=== PATIENT | male | born 1935 | race African-American/Black ===

== ENCOUNTER 2016-10-11 20:37 | Inpatient (IN) | payer MEDICARE ==
[~2016-10-11] VITALS: Ht 195.6 cm; Wt 119.0 kg
[~2016-10-11 20:37] MED LIST: AMLO5TAB2 PO; CARV6.25 PO; COLC0.6T34 PO; FLUT16SP2 NS; HTN MED; LOSA50TA6 PO; MECL25TA3 PO; NITR0.4T SL; OXYC1TAB8 PO; POTA20TA12 PO; TAMS0.4C97 PO; TORS20TA2 PO; WARF-78 PO; WARF2.5T83 PO; WARF2TAB PO; [UNRECOGNIZED DRUG - OTHER]; flomax; losartan; warfarin
[2016-10-11 21:29] LABS: BASO % 1 % (0-3); EOS % 9 % (0-3); HEMATOCRIT 33.2 % (39.0-53.0); HEMOGLOBIN 10.7 g/dL (13.0-17.5); LYMPH # 1.2 x10^3/uL (1.0-4.8); LYMPH % 26 % (24-48); MEAN CORPUSCULAR HEMOGLOBIN 31 pg (25-35); MEAN CORPUSCULAR HGB CONC 32 g/dL (31-37); MEAN CORPUSCULAR VOLUME 96 fL (79-100); MONO % 7 % (0-9); NEUT % 57 % (31-73); PLATELET COUNT 151 x10^3/uL (140-400); RED BLOOD COUNT 3.47 x10^6/uL (4.30-5.70); RED CELL DISTRIBUTION WIDTH 15.4 % (11.5-14.5); WHITE BLOOD COUNT 4.7 x10^3/uL (4.0-11.0)
[2016-10-11] MEDS ORDERED: NITROGLYCERIN SUBLINGUAL 0.4 MG BOTTLE OF 25. SL PRN ×2 (21:30→23:15)
[2016-10-11 21:36] LABS: CALCIUM 8.9 mg/dL (8.5-10.1); CREATININE 3.5 mg/dL (0.7-1.3); GFR 20.5
[2016-10-11 21:37] LABS: PROTHROMBIN TIME PATIENT 46.5 SEC (11.7-14.0)
[2016-10-11 21:38] LABS: POTASSIUM 5.3 mmol/L (3.5-5.1)
[2016-10-11 21:40] LABS: INR 5.5 (0.8-1.1)
[2016-10-11 21:42] LABS: ALBUMIN 3.9 g/dL (3.4-5.0); ALBUMIN/GLOBULIN RATIO 1.1 (1.0-1.7); TOTAL BILIRUBIN 0.4 mg/dL (0.2-1.0); TOTAL PROTEIN 7.6 g/dL (6.4-8.2)
[2016-10-11] MEDS ORDERED: ASPIRIN 325 MG TABLET PO ONE (22:00)
[2016-10-11] MEDS ORDERED: MORPHINE SULFATE 2 MG/ML DISP.SYRIN. IV PRN (23:15)
[2016-10-11] MEDS ORDERED: ACETAMINOPHEN 325 MG TABLET. PO PRN (23:15)
[2016-10-11] MEDS ORDERED: ONDANSETRON PF 4 MG/2 ML VIAL. IV PRN (23:15)
[2016-10-11 23:16] VITALS: BP 126/66
[2016-10-11 23:20] VITALS: BP 126/66
[2016-10-12] MEDS ORDERED: MAGN400T3 PO (01:06)
[2016-10-12] MEDS ORDERED: POTA20TA82 PO (01:06)
[2016-10-12] MEDS ORDERED: TORS20TA2 PO (01:06)
[2016-10-12] MEDS ORDERED: SPIR50TA2 PO (01:06)
[2016-10-12] MEDS ORDERED: HYDR-2869 PO (01:06)
[2016-10-12] MEDS ORDERED: POTA10TA5 PO (01:06)
[2016-10-12] MEDS ORDERED: FENT1PAT13 TD (01:06)
[2016-10-12] MEDS ORDERED: CARV12.52 PO (01:06)
[2016-10-12] MEDS ORDERED: LOSA100T6 PO (01:06)
[2016-10-12] MEDS ORDERED: PRAV40TA2 PO (01:06)
[2016-10-12] MEDS ORDERED: OXYC-328 PO (01:06)
--- NOTE | 2016-10-12 01:20 | PHYS DOC ---
Past Medical History Past Medical History: CHF, High Cholesterol, Hypertension Additional Past Medical Histor: chronic pain Past Surgical History: Knee Replacement, Other Additional Past Surgical Histo: Left shoulder replacement approx 10 years ; left knee ACL ; Pacemaker 2014 Alcohol Use: None Drug Use: None Adult General Chief Complaint Chief Complaint: CHEST PAIN HPI HPI Patient is a 81 year old male who presents with chest pain. The patient reports intermittent sharp substernal chest pain since yesterday. Pain is nonradiating. Associated with shortness of breath and diaphoresis, denies nausea. Denies fevers or chills, cough, increased lower extremity swelling or calf pain. Denies previous history of similar symptoms. He does have history of CHF for which he takes Lasix. Reports history of hypertension, denies diabetes, CAD, COPD/asthma. Nonsmoker. PCP is Dr. Lei Moyer & budget assistant is Dr. Sullivan. Review of Systems Review of Systems Constitutional: Denies fever or chills Eyes: Denies change in visual acuity HENT: Denies nasal congestion or sore throat Respiratory: Denies cough, reports shortness of breath Cardiovascular: Reports chest pain, denies edema GI: Denies abdominal pain, nausea, vomiting Musculoskeletal: Denies back pain or joint pain Integument: Denies rash or skin lesions Neurologic: Denies headache, focal weakness or sensory changes Current Medications Current Medications Current Medications Medications (Trade) Dose Ordered Sig/Tam Start Time Stop Time Status Last Admin Dose Admin Aspirin (Lee Aspirin) 325 mg 1X ONCE 10/11/16 22:00 10/11/16 22:01 DC 10/11/16 21:40 325 MG Nitroglycerin (Nitrostat) 0.4 mg PRN Q5MIN PRN 10/11/16 21:30 Allergies Allergies Allergies Coded Allergies Type Severity Reaction Last Updated Verified No Known Drug Allergies 07/19/13 No Physical Exam Physical Exam Constitutional: Well developed, well nourished, no acute distress, non-toxic appearance. HENT: Normocephalic, atraumatic, bilateral external ears normal, oropharynx moist, nose normal. Eyes: right eye opacification, conjunctiva normal, no discharge. Neck: supple, no stridor. Cardiovascular: RRR, no murmurs Lungs & Thorax: LCTAB, no wheezing, no respiratory distress. no reproducible tenderness with palpation over anterior chest wall. Abdomen: soft, nontender, nondistended. Skin: Warm, dry, no erythema, no rash. Back: No tenderness. Extremities: 2+ edema bilateral lower extremities without calf tenderness. Neurologic: Alert and oriented X 3, no focal deficits noted. Psychologic: Affect normal, judgement normal, mood normal. Current Patient Data Vital Signs Vital Signs Date Time Temp Pulse Resp B/P (MAP) Pulse Ox O2 Delivery O2 Flow Rate FiO2 10/11/16 22:06 60 15 107/59 (75) 97 Nasal Cannula 2.0 10/11/16 20:59 98.6 98.6 Lab Values Laboratory Tests Test 10/11/16 20:50 White Blood Count 4.7 x10^3/uL (4.0-11.0) Red Blood Count 3.47 x10^6/uL (4.30-5.70) L Hemoglobin 10.7 g/dL (13.0-17.5) L Hematocrit 33.2 % (39.0-53.0) L Mean Corpuscular Volume 96 fL (79-100) Mean Corpuscular Hemoglobin 31 pg (25-35) Mean Corpuscular Hemoglobin Concent 32 g/dL (31-37) Red Cell Distribution Width 15.4 % (11.5-14.5) H Platelet Count 151 x10^3/uL (140-400) Neutrophils (%) (Auto) 57 % (31-73) Lymphocytes (%) (Auto) 26 % (24-48) Monocytes (%) (Auto) 7 % (0-9) Eosinophils (%) (Auto) 9 % (0-3) H Basophils (%) (Auto) 1 % (0-3) Neutrophils # (Auto) 2.7 x10^3uL (1.8-7.7) Lymphocytes # (Auto) 1.2 x10^3/uL (1.0-4.8) Monocytes # (Auto) 0.3 x10^3/uL (0.0-1.1) Eosinophils # (Auto) 0.4 x10^3/uL (0.0-0.7) Basophils # (Auto) 0.0 x10^3/uL (0.0-0.2) Prothrombin Time 46.5 SEC (11.7-14.0) H Prothrombin Time INR 5.5 (0.8-1.1) *H PTT 59 SEC (24-38) H Sodium Level 141 mmol/L (136-145) Potassium Level 5.3 mmol/L (3.5-5.1) H Chloride Level 101 mmol/L (98-107) Carbon Dioxide Level 34 mmol/L (21-32) H Anion Gap 6 (6-14) Blood Urea Nitrogen 67 mg/dL (8-26) H Creatinine 3.5 mg/dL (0.7-1.3) H Estimated GFR (Cockcroft-Gault) 20.5 BUN/Creatinine Ratio 19 (6-20) Glucose Level 110 mg/dL (70-99) H Calcium Level 8.9 mg/dL (8.5-10.1) Total Bilirubin 0.4 mg/dL (0.2-1.0) Aspartate Amino Transferase (AST) 18 U/L (15-37) Alanine Aminotransferase (ALT) 17 U/L (16-63) Alkaline Phosphatase 67 U/L (46-116) Troponin I Quantitative < 0.017 ng/mL (0.000-0.055) MH-Mky-S-Type Natriuretic Peptide 231 pg/mL (0-449) Total Protein 7.6 g/dL (6.4-8.2) Albumin 3.9 g/dL (3.4-5.0) Albumin/Globulin Ratio 1.1 (1.0-1.7) Laboratory Tests 10/11/16 20:50 Laboratory Tests 10/11/16 20:50 EKG EKG interpreted by me: paced rhythm rate 64[] Radiology/Procedures Radiology/Procedures CXR, portable: interpreted by me: cardiomegaly with tortuous aorta, no infiltrate, no pneumothorax, scattered metallic foreign bodies, no acute change from 07/19/2013[] Course & Med Decision Making Course & Med Decision Making Pertinent Labs and Imaging studies reviewed. (See chart for details) The patient visits with chest pain. Gave aspirin on arrival. Administered nitroglycerin and morphine. Obtained labs, EKG, chest x-ray. No acute abnormalities identified. Patient had persistent chest pain. Creatinine increased from 1.1 in 2013 to 3.5 today. Recommended admission to the hospital for further evaluation and treatment. PAULETTE score is 4. Patient agrees with plan of care. Discussed with Dr. Castillo who agrees to admit to inpatient status , cardiology consult to Dr. Herrera & nephrology consult to Dr. Hernanedz. The patient is admitted in stable condition.[] Dragon Disclaimer Dragon Disclaimer This electronic medical record was generated, in whole or in part, using a voice recognition dictation system. Departure Departure Impression: Primary Impression: Chest pain Additional Impression: Acute renal failure Disposition: ADMITTED INPATIENT Admitting Physician: Mehul Castillo Condition: STABLE Problem Qualifiers Primary Impression: Chest pain Chest pain type: unspecified Qualified Codes: R07.9 - Chest pain, unspecified PATY POTTER MD Oct 12, 2016 01:20
[2016-10-12 03:18] VITALS: BP 120/69
[2016-10-12] MEDS: IV NORMAL SALINE 1000ML BAG 500 ML IV SCH ×4 (04:33→16:30)
--- NOTE | 2016-10-12 06:55 | EKG ---
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
[2016-10-12 07:15] VITALS: BP 109/56
--- NOTE | 2016-10-12 07:58 | EKG ---
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
[2016-10-12] MEDS ORDERED: LOSARTAN POTASSIUM 50 MG TABLET. PO SCH (09:00)
[2016-10-12] MEDS ORDERED: TORSEMIDE 20 MG TABLET. PO SCH (09:00)
[2016-10-12] MEDS ORDERED: SPIRONOLACTONE 25 MG TABLET PO SCH (09:00)
[2016-10-12] MEDS ORDERED: TAMSULOSIN 0.4 MG CAP.ER.24H. PO SCH (09:00)
[2016-10-12] MEDS: CARVEDILOL 12.5 MG TABLET. PO SCH ×2 (09:00→16:54)
[2016-10-12] MEDS: fentaNYL 12MCG/HR PATCH 1 PATCH PATCH.TD72 TD SCH (09:57)
--- NOTE | 2016-10-12 09:58 | PDOC2 ---
CARDIAC CONSULT DATE OF CONSULT Date of Consult DATE: 10/12/16 TIME: 09:37 REASON FOR CONSULT Reason for Consult: Chest pain REFERRING PHYSICIAN Referring Physician: Alexia SOURCE Source: Chart review, Patient HISTORY OF PRESENT ILLNESS HISTORY OF PRESENT ILLNESS This is a pleasant 81 yo male admitted for complains of chest pain. Reports that this was sharp started yesterday more in the epigastric-xiphoid junction. No radiation. Denies any nausea, vomiting, diarrhea, palpitations. He also has been having right arm numbness for a week now intermittently. He is significant for LTSA but at the same has OA to his left shoulder and his ROM is limited. Also yesterday, he felt a little SOA but is better now. Denies any O2 use at home, hx of COPD or JACINDA. Reports no CAD, but positive for PAFIB/OAC use. Has not had any recent stress test. Has not had any recurrence of his CP. He has been feeling bloated, edematous legs. No PND but somewhat with orthopnea. He has not been drinking as much as he could and has been compliant with his medications which include torsemide, losartan and aldactone to name a few. Reports that he did ran out of allopurinol 2 weeks ago and his gout has been bothering him. Reports that he has been on chronic use of aleve 500 mg bid. He takes 60 mg of torsemide daily at home. He follows with cardiology, last seen by Dr. Nate leonard of 2016. PAST MEDICAL HISTORY Cardiovascular: AFIB, CHF, HTN, Hyperlipidemia Pulmonary: No pertinent hx CENTRAL NERVOUS SYSTEM: Other (No pertinent history) GI: No pertinent hx Heme/Onc: Other (chronic anticoagulation) Hepatobiliary: No pertinent hx Psych: No pertinent hx Musculoskeletal: Osteoarthritis Rheumatologic: Gout Infectious disease: No pertinent hx ENT: No pertinent hx Renal/: Chronic renal insuff Endocrine: No pertinent hx Dermatology: No pertinent hx PAST SURGICAL HISTORY Past Surgical History: Pacemaker, Other (LTSA) FAMILY HISTORY Family History noncontributory to CV SOCIAL HISTORY Smoke: No ALCOHOL: none Drugs: None Lives: with Family CURRENT MEDICATIONS CURRENT MEDICATIONS Current Medications Medications (Trade) Dose Ordered Sig/Tam Route PRN Reason Start Time Stop Time Status Last Admin Dose Admin Aspirin (Lee Aspirin) 325 mg 1X ONCE PO 10/11/16 22:00 10/11/16 22:01 DC 10/11/16 21:40 Sodium Chloride 500 ml @ 100 mls/hr Q5H IV 10/12/16 01:30 10/12/16 04:33 ALLERGIES ALLERGIES: Coded Allergies: No Known Drug Allergies (Unverified , 07/19/13) ROS Review of System 14 point ROS evaluated with pertinent positives noted per HPI PHYSICAL EXAM General: Alert, Oriented X3, Cooperative, No acute distress HEENT: Atraumatic, Mucous membr. moist/pink, Other (JVD) Lungs: Other (faint basilar expiratory wheeze) Heart: Regular rate (SR), Normal S1, Normal S2, Other (distant heart sounds) Extremities: No cyanosis, Other (3+ bilateral pitting LE edema) Skin: No breakdown, No significant lesion Neuro: Normal speech, Sensation intact Psych/Mental Status: Mood NL MUSCULOSKELETAL: Osteoarthritic changes both hands VITALS VITALS Vital Signs Date Time Temp Pulse Resp B/P (MAP) Pulse Ox O2 Delivery O2 Flow Rate FiO2 10/12/16 07:15 98.0 61 18 109/56 (73) 97 Nasal Cannula 2.0 98.0 LABS Lab: Laboratory Tests Test 10/11/16 20:50 10/12/16 04:55 White Blood Count 4.7 x10^3/uL (4.0-11.0) Red Blood Count 3.47 x10^6/uL (4.30-5.70) Hemoglobin 10.7 g/dL (13.0-17.5) Hematocrit 33.2 % (39.0-53.0) Mean Corpuscular Volume 96 fL (79-100) Mean Corpuscular Hemoglobin 31 pg (25-35) Mean Corpuscular Hemoglobin Concent 32 g/dL (31-37) Red Cell Distribution Width 15.4 % (11.5-14.5) Platelet Count 151 x10^3/uL (140-400) Neutrophils (%) (Auto) 57 % (31-73) Lymphocytes (%) (Auto) 26 % (24-48) Monocytes (%) (Auto) 7 % (0-9) Eosinophils (%) (Auto) 9 % (0-3) Basophils (%) (Auto) 1 % (0-3) Neutrophils # (Auto) 2.7 x10^3uL (1.8-7.7) Lymphocytes # (Auto) 1.2 x10^3/uL (1.0-4.8) Monocytes # (Auto) 0.3 x10^3/uL (0.0-1.1) Eosinophils # (Auto) 0.4 x10^3/uL (0.0-0.7) Basophils # (Auto) 0.0 x10^3/uL (0.0-0.2) Prothrombin Time 46.5 SEC (11.7-14.0) Prothromb Time International Ratio 5.5 (0.8-1.1) Activated Partial Thromboplast Time 59 SEC (24-38) Sodium Level 141 mmol/L (136-145) Potassium Level 5.3 mmol/L (3.5-5.1) Chloride Level 101 mmol/L (98-107) Carbon Dioxide Level 34 mmol/L (21-32) Anion Gap 6 (6-14) Blood Urea Nitrogen 67 mg/dL (8-26) Creatinine 3.5 mg/dL (0.7-1.3) Estimated GFR (Cockcroft-Gault) 20.5 BUN/Creatinine Ratio 19 (6-20) Glucose Level 110 mg/dL (70-99) Calcium Level 8.9 mg/dL (8.5-10.1) Total Bilirubin 0.4 mg/dL (0.2-1.0) Aspartate Amino Transf (AST/SGOT) 18 U/L (15-37) Alanine Aminotransferase (ALT/SGPT) 17 U/L (16-63) Alkaline Phosphatase 67 U/L (46-116) Troponin I Quantitative < 0.017 ng/mL (0.000-0.055) < 0.017 ng/mL (0.000-0.055) TH-Dun-I-Type Natriuretic Peptide 231 pg/mL (0-449) Total Protein 7.6 g/dL (6.4-8.2) Albumin 3.9 g/dL (3.4-5.0) Albumin/Globulin Ratio 1.1 (1.0-1.7) ASSESSMENT/PLAN ASSESSMENT/PLAN 1. Atypical CP: doubt ACS, likely GI. Troponin series normal. EKG SR with first degree AV block/LAFB with IVCD. 2. Acute on chronic diastolic CHF: compounded by DANIS. More right sided. 3. PAFIB: SR 4. 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 Unknown brand. 5. Chronic coumadin therapy: for AFIB, stroke prevention 6. DANIS on CKD: with noted use of torsemide, aldactone, losartan, chronic aleve use, and likely inadequate PO fluid intake. 7. HTN: controlled 8. HLP 9. Right shoulder impingement syndrome: defer to PCP Recommendations 1. Will risk stratify with MPI and will rule out ischemic process 2. TTE, suspecting pulmonary HTN with undiagnosed JACINDA 3. Nephrology consult. Will defer restart of diuretics and ARB to renal 4. DC NSAIDs. uric acid level, Mg, TSH, lipids, BMP 5. Will interrogate device and obtain records from cardiology. 6. Start on PPI. IVF ongoing. Problems: RAHEEL RICE APRN Oct 12, 2016 09:58
[2016-10-12 10:27] LABS: CHOLESTEROL/HDL RATIO 5.5
[2016-10-12 11:04] LABS: BASO % 1 % (0-3); EOS % 11 % (0-3); HEMATOCRIT 30.1 % (39.0-53.0); HEMOGLOBIN 9.7 g/dL (13.0-17.5); LYMPH % 32 % (24-48); MEAN CORPUSCULAR HEMOGLOBIN 31 pg (25-35); MEAN CORPUSCULAR HGB CONC 32 g/dL (31-37); MEAN CORPUSCULAR VOLUME 96 fL (79-100); MONO % 9 % (0-9); NEUT % 48 % (31-73); PLATELET COUNT 123 x10^3/uL (140-400); RED BLOOD COUNT 3.15 x10^6/uL (4.30-5.70); RED CELL DISTRIBUTION WIDTH 15.2 % (11.5-14.5); WHITE BLOOD COUNT 3.3 x10^3/uL (4.0-11.0)
--- NOTE | 2016-10-12 11:09 | PDOC ---
Provider Note Provider Note Pt seen .H&P dictated. #[id number] DUONG ATKINSON MD Oct 12, 2016 11:09
[2016-10-12 11:13] VITALS: BP 105/60
[2016-10-12] MEDS ORDERED: REGADENOSON 0.4 MG/5 ML DISP.SYRIN. IV ONE (11:15)
[2016-10-12 11:28] LABS: CALCIUM 8.4 mg/dL (8.5-10.1); CREATININE 2.7 mg/dL (0.7-1.3); GFR 27.7
[2016-10-12 11:32] LABS: PROTHROMBIN TIME PATIENT 44.6 SEC (11.7-14.0)
[2016-10-12 11:46] LABS: INR 5.2 (0.8-1.1)
[2016-10-12] MEDS ORDERED: MAGNESIUM SULFATE 2GM 50 ML IV PRN (12:00)
--- NOTE | 2016-10-12 12:26 | EKG ---
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
--- NOTE | 2016-10-12 14:48 | RAD ---
APPROVED REPORT Test Type: Pharmacological Stress Nurse/Tech: Hoang Reyes RN Test Indications: chest pain, dyspnea Cardiac History: see ehr Medications: see ehr Medical History: see ehr Resting ECG: Paced Resting Heart Rate: 73 bpm Resting Blood Pressure: 147/65mmHg Pretest Chest Pain: None Nurse/Tech Notes Lungs CTA, S1,S2 Consent: The procedure was explained to the patient in lay terms. Informed consent was witnessed. Daniel eout was entered into [employer]. History and Stress Test performed by Hernando MurrayNReese Pharm. Details Pharmacologic stress testing was performed using 0.4mg per 5ml of regadenoson given intravenously ove r 7-10 seconds. Stress Symptoms No chest pain or symptoms. POST EXERCISE Reason for Termination: Infusion complete Max HR: 131 bpm Max Blood Pressure: 129/58mmHg Blood Pressure response to exercise: Normal blood pressure response during stress. Chest Pain: No. Arrhythmia: No. ST Change: No. INTERPRETATION Stress EKG Conclusion: No acute changes were noted. Imaging Protocol IMAGE PROTOCOL: Rest Tc-99m/stress Tc-99m 1 day Rest: Stress: Viability: Radiopharm.Tc99m HrasmwszjMe68p Sestamibi Dose11.6mCi 35.5mCi Img Date 10/12/2016 10/12/2016 Inj-Img [id number]. 60min. Rest Admin Site:IV - Right AntecubitalAdministrator:Diana De Leon, RT (R)(N) Stress Admin Site: IV - Right AntecubitalAdministrator: LEEANNA Diamond, ARRT (R)(N) STRESS DATA End Diast. Vol.128.0mlAv. Heart Rate61.0bpm End Syst. Vol.32.0mlCO Index BSA0.0L/min Myocardial Zicz147.0gEject. Ehviwjwh87.0% Stress Rates Pk. Fill Rate2.63EDV/secLVtime Pk. Fill 143.06msec Pk. Empty Rate3.62ESV/secLVtime Pk. Uuwxb107.43msec 02/09 Pk. Fill1.62EDV/sec Stress Scores Regional WT0.00Summed WT1.00 Regional WM0.00Summed WM0.00 LV Perfusion Large fixed severe in intensity inferior wall defect suggestive of diaphragmatic attenuation/motion a rtifact. Based on lack of q waves, normal wall motion in the inferior wall and preserved EF, suspect that the perfusion abnormality is an artifact. Cannot rule out prior infarct without active ischemia. LV Perf. Quant 17 Seg. SSS15.00 17 Seg. SRS15.00 17 Seg. SDS2.00 Stress Defect Extent (% LAD)6.30Rest Defect Extent (% LAD)13.10Rev. Defect Extent (% LAD)2.50 Stress Defect Extent (% LCX) 16.30Rest Defect Extent (% LCX)11.30Rev. Defect Extent (% LCX)2.50 Stress Defect Extent (% RCA)50.00Rest Defect Extent (% RCA)68.90Rev. Defect Extent (% RCA)0.00 Stress Defect Extent (% KODAK)20.90Rest Defect Extent (% KODAK)28.70Rev. Defect Extent (% KODAK)2.40 Other Information Quality:Good Risk Assessment: Low Risk Conclusion 1. No evidence of stress induced EKG changes. 2. Large fixed severe in intensity inferior wall defect suggestive of diaphragmatic attenuation/motio n artifact. 3. Based on lack of q waves, normal wall motion in the inferior wall and preserved EF, suspect that t he perfusion abnormality is an artifact. 4. Cannot rule out prior infarct without active ischemia. 5. Low risk study.
--- NOTE | 2016-10-12 14:53 | CARD ---
APPROVED REPORT EXAM: Two-dimensional and M-mode echocardiogram with Doppler and color Doppler. Other Information Quality : Fair INDICATION Chest Pain 2D DIMENSIONS RVDd3.5 (2.9-3.5cm)Left Atrium(2D)3.5 (1.6-4.0cm) IVSd1.3 (0.7-1.1cm)Aortic Root(2D)3.3 (2.0-3.7cm) LVDd4.4 (3.9-5.9cm)LVOT Diameter2.3 (1.8-2.4cm) PWd1.0 (0.7-1.1cm)LVDs2.8 (2.5-4.0cm) FS (%) 37.1 %SV59.0 ml LVEF(%)67.3 (>50%) Aortic Valve AoV Peak James.217.6cm/sAoV VTI46.5cm AO Peak GR.18.9mmHgLVOT Peak James.114.2cm/s LVOT VTI 28.42cmAO Mean GR.11mmHg LUCERO (VMAX)2.39qz6UXE (VTI)2.50cm2 Mitral Valve MV E Gladbbhb148.8cm/sMV DECEL [id number] MV A Jsgpnphr016.1cm/sMV POI49xu E/A Ratio0.9MVA (PHT)2.80cm2 TDI E/Lateral E'12.2E/Medial E'16.5 Tricuspid Valve TR P. Cldgeunm327hy/sRAP HNZUEWQV1txEe TR Peak Gr.95xkLvGOPB60ttDg Pulmonary Vein S1 Uoguyurw19.3cm/sD2 Mmuvjtyc63.5cm/s LEFT VENTRICLE The left ventricle is normal size. There is mild asymmetric septal left ventricular hypertrophy. The left ventricular systolic function is normal. The Ejection Fraction is 60-65%. There is normal LV seg mental wall motion. Transmitral Doppler flow pattern is Grade I-abnormal relaxation pattern. RIGHT VENTRICLE The right ventricle is normal size. The right ventricular systolic function is normal. There is a pac emaker lead in the right ventricle. ATRIA The left atrium size is normal. The right atrium is mildly dilated. A pacemaker is seen in the right atrium consistent with history. The interatrial septum is intact with no evidence for an atrial septa l defect or patent foramen ovale as noted on 2-D or Doppler imaging. AORTIC VALVE The aortic valve is calcified but opens well. Doppler and Color Flow revealed trace to mild aortic re gurgitation. There is no significant aortic valvular stenosis. MITRAL VALVE The mitral valve is calcified but opens well. There is no evidence of mitral valve prolapse. There is no mitral valve stenosis. Doppler and Color-flow revealed trace mitral regurgitation. TRICUSPID VALVE The tricuspid valve is normal in structure and function. Doppler and Color Flow revealed mild tricusp id regurgitation. There is moderate pulmonary hypertension. The PA pressure was estimated at 45 mmHg. There is no tricuspid valve stenosis. PULMONIC VALVE The pulmonary valve is normal in structure and function. Doppler and Color Flow revealed no pulmonic valvular regurgitation. There is no pulmonic valvular stenosis. GREAT VESSELS The aortic root is normal in size. The ascending aorta is normal in size. The IVC was not visualized. PERICARDIAL EFFUSION There is no evidence of significant pericardial effusion. Critical Notification Critical Value: No <Conclusion> The left ventricular systolic function is normal. The Ejection Fraction is 60-65%. There is normal LV segmental wall motion. A pacemaker is seen in the right atrium consistent with history. Trace to mild aortic regurgitation. Trace mitral regurgitation. Mild tricuspid regurgitation. The PA pressure was estimated at 45 mmHg. There is no evidence of significant pericardial effusion.
[2016-10-12] MEDS: ALLOPURINOL 100 MG TABLET. PO SCH (15:00)
[2016-10-12] MEDS: PANTOPRAZOLE 40 MG TABLET.DR. PO SCH (15:01)
[2016-10-12] MEDS: MAGNESIUM OXIDE 400 MG TABLET PO SCH (15:07)
[2016-10-12 15:10] VITALS: BP 92/47
--- NOTE | 2016-10-12 15:19 | RAD ---
Indication acute renal insufficiency superimposed on chronic disease. Grayscale images targeted to the kidneys were obtained. The right kidney measures approximately 11.2 x 6.1 x 6.3 cm. No hydronephrosis or solid mass is seen associated with the kidney. The left kidney measures 11.4 x 5.1 x 6.8 cm. No hydronephrosis or solid mass is seen. There is a hypoechoic 1.8 cm mass palpable with a cyst. The urinary bladder appeared grossly normal. IMPRESSION: No hydronephrosis or solid mass seen associated with either kidney. Small left renal cyst
--- NOTE | 2016-10-12 18:03 | HP ---
ADMIT DATE: 10/12/2016 LOCATION: 204. ATTENDING PHYSICIAN: Dr. Atkinson. PRIMARY CARE PHYSICIAN: Dr. Moyer. REASON FOR ADMISSION TO THE HOSPITAL: Chest pain. HISTORY OF PRESENT ILLNESS: The patient has a history of a pacemaker, is on Coumadin for AFib and was having chest pain, mostly in the epigastric xiphoid junction, came to the Emergency Room, was admitted because of risk factors of hypertension, AFib, and pacemaker. PAST MEDICAL HISTORY: Has hypertension; hyperlipidemia; AFib; CHF, chronic systolic and he also has chronic renal insufficiency, creatinine is around 2.0, his baseline; arthritis; gout. PAST SURGICAL HISTORY: Pacemaker, left knee replacement. SOCIAL HISTORY: No history of smoking, alcohol or drug abuse. ALLERGIES: No known allergies. MEDICATIONS AT HOME: The patient is on Coumadin 5 mg daily, potassium 20 mEq daily, Coreg 12.5 twice a day, fentanyl patch once every 3 days 12 mcg, hydralazine 1 tablet 3 times daily 50 mg, losartan 100 mg daily, magnesium 400 mg 3 times daily, Percocet 10/325 q. 6, pravastatin 40 mg daily, spironolactone 50 mg daily, Flomax 0.4 daily, torsemide 20 mg tablets, takes 100 mg daily. FAMILY HISTORY: Positive for heart problems, arthritis, hypertension. REVIEW OF SYSTEMS: CARDIAC: Epigastric pain. GASTROINTESTINAL: No nausea and vomiting. NEUROLOGICAL: No weakness. The rest of the 14 systems was reviewed and negative. PHYSICAL EXAMINATION: GENERAL: The patient is not in any distress. VITAL SIGNS: At the time of admission shows temperature 98, pulse 69, respirations 18, blood pressure 145/81, 95% on room air. HEENT: Head is atraumatic. Pupils are equal. Oral cavity: No congestion. NECK: Supple. Thyroid not enlarged. JVD not elevated. CHEST: Asymmetrical. He has a pacemaker in left side of the chest. CARDIOVASCULAR: S1, S2. LUNGS: Clear. ABDOMEN: Slight tenderness in the epigastric area. Bowel sounds present, no mass palpable. EXTERNAL GENITALIA: No [place]. RECTAL: Deferred. EXTREMITIES: The patient has a scar in the left knee from knee replacement, 1+ edema and moving all extremities. NEUROLOGIC: No focal deficit noted. LABORATORY DATA: Shows a white count of 4.7, hemoglobin 10.7, platelets 151. Electrolytes show sodium 141, potassium 5.3, chloride 101, bicarbonate 34, BUN 67, creatinine 3.5, glucose 110. Troponin was negative. Magnesium 2.5. INR was high at 5.5. Had a chest x-ray, no acute process in the chest. Ultrasound of the kidneys was negative. FINAL IMPRESSION: 1. Chest pain for further cardiac evaluation. 2. History of atrial fibrillation, on Coumadin for anticoagulation. 3. Pacemaker for sick sinus syndrome. 4. Hypertension. 5. Chronic renal failure, stage 4. 6. History of gout. PLAN: At this time, was admitted to the hospital. The patient's INR was high, hold Coumadin, stress test to see left ventricular function, if there is any ischemia. Ultrasound of the kidneys negative for obstruction. We will hold off on diuretics and give cautious hydration and see how the kidney function improves, renal consult and see how the patient's condition improves. DUONG ATKINSON MD DR: ASTRID/madalyn JOB#: [id number] / [id number] MADHAVI Julien
--- NOTE | 2016-10-12 18:35 | PDOC2 ---
CONSULT Date of Consult Date of Consult DATE: 10/12/16 TIME: 18:24 Reason for Consult Reason for Consult: DANIS/ CKD III Referring Physician Referring Physician: Dr Castillo Identification/Chief Complaint Chief Complaint CP Problems: Source Source: Chart review ([facility] Charts reviewed), Patient History of Present Illness Reason for Visit: as dictated Past Medical History Cardiovascular: AFIB, CHF, HTN, Hyperlipidemia Pulmonary: No pertinent hx CENTRAL NERVOUS SYSTEM: Other (No pertinent history) GI: No pertinent hx Heme/Onc: Other (chronic anticoagulation) Hepatobiliary: No pertinent hx Psych: No pertinent hx Musculoskeletal: Osteoarthritis Rheumatologic: Gout Infectious disease: No pertinent hx ENT: No pertinent hx Renal/: Chronic renal insuff Endocrine: No pertinent hx Dermatology: No pertinent hx Past Surgical History Past Surgical History: Pacemaker, Other (LTSA) Family History Family History: Family History Unknown Social History No ALCOHOL: none Drugs: None Lives: with Family Current Problem List Problem List Problems Medical Problems: (1) Acute renal failure Status: Acute (2) Chest pain Status: Acute Current Medications Current Medications Current Medications Aspirin (Lee Aspirin) 325 mg 1X ONCE PO Last administered on 10/11/16 21:40 ; Start 10/11/16 at 22:00; Stop 10/11/16 at 22:01; Status DC Nitroglycerin (Nitrostat) 0.4 mg PRN Q5MIN PRN SL CHEST PAIN; Start 10/11/16 at 21:30 Ondansetron HCl (Zofran) 4 mg PRN Q8HRS PRN IV NAUSEA/VOMITING; Start 10/11/16 at 23:15; Stop 10/12/16 at 23:14 Morphine Sulfate 2 mg PRN Q2HR PRN IV SEVERE PAIN; Start 10/11/16 at 23:15; Stop 10/12/16 at 23:14 Acetaminophen (Tylenol) 650 mg PRN Q4HRS PRN PO FEVER; Start 10/11/16 at 23:15; Stop 10/12/16 at 23:14 Nitroglycerin (Nitrostat) 0.4 mg PRN Q5MIN PRN SL CHEST PAIN; Start 10/11/16 at 23:15; Stop 10/12/16 at 23:14 Sodium Chloride 500 ml @ 100 mls/hr Q5H IV Last administered on 10/12/16 04:33 ; Start 10/12/16 at 01:30 Carvedilol (Coreg) 12.5 mg BIDWMEALS PO ; Start 10/12/16 at 09:00 Fentanyl (Duragesic 12mcg/ Hr Patch) 1 patch Q72H TD Last administered on 09:57; Start 10/12/16 at 09:00 Hydralazine HCl (Apresoline) 50 mg TID PO ; Start 10/12/16 at 09:00 Magnesium Oxide (Magnesium Oxide) 400 mg DAILY PO Last administered on 15:07; Start 10/12/16 at 09:00 Oxycodone/ Acetaminophen (Percocet 10/325) 1 tab QID PRN PO PAIN; Start at 09:00 Tamsulosin HCl (Flomax) 0.4 mg DAILY PO Last administered on 10/12/16 15:01; Start 10/12/16 at 09:00 Torsemide (Demadex) 100 mg DAILY PO ; Start 10/12/16 at 09:00; Stop 10/12/16 at 09 :15; Status DC Losartan Potassium (Cozaar) 100 mg DAILY PO ; Start 10/12/16 at 09:00; Stop at 09:15; Status DC Atorvastatin Calcium (Lipitor) 10 mg QHS PO ; Start 10/12/16 at 21:00 Spironolactone (Aldactone) 50 mg DAILY PO ; Start 10/12/16 at 09:00; Stop at 09:15; Status DC Pantoprazole Sodium (Protonix) 40 mg DAILYAC PO Last administered on 10/12/16 15:01; Start 10/12/16 at 11:00 Regadenoson (Lexiscan) 0.4 mg 1X ONCE IV Last administered on 10/12/16 12:49; Start 10/12/16 at 11:15; Stop 10/12/16 at 11:16; Status DC Magnesium Sulfate/ Dextrose 50 ml @ 25 mls/hr PRN DAILY PRN IV for Mag < 1.7 on am labs; Start 10/12/16 at 12:00 Allopurinol (Zyloprim) 100 mg DAILY PO Last administered on 10/12/16 15:00; Start 10/12/16 at 12:30 Active Scripts Active Reported FENTANYL 12mcg/hr (Fentanyl) 1 Each Patch.td72 1 Patch TD Q72H Klor-Con 10 (Potassium Chloride) 10 Meq Tablet.er 10 Meq PO DAILY16 Potassium Chloride 20 Meq Tablet.er 20 Meq PO DAILY Losartan Potassium 100 Mg Tablet 100 Mg PO DAILY Carvedilol 12.5 Mg Tablet 12.5 Mg PO BIDWMEALS Percocet 10-325 Mg Tablet (Oxycodone/Acetaminophen) 1 Each Tablet 1 Tab PO Q4- 6HRS Spironolactone 50 Mg Tablet 50 Mg PO DAILY Torsemide 20 Mg Tablet 100 Mg PO Hydralazine Hcl 50 Mg Tablet 1 Tab PO TID Magnesium Oxide 400 Mg Tablet 1 Tab PO DAILY Pravastatin Sodium 40 Mg Tablet 1 Tab PO QHS Flomax (Tamsulosin Hcl) 0.4 Mg Cap.er.24h 0.4 Mg PO Coumadin (Warfarin Sodium) 5 Mg Tablet 5 Mg PO DAILY Allergies Allergies: Coded Allergies: No Known Drug Allergies (Unverified , 07/19/13) ROS Review of System GEN: no Fevers no Chills EYES: no Visual Complaints ENT: no EN Drainage no Hearing deficiets CVS: no Orthopnea no CP RESP: subj SOB ? ARREOLA GI: no Nausea no Vomiting : no Dysuria occ Urgency + Nocturia HEME: no easy bruising no Palp Ly Nodes NEURO no Focal Weakness no Sz PSYCH: no Suicidal Ideation no Depression SKIN: no Rashes ENDO: no Polyuria or Polydipsia no Hot/Cold Intolerance MU SK: + Arthraigia no Myalgia Physical Exam Physical Exam General Appearance: Awake Alert Oriented x 3 In no Distress Eyes: VIsion Unchanged Conjunctiva Normal; Rt Eye Blind EN: No EN Drainage Mucous Memb. moist Neck: no JVD min JVP Supple no Thyromegaly CVS: S1 S2 ? Murmur No Gallop No Rub Tr Edema Resp: ? Rales no Rhonchi no Acc. Muscle use GI: BAS +ve NO Bruit Non Tender Non Distended Obese : no CVA tenderness; no Suprapubic Tenderness SKIN: no Rashes Breast Exam deferred Mu.Sk: Adequate ROM no Muscle Atrophy Heme: Unable to palpate Obvious LAD no Splenomegaly NEURO: Good Strength and Tone Cranial Nerves II - XII grossly intact Psych: ? Depressed no Active hallucination Vital Signs Vital Signs Date Time Temp Pulse Resp B/P (MAP) Pulse Ox O2 Delivery O2 Flow Rate FiO2 9/5/17 16:54 68 92/47 10/12/16 15:10 98.7 18 99 Nasal Cannula 2.0 98.7 Assessment & Plan DANIS - VMN from NSAIDs and low BP, vol depletion: Current FLuid and E-lyte status does not necessitate emergent need for Dialysis. Will re-evaluate for Dialysis in am - Doubt ATn currently pneding UA Anemia: Check [place]; Epogen if needed, Transfuse as needed. Vol depletion - Creat better with IVF Contraction Alkalosis - IV NS as ordered Subj SOb - suspect more asso with Vol depeltion asso Fatigue HypoTN: May be contributing to fatigue too. hold BP Meds reviewed. IVf as ordered Oliguria - ? due to Vol depeliton Urinary Issues with LUTS - check PVR - may need URO toeval HyperUricemia - IVF Bone & Mineral: Discussed Plan of Care and prognosis etc. at length with family. Labs Labs Laboratory Tests Test 10/11/16 20:50 10/12/16 04:55 10/12/16 10:55 10/12/16 11:50 White Blood Count 4.7 x10^3/uL (4.0-11.0) 3.3 x10^3/uL (4.0-11.0) Red Blood Count 3.47 x10^6/uL (4.30-5.70) 3.15 x10^6/uL (4.30-5.70) Hemoglobin 10.7 g/dL (13.0-17.5) 9.7 g/dL (13.0-17.5) Hematocrit 33.2 % (39.0-53.0) 30.1 % (39.0-53.0) Mean Corpuscular Volume 96 fL (79-100) 96 fL (79-100) Mean Corpuscular Hemoglobin 31 pg (25-35) 31 pg (25-35) Mean Corpuscular Hemoglobin Concent 32 g/dL (31-37) 32 g/dL (31-37) Red Cell Distribution Width 15.4 % (11.5-14.5) 15.2 % (11.5-14.5) Platelet Count 151 x10^3/uL (140-400) 123 x10^3/uL (140-400) Neutrophils (%) (Auto) 57 % (31-73) 48 % (31-73) Lymphocytes (%) (Auto) 26 % (24-48) 32 % (24-48) Monocytes (%) (Auto) 7 % (0-9) 9 % (0-9) Eosinophils (%) (Auto) 9 % (0-3) 11 % (0-3) Basophils (%) (Auto) 1 % (0-3) 1 % (0-3) Neutrophils # (Auto) 2.7 x10^3uL (1.8-7.7) 1.6 x10^3uL (1.8-7.7) Lymphocytes # (Auto) 1.2 x10^3/uL (1.0-4.8) 1.0 x10^3/uL (1.0-4.8) Monocytes # (Auto) 0.3 x10^3/uL (0.0-1.1) 0.3 x10^3/uL (0.0-1.1) Eosinophils # (Auto) 0.4 x10^3/uL (0.0-0.7) 0.4 x10^3/uL (0.0-0.7) Basophils # (Auto) 0.0 x10^3/uL (0.0-0.2) 0.0 x10^3/uL (0.0-0.2) Prothrombin Time 46.5 SEC (11.7-14.0) 44.6 SEC (11.7-14.0) Prothromb Time International Ratio 5.5 (0.8-1.1) 5.2 (0.8-1.1) Activated Partial Thromboplast Time 59 SEC (24-38) Sodium Level 141 mmol/L (136-145) 142 mmol/L (136-145) Potassium Level 5.3 mmol/L (3.5-5.1) 5.0 mmol/L (3.5-5.1) Chloride Level 101 mmol/L (98-107) 105 mmol/L (98-107) Carbon Dioxide Level 34 mmol/L (21-32) 33 mmol/L (21-32) Anion Gap 6 (6-14) 4 (6-14) Blood Urea Nitrogen 67 mg/dL (8-26) 58 mg/dL (8-26) Creatinine 3.5 mg/dL (0.7-1.3) 2.7 mg/dL (0.7-1.3) Estimated GFR (Cockcroft-Gault) 20.5 27.7 BUN/Creatinine Ratio 19 (6-20) Glucose Level 110 mg/dL (70-99) 100 mg/dL (70-99) Calcium Level 8.9 mg/dL (8.5-10.1) 8.4 mg/dL (8.5-10.1) Total Bilirubin 0.4 mg/dL (0.2-1.0) Aspartate Amino Transf (AST/SGOT) 18 U/L (15-37) Alanine Aminotransferase (ALT/SGPT) 17 U/L (16-63) Alkaline Phosphatase 67 U/L (46-116) Troponin I Quantitative < 0.017 ng/mL (0.000-0.055) < 0.017 ng/mL (0.000-0.055) < 0.017 ng/mL (0.000-0.055) EI-Qpd-F-Type Natriuretic Peptide 231 pg/mL (0-449) Total Protein 7.6 g/dL (6.4-8.2) Albumin 3.9 g/dL (3.4-5.0) Albumin/Globulin Ratio 1.1 (1.0-1.7) Uric Acid 13.0 mg/dL (3.5-7.2) Magnesium Level 2.9 mg/dL (1.8-2.4) Triglycerides Level 117 mg/dL (0-150) Cholesterol Level 153 mg/dL (0-200) LDL Cholesterol, Calculated 102 mg/dL (0-100) VLDL Cholesterol, Calculated 23 mg/dL (0-40) Non-HDL Cholesterol Calculated 125 mg/dL (0-129) HDL Cholesterol 28 mg/dL (40-60) Cholesterol/HDL Ratio 5.5 Thyroid Stimulating Hormone (TSH) 1.461 uIU/mL (0.358-3.74) Glucose (Fingerstick) 94 mg/dL (70-99) Laboratory Tests Test 10/11/16 20:50 10/12/16 04:55 10/12/16 10:55 10/12/16 11:50 White Blood Count 4.7 x10^3/uL (4.0-11.0) 3.3 x10^3/uL (4.0-11.0) Red Blood Count 3.47 x10^6/uL (4.30-5.70) 3.15 x10^6/uL (4.30-5.70) Hemoglobin 10.7 g/dL (13.0-17.5) 9.7 g/dL (13.0-17.5) Hematocrit 33.2 % (39.0-53.0) 30.1 % (39.0-53.0) Mean Corpuscular Volume 96 fL (79-100) 96 fL (79-100) Mean Corpuscular Hemoglobin 31 pg (25-35) 31 pg (25-35) Mean Corpuscular Hemoglobin Concent 32 g/dL (31-37) 32 g/dL (31-37) Red Cell Distribution Width 15.4 % (11.5-14.5) 15.2 % (11.5-14.5) Platelet Count 151 x10^3/uL (140-400) 123 x10^3/uL (140-400) Neutrophils (%) (Auto) 57 % (31-73) 48 % (31-73) Lymphocytes (%) (Auto) 26 % (24-48) 32 % (24-48) Monocytes (%) (Auto) 7 % (0-9) 9 % (0-9) Eosinophils (%) (Auto) 9 % (0-3) 11 % (0-3) Basophils (%) (Auto) 1 % (0-3) 1 % (0-3) Neutrophils # (Auto) 2.7 x10^3uL (1.8-7.7) 1.6 x10^3uL (1.8-7.7) Lymphocytes # (Auto) 1.2 x10^3/uL (1.0-4.8) 1.0 x10^3/uL (1.0-4.8) Monocytes # (Auto) 0.3 x10^3/uL (0.0-1.1) 0.3 x10^3/uL (0.0-1.1) Eosinophils # (Auto) 0.4 x10^3/uL (0.0-0.7) 0.4 x10^3/uL (0.0-0.7) Basophils # (Auto) 0.0 x10^3/uL (0.0-0.2) 0.0 x10^3/uL (0.0-0.2) Prothrombin Time 46.5 SEC (11.7-14.0) 44.6 SEC (11.7-14.0) Prothromb Time International Ratio 5.5 (0.8-1.1) 5.2 (0.8-1.1) Activated Partial Thromboplast Time 59 SEC (24-38) Sodium Level 141 mmol/L (136-145) 142 mmol/L (136-145) Potassium Level 5.3 mmol/L (3.5-5.1) 5.0 mmol/L (3.5-5.1) Chloride Level 101 mmol/L (98-107) 105 mmol/L (98-107) Carbon Dioxide Level 34 mmol/L (21-32) 33 mmol/L (21-32) Anion Gap 6 (6-14) 4 (6-14) Blood Urea Nitrogen 67 mg/dL (8-26) 58 mg/dL (8-26) Creatinine 3.5 mg/dL (0.7-1.3) 2.7 mg/dL (0.7-1.3) Estimated GFR (Cockcroft-Gault) 20.5 27.7 BUN/Creatinine Ratio 19 (6-20) Glucose Level 110 mg/dL (70-99) 100 mg/dL (70-99) Calcium Level 8.9 mg/dL (8.5-10.1) 8.4 mg/dL (8.5-10.1) Total Bilirubin 0.4 mg/dL (0.2-1.0) Aspartate Amino Transf (AST/SGOT) 18 U/L (15-37) Alanine Aminotransferase (ALT/SGPT) 17 U/L (16-63) Alkaline Phosphatase 67 U/L (46-116) Troponin I Quantitative < 0.017 ng/mL (0.000-0.055) < 0.017 ng/mL (0.000-0.055) < 0.017 ng/mL (0.000-0.055) LD-Aui-U-Type Natriuretic Peptide 231 pg/mL (0-449) Total Protein 7.6 g/dL (6.4-8.2) Albumin 3.9 g/dL (3.4-5.0) Albumin/Globulin Ratio 1.1 (1.0-1.7) Uric Acid 13.0 mg/dL (3.5-7.2) Magnesium Level 2.9 mg/dL (1.8-2.4) Triglycerides Level 117 mg/dL (0-150) Cholesterol Level 153 mg/dL (0-200) LDL Cholesterol, Calculated 102 mg/dL (0-100) VLDL Cholesterol, Calculated 23 mg/dL (0-40) Non-HDL Cholesterol Calculated 125 mg/dL (0-129) HDL Cholesterol 28 mg/dL (40-60) Cholesterol/HDL Ratio 5.5 Thyroid Stimulating Hormone (TSH) 1.461 uIU/mL (0.358-3.74) Glucose (Fingerstick) 94 mg/dL (70-99) Images Images Grayscale images targeted to the kidneys were obtained. The right kidney measures approximately 11.2 x 6.1 x 6.3 cm. No hydronephrosis or solid mass is seen associated with the kidney. The left kidney measures 11.4 x 5.1 x 6.8 cm. No hydronephrosis or solid mass is seen. There is a hypoechoic 1.8 cm mass palpable with a cyst. The urinary bladder appeared grossly normal. IMPRESSION: No hydronephrosis or solid mass seen associated with either kidney. Small left renal cyst BOAZ HINSON MD Oct 12, 2016 18:35
[2016-10-12 19:30] VITALS: BP 122/63
[2016-10-12 19:44] LABS: % SAT IRON 19 % (15-34); IRON,SERUM 49 ug/dL (65-175)
[2016-10-12] MEDS: IV NORMAL SALINE 1000ML BAG 1,000 ML IV SCH (20:46)
[2016-10-12] MEDS: ATORVASTATIN CALCIUM 10 MG TABLET. PO SCH (20:46)
[2016-10-12] MEDS: oxyCODONE/APAP 10/325 1 TAB TABLET PO PRN (20:47)
[2016-10-12 22:39] VITALS: BP 110/60
--- NOTE | 2016-10-13 01:39 | CONS ---
DATE OF CONSULTATION: PRIMARY PHYSICIAN: Mehul Castillo M.D. REASON FOR CONSULTATION: Acute renal failure. HISTORY OF PRESENT ILLNESS: The patient is a 81-year-old -[place] gentleman whose last creatinine in our system was 1.1 as of November 2013, i.e., about 3 years ago. He, however, has been getting most of his care at [facility], and reviewing Cardiology notes, it appears that he has been diagnosed with CKD stage 3 with what appears to be creatinines of about 2.1 as far back as 2014. He is not aware of known renal insufficiency. The patient presented to the ER with increasing fatigue. He, however, called it some amount of shortness of breath. He also had some chest pain. He was admitted to the hospital for further evaluation. His blood pressures have been running currently on the low side. He does have some orthostasis. He has difficulty urinating. He does have nocturia ongoing. Renal sonogram was nonrevealing. He is felt to have heart failure with preserved EF and diastolic dysfunction. Creatinine at presentation was 3.5 and is now down to 2.7 with IV fluids. Blood pressures continue to remain somewhat on the low side currently. In this setting, we were asked to see him for further evaluation. For rest of details, see electronic records. BOAZ HINSON MD DR: MIKAEL/madalyn JOB#: [id number] / [id number]
[2016-10-13 03:52] VITALS: BP 121/61
[2016-10-13] MEDS: oxyCODONE/APAP 10/325 1 TAB TABLET PO PRN ×3 (04:35→16:31)
[2016-10-13 05:44] LABS: BASO % 1 % (0-3); EOS % 11 % (0-3); HEMATOCRIT 29.4 % (39.0-53.0); HEMOGLOBIN 9.7 g/dL (13.0-17.5); LYMPH # 1.1 x10^3/uL (1.0-4.8); LYMPH % 29 % (24-48); MEAN CORPUSCULAR HEMOGLOBIN 31 pg (25-35); MEAN CORPUSCULAR HGB CONC 33 g/dL (31-37); MEAN CORPUSCULAR VOLUME 95 fL (79-100); MONO % 8 % (0-9); NEUT % 52 % (31-73); PLATELET COUNT 115 x10^3/uL (140-400); RED CELL DISTRIBUTION WIDTH 15.1 % (11.5-14.5); WHITE BLOOD COUNT 3.7 x10^3/uL (4.0-11.0)
[2016-10-13] MEDS: IV NORMAL SALINE 1000ML BAG 1,000 ML IV SCH (05:53)
[2016-10-13 06:13] LABS: ALBUMIN 3.1 g/dL (3.4-5.0); CREATININE 2.2 mg/dL (0.7-1.3); GFR 35.1; PHOSPHORUS 3.1 mg/dL (2.6-4.7); POTASSIUM 4.8 mmol/L (3.5-5.1)
[2016-10-13 07:00] VITALS: BP 136/63
[2016-10-13 07:11] LABS: BILIRUBIN,URINE NEGATIVE (NEG); GLUCOSE,URINE NEGATIVE (NEG); NITRITE,URINE NEGATIVE (NEG); PH,URINE 7.5; PROTEIN,URINE NEGATIVE (NEG-TRACE); RBC,URINE OCC /HPF (0-2)
[2016-10-13 07:12] LABS: BACTERIA,URINE 0 /HPF (0-FEW); SQUAMOUS EPITHELIAL CELL,UR FEW /LPF; WBC,URINE 0 /HPF (0-4)
[2016-10-13 07:44] LABS: PROTHROMBIN TIME PATIENT 39.8 SEC (11.7-14.0)
[2016-10-13 07:45] LABS: INR 4.5 (0.8-1.1)
[2016-10-13] MEDS: PANTOPRAZOLE 40 MG TABLET.DR. PO SCH (08:30)
[2016-10-13] MEDS: TAMSULOSIN 0.4 MG CAP.ER.24H. PO SCH (08:30)
[2016-10-13] MEDS: MAGNESIUM OXIDE 400 MG TABLET PO SCH (08:31)
[2016-10-13] MEDS: ALLOPURINOL 100 MG TABLET. PO SCH (08:31)
[2016-10-13] MEDS: CARVEDILOL 12.5 MG TABLET. PO SCH ×2 (08:31→16:30)
--- NOTE | 2016-10-13 10:53 | PDOC ---
PROGRESS NOTES Subjective Subjective c/o back pain Objective Objective Vital Signs Date Time Temp Pulse Resp B/P (MAP) Pulse Ox O2 Delivery O2 Flow Rate FiO2 10/13/16 10:34 16 96 Room Air 10/13/16 08:31 61 136/63 10/13/16 07:00 97.8 97.8 10/13/16 04:35 2.0 Physical Exam Heart: Regular rate (SR), Normal S1, Normal S2, Other (distant heart sounds) Extremities: No cyanosis, Other (3+ bilateral pitting LE edema) General: Alert, Oriented X3, Cooperative, No acute distress HEENT: Atraumatic, Mucous membr. moist/pink, Other (JVD) Lungs: Other (faint basilar expiratory wheeze) MUSCULOSKELETAL: Osteoarthritic changes both hands Neuro: Normal speech, Sensation intact Psych/Mental Status: Mood NL Skin: No breakdown, No significant lesion Diagnosis Problem List Problems Medical Problems: (1) Acute renal failure Status: Acute (2) Chest pain Status: Acute Assessment Assessment Problems Medical Problems: (1) Acute renal failure Status: Acute (2) Chest pain Status: Acute FINAL IMPRESSION: 1. Chest pain for further cardiac evaluation. 2. History of atrial fibrillation, on Coumadin for anticoagulation. 3. Pacemaker for sick sinus syndrome. 4. Hypertension. 5. Chronic renal failure, stage 4. 6. History of gout. 7.Back pain PLAN: rehab consult fo rback pain ECHO good LVF 60 % Stress test -ve for ischemia. sono kidneys neg cr 2.5 trending down, baseline 2.0 iv hydration home in 1-2 days. inr 4.0 trending down ,hold coumadin. At this time, was admitted to the hospital. The patient's INR was high, hold Coumadin, stress test to see left ventricular function, if there is any ischemia. Ultrasound of the kidneys negative for obstruction. We will hold off on diuretics and give cautious hydration and see how the kidney function improves, renal consult and see how the patient's condition improves. Problems: Plan Plan of Care Problems Medical Problems: (1) Acute renal failure Status: Acute (2) Chest pain Status: Acute Comment Review of Relevant I have reviewed the following items joanne (where applicable) has been applied. Labs Laboratory Tests Test 10/12/16 10:55 10/12/16 11:50 10/12/16 16:55 10/13/16 05:04 White Blood Count 3.3 x10^3/uL (4.0-11.0) Red Blood Count 3.15 x10^6/uL (4.30-5.70) Hemoglobin 9.7 g/dL (13.0-17.5) Hematocrit 30.1 % (39.0-53.0) Mean Corpuscular Volume 96 fL (79-100) Mean Corpuscular Hemoglobin 31 pg (25-35) Mean Corpuscular Hemoglobin Concent 32 g/dL (31-37) Red Cell Distribution Width 15.2 % (11.5-14.5) Platelet Count 123 x10^3/uL (140-400) Neutrophils (%) (Auto) 48 % (31-73) Lymphocytes (%) (Auto) 32 % (24-48) Monocytes (%) (Auto) 9 % (0-9) Eosinophils (%) (Auto) 11 % (0-3) Basophils (%) (Auto) 1 % (0-3) Neutrophils # (Auto) 1.6 x10^3uL (1.8-7.7) Lymphocytes # (Auto) 1.0 x10^3/uL (1.0-4.8) Monocytes # (Auto) 0.3 x10^3/uL (0.0-1.1) Eosinophils # (Auto) 0.4 x10^3/uL (0.0-0.7) Basophils # (Auto) 0.0 x10^3/uL (0.0-0.2) Prothrombin Time 44.6 SEC (11.7-14.0) Prothromb Time International Ratio 5.2 (0.8-1.1) Sodium Level 142 mmol/L (136-145) Potassium Level 5.0 mmol/L (3.5-5.1) Chloride Level 105 mmol/L (98-107) Carbon Dioxide Level 33 mmol/L (21-32) Anion Gap 4 (6-14) Blood Urea Nitrogen 58 mg/dL (8-26) Creatinine 2.7 mg/dL (0.7-1.3) Estimated GFR (Cockcroft-Gault) 27.7 Glucose Level 100 mg/dL (70-99) Calcium Level 8.4 mg/dL (8.5-10.1) Troponin I Quantitative < 0.017 ng/mL (0.000-0.055) Glucose (Fingerstick) 94 mg/dL (70-99) Reticulocyte Count (auto) 0.4 % (0.5-2.5) Iron Level 49 ug/dL (65-175) Total Iron Binding Capacity 260 ug/dL (250-450) Iron Saturation 19 % (15-34) Ferritin 56 ng/mL (26-388) Urine Collection Type Unknown Urine Color Yellow Urine Clarity Clear Urine pH 7.5 Urine Specific [place] 1.015 Urine Protein Negative mg/dL (NEG-TRACE) Urine Glucose (UA) Negative mg/dL (NEG) Urine Ketones (Stick) Negative mg/dL (NEG) Urine Blood Negative (NEG) Urine Nitrite Negative (NEG) Urine Bilirubin Negative (NEG) Urine Urobilinogen Dipstick 1.0 mg/dL (0.2 mg/dL) Urine Leukocyte Esterase Negative (NEG) Urine RBC Occ /HPF (0-2) Urine WBC 0 /HPF (0-4) Urine Squamous Epithelial Cells Few /LPF Urine Bacteria 0 /HPF (0-FEW) Test 10/13/16 05:20 White Blood Count 3.7 x10^3/uL (4.0-11.0) Red Blood Count 3.10 x10^6/uL (4.30-5.70) Hemoglobin 9.7 g/dL (13.0-17.5) Hematocrit 29.4 % (39.0-53.0) Mean Corpuscular Volume 95 fL (79-100) Mean Corpuscular Hemoglobin 31 pg (25-35) Mean Corpuscular Hemoglobin Concent 33 g/dL (31-37) Red Cell Distribution Width 15.1 % (11.5-14.5) Platelet Count 115 x10^3/uL (140-400) Neutrophils (%) (Auto) 52 % (31-73) Lymphocytes (%) (Auto) 29 % (24-48) Monocytes (%) (Auto) 8 % (0-9) Eosinophils (%) (Auto) 11 % (0-3) Basophils (%) (Auto) 1 % (0-3) Neutrophils # (Auto) 1.9 x10^3uL (1.8-7.7) Lymphocytes # (Auto) 1.1 x10^3/uL (1.0-4.8) Monocytes # (Auto) 0.3 x10^3/uL (0.0-1.1) Eosinophils # (Auto) 0.4 x10^3/uL (0.0-0.7) Basophils # (Auto) 0.0 x10^3/uL (0.0-0.2) Prothrombin Time 39.8 SEC (11.7-14.0) Prothromb Time International Ratio 4.5 (0.8-1.1) Sodium Level 143 mmol/L (136-145) Potassium Level 4.8 mmol/L (3.5-5.1) Chloride Level 107 mmol/L (98-107) Carbon Dioxide Level 31 mmol/L (21-32) Anion Gap 5 (6-14) Blood Urea Nitrogen 45 mg/dL (8-26) Creatinine 2.2 mg/dL (0.7-1.3) Estimated GFR (Cockcroft-Gault) 35.1 Glucose Level 105 mg/dL (70-99) Calcium Level 8.0 mg/dL (8.5-10.1) Phosphorus Level 3.1 mg/dL (2.6-4.7) Magnesium Level 2.6 mg/dL (1.8-2.4) Albumin 3.1 g/dL (3.4-5.0) Medications Current Medications Allopurinol (Zyloprim) 100 mg DAILY PO Last administered on 10/13/16 08:31; Start 10/12/16 at 12:30 Atorvastatin Calcium (Lipitor) 10 mg QHS PO Last administered on 10/12/16 20:46 ; Start 10/12/16 at 21:00 Magnesium Sulfate/ Dextrose 50 ml @ 25 mls/hr PRN DAILY PRN IV for Mag < 1.7 on am labs; Start 10/12/16 at 12:00 Pantoprazole Sodium (Protonix) 40 mg DAILYAC PO Last administered on 10/13/16 08:30; Start 10/12/16 at 11:00 Regadenoson (Lexiscan) 0.4 mg 1X ONCE IV Last administered on 10/12/16 12:49; Start 10/12/16 at 11:15; Stop 10/12/16 at 11:16; Status DC Sodium Chloride 1,000 ml @ 100 mls/hr Q10H IV Last administered on 10/13/16 05 :53; Start 10/12/16 at 20:00 Tamsulosin HCl (Flomax) 0.8 mg DAILY PO Last administered on 10/13/16 08:30; Start 10/13/16 at 09:00 Vitals/I & O Vital Sign - Last 24 Hours 10/12/16 10/12/16 10/12/16 10/12/16 11:13 14:00 14:10 15:10 Temp 97.3 98.7 97.3 98.7 Pulse 60 98 68 Resp 20 18 B/P (MAP) 105/60 (75) 92/47 92/47 (62) Pulse Ox 99 99 O2 Delivery Nasal Cannula Nasal Cannula Nasal Cannula O2 Flow Rate 2.0 2.0 2.0 10/12/16 10/12/16 10/12/16 10/12/16 16:54 19:30 20:00 20:47 Temp 98.3 98.3 Pulse 68 68 Resp 18 B/P (MAP) 92/47 122/63 (82) 104/49 Pulse Ox 98 O2 Delivery Room Air Nasal Cannula O2 Flow Rate 2.0 10/12/16 10/12/16 10/13/16 10/13/16 20:47 22:39 03:52 04:35 Temp 98.6 98.2 98.6 98.2 Pulse 62 68 Resp 22 18 16 B/P (MAP) 110/60 (77) 121/61 (81) Pulse Ox 98 99 O2 Delivery Nasal Cannula Nasal Cannula Nasal Cannula Nasal Cannula O2 Flow Rate 2.0 2.0 2.0 2.0 10/13/16 10/13/16 10/13/16 10/13/16 07:00 07:54 08:31 08:31 Temp 97.8 97.8 Pulse 61 61 61 Resp 16 B/P (MAP) 136/63 (87) 136/63 136/63 Pulse Ox 96 O2 Delivery Room Air Room Air 10/13/16 10:34 Resp 16 Pulse Ox 96 O2 Delivery Room Air DUONG ATKINSON MD Oct 13, 2016 10:53
[2016-10-13 11:00] VITALS: BP 118/47
--- NOTE | 2016-10-13 13:04 | PDOC ---
CARDIO Progress Notes Date and Time Date of Service 10/13/2016 Time of Evaluation 1220 Subjective Subjective: No Chest Pain, No shortness of breath, No Palpitations, No Dizziness Vitals Vitals Vital Signs Date Time Temp Pulse Resp B/P (MAP) Pulse Ox O2 Delivery O2 Flow Rate FiO2 10/13/16 11:35 18 98 Room Air 10/13/16 11:00 97.8 63 118/47 (70) 97.8 10/13/16 04:35 2.0 Weight Weight [ ] Laboratory Labs Laboratory Tests Test 10/12/16 16:55 10/13/16 05:04 10/13/16 05:20 Reticulocyte Count (auto) 0.4 % (0.5-2.5) Iron Level 49 ug/dL (65-175) Total Iron Binding Capacity 260 ug/dL (250-450) Iron Saturation 19 % (15-34) Ferritin 56 ng/mL (26-388) Urine Collection Type Unknown Urine Color Yellow Urine Clarity Clear Urine pH 7.5 Urine Specific [place] 1.015 Urine Protein Negative mg/dL (NEG-TRACE) Urine Glucose (UA) Negative mg/dL (NEG) Urine Ketones (Stick) Negative mg/dL (NEG) Urine Blood Negative (NEG) Urine Nitrite Negative (NEG) Urine Bilirubin Negative (NEG) Urine Urobilinogen Dipstick 1.0 mg/dL (0.2 mg/dL) Urine Leukocyte Esterase Negative (NEG) Urine RBC Occ /HPF (0-2) Urine WBC 0 /HPF (0-4) Urine Squamous Epithelial Cells Few /LPF Urine Bacteria 0 /HPF (0-FEW) White Blood Count 3.7 x10^3/uL (4.0-11.0) Red Blood Count 3.10 x10^6/uL (4.30-5.70) Hemoglobin 9.7 g/dL (13.0-17.5) Hematocrit 29.4 % (39.0-53.0) Mean Corpuscular Volume 95 fL (79-100) Mean Corpuscular Hemoglobin 31 pg (25-35) Mean Corpuscular Hemoglobin Concent 33 g/dL (31-37) Red Cell Distribution Width 15.1 % (11.5-14.5) Platelet Count 115 x10^3/uL (140-400) Neutrophils (%) (Auto) 52 % (31-73) Lymphocytes (%) (Auto) 29 % (24-48) Monocytes (%) (Auto) 8 % (0-9) Eosinophils (%) (Auto) 11 % (0-3) Basophils (%) (Auto) 1 % (0-3) Neutrophils # (Auto) 1.9 x10^3uL (1.8-7.7) Lymphocytes # (Auto) 1.1 x10^3/uL (1.0-4.8) Monocytes # (Auto) 0.3 x10^3/uL (0.0-1.1) Eosinophils # (Auto) 0.4 x10^3/uL (0.0-0.7) Basophils # (Auto) 0.0 x10^3/uL (0.0-0.2) Prothrombin Time 39.8 SEC (11.7-14.0) Prothromb Time International Ratio 4.5 (0.8-1.1) Sodium Level 143 mmol/L (136-145) Potassium Level 4.8 mmol/L (3.5-5.1) Chloride Level 107 mmol/L (98-107) Carbon Dioxide Level 31 mmol/L (21-32) Anion Gap 5 (6-14) Blood Urea Nitrogen 45 mg/dL (8-26) Creatinine 2.2 mg/dL (0.7-1.3) Estimated GFR (Cockcroft-Gault) 35.1 Glucose Level 105 mg/dL (70-99) Calcium Level 8.0 mg/dL (8.5-10.1) Phosphorus Level 3.1 mg/dL (2.6-4.7) Magnesium Level 2.6 mg/dL (1.8-2.4) Albumin 3.1 g/dL (3.4-5.0) Physical Exam HEENT: Neck Supple W Full Motion Chest: Symmetric LUNGS: Other (faint basilar crackles) Heart: S1S2, RRR (SR with no significant rhythm ectopies) Abdomen: Soft N/T Extremities: No Calf Tenderness, Other (1-2+ bilateral LE pitting edema) Neurology: alert, oriented, follow commands Assessment Assessment 1. Atypical CP: Noncardiac. Likely GI. MPI unremarkable for ischemic process. 2. Acute on chronic diastolic CHF: Compensated. EF and wall motion normal. 3. PAFIB: Remains in SR. 4. PPM in situ with SSS: ([employer]) Interrogation pending. Implant date 2015 5. Chronic coumadin therapy: for AFIB, stroke prevention. 6. 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 HTN: controlled 8. HLP 9. Likely JACINDA Recommendations 1. Continue with secondary prevention 2. Follow nephrology recommendations 3. Follow up with Dr. Nate NORMAN cardiology in 2-4 weeks. 4. Will interrogate device and obtain records from [facility]. 5. INR 4.5, coumadin on hold still Goal INR 2-3, PCP managing Records review 1. SSS, hx of nonobstructive CAD, GI bleed, CKD3 with past GFR of 30-59 ml/min, anemia, chronic anticoagulation, hx of trifascicular block RAHEEL RICE APRN Oct 13, 2016 13:04
--- NOTE | 2016-10-13 13:22 | PDOC ---
SUBJECTIVE ROS Danis/ CKD III Doign and feeling much better CVS: no Orthopnea, no CP RESP: no SOB, no ARREOLA GI: no Nausea, no Vomiting : no Dysuria, no Urgency OBJECTIVE Vital Signs Vital Signs Date Time Temp Pulse Resp B/P (MAP) Pulse Ox O2 Delivery O2 Flow Rate FiO2 10/13/16 11:35 18 98 Room Air 10/13/16 11:00 97.8 63 118/47 (70) 97.8 10/13/16 04:35 2.0 PHYSICAL EXAM Physical Exam General Appearance: Awake Alert Oriented x 3 In no Distress Eyes: VIsion Unchanged Conjunctiva Normal; Rt Eye Blind EN: No EN Drainage Mucous Memb. moist Neck: no JVD min JVP Supple no Thyromegaly CVS: S1 S2 ? Murmur No Gallop No Rub Tr Edema Resp: ? Rales no Rhonchi no Acc. Muscle use GI: BAS +ve NO Bruit Non Tender Non Distended Obese : no CVA tenderness; no Suprapubic Tenderness Assessment & Plan DANIS - VMN from NSAIDs and low BP, vol depletion: Current FLuid and E-lyte status does not necessitate emergent need for Dialysis. Will re-evaluate for Dialysis in am - Doubt ATN, Watch off of IVF Anemia: Iron is marginal; Retics are low too - Epogen as ordered, Transfuse as needed. Vol depletion - Creat better with IVF - watch off of IVF Contraction Alkalosis - better with IV NS HypoTN:Better after IVf as ordered Oliguria - ? due to Vol depeliton; resolved with IVF Urinary Issues with LUTS - check PVR - may need URO to eval HyperUricemia - IVF ? CHF - reval OP Diuretic regimen Discussed Plan of Care and prognosis etc. at length with family. COMMENT/RELEVANT DATA Meds Current Medications Medications (Trade) Dose Ordered Sig/Tam Start Time Stop Time Status Last Admin Dose Admin Acetaminophen (Tylenol) 650 mg PRN Q4HRS PRN 10/11/16 23:15 10/12/16 23:14 DC Allopurinol (Zyloprim) 100 mg DAILY 10/12/16 12:30 10/13/16 08:31 100 MG Aspirin (Lee Aspirin) 325 mg 1X ONCE 10/11/16 22:00 10/11/16 22:01 DC 10/11/16 21:40 325 MG Atorvastatin Calcium (Lipitor) 10 mg QHS 10/12/16 21:00 10/12/16 20:46 10 MG Carvedilol (Coreg) 12.5 mg BIDWMEALS 10/12/16 09:00 10/13/16 08:31 12.5 MG Fentanyl (Duragesic 12mcg/ Hr Patch) 1 patch Q72H 10/12/16 09:00 10/12/16 09:57 1 PATCH Fluticasone Propionate (Flonase) 2 spray DAILY 10/13/16 13:00 Hydralazine HCl (Apresoline) 50 mg TID 10/12/16 09:00 10/13/16 08:31 50 MG Losartan Potassium (Cozaar) 100 mg DAILY 10/12/16 09:00 10/12/16 09:15 DC Magnesium Oxide (Magnesium Oxide) 400 mg DAILY 10/12/16 09:00 10/13/16 08:31 400 MG Magnesium Sulfate/ Dextrose 50 ml @ 25 mls/hr PRN DAILY PRN 10/12/16 12:00 Morphine Sulfate 2 mg PRN Q2HR PRN 10/11/16 23:15 10/12/16 23:14 DC Nitroglycerin (Nitrostat) 0.4 mg PRN Q5MIN PRN 10/11/16 23:15 10/12/16 23:14 DC Ondansetron HCl (Zofran) 4 mg PRN Q8HRS PRN 10/11/16 23:15 10/12/16 23:14 DC Oxycodone/ Acetaminophen (Percocet 10/325) 1 tab QID PRN 10/12/16 09:00 10/13/16 10:34 1 TAB Pantoprazole Sodium (Protonix) 40 mg DAILYAC 10/12/16 11:00 10/13/16 08:30 40 MG Regadenoson (Lexiscan) 0.4 mg 1X ONCE 10/12/16 11:15 10/12/16 11:16 DC 10/12/16 12:49 0.4 MG Sodium Chloride 1,000 ml @ 100 mls/hr Q10H 10/12/16 20:00 10/13/16 05:53 100 MLS/HR Spironolactone (Aldactone) 50 mg DAILY 10/12/16 09:00 10/12/16 09:15 DC Tamsulosin HCl (Flomax) 0.8 mg DAILY 10/13/16 09:00 10/13/16 08:30 0.8 MG Torsemide (Demadex) 100 mg DAILY 10/12/16 09:00 10/12/16 09:15 DC Lab Laboratory Tests Test 10/12/16 16:55 10/13/16 05:04 10/13/16 05:20 Reticulocyte Count (auto) 0.4 % (0.5-2.5) Iron Level 49 ug/dL (65-175) Total Iron Binding Capacity 260 ug/dL (250-450) Iron Saturation 19 % (15-34) Ferritin 56 ng/mL (26-388) Urine Collection Type Unknown Urine Color Yellow Urine Clarity Clear Urine pH 7.5 Urine Specific [place] 1.015 Urine Protein Negative mg/dL (NEG-TRACE) Urine Glucose (UA) Negative mg/dL (NEG) Urine Ketones (Stick) Negative mg/dL (NEG) Urine Blood Negative (NEG) Urine Nitrite Negative (NEG) Urine Bilirubin Negative (NEG) Urine Urobilinogen Dipstick 1.0 mg/dL (0.2 mg/dL) Urine Leukocyte Esterase Negative (NEG) Urine RBC Occ /HPF (0-2) Urine WBC 0 /HPF (0-4) Urine Squamous Epithelial Cells Few /LPF Urine Bacteria 0 /HPF (0-FEW) White Blood Count 3.7 x10^3/uL (4.0-11.0) Red Blood Count 3.10 x10^6/uL (4.30-5.70) Hemoglobin 9.7 g/dL (13.0-17.5) Hematocrit 29.4 % (39.0-53.0) Mean Corpuscular Volume 95 fL (79-100) Mean Corpuscular Hemoglobin 31 pg (25-35) Mean Corpuscular Hemoglobin Concent 33 g/dL (31-37) Red Cell Distribution Width 15.1 % (11.5-14.5) Platelet Count 115 x10^3/uL (140-400) Neutrophils (%) (Auto) 52 % (31-73) Lymphocytes (%) (Auto) 29 % (24-48) Monocytes (%) (Auto) 8 % (0-9) Eosinophils (%) (Auto) 11 % (0-3) Basophils (%) (Auto) 1 % (0-3) Neutrophils # (Auto) 1.9 x10^3uL (1.8-7.7) Lymphocytes # (Auto) 1.1 x10^3/uL (1.0-4.8) Monocytes # (Auto) 0.3 x10^3/uL (0.0-1.1) Eosinophils # (Auto) 0.4 x10^3/uL (0.0-0.7) Basophils # (Auto) 0.0 x10^3/uL (0.0-0.2) Prothrombin Time 39.8 SEC (11.7-14.0) Prothromb Time International Ratio 4.5 (0.8-1.1) Sodium Level 143 mmol/L (136-145) Potassium Level 4.8 mmol/L (3.5-5.1) Chloride Level 107 mmol/L (98-107) Carbon Dioxide Level 31 mmol/L (21-32) Anion Gap 5 (6-14) Blood Urea Nitrogen 45 mg/dL (8-26) Creatinine 2.2 mg/dL (0.7-1.3) Estimated GFR (Cockcroft-Gault) 35.1 Glucose Level 105 mg/dL (70-99) Calcium Level 8.0 mg/dL (8.5-10.1) Phosphorus Level 3.1 mg/dL (2.6-4.7) Magnesium Level 2.6 mg/dL (1.8-2.4) Albumin 3.1 g/dL (3.4-5.0) Other The right kidney measures approximately 11.2 x 6.1 x 6.3 cm. No hydronephrosis or solid mass is seen associated with the kidney. The left kidney measures 11.4 x 5.1 x 6.8 cm. No hydronephrosis or solid mass is seen. There is a hypoechoic 1.8 cm mass palpable with a cyst. The urinary bladder appeared grossly normal. IMPRESSION: No hydronephrosis or solid mass seen associated with either kidney. BOAZ HINSON MD Oct 13, 2016 13:22
[2016-10-13] MEDS: FLUTICASONE 50MCG/NASAL SPRAY 16GM BOTTLE. NS SCH (13:44)
[2016-10-13 15:00] VITALS: BP 104/63
[2016-10-13] MEDS: IRON SUCROSE COMPLEX 200 MG in IV NORMAL SALINE 100ML 100 ML IV SCH (15:20)
[2016-10-13 19:05] VITALS: BP 125/60
[2016-10-13] MEDS: ATORVASTATIN CALCIUM 10 MG TABLET. PO SCH (20:23)
[2016-10-13] MEDS ORDERED: DARBEPOETIN ALFA 60 MCG/0.3 ML DISP.SYRIN. SQ SCH (21:00)
[2016-10-13 22:11] LABS: TOTAL PROTEIN CREATININE RATIO <52 mg/g creat (0-200); UR PROTEIN RD <4.0 mg/dL (Not Estab.)
[2016-10-13 23:05] VITALS: BP 149/82
[2016-10-14 03:05] VITALS: BP 116/66
[2016-10-14 07:00] VITALS: BP 128/66
[2016-10-14 07:52] LABS: ALBUMIN 3.3 g/dL (3.4-5.0); CALCIUM 8.7 mg/dL (8.5-10.1); CREATININE 1.6 mg/dL (0.7-1.3); GFR 50.7; PHOSPHORUS 2.5 mg/dL (2.6-4.7); POTASSIUM 4.2 mmol/L (3.5-5.1)
[2016-10-14 08:00] LABS: INR 2.6 (0.8-1.1)
[2016-10-14] MEDS: MAGNESIUM OXIDE 400 MG TABLET PO SCH (09:00)
[2016-10-14] MEDS: PANTOPRAZOLE 40 MG TABLET.DR. PO SCH (09:02)
[2016-10-14] MEDS: oxyCODONE/APAP 10/325 1 TAB TABLET PO PRN ×3 (09:03→21:14)
[2016-10-14] MEDS: TAMSULOSIN 0.4 MG CAP.ER.24H. PO SCH (09:03)
[2016-10-14] MEDS: ALLOPURINOL 100 MG TABLET. PO SCH (09:04)
[2016-10-14] MEDS: CARVEDILOL 12.5 MG TABLET. PO SCH ×2 (09:04→18:42)
[2016-10-14] MEDS: FLUTICASONE 50MCG/NASAL SPRAY 16GM BOTTLE. NS SCH (09:07)
[2016-10-14 11:00] VITALS: BP 139/57
[2016-10-14 15:00] VITALS: BP 139/65
--- NOTE | 2016-10-14 16:49 | PDOC ---
SUBJECTIVE ROS CKD III Doing well overall - wants to go home CVS: no Orthopnea, no CP RESP: min SOB, no ARREOLA GI: no Nausea, no Vomiting : no Dysuria, no Urgency OBJECTIVE Vital Signs Vital Signs Date Time Temp Pulse Resp B/P (MAP) Pulse Ox O2 Delivery O2 Flow Rate FiO2 10/14/16 15:10 64 139/57 10/14/16 15:09 Room Air 10/14/16 15:00 97.6 18 96 97.6 PHYSICAL EXAM Physical Exam General Appearance: Awake Alert Oriented x 3 In no Distress Eyes: VIsion Unchanged Conjunctiva Normal; Rt Eye Blind EN: No EN Drainage Mucous Memb. moist Neck: no JVD min JVP Supple no Thyromegaly CVS: S1 S2 ? Murmur No Gallop No Rub Tr Edema Resp: ? Rales no Rhonchi no Acc. Muscle use GI: BAS +ve NO Bruit Non Tender Non Distended Obese : no CVA tenderness; no Suprapubic Tenderness Assessment & Plan DANIS - VMN from NSAIDs and low BP, vol depletion: Creat is much better today. Current FLuid and E-lyte status does not necessitate emergent need for Dialysis. Will re-evaluate in am Anemia: Iron is marginal; IV Fe as ordered. Retics are low too - Epogen as ordered, Transfuse as needed. Contraction Alkalosis - better with IV NS - improving off of IVF Oliguria - ? due to Vol depeliton; resolved with IVF Urinary Issues with LUTS - PVR (65ccs as documented) - may need URO to eval as OP. ct Flomax ? CHF - reval OP Diuretic regimen WHeezing - Check CXR for CHF; Breathing Rx x 1 Low PHos - IV Na Phos as ordered Discussed Plan of Care and prognosis etc. at length with family. COMMENT/RELEVANT DATA Meds Current Medications Medications (Trade) Dose Ordered Sig/Tam Start Time Stop Time Status Last Admin Dose Admin Acetaminophen (Tylenol) 650 mg PRN Q4HRS PRN 10/11/16 23:15 10/12/16 23:14 DC Allopurinol (Zyloprim) 100 mg DAILY 10/12/16 12:30 10/14/16 09:04 100 MG Aspirin (Lee Aspirin) 325 mg 1X ONCE 10/11/16 22:00 10/11/16 22:01 DC 10/11/16 21:40 325 MG Atorvastatin Calcium (Lipitor) 10 mg QHS 10/12/16 21:00 10/13/16 20:23 10 MG Carvedilol (Coreg) 12.5 mg BIDWMEALS 10/12/16 09:00 10/14/16 09:04 12.5 MG Darbepoetin Rohit (Aranesp) 60 mcg WEEKLYHS 10/13/16 21:00 10/13/16 20:23 60 MCG Fentanyl (Duragesic 12mcg/ Hr Patch) 1 patch Q72H 10/12/16 09:00 10/12/16 09:57 1 PATCH Fluticasone Propionate (Flonase) 2 spray DAILY 10/13/16 13:00 10/14/16 09:07 2 SPRAY Hydralazine HCl (Apresoline) 50 mg TID 10/12/16 09:00 10/14/16 15:10 50 MG Iron Sucrose 200 mg/Sodium Chloride 110 ml @ 55 mls/hr 3X/WEEK 10/13/16 14:00 10/22/16 10:59 10/13/16 15:20 55 MLS/HR Losartan Potassium (Cozaar) 100 mg DAILY 10/12/16 09:00 10/12/16 09:15 DC Magnesium Oxide (Magnesium Oxide) 400 mg DAILY 10/12/16 09:00 10/13/16 08:31 400 MG Magnesium Sulfate/ Dextrose 50 ml @ 25 mls/hr PRN DAILY PRN 10/12/16 12:00 Morphine Sulfate 2 mg PRN Q2HR PRN 10/11/16 23:15 10/12/16 23:14 DC Nitroglycerin (Nitrostat) 0.4 mg PRN Q5MIN PRN 10/11/16 23:15 10/12/16 23:14 DC Ondansetron HCl (Zofran) 4 mg PRN Q8HRS PRN 10/11/16 23:15 10/12/16 23:14 DC Oxycodone/ Acetaminophen (Percocet 10/325) 1 tab QID PRN 10/12/16 09:00 10/14/16 15:09 1 TAB Pantoprazole Sodium (Protonix) 40 mg DAILYAC 10/12/16 11:00 10/14/16 09:02 40 MG Regadenoson (Lexiscan) 0.4 mg 1X ONCE 10/12/16 11:15 10/12/16 11:16 DC 10/12/16 12:49 0.4 MG Sodium Chloride 1,000 ml @ 100 mls/hr Q10H 10/12/16 20:00 10/13/16 13:22 DC 10/13/16 05:53 100 MLS/HR Spironolactone (Aldactone) 50 mg DAILY 10/12/16 09:00 10/12/16 09:15 DC Tamsulosin HCl (Flomax) 0.8 mg DAILY 10/13/16 09:00 10/14/16 09:03 0.8 MG Torsemide (Demadex) 100 mg DAILY 10/12/16 09:00 10/12/16 09:15 DC Lab Laboratory Tests Test 10/14/16 06:33 Prothrombin Time 26.0 SEC (11.7-14.0) Prothromb Time International Ratio 2.6 (0.8-1.1) Sodium Level 142 mmol/L (136-145) Potassium Level 4.2 mmol/L (3.5-5.1) Chloride Level 106 mmol/L (98-107) Carbon Dioxide Level 27 mmol/L (21-32) Anion Gap 9 (6-14) Blood Urea Nitrogen 29 mg/dL (8-26) Creatinine 1.6 mg/dL (0.7-1.3) Estimated GFR (Cockcroft-Gault) 50.7 Glucose Level 95 mg/dL (70-99) Calcium Level 8.7 mg/dL (8.5-10.1) Phosphorus Level 2.5 mg/dL (2.6-4.7) Magnesium Level 2.5 mg/dL (1.8-2.4) Albumin 3.3 g/dL (3.4-5.0) BOAZ HINSON MD Oct 14, 2016 16:49
[2016-10-14] MEDS ORDERED: IPRATRPIUM/ALBUTEROL 0.5/2.5MG 3 ML NEBU. NEB ONE (17:00)
--- NOTE | 2016-10-14 17:28 | PDOC ---
PROGRESS NOTES Subjective Subjective sob today Objective Objective Vital Signs Date Time Temp Pulse Resp B/P (MAP) Pulse Ox O2 Delivery O2 Flow Rate FiO2 10/14/16 15:10 64 139/57 10/14/16 15:09 Room Air 10/14/16 15:00 97.6 18 96 97.6 Physical Exam Heart: Regular rate (SR), Normal S1, Normal S2, Other (distant heart sounds) Extremities: No cyanosis, Other (3+ bilateral pitting LE edema) General: Alert, Oriented X3, Cooperative, No acute distress HEENT: Atraumatic, Mucous membr. moist/pink, Other (JVD) Lungs: Other (faint basilar expiratory wheeze) MUSCULOSKELETAL: Osteoarthritic changes both hands Neuro: Normal speech, Sensation intact Psych/Mental Status: Mood NL Skin: No breakdown, No significant lesion Diagnosis Problem List Problems Medical Problems: (1) Acute renal failure Status: Acute (2) Chest pain Status: Acute Assessment Assessment Problems Medical Problems: (1) Acute renal failure Status: Acute (2) Chest pain Status: Acute FINAL IMPRESSION: 1. Chest pain for further cardiac evaluation. 2. History of atrial fibrillation, on Coumadin for anticoagulation. 3. Pacemaker for sick sinus syndrome. 4. Hypertension. 5. Chronic renal failure, stage 4. 6. History of gout. 7.Back pain PLAN: sob today ,cxr ,duoneb. rehab consult for back pain ECHO good LVF 60 % Stress test -ve for ischemia. sono kidneys neg cr1.6 trending down, baseline 2.0 d/c iv hydration home in 1-2 days. inr 2.5trending down ,resume coumadin. At this time, was admitted to the hospital. The patient's INR was high, hold Coumadin, stress test to see left ventricular function, if there is any ischemia. Ultrasound of the kidneys negative for obstruction. We will hold off on diuretics and give cautious hydration and see how the kidney function improves, renal consult and see how the patient's condition improves. Problems: Plan Plan of Care Problems Medical Problems: (1) Acute renal failure Status: Acute (2) Chest pain Status: Acute Comment Review of Relevant I have reviewed the following items joanne (where applicable) has been applied. Labs Laboratory Tests Test 10/14/16 06:33 Prothrombin Time 26.0 SEC (11.7-14.0) Prothromb Time International Ratio 2.6 (0.8-1.1) Sodium Level 142 mmol/L (136-145) Potassium Level 4.2 mmol/L (3.5-5.1) Chloride Level 106 mmol/L (98-107) Carbon Dioxide Level 27 mmol/L (21-32) Anion Gap 9 (6-14) Blood Urea Nitrogen 29 mg/dL (8-26) Creatinine 1.6 mg/dL (0.7-1.3) Estimated GFR (Cockcroft-Gault) 50.7 Glucose Level 95 mg/dL (70-99) Calcium Level 8.7 mg/dL (8.5-10.1) Phosphorus Level 2.5 mg/dL (2.6-4.7) Magnesium Level 2.5 mg/dL (1.8-2.4) Albumin 3.3 g/dL (3.4-5.0) Medications Current Medications Albuterol/ Ipratropium (Duoneb) 3 ml 1X ONCE NEB Last administered on 17:23; Start 10/14/16 at 17:00; Stop 10/14/16 at 17:01; Status DC Darbepoetin Rohit (Aranesp) 60 mcg WEEKLYHS SQ Last administered on 10/13/16 20: 23; Start 10/13/16 at 21:00 Sodium Phosphate 20 mmol/Dextrose 256.6667 ml @ 64.167 m... 1X ONCE IV ; Start 10/14/16 at 17:30; Stop 10/14/16 at 21:29 Vitals/I & O Vital Sign - Last 24 Hours 10/13/16 10/13/16 10/13/16 10/13/16 19:05 19:50 20:23 23:05 Temp 97.4 97.8 97.4 97.8 Pulse 63 67 64 Resp 18 22 B/P (MAP) 125/60 (81) 125/60 149/82 (104) Pulse Ox 97 97 O2 Delivery Room Air Room Air Room Air 10/14/16 10/14/16 10/14/16 10/14/16 03:05 07:00 07:50 09:03 Temp 97.6 98.1 97.6 98.1 Pulse 68 61 Resp 21 18 B/P (MAP) 116/66 (83) 128/66 (86) Pulse Ox 96 97 O2 Delivery Room Air Room Air Room Air Room Air 10/14/16 10/14/16 10/14/16 10/14/16 09:04 09:07 10:15 11:00 Temp 97.8 97.8 Pulse 61 61 64 Resp 18 B/P (MAP) 128/66 128/66 139/57 (84) Pulse Ox 97 O2 Delivery Room Air Room Air 10/14/16 10/14/16 10/14/16 15:00 15:09 15:10 Temp 97.6 97.6 Pulse 64 64 Resp 18 B/P (MAP) 139/65 (89) 139/57 Pulse Ox 96 O2 Delivery Room Air Room Air DUONG ATKINSON MD Oct 14, 2016 17:28
[2016-10-14] MEDS ORDERED: SODIUM PHOSPHATE 20 MMOL in IV DEXTROSE 5% 250 ML IV ONE (17:30)
[2016-10-14] MEDS ORDERED: ALBUTEROL SULFATE 2.5 MG/3 ML NEBU. NEB PRN (17:45)
[2016-10-14] MEDS ORDERED: WARFARIN 2.5 MG TABLET. PO ONE (18:00)
[2016-10-14 19:16] VITALS: BP 121/57
[2016-10-14] MEDS: IPRATRPIUM/ALBUTEROL 0.5/2.5MG 3 ML NEBU. NEB SCH (19:45)
[2016-10-14] MEDS: ATORVASTATIN CALCIUM 10 MG TABLET. PO SCH (21:05)
[2016-10-14 23:01] VITALS: BP 138/62
[2016-10-15 03:10] VITALS: BP 119/54
[2016-10-15 04:49] LABS: INR 2.2 (0.8-1.1); PROTHROMBIN TIME PATIENT 23.2 SEC (11.7-14.0)
[2016-10-15 05:02] LABS: ALBUMIN 3.2 g/dL (3.4-5.0); CALCIUM 8.4 mg/dL (8.5-10.1); CREATININE 1.6 mg/dL (0.7-1.3); GFR 50.7; PHOSPHORUS 3.3 mg/dL (2.6-4.7); POTASSIUM 3.9 mmol/L (3.5-5.1)
[2016-10-15 07:05] VITALS: BP 131/63
--- NOTE | 2016-10-15 07:20 | RAD ---
Chest, 2 views, 10/14/2016: History: Wheezing Comparison is made to a study from 10/11/2016. A left-sided transvenous pacemaker remains in place with 2 leads extending into the right heart. The heart size and pulmonary vascularity are normal. There is tortuosity of the thoracic aorta. There is minimal chronic elevation of the right hemidiaphragm. No acute infiltrate is seen. There is no evidence of pleural fluid. Mild spurring is present in the spine. A left shoulder prosthesis is in place. Moderate arthritic changes present at the right glenohumeral articulation. IMPRESSION: No acute cardiopulmonary abnormality is detected.
[2016-10-15] MEDS: IPRATRPIUM/ALBUTEROL 0.5/2.5MG 3 ML NEBU. NEB SCH ×2 (07:45→11:46)
[2016-10-15] MEDS: FLUTICASONE 50MCG/NASAL SPRAY 16GM BOTTLE. NS SCH (08:15)
[2016-10-15] MEDS: MAGNESIUM OXIDE 400 MG TABLET PO SCH (08:16)
[2016-10-15] MEDS: PANTOPRAZOLE 40 MG TABLET.DR. PO SCH (08:16)
[2016-10-15] MEDS: ALLOPURINOL 100 MG TABLET. PO SCH (08:17)
[2016-10-15] MEDS: oxyCODONE/APAP 10/325 1 TAB TABLET PO PRN (08:17)
[2016-10-15] MEDS: TAMSULOSIN 0.4 MG CAP.ER.24H. PO SCH (08:17)
[2016-10-15] MEDS: CARVEDILOL 12.5 MG TABLET. PO SCH (08:18)
[2016-10-15] MEDS: fentaNYL 12MCG/HR PATCH 1 PATCH PATCH.TD72 TD SCH (08:19)
[2016-10-15] MEDS: IRON SUCROSE COMPLEX 200 MG in IV NORMAL SALINE 100ML 100 ML IV SCH (08:19)
[2016-10-15] MEDS ORDERED: TORS20TA PO (10:22)
[2016-10-15] MEDS ORDERED: ALLO100T PO (10:22)
[2016-10-15] MEDS ORDERED: WARF2.5T83 PO (10:22)
--- NOTE | 2016-10-15 10:24 | PDOC ---
PROGRESS NOTES Subjective Subjective no cp or sob today Objective Objective Vital Signs Date Time Temp Pulse Resp B/P (MAP) Pulse Ox O2 Delivery O2 Flow Rate FiO2 10/15/16 08:25 80 131/63 10/15/16 08:19 Room Air 10/15/16 07:46 97 10/15/16 07:05 98.4 18 98.4 Intake and Output 10/16/16 06:59 Intake Total 240 ml Balance 240 ml Intake Oral 240 ml Physical Exam Heart: Regular rate (SR), Normal S1, Normal S2, Other (distant heart sounds) Extremities: No cyanosis, Other (3+ bilateral pitting LE edema) General: Alert, Oriented X3, Cooperative, No acute distress HEENT: Atraumatic, Mucous membr. moist/pink, Other (JVD) Lungs: Other (faint basilar expiratory wheeze) MUSCULOSKELETAL: Osteoarthritic changes both hands Neuro: Normal speech, Sensation intact Psych/Mental Status: Mood NL Skin: No breakdown, No significant lesion Diagnosis Problem List Problems Medical Problems: (1) Acute renal failure Status: Acute (2) Chest pain Status: Acute Assessment Assessment Problems Medical Problems: (1) Acute renal failure Status: Acute (2) Chest pain Status: Acute FINAL IMPRESSION: 1. Chest pain for further cardiac evaluation. 2. History of atrial fibrillation, on Coumadin for anticoagulation. 3. Pacemaker for sick sinus syndrome. 4. Hypertension. 5. Chronic renal failure, stage 4. 6. History of gout. 7.Back pain PLAN:d/c home with home health. demadex 20 mg po bid coumadin 2.5 mg allopurinol added for gout cxr clear rehab consult for back pain ECHO good LVF 60 % Stress test -ve for ischemia. sono kidneys neg cr1.6 trending down, baseline 2.0 d/c iv hydration home in 1-2 days. inr 2.5trending down ,resume coumadin. At this time, was admitted to the hospital. The patient's INR was high, hold Coumadin, stress test to see left ventricular function, if there is any ischemia. Ultrasound of the kidneys negative for obstruction. We will hold off on diuretics and give cautious hydration and see how the kidney function improves, renal consult and see how the patient's condition improves. Problems: Plan Plan of Care Problems Medical Problems: (1) Acute renal failure Status: Acute (2) Chest pain Status: Acute Comment Review of Relevant I have reviewed the following items joanne (where applicable) has been applied. Labs Laboratory Tests Test 10/15/16 04:00 Prothrombin Time 23.2 SEC (11.7-14.0) Prothromb Time International Ratio 2.2 (0.8-1.1) Sodium Level 142 mmol/L (136-145) Potassium Level 3.9 mmol/L (3.5-5.1) Chloride Level 106 mmol/L (98-107) Carbon Dioxide Level 28 mmol/L (21-32) Anion Gap 8 (6-14) Blood Urea Nitrogen 23 mg/dL (8-26) Creatinine 1.6 mg/dL (0.7-1.3) Estimated GFR (Cockcroft-Gault) 50.7 Glucose Level 100 mg/dL (70-99) Calcium Level 8.4 mg/dL (8.5-10.1) Phosphorus Level 3.3 mg/dL (2.6-4.7) Magnesium Level 2.1 mg/dL (1.8-2.4) Albumin 3.2 g/dL (3.4-5.0) Medications Current Medications Albuterol Sulfate (Ventolin Neb Soln) 2.5 mg PRN QID PRN NEB WHEEZING; Start at 17:45 Albuterol/ Ipratropium (Duoneb) 3 ml 1X ONCE NEB Last administered on 17:23; Start 10/14/16 at 17:00; Stop 10/14/16 at 17:01; Status DC Albuterol/ Ipratropium (Duoneb) 3 ml RTQID NEB Last administered on 10/15/16 07 :45; Start 10/14/16 at 20:00 Sodium Phosphate 20 mmol/Dextrose 256.6667 ml @ 64.167 m... 1X ONCE IV Last administered on 10/14/16 18:42; Start 10/14/16 at 17:30; Stop 10/14/16 at 21:29; Status DC Warfarin Sodium (Coumadin Per Physician) 1 each PRN DAILY PRN MC SEE COMMENTS; Start 10/14/16 at 17:45 Warfarin Sodium (Coumadin) 2.5 mg 1X ONCE PO Last administered on 10/14/16 18: 44; Start 10/14/16 at 18:00; Stop 10/14/16 at 18:01; Status DC Vitals/I & O Vital Sign - Last 24 Hours 10/14/16 10/14/16 10/14/16 10/14/16 11:00 15:00 15:09 15:10 Temp 97.8 97.6 97.8 97.6 Pulse 64 64 64 Resp 18 18 B/P (MAP) 139/57 (84) 139/65 (89) 139/57 Pulse Ox 97 96 O2 Delivery Room Air Room Air Room Air 10/14/16 10/14/16 10/14/16 10/14/16 17:25 18:42 19:16 19:25 Temp 98.0 98.0 Pulse 64 71 Resp 20 B/P (MAP) 139/57 121/57 (78) Pulse Ox 97 97 O2 Delivery Room Air Room Air Room Air 10/14/16 10/14/16 10/14/16 10/14/16 19:47 21:05 21:14 22:14 Pulse 71 Resp 20 18 B/P (MAP) 121/57 Pulse Ox 97 O2 Delivery Room Air Room Air Room Air 10/14/16 10/15/16 10/15/16 10/15/16 23:01 03:10 07:05 07:30 Temp 98.0 97.6 98.4 98.0 97.6 98.4 Pulse 63 62 65 Resp 20 18 18 B/P (MAP) 138/62 (87) 119/54 (75) 131/63 (85) Pulse Ox 95 95 95 O2 Delivery Room Air Room Air Room Air Room Air 10/15/16 10/15/16 10/15/16 10/15/16 07:46 08:17 08:18 08:19 Pulse 80 B/P (MAP) 131/63 Pulse Ox 97 O2 Delivery Room Air Room Air Room Air 10/15/16 08:25 Pulse 80 B/P (MAP) 131/63 Intake and Output 10/15/16 10/15/16 10/16/16 14:59 22:59 06:59 Intake Total 240 ml Balance 240 ml DUONG ATKINSON MD Oct 15, 2016 10:24
[2016-10-15] MEDS ORDERED: TORSEMIDE 20 MG TABLET. PO SCH (10:30)
[2016-10-15 10:43] VITALS: BP 129/65
--- NOTE | 2016-10-15 12:54 | PDOC ---
SUBJECTIVE ROS DANIS/ CK DIII doign and feeling much better overall CVS: no Orthopnea, no CP RESP: no SOB, no ARREOLA GI: no Nausea, no Vomiting : no Dysuria, no Urgency OBJECTIVE Vital Signs Vital Signs Date Time Temp Pulse Resp B/P (MAP) Pulse Ox O2 Delivery O2 Flow Rate FiO2 10/15/16 10:43 97.8 61 20 129/65 (86) 98 Room Air 97.8 I & 0 Intake and Output 10/16/16 07:00 Intake Total 240 ml Balance 240 ml Intake Oral 240 ml PHYSICAL EXAM Physical Exam General Appearance: Awake Alert Oriented x 3 In no Distress Eyes: VIsion Unchanged Conjunctiva Normal; Rt Eye Blind EN: No EN Drainage Mucous Memb. moist Neck: no JVD min JVP Supple no Thyromegaly CVS: S1 S2 ? Murmur No Gallop No Rub Tr Edema Resp: ? Rales no Rhonchi no Acc. Muscle use dec AE leydi GI: BS +ve NO Bruit Non Tender Non Distended Obese : no CVA tenderness; no Suprapubic Tenderness Assessment & Plan DANIS - VMN from NSAIDs and low BP, vol depletion: Creat is much better today. Current FLuid and E-lyte status does not necessitate emergent need for Dialysis. Will re-evaluate in am CKD III - suspect this is his new baseline Anemia: Iron is marginal; IV Fe as ordered. ct Iron infusions as OP. have informed pt to address Colonoscopy status with Dr Castillo as OP Contraction Alkalosis - resolved Urinary Issues with LUTS - PVR (65ccs as documented) - URO to eval as OP. ct Flomax - pt will d/w Dr Castillo at F/up ? CHF - reval OP Diuretic regimen - Not sure he needs so much diuretics since its does not seem to change lower ext edema WHeezing - better after Breathing Rx x 1 done last pm Low PHos - resolved after IV Na Phos as ordered Discussed Plan of Care and prognosis etc. at length with pt COMMENT/RELEVANT DATA Meds Current Medications Medications (Trade) Dose Ordered Sig/Tam Start Time Stop Time Status Last Admin Dose Admin Acetaminophen (Tylenol) 650 mg PRN Q4HRS PRN 10/11/16 23:15 10/12/16 23:14 DC Albuterol Sulfate (Ventolin Neb Soln) 2.5 mg PRN QID PRN 10/14/16 17:45 Albuterol/ Ipratropium (Duoneb) 3 ml RTQID 10/14/16 20:00 10/15/16 07:45 3 ML Allopurinol (Zyloprim) 100 mg DAILY 10/12/16 12:30 10/15/16 08:17 100 MG Aspirin (Lee Aspirin) 325 mg 1X ONCE 10/11/16 22:00 10/11/16 22:01 DC 10/11/16 21:40 325 MG Atorvastatin Calcium (Lipitor) 10 mg QHS 10/12/16 21:00 10/14/16 21:05 10 MG Carvedilol (Coreg) 12.5 mg BIDWMEALS 10/12/16 09:00 10/15/16 08:18 12.5 MG Darbepoetin Rohit (Aranesp) 60 mcg WEEKLYHS 10/13/16 21:00 10/13/16 20:23 60 MCG Fentanyl (Duragesic 12mcg/ Hr Patch) 1 patch Q72H 10/12/16 09:00 10/15/16 08:19 1 PATCH Fluticasone Propionate (Flonase) 2 spray DAILY 10/13/16 13:00 10/15/16 08:15 2 SPRAY Hydralazine HCl (Apresoline) 50 mg TID 10/12/16 09:00 10/15/16 08:25 50 MG Iron Sucrose 200 mg/Sodium Chloride 110 ml @ 55 mls/hr 3X/WEEK 10/13/16 14:00 10/22/16 10:59 10/15/16 08:19 55 MLS/HR Losartan Potassium (Cozaar) 100 mg DAILY 10/12/16 09:00 10/12/16 09:15 DC Magnesium Oxide (Magnesium Oxide) 400 mg DAILY 10/12/16 09:00 10/15/16 08:16 400 MG Magnesium Sulfate/ Dextrose 50 ml @ 25 mls/hr PRN DAILY PRN 10/12/16 12:00 Morphine Sulfate 2 mg PRN Q2HR PRN 10/11/16 23:15 10/12/16 23:14 DC Nitroglycerin (Nitrostat) 0.4 mg PRN Q5MIN PRN 10/11/16 23:15 10/12/16 23:14 DC Ondansetron HCl (Zofran) 4 mg PRN Q8HRS PRN 10/11/16 23:15 10/12/16 23:14 DC Oxycodone/ Acetaminophen (Percocet 10/325) 1 tab QID PRN 10/12/16 09:00 10/15/16 08:17 1 TAB Pantoprazole Sodium (Protonix) 40 mg DAILYAC 10/12/16 11:00 10/15/16 08:16 40 MG Regadenoson (Lexiscan) 0.4 mg 1X ONCE 10/12/16 11:15 10/12/16 11:16 DC 10/12/16 12:49 0.4 MG Sodium Chloride 1,000 ml @ 100 mls/hr Q10H 10/12/16 20:00 10/13/16 13:22 DC 10/13/16 05:53 100 MLS/HR Sodium Phosphate 20 mmol/Dextrose 256.6667 ml @ 64.167 m... 1X ONCE 10/14/16 17:30 10/14/16 21:29 DC 10/14/16 18:42 64.167 MLS/HR Spironolactone (Aldactone) 50 mg DAILY 10/12/16 09:00 10/12/16 09:15 DC Tamsulosin HCl (Flomax) 0.8 mg DAILY 10/13/16 09:00 10/15/16 08:17 0.8 MG Torsemide (Demadex) 20 mg BID 10/15/16 10:30 10/15/16 12:14 20 MG Warfarin Sodium (Coumadin Per Physician) 1 each PRN DAILY PRN 10/14/16 17:45 Warfarin Sodium (Coumadin) 2.5 mg 1X ONCE 10/14/16 18:00 10/14/16 18:01 DC 10/14/16 18:44 2.5 MG Lab Laboratory Tests Test 10/15/16 04:00 Prothrombin Time 23.2 SEC (11.7-14.0) Prothromb Time International Ratio 2.2 (0.8-1.1) Sodium Level 142 mmol/L (136-145) Potassium Level 3.9 mmol/L (3.5-5.1) Chloride Level 106 mmol/L (98-107) Carbon Dioxide Level 28 mmol/L (21-32) Anion Gap 8 (6-14) Blood Urea Nitrogen 23 mg/dL (8-26) Creatinine 1.6 mg/dL (0.7-1.3) Estimated GFR (Cockcroft-Gault) 50.7 Glucose Level 100 mg/dL (70-99) Calcium Level 8.4 mg/dL (8.5-10.1) Phosphorus Level 3.3 mg/dL (2.6-4.7) Magnesium Level 2.1 mg/dL (1.8-2.4) Albumin 3.2 g/dL (3.4-5.0) BOAZ HINSON MD Oct 15, 2016 12:54
[2016-10-15] MEDS ORDERED: oxyCODONE/APAP 10/325 1 TAB TABLET PO PRN (17:45)
--- NOTE | 2016-10-17 14:18 | PDOC ---
Provider Note Provider Note Discjarge summary dictated. #[id number] DUONG ATKINSON MD Oct 17, 2016 14:17
--- NOTE | 2016-10-17 20:04 | DS ---
DATE OF DISCHARGE: 10/15/2016 REASON FOR ADMISSION TO THE HOSPITAL: 1. Chest pain non cardiac,?GERD. 2. Acute on chronic renal insufficiency stage 3. PROCEDURES DONE: 1. Echocardiogram. 2. Stress test. 3. Ultrasound of the kidneys. COMPLICATIONS NOTED: None. HOSPITAL COURSE: The patient is a 81-year-old male has history of pacemaker for sick sinus syndrome, is also on Coumadin for anticoagulation. He came with chest pain. Acute MO was ruled out by cardiac enzymes and EKG and echocardiogram showed good left ventricular function. Stress test was negative for ischemia. The patient was also found to have an acute on chronic renal insufficiency. His creatinine at the time of admission was 3.5. The patient is taking Demadex 100 mg daily and Aldactone and losartan. The patient was on hold on the diuretics, given IV fluids and his kidney function improved to 1.6 from 2.5 at the time of discharge. BUN came down to 23 and his uric acid was 13, was given allopurinol to bring it down. The patient's INR was high at 5.5, Coumadin was on hold, came down to 2.2 and decrease the dose of Coumadin. Chest x-ray was negative. Stress test negative for ischemia. Ultrasound of the kidneys, no hydronephrosis, stable kidneys. Echocardiogram shows 60% ejection fraction and the patient was discharged home with home health. He needs to have check INR once a week and creatinine once a week and started on smaller dose of Demadex 40 mg daily instead of 100 mg holding Aldactone and losartan for the time being. He will follow with a kidney doctor in a month. DUONG ATKINSON MD DR: ASTRID/madalyn JOB#: [id number] / [id number] KENISHA
== END 2016-10-15 13:30 | disposition home health service (06) | DRG 682 ==
LOC: ER 20:37 → 2 NORTH 22:11
PROVIDERS: ADMIT Internal Medicine; ATTEND Internal Medicine
DX: N17.0 Acute kidney failure with tubular necrosis (principal); I50.43 Acute on chronic combined systolic (congestive) and diastolic (congestive) heart failure; E87.3 Alkalosis; I95.9 Hypotension, unspecified; I48.0 Paroxysmal atrial fibrillation; I13.0 Hypertensive heart and chronic kidney disease with heart failure and stage 1 through stage 4 chronic kidney disease, or unspecified chronic kidney disease; D64.9 Anemia, unspecified; N18.4 Chronic kidney disease, stage 4 (severe); R07.89 Other chest pain; E78.5 Hyperlipidemia, unspecified; M10.9 Gout, unspecified; G89.29 Other chronic pain; E78.00 Pure hypercholesterolemia, unspecified; I44.0 Atrioventricular block, first degree; M75.41 Impingement syndrome of right shoulder; Z96.612 Presence of left artificial shoulder joint; Z96.652 Presence of left artificial knee joint; M19.90 Unspecified osteoarthritis, unspecified site; Z82.49 Family history of ischemic heart disease and other diseases of the circulatory system; Z79.01 Long term (current) use of anticoagulants; Z95.0 Presence of cardiac pacemaker
CPT/HCPCS: 36415; 71010; 71020; 76770; 78452; 80048; 80053; 80061; 80069; 81001; 82570; 82728; 82962; 83540; 83550; 83735; 83880; 84156; 84300; 84443; 84484; 84550; 85025; 85045; 85610; 85730; 93005; 93017; 93306; 94640; 96374; 96375; 96376; A9500; J0881; J1756; J2785; J7030; J7620; 99285-25

== ENCOUNTER 2017-11-09 22:13 | Emergency (ER) | payer MEDICARE, OTHER ==
[~2017-11-09] VITALS: Ht 195.6 cm; Wt 115.7 kg
[~2017-11-09 22:13] MED LIST changes: +ALLO100T PO; -AMLO5TAB2 PO; +AMLO5TAB7 PO; +CARV12.52 PO; +FENT1PAT13 TD; +HYDR-2869 PO; +LOSA100T7 PO; -LOSA50TA6 PO; +LOSA50TA7 PO; +MAGN400T3 PO; +OXYC-328 PO; +POTA10TA12 PO; +POTA20TA82 PO; +PRAV40TA2 PO; +SPIR50TA4 PO; +TORS20TA PO
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
[2017-11-09] MEDS ORDERED: MORPHINE SULFATE 4 MG/ML VIAL. IV/SQ PRN (23:15)
[2017-11-09 23:16] LABS: BASO % 1 % (0-3); EOS # 0.3 x10^3/uL (0.0-0.7); EOS % 6 % (0-3); HEMOGLOBIN 9.3 g/dL (13.0-17.5); LYMPH # 1.1 x10^3/uL (1.0-4.8); LYMPH % 21 % (24-48); MEAN CORPUSCULAR HEMOGLOBIN 31 pg (25-35); MEAN CORPUSCULAR HGB CONC 33 g/dL (31-37); MEAN CORPUSCULAR VOLUME 94 fL (79-100); MONO # 0.4 x10^3/uL (0.0-1.1); MONO % 8 % (0-9); NEUT # 3.3 x10^3uL (1.8-7.7); NEUT % 63 % (31-73); PLATELET COUNT 236 x10^3/uL (140-400); RED BLOOD COUNT 2.99 x10^6/uL (4.30-5.70); RED CELL DISTRIBUTION WIDTH 16.6 % (11.5-14.5); WHITE BLOOD COUNT 5.3 x10^3/uL (4.0-11.0)
[2017-11-09 23:32] LABS: CALCIUM 8.9 mg/dL (8.5-10.1); CREATININE 1.4 mg/dL (0.7-1.3); POTASSIUM 3.8 mmol/L (3.5-5.1)
[2017-11-09 23:37] LABS: ALBUMIN 3.1 g/dL (3.4-5.0); ALBUMIN/GLOBULIN RATIO 0.7 (1.0-1.7); TOTAL BILIRUBIN 0.6 mg/dL (0.2-1.0); TOTAL PROTEIN 7.4 g/dL (6.4-8.2)
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
--- NOTE | 2017-11-10 00:22 | RAD ---
AP and lateral left humerus radiographs to include 3 view radiographs of the left elbow 11/09/2017 CLINICAL HISTORY: Fall with injury to the left arm and elbow. AP and lateral digital radiographs left humerus were obtained. AP, lateral and oblique digital radiographs left elbow were obtained. The patient is post left shoulder joint replacement. A left-sided pacemaker is noted in place. No fracture or dislocation of the left humerus is seen. No fracture or dislocation of the left elbow is noted. There is no radiographic evidence of a joint effusion. Moderate degenerative changes are seen involving the left elbow joint. IMPRESSION: No fracture or dislocation is seen. Electronically signed by: Vlad Pham MD (11/10/2017 12:18 AM) [facility]
[2017-11-10 00:30] VITALS: BP 161/75
[2017-11-10] MEDS ORDERED: OXYC-328 PO (00:50)
--- NOTE | 2017-11-10 01:08 | EKG ---
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
== END 2017-11-10 00:54 | disposition home or self-care (01) ==
LOC: ER 22:13
DX: S40.022A Contusion of left upper arm, initial encounter (principal); S20.212A Contusion of left front wall of thorax, initial encounter; R79.1 Abnormal coagulation profile; G89.29 Other chronic pain; E78.00 Pure hypercholesterolemia, unspecified; I11.0 Hypertensive heart disease with heart failure; I50.9 Heart failure, unspecified; Z96.612 Presence of left artificial shoulder joint; Z96.652 Presence of left artificial knee joint; Z95.0 Presence of cardiac pacemaker; I48.91 Unspecified atrial fibrillation; Z79.01 Long term (current) use of anticoagulants; W18.39XA Other fall on same level, initial encounter; Y93.89 Activity, other specified; Y92.89 Other specified places as the place of occurrence of the external cause; Y99.8 Other external cause status
CPT/HCPCS: 36415; 71101; 73060; 73080; 80053; 83880; 84484; 85025; 85610; 93005; 99285-25

== ENCOUNTER 2018-05-01 13:24 | Inpatient (IN) | payer OTHER ==
[~2018-05-01] VITALS: Ht 195.6 cm; Wt 112.6 kg
[~2018-05-01 13:24] MED LIST changes: +AMLO5TAB10 PO; -AMLO5TAB7 PO; +CARV12.511 PO; -CARV12.52 PO; +LOSA-73 PO; +LOSA100T14 PO; -LOSA100T7 PO; -LOSA50TA7 PO; -OXYC-328 PO; +OXYC1TAB22 PO
[2018-05-01] MEDS ORDERED: IV NORMAL SALINE 1000ML BAG 1,000 ML IV ONE (13:45)
[2018-05-01] MEDS ORDERED: ONDANSETRON PF 4 MG/2 ML VIAL. IV ONE (13:45)
[2018-05-01] MEDS ORDERED: PANTOPRAZOLE IV PUSH 40 MG VIAL. IVP ONE (13:45)
[2018-05-01] MEDS ORDERED: fentaNYL PF VIAL 100 MCG/2 ML VIAL IV PRN (13:45)
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
[2018-05-01 14:16] LABS: BASO % 1 % (0-3); EOS # 0.2 x10^3/uL (0.0-0.7); EOS % 6 % (0-3); HEMATOCRIT 36.7 % (39.0-53.0); HEMOGLOBIN 11.9 g/dL (13.0-17.5); LYMPH # 1.1 x10^3/uL (1.0-4.8); LYMPH % 29 % (24-48); MEAN CORPUSCULAR HEMOGLOBIN 30 pg (25-35); MEAN CORPUSCULAR HGB CONC 33 g/dL (31-37); MEAN CORPUSCULAR VOLUME 93 fL (79-100); MONO # 0.3 x10^3/uL (0.0-1.1); MONO % 8 % (0-9); NEUT # 2.2 x10^3uL (1.8-7.7); NEUT % 56 % (31-73); PLATELET COUNT 224 x10^3/uL (140-400); RED BLOOD COUNT 3.93 x10^6/uL (4.30-5.70); RED CELL DISTRIBUTION WIDTH 15.5 % (11.5-14.5)
[2018-05-01 14:25] LABS: PROTHROMBIN TIME PATIENT 19.7 SEC (11.7-14.0)
[2018-05-01 14:28] LABS: CALCIUM 8.4 mg/dL (8.5-10.1); CREATININE 1.4 mg/dL (0.7-1.3); POTASSIUM 3.3 mmol/L (3.5-5.1)
[2018-05-01 14:34] LABS: ALBUMIN 3.5 g/dL (3.4-5.0); ALBUMIN/GLOBULIN RATIO 0.9 (1.0-1.7); MAGNESIUM 1.8 mg/dL (1.8-2.4); TOTAL BILIRUBIN 0.3 mg/dL (0.2-1.0); TOTAL PROTEIN 7.2 g/dL (6.4-8.2)
[2018-05-01] MEDS ORDERED: CONTRAST GIVEN. MC PRN (15:00)
[2018-05-01] MEDS ORDERED: IOHEXOL 300 MG/ML 100ML VIAL. IV ONE (15:00)
--- NOTE | 2018-05-01 15:47 | RAD ---
CT ABD PELV W/ IV CONTRST ONLY Indication: abd pain colitis last week
IV OMNI 300 60 MLS
PREVIOUS Exposure: One or more of the following individualized dose reduction techniques were utilized for this examination: 1. Automated exposure control 2. Adjustment of the mA and/or kV according to patient size 3. Use of iterative reconstruction technique. Technique: Intravenous contrast was given. No oral contrast per request. FINDINGS: Comparison is made with limited images from November 03, 2011. No available report. Lung bases demonstrate mild fibrosis or atelectasis. Coronary artery calcifications. Liver unremarkable. Multiple lesions of the spleen are again identified. A small medial lesion has decreased in size since previous study. The largest lesion appears similar, measuring 7 cm on today's exam as well as similar prior image. There is some minimal calcification along its posterior wall, not seen previously. There is a well-defined mass at the pancreatic tail measures 3.0 x 1.8 cm on the axial image, without significant change since the previous exam. Pancreas otherwise appears unremarkable. Small right adrenal nodule measures 17 mm, unchanged since prior exam. Hypodense lesions of the right kidney identified, appear increased in number since the prior study. Most are too small to characterize but are likely cysts. Left upper pole renal lesion has also increased or developed since the prior study measures 9 Hounsfield units, compatible with a cyst. No hydronephrosis. There is some minimal density along the posterior gallbladder, raising the question of subacute tiny gallstones. Aorta is calcified, no aneurysm identified. There is an ovoid soft tissue nodule just medial to the left iliac vessels, measures 3.0 x 1.9 cm, and measures fluid density, about 10 Hounsfield units. This appears similar as the prior study. Small superior aortocaval lymph node is unchanged. No significant new pathologic lymph node enlargement is identified. Mild wall thickening of the distal stomach is likely due to nondistention. Mild gaseous distention of small bowel, may represent an ileus.. Colonic diverticulosis. Wall thickening of the rectum and distal most sigmoid colon. Mild diverticulosis. Appendix not clearly identified. No evidence of ascites or pneumoperitoneum. Mild urinary bladder wall thickening. No evidence of pelvic mass. Degenerative changes of the spine. Sagittal images are not available on the prior study but on today's exam there appears to be a mild inferior endplate compression fracture of T12, not clearly seen on the coronal images from the previous exam. There is lumbar stenosis. Degenerative changes at the musculoskeletal pelvis. IMPRESSION: 1. 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 One appears slightly smaller, these are otherwise stable. 2. Small mass within or adjacent to the tail the pancreas, is unchanged since 2012. 3. Small fluid signal nodule or cyst medial to the left iliac vessels is unchanged. 4. Mild urinary bladder wall thickening, greater than what was seen previously. Could represent cystitis or bladder outlet obstruction. 5. Mild inferior endplate fracture of T12, age-indeterminate but not seen in 2012. 6. Minimal density along the posterior gallbladder may represent several tiny gallstones. Ultrasound could further evaluate as indicated. 7. Stable small nodule in the right adrenal gland. 8. Mild wall thickening of the rectum and distal sigmoid colon, possible mild colitis and proctitis. Electronically signed by: Terrence Tran MD (05/01/2018 3:44 PM) [id number]
--- NOTE | 2018-05-01 16:16 | EKG ---
[facility] [address] [place] [address] Test Date: 2018-05-01 Test Time: 14:03:35 Pat Name: REBA KENT Department: Room: Gender: M Line Supply: : 1935 Requested By: FLASH KIM Order Number: [id number] Reading MD: Parminder Busby MD Measurements Intervals [place] Rate: 76 P: 12 MN: 260 QRS: -62 QRSD: 118 T: 37 QT: 424 QTc: 481 Interpretive Statements SINUS RHYTHM PROLONGED MN INTERVAL RBBB NON-SPECIFIC ST/T CHANGES PROLONGED QT Electronically Signed On 05-02-2018 9:11:34 CDT by Parminder Busby MD
--- NOTE | 2018-05-01 16:34 | PHYS DOC ---
Past Medical History Past Medical History: CHF, High Cholesterol, Hypertension, Renal Failure Additional Past Medical Histor: chronic pain Past Surgical History: Knee Replacement, Pacemaker, Other Additional Past Surgical Histo: Left shoulder replacement approx 10 years ; left knee ACL ; Pacemaker 2014 Alcohol Use: None Drug Use: None Adult General Chief Complaint Chief Complaint: ABDOMINAL PAIN HPI HPI Patient is a 82 year old male with hx of CHF, HTN, high cholesterol, renal failure, who presents today to be evaluated for abdominal pain and shortness of breath. Patient states symptoms began on last week, he states he was seen at [facility], he was diagnosed with colitis, dyspnea, chronic kidney disease stage III. He states he was discharged with Flagyl and Vantin. He states he was not able to fill the prescriptions. He also states he lost his primary care doctor, he states the doctor fired him after confrontation in the office where he had gone for a regular visit, he states they told him his insurance has but they collected his co-pay and never saw him he states the inquired about this and was fired by the PCP. Patient states today he noted blood in his stools and that got him concerned to come to the ED to be evaluated. PCP-none got fired by Dr. Chandler Review of Systems Review of Systems Constitutional: Denies fever or chills [] Eyes: Denies change in visual acuity, redness, or eye pain [] HENT: Denies nasal congestion or sore throat [] Respiratory: Reports SOA. Denies cough Cardiovascular: No additional information not addressed in HPI [] GI: Reports abdominal pain, and bloody stools. Denies nausea, vomiting : Denies dysuria or hematuria [] Musculoskeletal: Denies back pain or joint pain [] Integument: Denies rash or skin lesions [] Neurologic: Denies headache, focal weakness or sensory changes [] All other systems were reviewed and found to be within normal limits, except as documented in this note. Current Medications Current Medications Current Medications Medications (Trade) Dose Ordered Sig/Tam Start Time Stop Time Status Last Admin Dose Admin Acetaminophen (Tylenol) 500 mg PRN Q6HRS PRN 05/01/18 17:15 Acetaminophen/ Codeine Phosphate (Tylenol #3) 1 tab PRN Q6HRS PRN 05/01/18 17:15 Allopurinol (Zyloprim) 100 mg DAILY 05/02/18 09:00 UNV Carvedilol (Coreg) 12.5 mg BIDWMEALS 05/02/18 08:00 UNV Fentanyl (Duragesic 12mcg/ Hr Patch) 1 patch Q72H 05/01/18 17:15 UNV Fentanyl Citrate (Fentanyl 2ml Vial) 25 mcg PRN Q15MIN PRN 05/01/18 13:45 05/02/18 13:44 05/01/18 14:25 25 MCG Info (CONTRAST GIVEN -- Rx MONITORING) 1 each PRN DAILY PRN 05/01/18 15:00 05/03/18 14:59 Iohexol (Omnipaque 300 Mg/ml) 75 ml 1X ONCE 05/01/18 15:00 05/01/18 15:01 DC 05/01/18 15:00 75 ML Labetalol HCl (Normodyne Iv Push) 10 mg PRN Q2HR PRN 05/01/18 17:15 Morphine Sulfate (Morphine Sulfate) 2 mg PRN Q2HR PRN 05/01/18 17:15 Non-Formulary Medication (Hydralazine Hcl ) 1 tab TID 05/01/18 21:00 UNV Non-Formulary Medication (Losartan Potassium ) 100 mg DAILY 05/02/18 09:00 UNV Non-Formulary Medication (Magnesium Oxide ) 1 tab DAILY 05/02/18 09:00 UNV Non-Formulary Medication (Potassium Chloride ) 20 meq DAILY 05/02/18 09:00 UNV Non-Formulary Medication (Pravastatin Sodium ) 1 tab QHS 05/01/18 21:00 UNV Non-Formulary Medication (Torsemide (Demadex)) 20 mg BID 05/01/18 21:00 UNV Ondansetron HCl (Zofran Odt) 4 mg PRN Q6HRS PRN 05/01/18 17:15 Ondansetron HCl (Zofran) 4 mg PRN Q6HRS PRN 05/01/18 17:15 Oxycodone/ Acetaminophen (Percocet 10/325) 1 tab PRN QID PRN 05/01/18 17:15 Pantoprazole Sodium (PROTONIX VIAL for IV PUSH) 40 mg 1X ONCE 05/01/18 13:45 05/01/18 13:47 DC 05/01/18 14:18 40 MG Pantoprazole Sodium (Protonix) 40 mg DAILYAC 05/02/18 07:30 Sodium Chloride 1,000 ml @ 80 mls/hr [id number] 05/01/18 17:30 Tamsulosin HCl (Flomax) 0.4 mg DAILY 05/02/18 09:00 Temazepam (Restoril) 7.5 mg PRN QHS PRN 05/01/18 17:15 Allergies Allergies Allergies Coded Allergies Type Severity Reaction Last Updated Verified No Known Drug Allergies 10/27/16 No Physical Exam Physical Exam Constitutional: Well developed, well nourished, no acute distress, non-toxic appearance. [] HENT: Normocephalic, atraumatic, bilateral external ears normal, oropharynx moist, no oral exudates, nose normal. [] Eyes: PERRLA, EOMI, conjunctiva normal, no discharge. [] Neck: Normal range of motion, no tenderness, supple, no stridor. [] Cardiovascular:Left upper chest pace maker. Paced rhythm, no murmur [] Lungs & Thorax: Bilateral breath sounds clear to auscultation [] Abdomen: Old healed surgical incision noted right upper quadrant. Bowel sounds normal, soft, no tenderness, no masses, no pulsatile masses. [] Skin: Warm, dry, no erythema, no rash. [] Back: No tenderness, no CVA tenderness. [] Extremities: No tenderness, no cyanosis, no clubbing, ROM intact, no edema. [] Neurologic: Alert and oriented X 3, normal motor function, normal sensory function, no focal deficits noted. [] Psychologic: Affect normal, judgement normal, mood normal. [] Current Patient Data Vital Signs Vital Signs Date Time Temp Pulse Resp B/P (MAP) Pulse Ox O2 Delivery O2 Flow Rate FiO2 05/01/18 17:06 66 22 130/61 (84) Room Air 05/01/18 15:37 99 05/01/18 13:34 98.5 98.5 Lab Values Laboratory Tests Test 05/01/18 14:05 White Blood Count 4.0 x10^3/uL (4.0-11.0) Red Blood Count 3.93 x10^6/uL (4.30-5.70) L Hemoglobin 11.9 g/dL (13.0-17.5) L Hematocrit 36.7 % (39.0-53.0) L Mean Corpuscular Volume 93 fL (79-100) Mean Corpuscular Hemoglobin 30 pg (25-35) Mean Corpuscular Hemoglobin Concent 33 g/dL (31-37) Red Cell Distribution Width 15.5 % (11.5-14.5) H Platelet Count 224 x10^3/uL (140-400) Neutrophils (%) (Auto) 56 % (31-73) Lymphocytes (%) (Auto) 29 % (24-48) Monocytes (%) (Auto) 8 % (0-9) Eosinophils (%) (Auto) 6 % (0-3) H Basophils (%) (Auto) 1 % (0-3) Neutrophils # (Auto) 2.2 x10^3uL (1.8-7.7) Lymphocytes # (Auto) 1.1 x10^3/uL (1.0-4.8) Monocytes # (Auto) 0.3 x10^3/uL (0.0-1.1) Eosinophils # (Auto) 0.2 x10^3/uL (0.0-0.7) Basophils # (Auto) 0.0 x10^3/uL (0.0-0.2) Prothrombin Time 19.7 SEC (11.7-14.0) H Prothrombin Time INR 1.7 (0.8-1.1) H PTT 37 SEC (24-38) Sodium Level 144 mmol/L (136-145) Potassium Level 3.3 mmol/L (3.5-5.1) L Chloride Level 104 mmol/L (98-107) Carbon Dioxide Level 29 mmol/L (21-32) Anion Gap 11 (6-14) Blood Urea Nitrogen 16 mg/dL (8-26) Creatinine 1.4 mg/dL (0.7-1.3) H Estimated GFR (Cockcroft-Gault) 59.0 BUN/Creatinine Ratio 11 (6-20) Glucose Level 96 mg/dL (70-99) Calcium Level 8.4 mg/dL (8.5-10.1) L Magnesium Level 1.8 mg/dL (1.8-2.4) Total Bilirubin 0.3 mg/dL (0.2-1.0) Aspartate Amino Transferase (AST) 13 U/L (15-37) L Alanine Aminotransferase (ALT) 15 U/L (16-63) L Alkaline Phosphatase 60 U/L (46-116) Creatine Kinase 165 U/L (39-308) Creatine Kinase MB (Mass) 1.6 ng/mL (0.0-3.6) Creatine Kinase MB Relative Index 1.0 % (0-4) Troponin I Quantitative < 0.017 ng/mL (0.000-0.055) HE-Sxz-G-Type Natriuretic Peptide 107 pg/mL (0-449) Total Protein 7.2 g/dL (6.4-8.2) Albumin 3.5 g/dL (3.4-5.0) Albumin/Globulin Ratio 0.9 (1.0-1.7) L Lipase 198 U/L (73-393) Laboratory Tests 05/01/18 14:05 Laboratory Tests 05/01/18 14:05 EKG EKG [] Radiology/Procedures Radiology/Procedures []PROCEDURE: CT ABD PELV W/ IV CONTRST ONLY CT ABD PELV W/ IV CONTRST ONLY Indication: abd pain colitis last week
IV OMNI 300 60 MLS
PREVIOUS Exposure: One or more of the following individualized dose reduction techniques were utilized for this examination: 1. Automated exposure control 2. Adjustment of the mA and/or kV according to patient size 3. Use of iterative reconstruction technique. Technique: Intravenous contrast was given. No oral contrast per request. FINDINGS: Comparison is made with limited images from November 03, 2011. No available report. Lung bases demonstrate mild fibrosis or atelectasis. Coronary artery calcifications. Liver unremarkable. Multiple lesions of the spleen are again identified. A small medial lesion has decreased in size since previous study. The largest lesion appears similar, measuring 7 cm on today's exam as well as similar prior image. There is some minimal calcification along its posterior wall, not seen previously. There is a well-defined mass at the pancreatic tail measures 3.0 x 1.8 cm on the axial image, without significant change since the previous exam. Pancreas otherwise appears unremarkable. Small right adrenal nodule measures 17 mm, unchanged since prior exam. Hypodense lesions of the right kidney identified, appear increased in number since the prior study. Most are too small to characterize but are likely cysts. Left upper pole renal lesion has also increased or developed since the prior study measures 9 Hounsfield units, compatible with a cyst. No hydronephrosis. There is some minimal density along the posterior gallbladder, raising the question of subacute tiny gallstones. Aorta is calcified, no aneurysm identified. There is an ovoid soft tissue nodule just medial to the left iliac vessels, measures 3.0 x 1.9 cm, and measures fluid density, about 10 Hounsfield units. This appears similar as the prior study. Small superior aortocaval lymph node is unchanged. No significant new pathologic lymph node enlargement is identified. Mild wall thickening of the distal stomach is likely due to nondistention. Mild gaseous distention of small bowel, may represent an ileus.. Colonic diverticulosis. Wall thickening of the rectum and distal most sigmoid colon. Mild diverticulosis. Appendix not clearly identified. No evidence of ascites or pneumoperitoneum. Mild urinary bladder wall thickening. No evidence of pelvic mass. Degenerative changes of the spine. Sagittal images are not available on the prior study but on today's exam there appears to be a mild inferior endplate compression fracture of T12, not clearly seen on the coronal images from the previous exam. There is lumbar stenosis. Degenerative changes at the musculoskeletal pelvis. IMPRESSION: 1. 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 One appears slightly smaller, these are otherwise stable. 2. Small mass within or adjacent to the tail the pancreas, is unchanged since 2012. 3. Small fluid signal nodule or cyst medial to the left iliac vessels is unchanged. 4. Mild urinary bladder wall thickening, greater than what was seen previously. Could represent cystitis or bladder outlet obstruction. 5. Mild inferior endplate fracture of T12, age-indeterminate but not seen in 2012. 6. Minimal density along the posterior gallbladder may represent several tiny gallstones. Ultrasound could further evaluate as indicated. 7. Stable small nodule in the right adrenal gland. 8. Mild wall thickening of the rectum and distal sigmoid colon, possible mild colitis and proctitis. Electronically signed by: Terrence Tran MD (05/01/2018 3:44 PM) [id number] DICTATED and SIGNED BY: TERRENCE TRAN MD DATE: 05/01/18 1544 Course & Med Decision Making Course & Med Decision Making Pertinent Labs and Imaging studies reviewed. (See chart for details) This is a 10-year-old male patient who presents to the ED today to be evaluated for shortness of breath and abdominal pain with bloody stools. See history of present illness. Patient was already seen at [facility] 5 days ago. Was diagnosed with colitis this area and chronic kidney disease. He was not able to buy his medication. His back in the ED with similar symptoms. CBC with a normal WBC, CMP with creatinine of 1.3, normal BUN. CT of the abdomen and pelvic- 1. 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 One appears slightly smaller, these are otherwise stable. 2. Small mass within or adjacent to the tail the pancreas, is unchanged since 2012. 3. Small fluid signal nodule or cyst medial to the left iliac vessels is unchanged. 4. Mild urinary bladder wall thickening, greater than what was seen previously. Could represent cystitis or bladder outlet obstruction. 5. Mild inferior endplate fracture of T12, age-indeterminate but not seen in 2012. 6. Minimal density along the posterior gallbladder may represent several tiny gallstones. Ultrasound could further evaluate as indicated. 7. Stable small nodule in the right adrenal gland. 8. Mild wall thickening of the rectum and distal sigmoid colon, possible mild colitis and proctitis. Routine consult placed for GI. spoke with Dr. Dumont who accepted patient for admission Dragon Disclaimer Dragon Disclaimer This electronic medical record was generated, in whole or in part, using a voice recognition dictation system. Departure Departure Impression: Primary Impression: Colitis Additional Impression: CRF (chronic renal failure) Disposition: 09 ADMITTED INPATIENT Condition: STABLE Referrals: MADHAVI CHANDLER (PCP) Problem Qualifiers Additional Impression: CRF (chronic renal failure) Chronic kidney disease stage: stage 3 (moderate) Qualified Codes: N18.3 - Chronic kidney disease, stage 3 (moderate) FLASH KIM APRN May 01, 2018 16:33
[2018-05-01] MEDS ORDERED: LABETALOL 20 MG/4 ML DISP.SYRIN. IVP PRN (17:15)
[2018-05-01] MEDS ORDERED: ONDANSETRON ODT 4 MG TAB.RAPDIS. PO PRN (17:15)
[2018-05-01] MEDS ORDERED: TEMAZEPAM 7.5 MG CAPSULE PO PRN (17:15)
[2018-05-01] MEDS ORDERED: ACETAMINOPHEN/CODEINE 300/30MG TABLET. PO PRN (17:15)
[2018-05-01] MEDS ORDERED: ONDANSETRON PF 4 MG/2 ML VIAL. IV PRN ×2 (17:15→17:30)
[2018-05-01] MEDS ORDERED: ACETAMINOPHEN 500 MG TABLET PO PRN (17:15)
--- NOTE | 2018-05-01 17:28 | RAD ---
CLINICAL HISTORY: RUQ PAIN/GALLSTONES ON CT COMPARISON: None available. TECHNIQUE: Limited ultrasound examination of the right upper quadrant of the abdomen was performed FINDINGS: Liver: The liver measures 16.7 cm in length in the right mid clavicular line. Hepatic echogenicity is normal and the margin is smooth. There is no focal abnormality of the liver. Flow seen within the portal vein.. Gallbladder/Biliary: Mild gallbladder wall thickening measures up to 6 mm. No definite gallstones are seen. No pericholecystic fluid is identified. There is no pain with direct transducer pressure over the gallbladder.The common bile duct measures 0.4 cm. The right kidney measures 11.9 cm in bipolar length. No focal renal lesion or hydronephrosis. There is no free fluid in the subhepatic space. Pancreas is obscured by overlying bowel gas. IMPRESSION: 1. Gallbladder wall thickening is seen. This is nonspecific and a partial differential includes liver disease, hepatitis, hypoalbuminemia, adenomyomatosis. Although gallbladder wall thickening may also be seen with acute cholecystitis, given the lack of additional sonographic signs including pericholecystic fluid, gallstones, and absence of pain with direct transducer pressure over the gallbladder, acute cholecystitis is much less likely. Electronically signed by: Jacob Rosas MD (05/01/2018 5:24 PM) [facility]
[2018-05-01] MEDS ORDERED: CIPROFLOXACIN 400MG PREMIX 200 ML IV ONE (17:30)
[2018-05-01] MEDS ORDERED: MORPHINE SULFATE 4 MG/ML VIAL. IV PRN (17:30)
--- NOTE | 2018-05-01 17:38 | PDOC1 ---
History and Physical Date of Admission Date of Admission DATE: 05/01/18 TIME: 17:31 Identification/Chief Complaint Chief Complaint abd pain and rectal bleeding Source Source: Caregiver, Chart review, Patient History of Present Illness History of Present Illness 82-year-old male who was just seen at discharged either from ER from inpatient on 04/27 for colitis and was discharged appropriately on Vantin and Flagyl. He was unable to fill the prescription, comes in again because of abdominal pain and rectal bleeding this time. Hemodynamically stable with good VS hemoglobin 11.9 no white count. But mild hypokalemia 3.3. NO fevers , Blood pressure on the high side. Patient is on warfarin for A. fib and has an indwelling pacer. Last scope was 1 year ago and was told to come back or will need follow-up soon. He's not the best historian. CAT scan shows multiple spleen lesions or spots incidental cholelithiasis and some other stuff which is all news to him. He denies any weight loss or family history of cancer or malignancy personally. I'm concerned about the multiple splenic lesions . We have consulted GI for the colitis, also needing the follow-up colonoscopy wherever he had that done. We'll consult heme onc regarding the multiple splenic lesions seen. US 1. Gallbladder wall thickening is seen. This is nonspecific and a partial differential includes liver disease, hepatitis, hypoalbuminemia, adenomyomatosis. Although gallbladder wall thickening may also be seen with acute cholecystitis, given the lack of additional sonographic signs including pericholecystic fluid, gallstones, and absence of pain with direct transducer pressure over the gallbladder, acute cholecystitis is much less likely. CT: \1. 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 One appears slightly smaller, these are otherwise stable. 2. Small mass within or adjacent to the tail the pancreas, is unchanged since 2012. 3. Small fluid signal nodule or cyst medial to the left iliac vessels is unchanged. 4. Mild urinary bladder wall thickening, greater than what was seen previously. Could represent cystitis or bladder outlet obstruction. 5. Mild inferior endplate fracture of T12, age-indeterminate but not seen in 2012. 6. Minimal density along the posterior gallbladder may represent several tiny gallstones. Ultrasound could further evaluate as indicated. 7. Stable small nodule in the right adrenal gland. 8. Mild wall thickening of the rectum and distal sigmoid colon, possible mild colitis and proctitis. Past Medical History Cardiovascular: AFIB, CHF, HTN, Hyperlipidemia Pulmonary: No pertinent hx CENTRAL NERVOUS SYSTEM: Other GI: No pertinent hx Heme/Onc: Other Hepatobiliary: No pertinent hx Psych: No pertinent hx Musculoskeletal: Osteoarthritis Rheumatologic: Gout Infectious disease: No pertinent hx Renal/: Chronic renal insuff Endocrine: No pertinent hx Past Surgical History Past Surgical History: Pacemaker, Other Family History Family History: Family History Unknown Social History Smoke: No ALCOHOL: none Drugs: None Current Problem List Problem List Problems Medical Problems: (1) Colitis Status: Acute (2) CRF (chronic renal failure) Status: Acute Current Medications Current Medications Current Medications Fentanyl Citrate (Fentanyl 2ml Vial) 25 mcg PRN Q15MIN PRN IV PAIN GREATER THAN 3/10 Last administered on 05/01/18at 14:25; Start 05/01/18 at 13:45; Stop at 13:44 Sodium Chloride 1,000 ml @ 1,000 mls/hr 1X ONCE IV Last administered on at 14:12; Start 05/01/18 at 13:45; Stop 05/01/18 at 14:44; Status DC Ondansetron HCl (Zofran) 4 mg 1X ONCE IV Last administered on 05/01/18at 14:14 ; Start 05/01/18 at 13:45; Stop 05/01/18 at 13:48; Status DC Pantoprazole Sodium (PROTONIX VIAL for IV PUSH) 40 mg 1X ONCE IVP Last administered on 05/01/18at 14:18; Start 05/01/18 at 13:45; Stop 05/01/18 at 13:47 ; Status DC Iohexol (Omnipaque 300 Mg/ml) 75 ml 1X ONCE IV Last administered on 05/01/18at 15:00; Start 05/01/18 at 15:00; Stop 05/01/18 at 15:01; Status DC Info (CONTRAST GIVEN -- Rx MONITORING) 1 each PRN DAILY PRN MC SEE COMMENTS; Start 05/01/18 at 15:00; Stop 05/03/18 at 14:59 Sodium Chloride 1,000 ml @ 80 mls/hr [id number] IV ; Start 05/01/18 at 17:30 Acetaminophen (Tylenol) 500 mg PRN Q6HRS PRN PO MILD PAIN / TEMP; Start at 17:15 Acetaminophen/ Codeine Phosphate (Tylenol #3) 1 tab PRN Q6HRS PRN PO MODERATE PAIN; Start 05/01/18 at 17:15 Pantoprazole Sodium (Protonix) 40 mg DAILYAC PO ; Start 05/02/18 at 07:30 Ondansetron HCl (Zofran) 4 mg PRN Q6HRS PRN IV NAUSEA/VOMITING; Start 05/01/18 at 17:15 Ondansetron HCl (Zofran Odt) 4 mg PRN Q6HRS PRN PO NAUSEA/VOMITING; Start 05/01 at 17:15 Morphine Sulfate (Morphine Sulfate) 2 mg PRN Q2HR PRN IV PAIN; Start 05/01/18 at 17:15 Allopurinol (Zyloprim) 100 mg DAILY PO ; Start 05/02/18 at 09:00 Carvedilol (Coreg) 12.5 mg BIDWMEALS PO ; Start 05/01/18 at 18:00 Fentanyl (Duragesic 12mcg/ Hr Patch) 1 patch Q72H TD ; Start 05/01/18 at 21:00 Oxycodone/ Acetaminophen (Percocet 10/325) 1 tab PRN QID PRN PO SEVERE PAIN; Start 05/01/18 at 17:15 Tamsulosin HCl (Flomax) 0.4 mg DAILY PO ; Start 05/02/18 at 09:00 Non-Formulary Medication (Hydralazine Hcl ) 1 tab TID PO ; Start 05/01/18 at 21: 00; Status UNV Non-Formulary Medication (Losartan Potassium ) 100 mg DAILY PO ; Start 05/02/18 at 09:00; Status UNV Non-Formulary Medication (Magnesium Oxide ) 1 tab DAILY PO ; Start 05/02/18 at 09:00; Status UNV Non-Formulary Medication (Potassium Chloride ) 20 meq DAILY PO ; Start 05/02/18 at 09:00; Status UNV Non-Formulary Medication (Pravastatin Sodium ) 1 tab QHS PO ; Start 05/01/18 at 21:00; Status UNV Non-Formulary Medication (Torsemide (Demadex)) 20 mg BID PO ; Start 05/01/18 at 21:00; Status UNV Labetalol HCl (Normodyne Iv Push) 10 mg PRN Q2HR PRN IVP HYPERTENSION, SEE COMMENTS; Start 05/01/18 at 17:15 Temazepam (Restoril) 7.5 mg PRN QHS PRN PO INSOMNIA; Start 05/01/18 at 17:15 Active Scripts Active Percocet 10-325 Mg Tablet (Oxycodone/Acetaminophen) 1 Each Tablet 1 Tab PO Q4 -6HRS Allopurinol 100 Mg Tablet 100 Mg PO DAILY 30 Days Demadex (Torsemide) 20 Mg Tablet 20 Mg PO BID Coumadin (Warfarin Sodium) 2.5 Mg Tablet 1 Tab PO DAILY Reported FENTANYL 12mcg/hr (Fentanyl) 1 Each Patch.td72 1 Patch TD Q72H Potassium Chloride 20 Meq Tablet.er 20 Meq PO DAILY Losartan Potassium 100 Mg Tablet 100 Mg PO DAILY Carvedilol (Carvedilol) 12.5 Mg Tablet 12.5 Mg PO BIDWMEALS Percocet 10-325 Mg Tablet (Oxycodone/Acetaminophen) 1 Each Tablet 1 Tab PO Q4 -6HRS Hydralazine Hcl 50 Mg Tablet 1 Tab PO TID Magnesium Oxide 400 Mg Tablet 1 Tab PO DAILY Pravastatin Sodium 40 Mg Tablet 1 Tab PO QHS Flomax (Tamsulosin Hcl) 0.4 Mg Cap.er.24h 0.4 Mg PO Allergies Allergies: Coded Allergies: No Known Drug Allergies (Unverified , 10/27/16) ROS Review of System As per history of present illness namely rectal bleed, abdominal pain, no nausea , no vomiting, no fever, no weight loss Physical Exam General: Alert, Oriented X3, Cooperative, No acute distress HEENT: Atraumatic, PERRLA, EOMI Lungs: Clear to auscultation, Normal air movement Heart: S1S2, RRR, no thrills, no rubs, no gallops, no murmurs Cardiovascular: S1, S2 Abdomen: Soft, Other (mildly distended abdomen, tympanitic to percussion with no guarding, mild tenderness on exam) Male Genitals Exam: normal genitalia, normal prostate Rectal Exam: not examined PELVIC: Nml ext genitalia Extremities: No clubbing, No cyanosis, No edema, Normal pulses, No tenderness/ swelling Skin: No rashes, No breakdown, No significant lesion Neuro: Normal gait, Normal speech, Strength at 5/5 X4 ext, Normal tone, Sensation intact, Cranial nerves 3-12 NL, Reflexes 2+ Psych/Mental Status: Mental status NL, Mood NL Vitals Vitals Vital Signs Date Time Temp Pulse Resp B/P (MAP) Pulse Ox O2 Delivery O2 Flow Rate FiO2 05/01/18 17:06 66 22 130/61 (84) Room Air 05/01/18 15:37 99 05/01/18 13:34 98.5 98.5 Labs Labs Laboratory Tests Test 05/01/18 14:05 White Blood Count 4.0 x10^3/uL (4.0-11.0) Red Blood Count 3.93 x10^6/uL (4.30-5.70) Hemoglobin 11.9 g/dL (13.0-17.5) Hematocrit 36.7 % (39.0-53.0) Mean Corpuscular Volume 93 fL (79-100) Mean Corpuscular Hemoglobin 30 pg (25-35) Mean Corpuscular Hemoglobin Concent 33 g/dL (31-37) Red Cell Distribution Width 15.5 % (11.5-14.5) Platelet Count 224 x10^3/uL (140-400) Neutrophils (%) (Auto) 56 % (31-73) Lymphocytes (%) (Auto) 29 % (24-48) Monocytes (%) (Auto) 8 % (0-9) Eosinophils (%) (Auto) 6 % (0-3) Basophils (%) (Auto) 1 % (0-3) Neutrophils # (Auto) 2.2 x10^3uL (1.8-7.7) Lymphocytes # (Auto) 1.1 x10^3/uL (1.0-4.8) Monocytes # (Auto) 0.3 x10^3/uL (0.0-1.1) Eosinophils # (Auto) 0.2 x10^3/uL (0.0-0.7) Basophils # (Auto) 0.0 x10^3/uL (0.0-0.2) Prothrombin Time 19.7 SEC (11.7-14.0) Prothromb Time International Ratio 1.7 (0.8-1.1) Activated Partial Thromboplast Time 37 SEC (24-38) Sodium Level 144 mmol/L (136-145) Potassium Level 3.3 mmol/L (3.5-5.1) Chloride Level 104 mmol/L (98-107) Carbon Dioxide Level 29 mmol/L (21-32) Anion Gap 11 (6-14) Blood Urea Nitrogen 16 mg/dL (8-26) Creatinine 1.4 mg/dL (0.7-1.3) Estimated GFR (Cockcroft-Gault) 59.0 BUN/Creatinine Ratio 11 (6-20) Glucose Level 96 mg/dL (70-99) Calcium Level 8.4 mg/dL (8.5-10.1) Magnesium Level 1.8 mg/dL (1.8-2.4) Total Bilirubin 0.3 mg/dL (0.2-1.0) Aspartate Amino Transf (AST/SGOT) 13 U/L (15-37) Alanine Aminotransferase (ALT/SGPT) 15 U/L (16-63) Alkaline Phosphatase 60 U/L (46-116) Creatine Kinase 165 U/L (39-308) Creatine Kinase MB (Mass) 1.6 ng/mL (0.0-3.6) Creatine Kinase MB Relative Index 1.0 % (0-4) Troponin I Quantitative < 0.017 ng/mL (0.000-0.055) FM-Bfi-H-Type Natriuretic Peptide 107 pg/mL (0-449) Total Protein 7.2 g/dL (6.4-8.2) Albumin 3.5 g/dL (3.4-5.0) Albumin/Globulin Ratio 0.9 (1.0-1.7) Lipase 198 U/L (73-393) Laboratory Tests Test 05/01/18 14:05 White Blood Count 4.0 x10^3/uL (4.0-11.0) Red Blood Count 3.93 x10^6/uL (4.30-5.70) Hemoglobin 11.9 g/dL (13.0-17.5) Hematocrit 36.7 % (39.0-53.0) Mean Corpuscular Volume 93 fL (79-100) Mean Corpuscular Hemoglobin 30 pg (25-35) Mean Corpuscular Hemoglobin Concent 33 g/dL (31-37) Red Cell Distribution Width 15.5 % (11.5-14.5) Platelet Count 224 x10^3/uL (140-400) Neutrophils (%) (Auto) 56 % (31-73) Lymphocytes (%) (Auto) 29 % (24-48) Monocytes (%) (Auto) 8 % (0-9) Eosinophils (%) (Auto) 6 % (0-3) Basophils (%) (Auto) 1 % (0-3) Neutrophils # (Auto) 2.2 x10^3uL (1.8-7.7) Lymphocytes # (Auto) 1.1 x10^3/uL (1.0-4.8) Monocytes # (Auto) 0.3 x10^3/uL (0.0-1.1) Eosinophils # (Auto) 0.2 x10^3/uL (0.0-0.7) Basophils # (Auto) 0.0 x10^3/uL (0.0-0.2) Prothrombin Time 19.7 SEC (11.7-14.0) Prothromb Time International Ratio 1.7 (0.8-1.1) Activated Partial Thromboplast Time 37 SEC (24-38) Sodium Level 144 mmol/L (136-145) Potassium Level 3.3 mmol/L (3.5-5.1) Chloride Level 104 mmol/L (98-107) Carbon Dioxide Level 29 mmol/L (21-32) Anion Gap 11 (6-14) Blood Urea Nitrogen 16 mg/dL (8-26) Creatinine 1.4 mg/dL (0.7-1.3) Estimated GFR (Cockcroft-Gault) 59.0 BUN/Creatinine Ratio 11 (6-20) Glucose Level 96 mg/dL (70-99) Calcium Level 8.4 mg/dL (8.5-10.1) Magnesium Level 1.8 mg/dL (1.8-2.4) Total Bilirubin 0.3 mg/dL (0.2-1.0) Aspartate Amino Transf (AST/SGOT) 13 U/L (15-37) Alanine Aminotransferase (ALT/SGPT) 15 U/L (16-63) Alkaline Phosphatase 60 U/L (46-116) Creatine Kinase 165 U/L (39-308) Creatine Kinase MB (Mass) 1.6 ng/mL (0.0-3.6) Creatine Kinase MB Relative Index 1.0 % (0-4) Troponin I Quantitative < 0.017 ng/mL (0.000-0.055) SL-Djq-R-Type Natriuretic Peptide 107 pg/mL (0-449) Total Protein 7.2 g/dL (6.4-8.2) Albumin 3.5 g/dL (3.4-5.0) Albumin/Globulin Ratio 0.9 (1.0-1.7) Lipase 198 U/L (73-393) VTE Prophylaxis Ordered VTE Prophylaxis Devices: Contraindicated VTE Pharmacological Prophylaxi: Contraindicated Assessment/Plan Assessment/Plan Colitis with rectal bleed Accelerated hypertension POA Indwelling pacer, history of A. fib-now NSR on warfarin-hold warfarin Abdominal pain secondary to colitis Multiple splenic lesions Incidental gallstones Mild urinary bladder wall thickening Mild inferior endplate fracture of T12, age-indeterminate but not seen in 2012. PLAN; Admit 2 midnights Clear liquid diet GI consult Consult heme oncology regarding the multiple splenic lesions Hold warfarin I have reconciled home meds IV antibiotic for the colitis Labetolol ave reconciled home meds including BP meds Was told that he needs to have a C scope follow-up real soon when he had that done in an outside facility 1 year ago ELISSA BOB MD May 01, 2018 17:38
[2018-05-01] MEDS: CARVEDILOL 12.5 MG TABLET. PO SCH (18:00)
[2018-05-01 19:00] VITALS: BP 144/78
[2018-05-01] MEDS: IV NORMAL SALINE 1000ML BAG 1,000 ML IV SCH (20:04)
[2018-05-01] MEDS: oxyCODONE/APAP 10/325 1 TAB TABLET PO PRN (20:04)
[2018-05-01] MEDS ORDERED: C.DIFF MED SCREEN BY RX. MC ONE (20:30)
[2018-05-01] MEDS ORDERED: ATORVASTATIN CALCIUM 10 MG TABLET. PO SCH (21:00)
[2018-05-01] MEDS ORDERED: fentaNYL 12MCG/HR PATCH 1 PATCH PATCH.TD72 TD SCH (21:00)
[2018-05-01] MEDS ORDERED: TORS20TA PO (21:51)
[2018-05-01] MEDS ORDERED: POLY119P4 PO (21:51)
[2018-05-01] MEDS ORDERED: METR-34 PO (21:51)
[2018-05-01] MEDS ORDERED: FLUT16SP NS (21:51)
[2018-05-01] MEDS ORDERED: ALBU2.5V8 INH (21:51)
[2018-05-01] MEDS ORDERED: SENN-37 PO (21:51)
[2018-05-01] MEDS ORDERED: CEFP200T PO (21:51)
[2018-05-01] MEDS ORDERED: BUPR150T6 PO (21:51)
[2018-05-01] MEDS ORDERED: ATORVASTATIN CA80 MG PO (21:51)
[2018-05-01] MEDS ORDERED: DOCU100C28 PO (21:51)
[2018-05-01] MEDS ORDERED: WARF4TAB64 PO (21:51)
[2018-05-01] MEDS ORDERED: POLYETHYLENE GLYCOL 3350 17 GM PACKET. PO PRN (22:15)
[2018-05-01] MEDS ORDERED: DOCUSATE SODIUM 100 MG CAPSULE. PO PRN (22:15)
[2018-05-01] MEDS ORDERED: ALBUTEROL SULFATE 2.5 MG/3 ML NEBU. INH PRN (22:15)
[2018-05-01] MEDS: FAMOTIDINE 20 MG TABLET. PO SCH (22:48)
[2018-05-01] MEDS: LACTOBACILLUS RHAMNOSUS GG 1 CAPSULE. PO SCH (22:48)
[2018-05-01 23:00] VITALS: BP 136/67
[2018-05-02 02:59] LABS: BILIRUBIN,URINE NEGATIVE (NEG); CLARITY,URINE CLOUDY; COLOR,URINE YELLOW; NITRITE,URINE NEGATIVE (NEG); PROTEIN,URINE NEGATIVE (NEG-TRACE); UROBILINOGEN,URINE 0.2 mg/dL (0.2 mg/dL)
[2018-05-02 03:00] VITALS: BP 155/68
[2018-05-02 03:06] LABS: AMPHETAMINE/METHAMPHETAMINE NEG (NEG); BACTERIA,URINE 0 /HPF (0-FEW); BARBITURATES NEG (NEG); BENZODIAZEPINES NEG (NEG); CANNABINOIDS NEG (NEG); COCAINE NEG (NEG); HYALINE CASTS, URINE FEW /HPF; METHADONE NEG (NEG); OPIATES POS (NEG); PHENCYCLIDINE NEG (NEG); RBC,URINE 0 /HPF (0-2); SQUAMOUS EPITHELIAL CELL,UR FEW /LPF; WBC,URINE OCC /HPF (0-4)
[2018-05-02] MEDS: oxyCODONE/APAP 10/325 1 TAB TABLET PO PRN (03:23)
[2018-05-02 04:24] LABS: BASO % 1 % (0-3); EOS # 0.2 x10^3/uL (0.0-0.7); EOS % 7 % (0-3); HEMATOCRIT 32.1 % (39.0-53.0); HEMOGLOBIN 10.5 g/dL (13.0-17.5); LYMPH % 34 % (24-48); MEAN CORPUSCULAR HEMOGLOBIN 31 pg (25-35); MEAN CORPUSCULAR HGB CONC 33 g/dL (31-37); MEAN CORPUSCULAR VOLUME 93 fL (79-100); MONO # 0.3 x10^3/uL (0.0-1.1); MONO % 9 % (0-9); NEUT # 1.5 x10^3uL (1.8-7.7); NEUT % 49 % (31-73); PLATELET COUNT 177 x10^3/uL (140-400); RED BLOOD COUNT 3.44 x10^6/uL (4.30-5.70); RED CELL DISTRIBUTION WIDTH 15.3 % (11.5-14.5)
[2018-05-02 04:34] LABS: PROTHROMBIN TIME PATIENT 21.5 SEC (11.7-14.0)
[2018-05-02 05:03] LABS: CALCIUM 7.9 mg/dL (8.5-10.1); CREATININE 1.2 mg/dL (0.7-1.3); GFR 70.5; POTASSIUM 3.3 mmol/L (3.5-5.1)
[2018-05-02 07:00] VITALS: BP 142/73
[2018-05-02] MEDS ORDERED: PANTOPRAZOLE 40 MG TABLET.DR. PO SCH (07:30)
[2018-05-02] MEDS ORDERED: POTASSIUM CHLORIDE 20 MEQ TABLET.ER. PO SCH (08:00)
[2018-05-02] MEDS ORDERED: TORSEMIDE 20 MG TABLET. PO SCH (09:00)
[2018-05-02] MEDS ORDERED: MAGNESIUM OXIDE 400 MG TABLET PO SCH (09:00)
[2018-05-02] MEDS ORDERED: TAMSULOSIN 0.4 MG CAP.ER.24H. PO SCH (09:00)
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
[2018-05-02] MEDS: buPROPion XL 150 MG TAB.ER.24H. PO SCH (09:41)
[2018-05-02] MEDS: TORSEMIDE 20 MG TABLET. PO SCH (09:42)
[2018-05-02] MEDS: LACTOBACILLUS RHAMNOSUS GG 1 CAPSULE. PO SCH ×2 (09:42→21:26)
[2018-05-02] MEDS: FAMOTIDINE 20 MG TABLET. PO SCH ×2 (09:43→21:26)
[2018-05-02] MEDS: ALLOPURINOL 100 MG TABLET. PO SCH (09:43)
[2018-05-02] MEDS: SENNOSIDES/DOCUSATE 8.6/50MG TABLET. PO SCH ×2 (09:43→21:26)
[2018-05-02] MEDS: TAMSULOSIN 0.4 MG CAP.ER.24H. PO SCH (09:45)
[2018-05-02] MEDS: CARVEDILOL 12.5 MG TABLET. PO SCH ×2 (09:45→17:12)
[2018-05-02] MEDS: CIPROFLOXACIN 400MG PREMIX 200 ML IV SCH ×2 (09:46→21:28)
[2018-05-02] MEDS: FLUTICASONE 50MCG/NASAL SPRAY 16GM BOTTLE. NS SCH (09:48)
--- NOTE | 2018-05-02 09:50 | PDOC2 ---
CONSULT Date of Consult Date of Consult DATE: 05/02/18 TIME: 09:43 Reason for consultation: Splenic lesions Consult: Hematology oncology, Dr. 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 Regarding the splenic lesions, they are large, chronic, not associated with splenomegaly or pain, have not significantly increased over time, appear to be stable on imaging dating back to 2012, and he does have some mild anemia and mild leukopenia but is -[place] and may potentially have a component of benign ethnic neutropenia?. Past medical history: Leukopenia Anemia Splenic cysts dating back to 2012 CHF Colitis/proctitis chronic kidney disease Osteoarthritis Paroxysmal A. fib COPD GERD Gout History of GI bleed Hypertension Hyperlipidemia BPH Past surgical history: Pacemaker Allergies: No known drug allergies Medications: See attached list Social history: Never smoker, no alcohol, lives with his Family history: No cancer Review of systems: Abdominal pain, chronic since February, improved with meds, worsened when he sits up, associated with dark stools, though no constipation or diarrhea, some slight nausea, does admit to recent chest pain or trouble breathing, otherwise 10 point review of systems negative Physical exam: Vitals reviewed Gen.: Well-nourished and well-developed in no acute distress HEENT: mucous membranes moist, head normocephalic atraumatic Neck: Supple, no lymphadenopathy Lymph nodes: No palpable lymphadenopathy neck though possibly 1 left mildly enlarged lymph node mobile soft left axilla Lungs: Breathing comfortably, no evidence of respiratory distress Heart: Regular rate and rhythm Abdomen: Soft, nontender, nondistended Extremities: No cyanosis or signif edema Skin: No obvious rashes or skin breakdown Neuro: Alert and oriented 3 Psych: Normal mood and affect Lab reviewed: White count 3.0, hemoglobin 10.5, platelets 177, MCV of 93, ANC 1500 INR of 1.9 UDS positive for opiates Creatinine 1.2 Rads reviewed: Ultrasound shows gall bladder wall thickening Chest x-ray shows tortuous thoracic aorta Abdominal pelvic CT splenic lesions stable, smaller, possible mild colitis and proctitis and other findings Case discussed with: Patient, records reviewed in [employer] [facility] [employer], including labs and radiology, please see note for summary details. Assessment and Plan: He is an 82-year-old man with splenic lesions admitted with proctitis/colitis Proctitis/colitis: On antibiotics Anemia with chronic renal insufficiency mild: Consider MAVERICK if hemoglobin less than 10 in follow-up Mild leukopenia: Benign ethnic neutropenia? Splenic lesions: He's appear to be stable dating back to 2012 on imaging at , he does have one left axillary lymph node that may be slightly enlarged, could consider an outpatient PET scan but would not do this as an inpatient and will likely have him follow-up with us after his acute bowel issues have recovered A. fib: On Coumadin Disposition: Per others, we'll have him follow-up with us after discharge. 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 Thank you kindly for this consultation, and please don't hesitate to call with other questions. Past Medical History Cardiovascular: AFIB, CHF, HTN, Hyperlipidemia Pulmonary: No pertinent hx CENTRAL NERVOUS SYSTEM: Other GI: No pertinent hx Heme/Onc: Other Hepatobiliary: No pertinent hx Psych: No pertinent hx Musculoskeletal: Osteoarthritis Rheumatologic: Gout Infectious disease: No pertinent hx Renal/: Chronic renal insuff Endocrine: No pertinent hx Past Surgical History Past Surgical History: Pacemaker, Other Family History Family History: Family History Unknown Social History No ALCOHOL: none Drugs: None Lives: with Family Current Problem List Problem List Problems Medical Problems: (1) Colitis Status: Acute (2) CRF (chronic renal failure) Status: Acute Current Medications Current Medications Current Medications Fentanyl Citrate (Fentanyl 2ml Vial) 25 mcg PRN Q15MIN PRN IV PAIN GREATER THAN 3/10 Last administered on 05/01/18at 14:25; Start 05/01/18 at 13:45; Stop at 13:44 Sodium Chloride 1,000 ml @ 1,000 mls/hr 1X ONCE IV Last administered on at 14:12; Start 05/01/18 at 13:45; Stop 05/01/18 at 14:44; Status DC Ondansetron HCl (Zofran) 4 mg 1X ONCE IV Last administered on 05/01/18at 14:14 ; Start 05/01/18 at 13:45; Stop 05/01/18 at 13:48; Status DC Pantoprazole Sodium (PROTONIX VIAL for IV PUSH) 40 mg 1X ONCE IVP Last administered on 05/01/18at 14:18; Start 05/01/18 at 13:45; Stop 05/01/18 at 13:47 ; Status DC Iohexol (Omnipaque 300 Mg/ml) 75 ml 1X ONCE IV Last administered on 05/01/18at 15:00; Start 05/01/18 at 15:00; Stop 05/01/18 at 15:01; Status DC Info (CONTRAST GIVEN -- Rx MONITORING) 1 each PRN DAILY PRN MC SEE COMMENTS; Start 05/01/18 at 15:00; Stop 05/03/18 at 14:59 Sodium Chloride 1,000 ml @ 80 mls/hr [id number] IV Last administered on at 20:04; Start 05/01/18 at 17:30 Acetaminophen (Tylenol) 500 mg PRN Q6HRS PRN PO MILD PAIN / TEMP; Start at 17:15 Acetaminophen/ Codeine Phosphate (Tylenol #3) 1 tab PRN Q6HRS PRN PO MODERATE PAIN Last administered on 05/01/18at 18:02; Start 05/01/18 at 17:15 Pantoprazole Sodium (Protonix) 40 mg DAILYAC PO ; Start 05/02/18 at 07:30; Stop 05/02/18 at 07:30; Status DC Ondansetron HCl (Zofran) 4 mg PRN Q6HRS PRN IV NAUSEA/VOMITING; Start 05/01/18 at 17:15 Ondansetron HCl (Zofran Odt) 4 mg PRN Q6HRS PRN PO NAUSEA/VOMITING; Start 05/01 at 17:15 Morphine Sulfate (Morphine Sulfate) 2 mg PRN Q2HR PRN IV PAIN; Start 05/01/18 at 17:15 Allopurinol (Zyloprim) 100 mg DAILY PO ; Start 05/02/18 at 09:00 Carvedilol (Coreg) 12.5 mg BIDWMEALS PO ; Start 05/01/18 at 18:00 Fentanyl (Duragesic 12mcg/ Hr Patch) 1 patch Q72H TD ; Start 05/01/18 at 21:00; Status Cancel Oxycodone/ Acetaminophen (Percocet 10/325) 1 tab PRN QID PRN PO SEVERE PAIN Last administered on 05/02/18at 03:23; Start 05/01/18 at 17:15 Tamsulosin HCl (Flomax) 0.4 mg DAILY PO ; Start 05/02/18 at 09:00; Stop at 09:00; Status DC Hydralazine HCl (Apresoline) 50 mg TID PO ; Start 05/01/18 at 21:00; Status Cancel Losartan Potassium (Cozaar) 100 mg DAILY PO ; Start 05/02/18 at 09:00 Magnesium Oxide (Magnesium Oxide) 400 mg DAILY PO ; Start 05/02/18 at 09:00; Status Cancel Potassium Chloride (Klor-Con) 20 meq DAILYWBKFT PO ; Start 05/02/18 at 08:00; Status Cancel Atorvastatin Calcium (Lipitor) 10 mg QHS PO ; Start 05/01/18 at 21:00; Status Cancel Torsemide (Demadex) 20 mg BID94 PO ; Start 05/02/18 at 09:00; Status Cancel Labetalol HCl (Normodyne Iv Push) 10 mg PRN Q2HR PRN IVP HYPERTENSION, SEE COMMENTS; Start 05/01/18 at 17:15 Temazepam (Restoril) 7.5 mg PRN QHS PRN PO INSOMNIA; Start 05/01/18 at 17:15 Ondansetron HCl (Zofran) 4 mg PRN Q8HRS PRN IV NAUSEA/VOMITING; Start 05/01/18 at 17:30; Stop 05/02/18 at 17:29; Status UNV Morphine Sulfate (Morphine Sulfate) 4 mg PRN Q2HR PRN IV PAIN; Start 05/01/18 at 17:30; Stop 05/02/18 at 17:29; Status UNV Ciprofloxacin/ Dextrose 200 ml @ 200 mls/hr 1X ONCE IV Last administered on at 18:05; Start 05/01/18 at 17:30; Stop 05/01/18 at 18:29; Status DC Metronidazole 100 ml @ 100 mls/hr 1X ONCE IV Last administered on 05/01/18at 20:07; Start 05/01/18 at 18:30; Stop 05/01/18 at 19:29; Status DC Pharmacy Consult (C.diff Med Screen By Rx) 1 each 1X ONCE MC ; Start 05/01/18 at 20:30; Stop 05/01/18 at 20:31; Status UNV Famotidine (Pepcid) 20 mg BID PO Last administered on 05/01/18at 22:48; Start at 21:00 Lactobacillus Rhamnosus (Culturelle) 1 cap BID PO Last administered on at 22:48; Start 05/01/18 at 21:00 Bupropion HCl (Wellbutrin Xl) 150 mg DAILY PO ; Start 05/02/18 at 09:00 Docusate Sodium (Colace) 100 mg PRN DAILY PRN PO CONSTIPATION; Start 05/01/18 at 22:15 Fluticasone Propionate (Flonase) 2 spray DAILY NS ; Start 05/02/18 at 09:00 Senna/Docusate Sodium (Senna Plus) 1 tab BID PO ; Start 05/02/18 at 09:00 Atorvastatin Calcium (Lipitor) 80 mg HS PO ; Start 05/02/18 at 21:00; Status Cancel Polyethylene Glycol (miraLAX PACKET) 17 gm PRN DAILY PRN PO CONSTIPATION; Start 05/01/18 at 22:15 Torsemide (Demadex) 100 mg DAILY PO ; Start 05/02/18 at 09:00 Warfarin Sodium (Coumadin) 4 mg DAILY16 PO ; Start 05/02/18 at 16:00 Albuterol Sulfate (Ventolin Neb Soln) 2.5 mg PRN Q6HRS PRN INH SHORTNESS OF BREATH; Start 05/01/18 at 22:15 Warfarin Sodium (Coumadin Per Physician) 1 each PRN DAILY PRN MC SEE COMMENTS; Start 05/02/18 at 16:00 Tamsulosin HCl (Flomax) 0.8 mg DAILY PO ; Start 05/02/18 at 09:00 Atorvastatin Calcium (Lipitor) 80 mg HS PO ; Start 05/02/18 at 21:00 Ciprofloxacin/ Dextrose 200 ml @ 200 mls/hr Q12HR IV ; Start 05/02/18 at 09:00 Metronidazole 100 ml @ 100 mls/hr Q8HRS IV ; Start 05/02/18 at 09:00 Active Scripts Active Allopurinol 100 Mg Tablet 100 Mg PO DAILY 30 Days Reported Warfarin Sodium 4 Mg Tablet 4 Mg PO DAILY Demadex (Torsemide) 20 Mg Tablet 100 Mg PO DAILY Senokot-S Tablet (Sennosides/Docusate Sodium) 1 Each Tablet 1 Tab PO BID Miralax (Polyethylene Glycol 3350) 119 Gm Powder 17 Gm PO PRN DAILY PRN Metronidazole 500 Mg Tablet 1 Tab PO BID Fluticasone Propionate Nasal [place] (Fluticasone Propionate) 16 Gm [place].susp 2 [place] NS DAILY Docusate Sodium 100 Mg Capsule 1 Cap PO PRN DAILY PRN Cefpodoxime Proxetil 200 Mg Tablet 1 Tab PO BID Bupropion Xl (Bupropion Hcl) 150 Mg Tab.er.24h 1 Tab PO DAILY Atorvastatin Calcium 80 Mg Tablet 1 Tab PO DAILY Proair Hfa Inhaler (Albuterol Sulfate) 8.5 Gm Hfa.aer.ad 2 Puff INH PRN Q6HRS PRN Losartan Potassium 100 Mg Tablet 100 Mg PO DAILY Carvedilol (Carvedilol) 12.5 Mg Tablet 12.5 Mg PO BIDWMEALS Percocet 10-325 Mg Tablet (Oxycodone/Acetaminophen) 1 Each Tablet 1 Tab PO PRN Q8HRS PRN Flomax (Tamsulosin Hcl) 0.4 Mg Cap.er.24h 0.8 Mg PO DAILY Allergies Allergies: Coded Allergies: No Known Drug Allergies (Unverified , 10/27/16) Vitals VITALS Vital Signs Date Time Temp Pulse Resp B/P (MAP) Pulse Ox O2 Delivery O2 Flow Rate FiO2 05/02/18 09:31 97 Room Air 05/02/18 07:00 97.5 62 20 142/73 (96) 97.5 Labs Labs Laboratory Tests Test 05/01/18 14:05 05/02/18 02:35 05/02/18 03:40 White Blood Count 4.0 x10^3/uL (4.0-11.0) 3.0 x10^3/uL (4.0-11.0) Red Blood Count 3.93 x10^6/uL (4.30-5.70) 3.44 x10^6/uL (4.30-5.70) Hemoglobin 11.9 g/dL (13.0-17.5) 10.5 g/dL (13.0-17.5) Hematocrit 36.7 % (39.0-53.0) 32.1 % (39.0-53.0) Mean Corpuscular Volume 93 fL (79-100) 93 fL (79-100) Mean Corpuscular Hemoglobin 30 pg (25-35) 31 pg (25-35) Mean Corpuscular Hemoglobin Concent 33 g/dL (31-37) 33 g/dL (31-37) Red Cell Distribution Width 15.5 % (11.5-14.5) 15.3 % (11.5-14.5) Platelet Count 224 x10^3/uL (140-400) 177 x10^3/uL (140-400) Neutrophils (%) (Auto) 56 % (31-73) 49 % (31-73) Lymphocytes (%) (Auto) 29 % (24-48) 34 % (24-48) Monocytes (%) (Auto) 8 % (0-9) 9 % (0-9) Eosinophils (%) (Auto) 6 % (0-3) 7 % (0-3) Basophils (%) (Auto) 1 % (0-3) 1 % (0-3) Neutrophils # (Auto) 2.2 x10^3uL (1.8-7.7) 1.5 x10^3uL (1.8-7.7) Lymphocytes # (Auto) 1.1 x10^3/uL (1.0-4.8) 1.0 x10^3/uL (1.0-4.8) Monocytes # (Auto) 0.3 x10^3/uL (0.0-1.1) 0.3 x10^3/uL (0.0-1.1) Eosinophils # (Auto) 0.2 x10^3/uL (0.0-0.7) 0.2 x10^3/uL (0.0-0.7) Basophils # (Auto) 0.0 x10^3/uL (0.0-0.2) 0.0 x10^3/uL (0.0-0.2) Prothrombin Time 19.7 SEC (11.7-14.0) 21.5 SEC (11.7-14.0) Prothromb Time International Ratio 1.7 (0.8-1.1) 1.9 (0.8-1.1) Activated Partial Thromboplast Time 37 SEC (24-38) Sodium Level 144 mmol/L (136-145) 146 mmol/L (136-145) Potassium Level 3.3 mmol/L (3.5-5.1) 3.3 mmol/L (3.5-5.1) Chloride Level 104 mmol/L (98-107) 108 mmol/L (98-107) Carbon Dioxide Level 29 mmol/L (21-32) 29 mmol/L (21-32) Anion Gap 11 (6-14) 9 (6-14) Blood Urea Nitrogen 16 mg/dL (8-26) 11 mg/dL (8-26) Creatinine 1.4 mg/dL (0.7-1.3) 1.2 mg/dL (0.7-1.3) Estimated GFR (Cockcroft-Gault) 59.0 70.5 BUN/Creatinine Ratio 11 (6-20) Glucose Level 96 mg/dL (70-99) 92 mg/dL (70-99) Calcium Level 8.4 mg/dL (8.5-10.1) 7.9 mg/dL (8.5-10.1) Magnesium Level 1.8 mg/dL (1.8-2.4) Total Bilirubin 0.3 mg/dL (0.2-1.0) Aspartate Amino Transf (AST/SGOT) 13 U/L (15-37) Alanine Aminotransferase (ALT/SGPT) 15 U/L (16-63) Alkaline Phosphatase 60 U/L (46-116) Creatine Kinase 165 U/L (39-308) Creatine Kinase MB (Mass) 1.6 ng/mL (0.0-3.6) Creatine Kinase MB Relative Index 1.0 % (0-4) Troponin I Quantitative < 0.017 ng/mL (0.000-0.055) FV-Xeq-X-Type Natriuretic Peptide 107 pg/mL (0-449) Total Protein 7.2 g/dL (6.4-8.2) Albumin 3.5 g/dL (3.4-5.0) Albumin/Globulin Ratio 0.9 (1.0-1.7) Lipase 198 U/L (73-393) Urine Collection Type Unknown Urine Color Yellow Urine Clarity Cloudy Urine pH 6.0 Urine Specific [place] >=1.030 Urine Protein Negative mg/dL (NEG-TRACE) Urine Glucose (UA) Negative mg/dL (NEG) Urine Ketones (Stick) Negative mg/dL (NEG) Urine Blood Negative (NEG) Urine Nitrite Negative (NEG) Urine Bilirubin Negative (NEG) Urine Urobilinogen Dipstick 0.2 mg/dL (0.2 mg/dL) Urine Leukocyte Esterase Negative (NEG) Urine RBC 0 /HPF (0-2) Urine WBC Occ /HPF (0-4) Urine Squamous Epithelial Cells Few /LPF Urine Bacteria 0 /HPF (0-FEW) Urine Hyaline Casts Few /HPF Urine Mucus Slight /LPF Urine Opiates Screen Pos (NEG) Urine Methadone Screen Neg (NEG) Urine Barbiturates Neg (NEG) Urine Phencyclidine Screen Neg (NEG) Urine Amphetamine/Methamphetamine Neg (NEG) Urine Benzodiazepines Screen Neg (NEG) Urine Cocaine Screen Neg (NEG) Urine Cannabinoids Screen Neg (NEG) Urine Ethyl Alcohol Neg (NEG) Laboratory Tests Test 05/01/18 14:05 05/02/18 02:35 05/02/18 03:40 White Blood Count 4.0 x10^3/uL (4.0-11.0) 3.0 x10^3/uL (4.0-11.0) Red Blood Count 3.93 x10^6/uL (4.30-5.70) 3.44 x10^6/uL (4.30-5.70) Hemoglobin 11.9 g/dL (13.0-17.5) 10.5 g/dL (13.0-17.5) Hematocrit 36.7 % (39.0-53.0) 32.1 % (39.0-53.0) Mean Corpuscular Volume 93 fL (79-100) 93 fL (79-100) Mean Corpuscular Hemoglobin 30 pg (25-35) 31 pg (25-35) Mean Corpuscular Hemoglobin Concent 33 g/dL (31-37) 33 g/dL (31-37) Red Cell Distribution Width 15.5 % (11.5-14.5) 15.3 % (11.5-14.5) Platelet Count 224 x10^3/uL (140-400) 177 x10^3/uL (140-400) Neutrophils (%) (Auto) 56 % (31-73) 49 % (31-73) Lymphocytes (%) (Auto) 29 % (24-48) 34 % (24-48) Monocytes (%) (Auto) 8 % (0-9) 9 % (0-9) Eosinophils (%) (Auto) 6 % (0-3) 7 % (0-3) Basophils (%) (Auto) 1 % (0-3) 1 % (0-3) Neutrophils # (Auto) 2.2 x10^3uL (1.8-7.7) 1.5 x10^3uL (1.8-7.7) Lymphocytes # (Auto) 1.1 x10^3/uL (1.0-4.8) 1.0 x10^3/uL (1.0-4.8) Monocytes # (Auto) 0.3 x10^3/uL (0.0-1.1) 0.3 x10^3/uL (0.0-1.1) Eosinophils # (Auto) 0.2 x10^3/uL (0.0-0.7) 0.2 x10^3/uL (0.0-0.7) Basophils # (Auto) 0.0 x10^3/uL (0.0-0.2) 0.0 x10^3/uL (0.0-0.2) Prothrombin Time 19.7 SEC (11.7-14.0) 21.5 SEC (11.7-14.0) Prothromb Time International Ratio 1.7 (0.8-1.1) 1.9 (0.8-1.1) Activated Partial Thromboplast Time 37 SEC (24-38) Sodium Level 144 mmol/L (136-145) 146 mmol/L (136-145) Potassium Level 3.3 mmol/L (3.5-5.1) 3.3 mmol/L (3.5-5.1) Chloride Level 104 mmol/L (98-107) 108 mmol/L (98-107) Carbon Dioxide Level 29 mmol/L (21-32) 29 mmol/L (21-32) Anion Gap 11 (6-14) 9 (6-14) Blood Urea Nitrogen 16 mg/dL (8-26) 11 mg/dL (8-26) Creatinine 1.4 mg/dL (0.7-1.3) 1.2 mg/dL (0.7-1.3) Estimated GFR (Cockcroft-Gault) 59.0 70.5 BUN/Creatinine Ratio 11 (6-20) Glucose Level 96 mg/dL (70-99) 92 mg/dL (70-99) Calcium Level 8.4 mg/dL (8.5-10.1) 7.9 mg/dL (8.5-10.1) Magnesium Level 1.8 mg/dL (1.8-2.4) Total Bilirubin 0.3 mg/dL (0.2-1.0) Aspartate Amino Transf (AST/SGOT) 13 U/L (15-37) Alanine Aminotransferase (ALT/SGPT) 15 U/L (16-63) Alkaline Phosphatase 60 U/L (46-116) Creatine Kinase 165 U/L (39-308) Creatine Kinase MB (Mass) 1.6 ng/mL (0.0-3.6) Creatine Kinase MB Relative Index 1.0 % (0-4) Troponin I Quantitative < 0.017 ng/mL (0.000-0.055) IE-Xsq-S-Type Natriuretic Peptide 107 pg/mL (0-449) Total Protein 7.2 g/dL (6.4-8.2) Albumin 3.5 g/dL (3.4-5.0) Albumin/Globulin Ratio 0.9 (1.0-1.7) Lipase 198 U/L (73-393) Urine Collection Type Unknown Urine Color Yellow Urine Clarity Cloudy Urine pH 6.0 Urine Specific [place] >=1.030 Urine Protein Negative mg/dL (NEG-TRACE) Urine Glucose (UA) Negative mg/dL (NEG) Urine Ketones (Stick) Negative mg/dL (NEG) Urine Blood Negative (NEG) Urine Nitrite Negative (NEG) Urine Bilirubin Negative (NEG) Urine Urobilinogen Dipstick 0.2 mg/dL (0.2 mg/dL) Urine Leukocyte Esterase Negative (NEG) Urine RBC 0 /HPF (0-2) Urine WBC Occ /HPF (0-4) Urine Squamous Epithelial Cells Few /LPF Urine Bacteria 0 /HPF (0-FEW) Urine Hyaline Casts Few /HPF Urine Mucus Slight /LPF Urine Opiates Screen Pos (NEG) Urine Methadone Screen Neg (NEG) Urine Barbiturates Neg (NEG) Urine Phencyclidine Screen Neg (NEG) Urine Amphetamine/Methamphetamine Neg (NEG) Urine Benzodiazepines Screen Neg (NEG) Urine Cocaine Screen Neg (NEG) Urine Cannabinoids Screen Neg (NEG) Urine Ethyl Alcohol Neg (NEG) HARJINDER KINSEY MD May 02, 2018 09:50
[2018-05-02] MEDS: LOSARTAN POTASSIUM 50 MG TABLET. PO SCH (10:08)
[2018-05-02] MEDS: IV NORMAL SALINE 1000ML BAG 1,000 ML IV SCH ×2 (10:10→21:27)
[2018-05-02] MEDS: MORPHINE SULFATE 2 MG/ML VIAL. IV PRN ×4 (10:15→21:29)
[2018-05-02 11:00] VITALS: BP 139/70
--- NOTE | 2018-05-02 11:08 | PDOC ---
PROGRESS NOTES Chief Complaint Chief Complaint Colitis with rectal bleed Accelerated hypertension POA Indwelling pacer, history of A. fib-now NSR on warfarin-hold warfarin Abdominal pain secondary to colitis Multiple splenic lesions Incidental gallstones Mild urinary bladder wall thickening Mild inferior endplate fracture of T12, age-indeterminate but not seen in 2011. History of Present Illness History of Present Illness NO More reports of rectal bleed Blood pressure is much better with my BP meds (was hypertensive at ER) Warfarin on hold, history of A. fib but is now NSR - on hold bec of rectal bleed Getting records from [facility] from recent colonoscopy Heme onc note reviewed, Ideally, PET scan but this is done as outpatient. Splenic lesions to be seen to be stable based in 2013 records Plan: await [facility] records re recent c scope Okay for regular diet Continue IV antibiotics as colitis was found on CAT scan Monitor for further rectal bleed PT OT Vitals Vitals Vital Signs Date Time Temp Pulse Resp B/P (MAP) Pulse Ox O2 Delivery O2 Flow Rate FiO2 05/02/18 10:15 97 Room Air 05/02/18 10:08 62 142/73 05/02/18 07:00 97.5 20 97.5 Physical Exam General: Alert, Oriented X3, Cooperative, No acute distress Abdomen: Soft, Other (mildly distended abdomen, tympanitic to percussion with no guarding, mild tenderness on exam) Extremities: No clubbing, No cyanosis, No edema, Normal pulses, No tenderness/ swelling Skin: No rashes, No breakdown, No significant lesion Labs LABS Laboratory Tests Test 05/01/18 14:05 05/02/18 02:35 05/02/18 03:40 White Blood Count 4.0 x10^3/uL (4.0-11.0) 3.0 x10^3/uL (4.0-11.0) Red Blood Count 3.93 x10^6/uL (4.30-5.70) 3.44 x10^6/uL (4.30-5.70) Hemoglobin 11.9 g/dL (13.0-17.5) 10.5 g/dL (13.0-17.5) Hematocrit 36.7 % (39.0-53.0) 32.1 % (39.0-53.0) Mean Corpuscular Volume 93 fL (79-100) 93 fL (79-100) Mean Corpuscular Hemoglobin 30 pg (25-35) 31 pg (25-35) Mean Corpuscular Hemoglobin Concent 33 g/dL (31-37) 33 g/dL (31-37) Red Cell Distribution Width 15.5 % (11.5-14.5) 15.3 % (11.5-14.5) Platelet Count 224 x10^3/uL (140-400) 177 x10^3/uL (140-400) Neutrophils (%) (Auto) 56 % (31-73) 49 % (31-73) Lymphocytes (%) (Auto) 29 % (24-48) 34 % (24-48) Monocytes (%) (Auto) 8 % (0-9) 9 % (0-9) Eosinophils (%) (Auto) 6 % (0-3) 7 % (0-3) Basophils (%) (Auto) 1 % (0-3) 1 % (0-3) Neutrophils # (Auto) 2.2 x10^3uL (1.8-7.7) 1.5 x10^3uL (1.8-7.7) Lymphocytes # (Auto) 1.1 x10^3/uL (1.0-4.8) 1.0 x10^3/uL (1.0-4.8) Monocytes # (Auto) 0.3 x10^3/uL (0.0-1.1) 0.3 x10^3/uL (0.0-1.1) Eosinophils # (Auto) 0.2 x10^3/uL (0.0-0.7) 0.2 x10^3/uL (0.0-0.7) Basophils # (Auto) 0.0 x10^3/uL (0.0-0.2) 0.0 x10^3/uL (0.0-0.2) Prothrombin Time 19.7 SEC (11.7-14.0) 21.5 SEC (11.7-14.0) Prothromb Time International Ratio 1.7 (0.8-1.1) 1.9 (0.8-1.1) Activated Partial Thromboplast Time 37 SEC (24-38) Sodium Level 144 mmol/L (136-145) 146 mmol/L (136-145) Potassium Level 3.3 mmol/L (3.5-5.1) 3.3 mmol/L (3.5-5.1) Chloride Level 104 mmol/L (98-107) 108 mmol/L (98-107) Carbon Dioxide Level 29 mmol/L (21-32) 29 mmol/L (21-32) Anion Gap 11 (6-14) 9 (6-14) Blood Urea Nitrogen 16 mg/dL (8-26) 11 mg/dL (8-26) Creatinine 1.4 mg/dL (0.7-1.3) 1.2 mg/dL (0.7-1.3) Estimated GFR (Cockcroft-Gault) 59.0 70.5 BUN/Creatinine Ratio 11 (6-20) Glucose Level 96 mg/dL (70-99) 92 mg/dL (70-99) Calcium Level 8.4 mg/dL (8.5-10.1) 7.9 mg/dL (8.5-10.1) Magnesium Level 1.8 mg/dL (1.8-2.4) Total Bilirubin 0.3 mg/dL (0.2-1.0) Aspartate Amino Transf (AST/SGOT) 13 U/L (15-37) Alanine Aminotransferase (ALT/SGPT) 15 U/L (16-63) Alkaline Phosphatase 60 U/L (46-116) Creatine Kinase 165 U/L (39-308) Creatine Kinase MB (Mass) 1.6 ng/mL (0.0-3.6) Creatine Kinase MB Relative Index 1.0 % (0-4) Troponin I Quantitative < 0.017 ng/mL (0.000-0.055) GN-Ogt-A-Type Natriuretic Peptide 107 pg/mL (0-449) Total Protein 7.2 g/dL (6.4-8.2) Albumin 3.5 g/dL (3.4-5.0) Albumin/Globulin Ratio 0.9 (1.0-1.7) Lipase 198 U/L (73-393) Urine Collection Type Unknown Urine Color Yellow Urine Clarity Cloudy Urine pH 6.0 Urine Specific [place] >=1.030 Urine Protein Negative mg/dL (NEG-TRACE) Urine Glucose (UA) Negative mg/dL (NEG) Urine Ketones (Stick) Negative mg/dL (NEG) Urine Blood Negative (NEG) Urine Nitrite Negative (NEG) Urine Bilirubin Negative (NEG) Urine Urobilinogen Dipstick 0.2 mg/dL (0.2 mg/dL) Urine Leukocyte Esterase Negative (NEG) Urine RBC 0 /HPF (0-2) Urine WBC Occ /HPF (0-4) Urine Squamous Epithelial Cells Few /LPF Urine Bacteria 0 /HPF (0-FEW) Urine Hyaline Casts Few /HPF Urine Mucus Slight /LPF Urine Opiates Screen Pos (NEG) Urine Methadone Screen Neg (NEG) Urine Barbiturates Neg (NEG) Urine Phencyclidine Screen Neg (NEG) Urine Amphetamine/Methamphetamine Neg (NEG) Urine Benzodiazepines Screen Neg (NEG) Urine Cocaine Screen Neg (NEG) Urine Cannabinoids Screen Neg (NEG) Urine Ethyl Alcohol Neg (NEG) Review of Systems Review of Systems A 14 point ROS was completed with the following noted as positive: Other systems reviewed and negative. \CONSTITUTIONAL: No fever or chills EYES: No recent changes SKIN: No rash or itching CARDIOVASCULAR: No chest pain, syncope, palpitations, or edema RESPIRATORY: No SOB or cough GASTROINTESTINAL: No nausea, vomiting or abdominal pain NEUROLOGICAL: No headaches or weakness ENDOCRINE: No cold or heat intolerance GENITOURINARY: No urgency or frequency of urination MUSCULOSKELETAL: No back pain or joint pain LYMPHATICS: No enlarged lymph nodes PSYCHIATRIC: No anxiety or depression Assessment and Plan Assessmemt and Plan Problems Medical Problems: (1) Colitis Status: Acute (2) CRF (chronic renal failure) Status: Acute Comment Review of Relevant I have reviewed the following items joanne (where applicable) has been applied. Labs Laboratory Tests Test 05/01/18 14:05 05/02/18 02:35 05/02/18 03:40 White Blood Count 4.0 x10^3/uL (4.0-11.0) 3.0 x10^3/uL (4.0-11.0) Red Blood Count 3.93 x10^6/uL (4.30-5.70) 3.44 x10^6/uL (4.30-5.70) Hemoglobin 11.9 g/dL (13.0-17.5) 10.5 g/dL (13.0-17.5) Hematocrit 36.7 % (39.0-53.0) 32.1 % (39.0-53.0) Mean Corpuscular Volume 93 fL (79-100) 93 fL (79-100) Mean Corpuscular Hemoglobin 30 pg (25-35) 31 pg (25-35) Mean Corpuscular Hemoglobin Concent 33 g/dL (31-37) 33 g/dL (31-37) Red Cell Distribution Width 15.5 % (11.5-14.5) 15.3 % (11.5-14.5) Platelet Count 224 x10^3/uL (140-400) 177 x10^3/uL (140-400) Neutrophils (%) (Auto) 56 % (31-73) 49 % (31-73) Lymphocytes (%) (Auto) 29 % (24-48) 34 % (24-48) Monocytes (%) (Auto) 8 % (0-9) 9 % (0-9) Eosinophils (%) (Auto) 6 % (0-3) 7 % (0-3) Basophils (%) (Auto) 1 % (0-3) 1 % (0-3) Neutrophils # (Auto) 2.2 x10^3uL (1.8-7.7) 1.5 x10^3uL (1.8-7.7) Lymphocytes # (Auto) 1.1 x10^3/uL (1.0-4.8) 1.0 x10^3/uL (1.0-4.8) Monocytes # (Auto) 0.3 x10^3/uL (0.0-1.1) 0.3 x10^3/uL (0.0-1.1) Eosinophils # (Auto) 0.2 x10^3/uL (0.0-0.7) 0.2 x10^3/uL (0.0-0.7) Basophils # (Auto) 0.0 x10^3/uL (0.0-0.2) 0.0 x10^3/uL (0.0-0.2) Prothrombin Time 19.7 SEC (11.7-14.0) 21.5 SEC (11.7-14.0) Prothromb Time International Ratio 1.7 (0.8-1.1) 1.9 (0.8-1.1) Activated Partial Thromboplast Time 37 SEC (24-38) Sodium Level 144 mmol/L (136-145) 146 mmol/L (136-145) Potassium Level 3.3 mmol/L (3.5-5.1) 3.3 mmol/L (3.5-5.1) Chloride Level 104 mmol/L (98-107) 108 mmol/L (98-107) Carbon Dioxide Level 29 mmol/L (21-32) 29 mmol/L (21-32) Anion Gap 11 (6-14) 9 (6-14) Blood Urea Nitrogen 16 mg/dL (8-26) 11 mg/dL (8-26) Creatinine 1.4 mg/dL (0.7-1.3) 1.2 mg/dL (0.7-1.3) Estimated GFR (Cockcroft-Gault) 59.0 70.5 BUN/Creatinine Ratio 11 (6-20) Glucose Level 96 mg/dL (70-99) 92 mg/dL (70-99) Calcium Level 8.4 mg/dL (8.5-10.1) 7.9 mg/dL (8.5-10.1) Magnesium Level 1.8 mg/dL (1.8-2.4) Total Bilirubin 0.3 mg/dL (0.2-1.0) Aspartate Amino Transf (AST/SGOT) 13 U/L (15-37) Alanine Aminotransferase (ALT/SGPT) 15 U/L (16-63) Alkaline Phosphatase 60 U/L (46-116) Creatine Kinase 165 U/L (39-308) Creatine Kinase MB (Mass) 1.6 ng/mL (0.0-3.6) Creatine Kinase MB Relative Index 1.0 % (0-4) Troponin I Quantitative < 0.017 ng/mL (0.000-0.055) [facility]-Tbs-A-Type Natriuretic Peptide 107 pg/mL (0-449) Total Protein 7.2 g/dL (6.4-8.2) Albumin 3.5 g/dL (3.4-5.0) Albumin/Globulin Ratio 0.9 (1.0-1.7) Lipase 198 U/L (73-393) Urine Collection Type Unknown Urine Color Yellow Urine Clarity Cloudy Urine pH 6.0 Urine Specific [place] >=1.030 Urine Protein Negative mg/dL (NEG-TRACE) Urine Glucose (UA) Negative mg/dL (NEG) Urine Ketones (Stick) Negative mg/dL (NEG) Urine Blood Negative (NEG) Urine Nitrite Negative (NEG) Urine Bilirubin Negative (NEG) Urine Urobilinogen Dipstick 0.2 mg/dL (0.2 mg/dL) Urine Leukocyte Esterase Negative (NEG) Urine RBC 0 /HPF (0-2) Urine WBC Occ /HPF (0-4) Urine Squamous Epithelial Cells Few /LPF Urine Bacteria 0 /HPF (0-FEW) Urine Hyaline Casts Few /HPF Urine Mucus Slight /LPF Urine Opiates Screen Pos (NEG) Urine Methadone Screen Neg (NEG) Urine Barbiturates Neg (NEG) Urine Phencyclidine Screen Neg (NEG) Urine Amphetamine/Methamphetamine Neg (NEG) Urine Benzodiazepines Screen Neg (NEG) Urine Cocaine Screen Neg (NEG) Urine Cannabinoids Screen Neg (NEG) Urine Ethyl Alcohol Neg (NEG) Laboratory Tests Test 05/01/18 14:05 05/02/18 02:35 05/02/18 03:40 White Blood Count 4.0 x10^3/uL (4.0-11.0) 3.0 x10^3/uL (4.0-11.0) Red Blood Count 3.93 x10^6/uL (4.30-5.70) 3.44 x10^6/uL (4.30-5.70) Hemoglobin 11.9 g/dL (13.0-17.5) 10.5 g/dL (13.0-17.5) Hematocrit 36.7 % (39.0-53.0) 32.1 % (39.0-53.0) Mean Corpuscular Volume 93 fL (79-100) 93 fL (79-100) Mean Corpuscular Hemoglobin 30 pg (25-35) 31 pg (25-35) Mean Corpuscular Hemoglobin Concent 33 g/dL (31-37) 33 g/dL (31-37) Red Cell Distribution Width 15.5 % (11.5-14.5) 15.3 % (11.5-14.5) Platelet Count 224 x10^3/uL (140-400) 177 x10^3/uL (140-400) Neutrophils (%) (Auto) 56 % (31-73) 49 % (31-73) Lymphocytes (%) (Auto) 29 % (24-48) 34 % (24-48) Monocytes (%) (Auto) 8 % (0-9) 9 % (0-9) Eosinophils (%) (Auto) 6 % (0-3) 7 % (0-3) Basophils (%) (Auto) 1 % (0-3) 1 % (0-3) Neutrophils # (Auto) 2.2 x10^3uL (1.8-7.7) 1.5 x10^3uL (1.8-7.7) Lymphocytes # (Auto) 1.1 x10^3/uL (1.0-4.8) 1.0 x10^3/uL (1.0-4.8) Monocytes # (Auto) 0.3 x10^3/uL (0.0-1.1) 0.3 x10^3/uL (0.0-1.1) Eosinophils # (Auto) 0.2 x10^3/uL (0.0-0.7) 0.2 x10^3/uL (0.0-0.7) Basophils # (Auto) 0.0 x10^3/uL (0.0-0.2) 0.0 x10^3/uL (0.0-0.2) Prothrombin Time 19.7 SEC (11.7-14.0) 21.5 SEC (11.7-14.0) Prothromb Time International Ratio 1.7 (0.8-1.1) 1.9 (0.8-1.1) Activated Partial Thromboplast Time 37 SEC (24-38) Sodium Level 144 mmol/L (136-145) 146 mmol/L (136-145) Potassium Level 3.3 mmol/L (3.5-5.1) 3.3 mmol/L (3.5-5.1) Chloride Level 104 mmol/L (98-107) 108 mmol/L (98-107) Carbon Dioxide Level 29 mmol/L (21-32) 29 mmol/L (21-32) Anion Gap 11 (6-14) 9 (6-14) Blood Urea Nitrogen 16 mg/dL (8-26) 11 mg/dL (8-26) Creatinine 1.4 mg/dL (0.7-1.3) 1.2 mg/dL (0.7-1.3) Estimated GFR (Cockcroft-Gault) 59.0 70.5 BUN/Creatinine Ratio 11 (6-20) Glucose Level 96 mg/dL (70-99) 92 mg/dL (70-99) Calcium Level 8.4 mg/dL (8.5-10.1) 7.9 mg/dL (8.5-10.1) Magnesium Level 1.8 mg/dL (1.8-2.4) Total Bilirubin 0.3 mg/dL (0.2-1.0) Aspartate Amino Transf (AST/SGOT) 13 U/L (15-37) Alanine Aminotransferase (ALT/SGPT) 15 U/L (16-63) Alkaline Phosphatase 60 U/L (46-116) Creatine Kinase 165 U/L (39-308) Creatine Kinase MB (Mass) 1.6 ng/mL (0.0-3.6) Creatine Kinase MB Relative Index 1.0 % (0-4) Troponin I Quantitative < 0.017 ng/mL (0.000-0.055) JZ-Had-P-Type Natriuretic Peptide 107 pg/mL (0-449) Total Protein 7.2 g/dL (6.4-8.2) Albumin 3.5 g/dL (3.4-5.0) Albumin/Globulin Ratio 0.9 (1.0-1.7) Lipase 198 U/L (73-393) Urine Collection Type Unknown Urine Color Yellow Urine Clarity Cloudy Urine pH 6.0 Urine Specific [place] >=1.030 Urine Protein Negative mg/dL (NEG-TRACE) Urine Glucose (UA) Negative mg/dL (NEG) Urine Ketones (Stick) Negative mg/dL (NEG) Urine Blood Negative (NEG) Urine Nitrite Negative (NEG) Urine Bilirubin Negative (NEG) Urine Urobilinogen Dipstick 0.2 mg/dL (0.2 mg/dL) Urine Leukocyte Esterase Negative (NEG) Urine RBC 0 /HPF (0-2) Urine WBC Occ /HPF (0-4) Urine Squamous Epithelial Cells Few /LPF Urine Bacteria 0 /HPF (0-FEW) Urine Hyaline Casts Few /HPF Urine Mucus Slight /LPF Urine Opiates Screen Pos (NEG) Urine Methadone Screen Neg (NEG) Urine Barbiturates Neg (NEG) Urine Phencyclidine Screen Neg (NEG) Urine Amphetamine/Methamphetamine Neg (NEG) Urine Benzodiazepines Screen Neg (NEG) Urine Cocaine Screen Neg (NEG) Urine Cannabinoids Screen Neg (NEG) Urine Ethyl Alcohol Neg (NEG) Medications Current Medications Fentanyl Citrate (Fentanyl 2ml Vial) 25 mcg PRN Q15MIN PRN IV PAIN GREATER THAN 3/10 Last administered on 05/01/18at 14:25; Start 05/01/18 at 13:45; Stop at 13:44 Sodium Chloride 1,000 ml @ 1,000 mls/hr 1X ONCE IV Last administered on at 14:12; Start 05/01/18 at 13:45; Stop 05/01/18 at 14:44; Status DC Ondansetron HCl (Zofran) 4 mg 1X ONCE IV Last administered on 05/01/18at 14:14 ; Start 05/01/18 at 13:45; Stop 05/01/18 at 13:48; Status DC Pantoprazole Sodium (PROTONIX VIAL for IV PUSH) 40 mg 1X ONCE IVP Last administered on 05/01/18at 14:18; Start 05/01/18 at 13:45; Stop 05/01/18 at 13:47 ; Status DC Iohexol (Omnipaque 300 Mg/ml) 75 ml 1X ONCE IV Last administered on 05/01/18at 15:00; Start 05/01/18 at 15:00; Stop 05/01/18 at 15:01; Status DC Info (CONTRAST GIVEN -- Rx MONITORING) 1 each PRN DAILY PRN [facility] SEE COMMENTS; Start 05/01/18 at 15:00; Stop 05/03/18 at 14:59 Sodium Chloride 1,000 ml @ 80 mls/hr [id number] IV Last administered on at 10:10; Start 05/01/18 at 17:30 Acetaminophen (Tylenol) 500 mg PRN Q6HRS PRN PO MILD PAIN / TEMP; Start at 17:15 Acetaminophen/ Codeine Phosphate (Tylenol #3) 1 tab PRN Q6HRS PRN PO MODERATE PAIN Last administered on 05/01/18at 18:02; Start 05/01/18 at 17:15 Pantoprazole Sodium (Protonix) 40 mg DAILYAC PO ; Start 05/02/18 at 07:30; Stop 05/02/18 at 07:30; Status DC Ondansetron HCl (Zofran) 4 mg PRN Q6HRS PRN IV NAUSEA/VOMITING; Start 05/01/18 at 17:15 Ondansetron HCl (Zofran Odt) 4 mg PRN Q6HRS PRN PO NAUSEA/VOMITING; Start 05/01 at 17:15 Morphine Sulfate (Morphine Sulfate) 2 mg PRN Q2HR PRN IV PAIN Last administered on 05/02/18at 10:15; Start 05/01/18 at 17:15 Allopurinol (Zyloprim) 100 mg DAILY PO Last administered on 05/02/18at 09:43; Start 05/02/18 at 09:00 Carvedilol (Coreg) 12.5 mg BIDWMEALS PO Last administered on 05/02/18at 09:45; Start 05/01/18 at 18:00 Fentanyl (Duragesic 12mcg/ Hr Patch) 1 patch Q72H TD ; Start 05/01/18 at 21:00; Status Cancel Oxycodone/ Acetaminophen (Percocet 10/325) 1 tab PRN QID PRN PO SEVERE PAIN Last administered on 05/02/18at 03:23; Start 05/01/18 at 17:15 Tamsulosin HCl (Flomax) 0.4 mg DAILY PO ; Start 05/02/18 at 09:00; Stop at 09:00; Status DC Hydralazine HCl (Apresoline) 50 mg TID PO ; Start 05/01/18 at 21:00; Status Cancel Losartan Potassium (Cozaar) 100 mg DAILY PO Last administered on 05/02/18at 10: 08; Start 05/02/18 at 09:00 Magnesium Oxide (Magnesium Oxide) 400 mg DAILY PO ; Start 05/02/18 at 09:00; Status Cancel Potassium Chloride (Klor-Con) 20 meq [id number] PO ; Start 05/02/18 at 08:00; Status Cancel Atorvastatin Calcium (Lipitor) 10 mg QHS PO ; Start 05/01/18 at 21:00; Status Cancel Torsemide (Demadex) 20 mg BID94 PO ; Start 05/02/18 at 09:00; Status Cancel Labetalol HCl (Normodyne Iv Push) 10 mg PRN Q2HR PRN IVP HYPERTENSION, SEE COMMENTS; Start 05/01/18 at 17:15 Temazepam (Restoril) 7.5 mg PRN QHS PRN PO INSOMNIA; Start 05/01/18 at 17:15 Ondansetron HCl (Zofran) 4 mg PRN Q8HRS PRN IV NAUSEA/VOMITING; Start 05/01/18 at 17:30; Stop 05/02/18 at 17:29; Status UNV Morphine Sulfate (Morphine Sulfate) 4 mg PRN Q2HR PRN IV PAIN; Start 05/01/18 at 17:30; Stop 05/02/18 at 17:29; Status UNV Ciprofloxacin/ Dextrose 200 ml @ 200 mls/hr 1X ONCE IV Last administered on at 18:05; Start 05/01/18 at 17:30; Stop 05/01/18 at 18:29; Status DC Metronidazole 100 ml @ 100 mls/hr 1X ONCE IV Last administered on 05/01/18at 20:07; Start 05/01/18 at 18:30; Stop 05/01/18 at 19:29; Status DC Pharmacy Consult (C.diff Med Screen By Rx) 1 each 1X ONCE MC ; Start 05/01/18 at 20:30; Stop 05/01/18 at 20:31; Status UNV Famotidine (Pepcid) 20 mg BID PO Last administered on 05/02/18at 09:43; Start at 21:00 Lactobacillus Rhamnosus (Culturelle) 1 cap BID PO Last administered on at 09:42; Start 05/01/18 at 21:00 Bupropion HCl (Wellbutrin Xl) 150 mg DAILY PO Last administered on 05/02/18at 09 :41; Start 05/02/18 at 09:00 Docusate Sodium (Colace) 100 mg PRN DAILY PRN PO CONSTIPATION; Start 05/01/18 at 22:15 Fluticasone Propionate (Flonase) 2 spray DAILY NS Last administered on at 09:48; Start 05/02/18 at 09:00 Senna/Docusate Sodium (Senna Plus) 1 tab BID PO Last administered on 05/02/18at 09:43; Start 05/02/18 at 09:00 Atorvastatin Calcium (Lipitor) 80 mg HS PO ; Start 05/02/18 at 21:00; Status Cancel Polyethylene Glycol (miraLAX PACKET) 17 gm PRN DAILY PRN PO CONSTIPATION; Start 05/01/18 at 22:15 Torsemide (Demadex) 100 mg DAILY PO Last administered on 05/02/18at 09:42; Start 05/02/18 at 09:00 Warfarin Sodium (Coumadin) 4 mg DAILY16 PO ; Start 05/02/18 at 16:00 Albuterol Sulfate (Ventolin Neb Soln) 2.5 mg PRN Q6HRS PRN INH SHORTNESS OF BREATH; Start 05/01/18 at 22:15 Warfarin Sodium (Coumadin Per Physician) 1 each PRN DAILY PRN [facility] SEE COMMENTS; Start 05/02/18 at 16:00 Tamsulosin HCl (Flomax) 0.8 mg DAILY PO Last administered on 05/02/18at 09:45; Start 05/02/18 at 09:00 Atorvastatin Calcium (Lipitor) 80 mg HS PO ; Start 05/02/18 at 21:00 Ciprofloxacin/ Dextrose 200 ml @ 200 mls/hr Q12HR IV Last administered on 05/02at 09:46; Start 05/02/18 at 09:00 Metronidazole 100 ml @ 100 mls/hr Q8HRS IV Last administered on 05/02/18at 09: 47; Start 05/02/18 at 09:00 Active Scripts Active Allopurinol 100 Mg Tablet 100 Mg PO DAILY 30 Days Reported Warfarin Sodium 4 Mg Tablet 4 Mg PO DAILY Demadex (Torsemide) 20 Mg Tablet 100 Mg PO DAILY Senokot-S Tablet (Sennosides/Docusate Sodium) 1 Each Tablet 1 Tab PO BID Miralax (Polyethylene Glycol 3350) 119 Gm Powder 17 Gm PO PRN DAILY PRN Metronidazole 500 Mg Tablet 1 Tab PO BID Fluticasone Propionate Nasal [place] (Fluticasone Propionate) 16 Gm [place].susp 2 [place] NS DAILY Docusate Sodium 100 Mg Capsule 1 Cap PO PRN DAILY PRN Cefpodoxime Proxetil 200 Mg Tablet 1 Tab PO BID Bupropion Xl (Bupropion Hcl) 150 Mg Tab.er.24h 1 Tab PO DAILY Atorvastatin Calcium 80 Mg Tablet 1 Tab PO DAILY Proair Hfa Inhaler (Albuterol Sulfate) 8.5 Gm Hfa.aer.ad 2 Puff INH PRN Q6HRS PRN Losartan Potassium 100 Mg Tablet 100 Mg PO DAILY Carvedilol (Carvedilol) 12.5 Mg Tablet 12.5 Mg PO BIDWMEALS Percocet 10-325 Mg Tablet (Oxycodone/Acetaminophen) 1 Each Tablet 1 Tab PO PRN Q8HRS PRN Flomax (Tamsulosin Hcl) 0.4 Mg Cap.er.24h 0.8 Mg PO DAILY Vitals/I & O Vital Sign - Last 24 Hours 05/01/18 05/01/18 05/01/18 05/01/18 13:34 14:25 14:26 15:37 Temp 98.5 98.5 Pulse 70 65 60 Resp 24 B/P (MAP) 117/65 (82) 119/63 (81) 160/77 (104) Pulse Ox 99 96 96 99 O2 Delivery Room Air Room Air Room Air Room Air 05/01/18 05/01/18 05/01/18 05/01/18 17:06 18:02 18:07 19:00 Temp 98.6 98.6 Pulse 66 66 59 Resp 24 18 B/P (MAP) 130/61 (84) 134/73 (93) 144/78 (100) Pulse Ox 97 98 97 O2 Delivery Room Air Room Air Room Air Room Air 05/01/18 05/01/18 05/01/18 05/01/18 20:00 20:04 20:04 23:00 Temp 98.3 98.3 Pulse 63 Resp 17 18 B/P (MAP) 136/67 (90) Pulse Ox 98 98 97 O2 Delivery Room Air Room Air Room Air Room Air 05/02/18 05/02/18 05/02/18 05/02/18 03:00 03:23 04:30 07:00 Temp 97.6 97.5 97.6 97.5 Pulse 67 62 Resp 18 16 13 20 B/P (MAP) 155/68 (97) 142/73 (96) Pulse Ox 95 97 97 96 O2 Delivery Room Air Room Air Room Air Room Air 05/02/18 05/02/18 05/02/18 05/02/18 09:31 09:45 10:08 10:15 Pulse 62 62 B/P (MAP) 142/73 142/73 Pulse Ox 97 97 O2 Delivery Room Air Room Air Intake and Output 05/01/18 05/01/18 05/02/18 15:00 23:00 07:00 Intake Total 1300 ml 420 ml Output Total 450 ml Balance 1300 ml -30 ml ELISSA BOB MD May 02, 2018 11:08
[2018-05-02 15:03] VITALS: BP 143/69
[2018-05-02] MEDS ORDERED: WARFARIN 4 MG TABLET. PO SCH (16:00)
[2018-05-02] MEDS ORDERED: POTASSIUM CHLORIDE 20 MEQ TABLET.ER. PO ONE (18:15)
[2018-05-02 19:00] VITALS: BP 99/63
[2018-05-02] MEDS ORDERED: ATORVASTATIN CALCIUM 40 MG TABLET. PO SCH ×2 (21:00)
[2018-05-02 22:49] VITALS: BP 129/59
[2018-05-03 03:00] VITALS: BP 137/76
[2018-05-03] MEDS: MORPHINE SULFATE 2 MG/ML VIAL. IV PRN ×2 (04:59→11:33)
[2018-05-03] MEDS: IV NORMAL SALINE 1000ML BAG 1,000 ML IV SCH (04:59)
[2018-05-03 07:15] VITALS: BP 146/72
[2018-05-03] MEDS: CIPROFLOXACIN 400MG PREMIX 200 ML IV SCH (08:55)
[2018-05-03] MEDS: TORSEMIDE 20 MG TABLET. PO SCH (08:57)
[2018-05-03] MEDS: FLUTICASONE 50MCG/NASAL SPRAY 16GM BOTTLE. NS SCH (08:57)
[2018-05-03] MEDS: SENNOSIDES/DOCUSATE 8.6/50MG TABLET. PO SCH (09:02)
[2018-05-03] MEDS: ALLOPURINOL 100 MG TABLET. PO SCH (09:02)
[2018-05-03] MEDS: LACTOBACILLUS RHAMNOSUS GG 1 CAPSULE. PO SCH (09:02)
[2018-05-03] MEDS: buPROPion XL 150 MG TAB.ER.24H. PO SCH (09:02)
[2018-05-03] MEDS: FAMOTIDINE 20 MG TABLET. PO SCH (09:02)
[2018-05-03] MEDS: LOSARTAN POTASSIUM 50 MG TABLET. PO SCH (09:03)
[2018-05-03] MEDS: CARVEDILOL 12.5 MG TABLET. PO SCH (09:03)
[2018-05-03] MEDS: TAMSULOSIN 0.4 MG CAP.ER.24H. PO SCH (09:04)
--- NOTE | 2018-05-03 09:10 | PDOC ---
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 Discussed poss [facility], w/ INR 1.9 i think IR would like it lower and we can arrange for [facility] as an outpt de: on counts post recovery of proctitis prn. A. fib: On Coumadin typically but held at the moment Disposition: Per others, we'll have him follow-up with us after discharge. He is very concerned about getting medication refill to last him through 07 june appt with his new primary home care chaplain, I do recommend primary team considering refilling any meds needed to last him through 07 June at discharge. Thank you kindly, and please don't hesitate to call with any questions. OBJECTIVE Vital Signs Vital Signs Date Time Temp Pulse Resp B/P (MAP) Pulse Ox O2 Delivery O2 Flow Rate FiO2 05/03/18 09:03 61 146/72 05/03/18 09:03 61 146/72 05/03/18 07:15 98.5 61 20 146/72 (96) 98 Room Air 98.5 05/03/18 05:29 18 98 Room Air 05/03/18 04:59 18 98 Room Air 05/03/18 03:00 97.9 61 18 137/76 (96) 98 Room Air 97.9 05/02/18 22:49 97.9 63 18 129/59 (82) 96 Room Air 97.9 05/02/18 21:29 18 96 Room Air 05/02/18 20:00 Room Air 05/02/18 19:00 97.9 71 18 99/63 (75) 99 Room Air 97.9 05/02/18 18:36 96 Room Air 05/02/18 17:12 62 143/69 05/02/18 15:03 97.6 62 18 143/69 (93) 96 Room Air 97.6 05/02/18 14:30 96 Room Air 05/02/18 11:00 97.6 65 20 139/70 (93) 96 Room Air 97.6 05/02/18 10:15 97 Room Air 05/02/18 10:08 62 142/73 05/02/18 09:45 62 142/73 05/02/18 09:31 97 Room Air I & O Intake and Output 05/03/18 07:00 Intake Total 800 ml Output Total 2450 ml Balance -1650 ml Intake Oral 800 ml Output Urine Total 2450 ml HARJINDER BURCIAGA MD May 03, 2018 09:10
--- NOTE | 2018-05-03 10:08 | PDOC ---
Subjective: Subjective: No diarrhea or bleeding. Right-sided abd pain w/ movement. Tolerating PO. Biggest concern is still chronic back pain and need for new PCP to prescribe chronic meds - says he has an appt on June 07 but will need prescriptions through July. Asks about what infection he has and asks when he gets to go home. Objective: Objective: Reviewed Dr. Kinsey's note - no colonoscopy reports in [facility] records. Vital Signs: Vital Signs Date Time Temp Pulse Resp B/P (MAP) Pulse Ox O2 Delivery O2 Flow Rate FiO2 05/03/18 09:03 61 146/72 05/03/18 07:15 98.5 20 98 Room Air 98.5 PE: GEN: NAD, eating breakfast LUNGS: room air ABD: vague right-sided discomfort NEURO/PSYCH: A & O 3, talks a lot A/P: Chronic back pain Right-sided abd pain - MSK Chronic anemia, CKD, A Fib on Warfarin Abnormal CT - stable splenic and pancreatic tail lesions, mild wall thickening of rectum and distal sigmoid colon (NO diarrhea or bleeding) -- Can stop atbx. DC per primary. TERRELL ELMORE May 03, 2018 10:08
[2018-05-03 11:02] VITALS: BP 154/87
[2018-05-03] MEDS: oxyCODONE/APAP 10/325 1 TAB TABLET PO PRN (11:02)
--- NOTE | 2018-05-03 13:14 | SNU/HH DC ---
DISCHARGE WITH HOME HEALTH DISCHARGE INFORMATION: Final Diagnosis: Problems Medical Problems: (1) Colitis Status: Acute (2) CRF (chronic renal failure) Status: Acute Condition on Discharge: Stable CODE STATUS: Code Status: Full HOME HEALTH: Face to Face: I certify this patient is under my care and that I, or a nurse practitioner or physician's staff physical therapy assistant working with me, had a face to face encounter that meets the physician face to face encounter requirements with this patient on []. Medical Complications: Other (gout) Physical Therapy For: Evalulation/Treatment Occupational Therapy For: Evaluation/Treatment Home Health Aide For: Self-care BOXING INSPECTOR For: Community Resources POST DISCHARGE ORDERS: Activity Instructions for Disc: Resume previous activity Weight Bearing Status after Di: Full weight bearing DIET AFTER DISCHARGE: Cardiac CERTIFICATION STATEMENT: Certification Statement: Certification Statement: Based on the above finding, I certify that this patient is confined to the home and needs intermittent usp care, physical therapy and/or speech therapy, or continues to need occupational therapy.~ This patient is under my care, and I have initiated the establishment of the plan of care.~ This patient will be followed by myself or a community physician who will periodically review the plan of care. Home Meds Active Scripts Allopurinol (ALLOPURINOL) 100 Mg Tablet, 100 MG PO DAILY for 30 Days, #30 TAB Prov:DUONG ATKINSON MD 10/15/16 Reported Medications Warfarin Sodium (WARFARIN SODIUM) 4 Mg Tablet, 4 MG PO DAILY for blood thinner, #30 TAB 05/01/18 Torsemide (DEMADEX) 20 Mg Tablet, 100 MG PO DAILY for water pill, TAB 05/01/18 Sennosides/Docusate Sodium (SENOKOT-S TABLET) 1 Each Tablet, 1 TAB PO BID for constipation, #30 TAB 05/01/18 Polyethylene Glycol 3350 (MIRALAX) 119 Gm Powder, 17 GM PO PRN DAILY PRN for CONSTIPATION, #527 GM 05/01/18 Metronidazole (METRONIDAZOLE) 500 Mg Tablet, 1 TAB PO BID for antibiotic, #14 TAB 05/01/18 Fluticasone Propionate (FLUTICASONE PROPIONATE NASAL SPRAY) 16 Gm [place].susp, 2 SPRAY NS DAILY for congestion, #1 INHALER 11 Refills 05/01/18 Docusate Sodium (DOCUSATE SODIUM) 100 Mg Capsule, 1 CAP PO PRN DAILY PRN for CONSTIPATION, #30 CAP 05/01/18 Cefpodoxime Proxetil (CEFPODOXIME PROXETIL) 200 Mg Tablet, 1 TAB PO BID for antibiotic, #14 TAB 05/01/18 Bupropion Hcl (BUPROPION XL) 150 Mg Tab.er.24h, 1 TAB PO DAILY for mood, #30 TAB 05/01/18 Atorvastatin Calcium (ATORVASTATIN CALCIUM) 80 Mg Tablet, 1 TAB PO DAILY for cholesterol, #30 TAB 5 Refills 05/01/18 Albuterol Sulfate (PROAIR HFA INHALER) 8.5 Gm Hfa.aer.ad, 2 PUFF INH PRN Q6HRS PRN for SHORTNESS OF BREATH, INHALER 0 Refills 05/01/18 Losartan Potassium (LOSARTAN POTASSIUM) 100 Mg Tablet, 100 MG PO DAILY, TAB 10/12/16 Carvedilol (CARVEDILOL ) 12.5 Mg Tablet, 12.5 MG PO BIDWMEALS, TAB 10/12/16 Oxycodone/Apap 10-325 (PERCOCET 10-325 MG TABLET ) 1 Each Tablet, 1 TAB PO PRN Q8HRS PRN for PAIN, #40 TAB 10/12/16 Tamsulosin Hcl (FLOMAX) 0.4 Mg Cap.er.24h, 0.8 MG PO DAILY for urine, TAB 07/19/13 Discontinued Reported Medications Fentanyl (FENTANYL 12mcg/hr) 1 Each Patch.td72, 1 PATCH TD Q72H, PATCH 10/12/16 Potassium Chloride (POTASSIUM CHLORIDE) 20 Meq Tablet.er, 20 MEQ PO DAILY, TAB.SR 10/12/16 Hydralazine Hcl (HYDRALAZINE HCL) 50 Mg Tablet, 1 TAB PO TID, #270 TAB 3 Refills 10/12/16 Magnesium Oxide (MAGNESIUM OXIDE) 400 Mg Tablet, 1 TAB PO DAILY, #90 TAB 3 Refills 10/12/16 Pravastatin Sodium (PRAVASTATIN SODIUM) 40 Mg Tablet, 1 TAB PO QHS, #90 TAB 1 Refill 10/12/16 RODGER MORRISON III DO May 03, 2018 13:14
[2018-05-03 15:04] VITALS: BP 110/54
--- NOTE | 2018-05-03 18:56 | DS ---
DATE OF DISCHARGE: 05/03/2018 ADMISSION DIAGNOSES: Possible colitis and abdominal pain. DISCHARGE DIAGNOSES: 1. Resolving abdominal pain (GI felt like this was probably not colitis). 2. Gout. 3. Anemia. 4. Chronic back pain. PROCEDURES: None. CONSULTS: GI. HOSPITAL COURSE: The patient is a pleasant 82-year-old male who presented with colitis. He was a little anemic with possible colitis. He was a little anemic at 10.5. We admitted him, consulted GI. They felt like this was probably not intestinal related. The imaging initially showed some possible proctitis, but they really felt like this is probably just a functional abdominal pain and he has got chronic anemia. Today, I saw him and examined him. His heart tones were normal. His lungs were clear. He was complaining of some gouty pain. I put him on a Medrol Dosepak. He looks great. We plan to discharge with close outpatient followup. DISPOSITION: Home with home health. ACTIVITY: As tolerated. DIET: Low sodium. MEDICATIONS: Please see the MRAD. TOTAL TIME ON DISCHARGE: 31 minutes. RODGER MORRISON DO DR: THAO/madalyn JOB#: [id number] / [id number]
[2018-06-01] MEDS ORDERED: OXYC1TAB22 PO (10:25)
== END 2018-05-03 15:30 | disposition home health service (06) | DRG 393 ==
LOC: ER 13:24 → 5 NORTH 17:03
PROVIDERS: ADMIT Internal Medicine; ATTEND Internal Medicine
DX: K62.89 Other specified diseases of anus and rectum (principal); R65.11 Systemic inflammatory response syndrome (SIRS) of non-infectious origin with acute organ dysfunction; I13.0 Hypertensive heart and chronic kidney disease with heart failure and stage 1 through stage 4 chronic kidney disease, or unspecified chronic kidney disease; K62.5 Hemorrhage of anus and rectum; N18.3 Chronic kidney disease, stage 3 (moderate); I50.9 Heart failure, unspecified; D63.1 Anemia in chronic kidney disease; E78.00 Pure hypercholesterolemia, unspecified; E78.5 Hyperlipidemia, unspecified; E87.6 Hypokalemia; G89.29 Other chronic pain; I48.0 Paroxysmal atrial fibrillation; J44.9 Chronic obstructive pulmonary disease, unspecified; K21.9 Gastro-esophageal reflux disease without esophagitis; M19.90 Unspecified osteoarthritis, unspecified site; D72.819 Decreased white blood cell count, unspecified; K80.20 Calculus of gallbladder without cholecystitis without obstruction; M10.9 Gout, unspecified; N40.0 Benign prostatic hyperplasia without lower urinary tract symptoms; Z79.01 Long term (current) use of anticoagulants; Z95.0 Presence of cardiac pacemaker; Z96.612 Presence of left artificial shoulder joint; Z96.659 Presence of unspecified artificial knee joint; D73.89 Other diseases of spleen
CPT/HCPCS: 36415; 71045; 74177; 76705; 80048; 80053; 80307; 81001; 82553; 83690; 83735; 83880; 84484; 85025; 85610; 85730; 93005; 96361; 96365; 96375; C9113; J0744; J2270; J2405; J3010; J3490; J7030; Q9967; 99285-25

== ENCOUNTER 2018-05-30 14:55 | Observation (INO) | payer OTHER ==
[~2018-05-30] VITALS: Ht 195.6 cm; Wt 116.3 kg
[~2018-05-30 14:55] MED LIST changes: +ALBU2.5V8 INH; +ATORVASTATIN CA80 MG PO; +BUPR150T6 PO; +CEFP200T PO; +DOCU100C28 PO; +FLUT16SP NS; +METR-34 PO; +POLY119P4 PO; +SENN-37 PO; +WARF4TAB64 PO
--- NOTE | 2018-05-30 15:59 | EKG ---
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
[2018-05-30 16:01] LABS: BASO % 1 % (0-3); EOS # 0.4 x10^3/uL (0.0-0.7); EOS % 11 % (0-3); LYMPH # 1.1 x10^3/uL (1.0-4.8); LYMPH % 32 % (24-48); MEAN CORPUSCULAR HEMOGLOBIN 31 pg (25-35); MEAN CORPUSCULAR HGB CONC 33 g/dL (31-37); MEAN CORPUSCULAR VOLUME 96 fL (79-100); MONO # 0.2 x10^3/uL (0.0-1.1); MONO % 7 % (0-9); NEUT # 1.7 x10^3uL (1.8-7.7); NEUT % 49 % (31-73); PLATELET COUNT 169 x10^3/uL (140-400); RED BLOOD COUNT 3.86 x10^6/uL (4.30-5.70); RED CELL DISTRIBUTION WIDTH 15.5 % (11.5-14.5); WHITE BLOOD COUNT 3.5 x10^3/uL (4.0-11.0)
[2018-05-30 16:11] LABS: CALCIUM 8.5 mg/dL (8.5-10.1); CREATININE 1.3 mg/dL (0.7-1.3); GFR 64.3; POTASSIUM 3.8 mmol/L (3.5-5.1)
[2018-05-30 16:17] LABS: ALBUMIN 3.4 g/dL (3.4-5.0); ALBUMIN/GLOBULIN RATIO 0.9 (1.0-1.7); MAGNESIUM 1.9 mg/dL (1.8-2.4); TOTAL BILIRUBIN 0.3 mg/dL (0.2-1.0); TOTAL PROTEIN 7.2 g/dL (6.4-8.2)
[2018-05-30] MEDS ORDERED: fentaNYL PF VIAL 100 MCG/2 ML VIAL IV ONE (16:30)
--- NOTE | 2018-05-30 16:58 | RAD ---
CHEST AP ONLY History: chest pain. Comparison with 05/01/2018. Pacemaker device is again demonstrated as is left shoulder replacement. Numerous small metallic fragments overlie the soft tissues and chest. Cardiac silhouette not enlarged. The aorta again demonstrates a very ectatic and tortuous appearance. No evidence of pneumothorax. No pleural effusion. No focal infiltrate. IMPRESSION: Similar appearance, no evidence of consolidating infiltrate. Electronically signed by: Terrence Tran MD (05/30/2018 4:55 PM) [id number]
--- NOTE | 2018-05-30 17:08 | PHYS DOC ---
Past Medical History Past Medical History: CHF, High Cholesterol, Hypertension, Renal Failure Additional Past Medical Histor: chronic pain Past Surgical History: Knee Replacement, Pacemaker, Other Additional Past Surgical Histo: Left shoulder replacement approx 10 years ; left knee ACL ; Pacemaker 2014 Alcohol Use: None Drug Use: None Adult General Chief Complaint Chief Complaint: CHEST PAIN HPI HPI Patient is a 82 year old M who presents with chest pain. Started one week ago. He was given IV abx for his colon. Since then he has had intermittent chest pain. Worse when he bends over. Feels dizzy when he lays flat. He also feels very shrot of breath all the time. He denies fevers, cough, recent upper resp illness. Denies history of cardiac dz. Nonsmoker. Review of Systems Review of Systems Constitutional: Denies fever or chills Eyes: Denies change in visual acuity, redness, or eye pain HENT: Denies nasal congestion or sore throat Respiratory: Endorses SOB Cardiovascular: Endorses CP GI: Denies abdominal pain, nausea, vomiting, bloody stools or diarrhea : Denies dysuria or hematuria Musculoskeletal: Denies back pain or joint pain Integument: Denies rash or skin lesions Neurologic: Denies headache, focal weakness or sensory changes Endocrine: Denies polyuria or polydipsia All other systems were reviewed and found to be within normal limits, except as documented in this note. Current Medications Current Medications Current Medications Medications (Trade) Dose Ordered Sig/Tam Start Time Stop Time Status Last Admin Dose Admin Fentanyl Citrate (Fentanyl 2ml Vial) 50 mcg 1X ONCE 05/30/18 16:30 05/30/18 16:31 DC 05/30/18 17:06 50 MCG Allergies Allergies Allergies Coded Allergies Type Severity Reaction Last Updated Verified No Known Drug Allergies 10/27/16 No Physical Exam Physical Exam Constitutional: Well developed, well nourished, no acute distress, non-toxic appearance. HENT: Normocephalic, atraumatic, bilateral external ears normal, oropharynx moist, no oral exudates, nose normal. Eyes: PERRLA, EOMI, conjunctiva normal, no discharge. Neck: Normal range of motion, no tenderness, supple, no stridor. Cardiovascular:Heart rate regular rhythm, no murmur Lungs & Thorax: Bilateral breath sounds clear to auscultation Abdomen: Bowel sounds normal, soft, no tenderness, no masses, no pulsatile masses. Skin: Warm, dry, no erythema, no rash. Back: No tenderness, no CVA tenderness. Extremities: No tenderness, no cyanosis, no clubbing, ROM intact, no edema. Neurologic: Alert and oriented X 3, normal motor function, normal sensory function, no focal deficits noted. Psychologic: Affect normal, judgement normal, mood normal. Current Patient Data Vital Signs Vital Signs Date Time Temp Pulse Resp B/P (MAP) Pulse Ox O2 Delivery O2 Flow Rate FiO2 05/30/18 17:06 18 97 Room Air 05/30/18 15:06 98.3 70 152/77 (102) 98.3 Lab Values Laboratory Tests Test 05/30/18 15:42 05/30/18 15:49 White Blood Count 3.5 x10^3/uL (4.0-11.0) L Red Blood Count 3.86 x10^6/uL (4.30-5.70) L Hemoglobin 12.0 g/dL (13.0-17.5) L Hematocrit 37.0 % (39.0-53.0) L Mean Corpuscular Volume 96 fL (79-100) Mean Corpuscular Hemoglobin 31 pg (25-35) Mean Corpuscular Hemoglobin Concent 33 g/dL (31-37) Red Cell Distribution Width 15.5 % (11.5-14.5) H Platelet Count 169 x10^3/uL (140-400) Neutrophils (%) (Auto) 49 % (31-73) Lymphocytes (%) (Auto) 32 % (24-48) Monocytes (%) (Auto) 7 % (0-9) Eosinophils (%) (Auto) 11 % (0-3) H Basophils (%) (Auto) 1 % (0-3) Neutrophils # (Auto) 1.7 x10^3uL (1.8-7.7) L Lymphocytes # (Auto) 1.1 x10^3/uL (1.0-4.8) Monocytes # (Auto) 0.2 x10^3/uL (0.0-1.1) Eosinophils # (Auto) 0.4 x10^3/uL (0.0-0.7) Basophils # (Auto) 0.0 x10^3/uL (0.0-0.2) Sodium Level 144 mmol/L (136-145) Potassium Level 3.8 mmol/L (3.5-5.1) Chloride Level 105 mmol/L (98-107) Carbon Dioxide Level 30 mmol/L (21-32) Anion Gap 9 (6-14) Blood Urea Nitrogen 18 mg/dL (8-26) Creatinine 1.3 mg/dL (0.7-1.3) Estimated GFR (Cockcroft-Gault) 64.3 BUN/Creatinine Ratio 14 (6-20) Glucose Level 100 mg/dL (70-99) H Calcium Level 8.5 mg/dL (8.5-10.1) Magnesium Level 1.9 mg/dL (1.8-2.4) Total Bilirubin 0.3 mg/dL (0.2-1.0) Aspartate Amino Transferase (AST) 9 U/L (15-37) L Alanine Aminotransferase (ALT) 13 U/L (16-63) L Alkaline Phosphatase 61 U/L (46-116) SX-Ttz-C-Type Natriuretic Peptide 131 pg/mL (0-449) Total Protein 7.2 g/dL (6.4-8.2) Albumin 3.4 g/dL (3.4-5.0) Albumin/Globulin Ratio 0.9 (1.0-1.7) L Lipase 94 U/L (73-393) POC Troponin I 0.01 ng/ml (<0.08) Laboratory Tests 05/30/18 15:42 Laboratory Tests 05/30/18 15:42 EKG EKG [] Radiology/Procedures Radiology/Procedures [] Course & Med Decision Making Course & Med Decision Making Pertinent Labs and Imaging studies reviewed. (See chart for details) 82 y/o M presents for chest pain and sob. EKG Sinus rhythm 68 bpm, no ST elev or depr. CXR neg by my read. Trop neg. BNP neg. Admit to Dr. Ramos for rule out. Dragon Disclaimer Dragon Disclaimer This electronic medical record was generated, in whole or in part, using a voice recognition dictation system. Departure Departure Impression: Primary Impression: Chest pain Disposition: ADMITTED INPATIENT Condition: IMPROVED Referrals: MADHAVI CHANDLER (PCP) KEYONNA PATTEN MD May 30, 2018 17:07
--- NOTE | 2018-05-30 19:00 | NUR ---
Admit from ED via gurney at shift change. A/O x 4. Pleasant. C/O RUQ abd pain. Describes it as burning. Rates pain 11/16. Has had this pain off and on for a month. "same thing I had last time I was here". Reviewed POC and orders. Orientated to call light. Verbalized understanding. Resting in bed. Call light at hand.
[2018-05-30 19:05] VITALS: BP 155/77
[2018-05-30] MEDS ORDERED: DOCUSATE SODIUM 100 MG CAPSULE. PO PRN (19:15)
[2018-05-30] MEDS ORDERED: ALBUTEROL SULFATE 2.5 MG/3 ML NEBU. INH PRN (19:15)
[2018-05-30 19:42] LABS: PROTHROMBIN TIME PATIENT 20.6 SEC (11.7-14.0)
--- NOTE | 2018-05-30 20:28 | PDOC1 ---
History and Physical Date of Admission Date of Admission DATE: 05/30/18 TIME: 20:23 Identification/Chief Complaint Chief Complaint chestpain Source Source: Chart review, Patient History of Present Illness History of Present Illness Mr. Montilla, is a 82 year old M who admit from ER, with acutely worsening chest pain. Started one week ago, but in last 12 horus, pain 8/10, worse with exertion, but he may mean with muscle movement of his chest, he did seem dyspneic to the ER physician, and he was short of breath with me when talking. Pain is worse with some positions, like bending over recent colitis admit, IV abx given, and has gotten worse since that admit with pain, his diarrhea is resolved. Feels dizzy when he lays flat. He denies fevers, cough, recent upper resp illness. Past Medical History Cardiovascular: AFIB, CHF, HTN, Hyperlipidemia Pulmonary: No pertinent hx CENTRAL NERVOUS SYSTEM: Other GI: No pertinent hx Heme/Onc: Other Hepatobiliary: No pertinent hx Psych: No pertinent hx Musculoskeletal: Osteoarthritis Rheumatologic: Gout Infectious disease: No pertinent hx Renal/: Chronic renal insuff Endocrine: No pertinent hx Past Surgical History Past Surgical History: Pacemaker, Other Family History Family History: Coronary Artery Disease, Family History Unknown Social History Smoke: No ALCOHOL: none Drugs: None Current Problem List Problem List Problems Medical Problems: (1) Chest pain Status: Acute Current Medications Current Medications Current Medications Fentanyl Citrate (Fentanyl 2ml Vial) 50 mcg 1X ONCE IV Last administered on 05/30/18at 17:06; Start 05/30/18 at 16:30; Stop 05/30/18 at 16:31; Status DC Albuterol Sulfate (Ventolin Neb Soln) 2.5 mg PRN Q6HRS PRN INH SHORTNESS OF BREATH; Start 05/30/18 at 19:15 Allopurinol (Zyloprim) 100 mg DAILY PO ; Start 05/31/18 at 09:00 Bupropion HCl (Wellbutrin Xl) 150 mg DAILY PO ; Start 05/31/18 at 09:00 Carvedilol (Coreg) 12.5 mg BIDWMEALS PO ; Start 05/30/18 at 21:00 Docusate Sodium (Colace) 100 mg PRN DAILY PRN PO CONSTIPATION; Start 05/30/18 at 19:15 Fluticasone Propionate (Flonase) 2 spray DAILY NS ; Start 05/31/18 at 09:00 Oxycodone/ Acetaminophen (Percocet 10/325) 1 tab PRN Q8HRS PRN PO PAIN; Start 05/30/18 at 19:15 Senna/Docusate Sodium (Senna Plus) 1 tab BID PO ; Start 05/30/18 at 21:00 Tamsulosin HCl (Flomax) 0.8 mg DAILY PO ; Start 05/31/18 at 09:00 Atorvastatin Calcium (Lipitor) 80 mg QHS PO ; Start 05/30/18 at 21:00 Losartan Potassium (Cozaar) 100 mg DAILY PO ; Start 05/31/18 at 09:00 Polyethylene Glycol (miraLAX PACKET) 17 gm PRN DAILY PRN PO CONSTIPATION; Start 05/31/18 at 09:00 Non-Formulary Medication (Warfarin Sodium ) 4 mg DAILY PO ; Start 05/31/18 at 09:00; Status UNV Warfarin Sodium (Coumadin Per Pharmacy) 1 each PRN DAILY PRN MC SEE COMMENTS Last administered on 05/30/18at 19:50; Start 05/30/18 at 19:15 Warfarin Sodium (Coumadin) 5 mg 1X WARF ONCE PO ; Start 05/30/18 at 20:30; Stop 05/30/18 at 20:31 Active Scripts Active Allopurinol 100 Mg Tablet 100 Mg PO DAILY 30 Days Reported Warfarin Sodium 4 Mg Tablet 4 Mg PO DAILY Demadex (Torsemide) 20 Mg Tablet 100 Mg PO DAILY Senokot-S Tablet (Sennosides/Docusate Sodium) 1 Each Tablet 1 Tab PO BID Miralax (Polyethylene Glycol 3350) 119 Gm Powder 17 Gm PO PRN DAILY PRN Metronidazole 500 Mg Tablet 1 Tab PO BID Fluticasone Propionate Nasal [place] (Fluticasone Propionate) 16 Gm [place].susp 2 [place] NS DAILY Docusate Sodium 100 Mg Capsule 1 Cap PO PRN DAILY PRN Cefpodoxime Proxetil 200 Mg Tablet 1 Tab PO BID Bupropion Xl (Bupropion Hcl) 150 Mg Tab.er.24h 1 Tab PO DAILY Atorvastatin Calcium 80 Mg Tablet 1 Tab PO DAILY Proair Hfa Inhaler (Albuterol Sulfate) 8.5 Gm Hfa.aer.ad 2 Puff INH PRN Q6HRS PRN Losartan Potassium 100 Mg Tablet 100 Mg PO DAILY Carvedilol (Carvedilol) 12.5 Mg Tablet 12.5 Mg PO BIDWMEALS Percocet 10-325 Mg Tablet (Oxycodone/Acetaminophen) 1 Each Tablet 1 Tab PO PRN Q8HRS PRN Flomax (Tamsulosin Hcl) 0.4 Mg Cap.er.24h 0.8 Mg PO DAILY Allergies Allergies: Coded Allergies: No Known Drug Allergies (Unverified , 10/27/16) ROS General: YES: Chills, Fatigue; No: Night Sweats, Malaise, Appetite, Other PSYCHOLOGICAL ROS: YES: Sleep disturbances; No: Anxiety, Behavioral Disorder, Concentration difficultie, Decreased libido, Depression, Disorientation, Hallucinations, Hostility, Irritablity, Memory difficulties, Mood Swings, Obsessive thoughts, Other Eyes: No Blurry vision, No Decreased vision, No Double vision, No Dry eyes, No Excessive tearing, No Eye Pain, No Itchy Eyes, No Loss of vision, No Photophobia, No Scotomata, No Uses contacts, No Uses glasses, No Other HEENT: No: Heacaches, Visual Changes, Hearing change, Nasal congestion, Nasal discharge, Oral lesions, Sinus pain, Sore Throat, Epistaxis, Sneezing, Snoring, Tinnitus, Vertigo, Vocal changes, Other Respiratory: No: Cough, Hemoptysis, Orthopnea, Pleuritic Pain, Shortness of breath, SOB with excertion, Sputum Changes, Stridor, Tachypnea, Wheezing, Other Gastrointestinal: Yes Nausea, Yes Abdominal Pain; No Vomiting, No Diarrhea, No Constipation, No Melena, No Hematochezia, No Other Genitourinary: YES Flank Pain (right) Musculoskeletal: Yes Joint Pain; No Gait Disturbance, No Joint Stiffness, No Joint Swelling, No Muscle Pain, No Muscular Weakness, No Pain In:, No Swelling In:, No Other Neurological: No Behavorial Changes, No Bowel/Bladder ControlChng, No Confusion, No Dizziness, No Headaches, No Impaired Coord/balance, No Memory Loss, No Numbness/Tingling, No Seizures, No Speech Problems, No Tremors, No Visual Changes, No Weakness, No Other Skin: Yes Dry Skin; No Eczema, No Hair Changes, No Lumps, No Mole Changes, No Mottling, No Nail Changes, No Pruritus, No Rash, No Skin Lesion Changes, No Other, No Acne Physical Exam General: Alert, Cooperative HEENT: Atraumatic, PERRLA, EOMI Lungs: Normal air movement, Other (some tenderness to left ribcage, ) Abdomen: Normal bowel sounds, Soft (obese, ventral hernia palpable) Extremities: No cyanosis, Other (2+ BLE edema) Skin: No rashes Neuro: Normal speech, Sensation intact Psych/Mental Status: Mental status NL, Mood NL Vitals Vitals Vital Signs Date Time Temp Pulse Resp B/P (MAP) Pulse Ox O2 Delivery O2 Flow Rate FiO2 05/30/18 19:05 97.8 67 22 155/77 (103) 97 Room Air 97.8 Labs Labs Laboratory Tests Test 05/30/18 15:42 05/30/18 15:49 White Blood Count 3.5 x10^3/uL (4.0-11.0) Red Blood Count 3.86 x10^6/uL (4.30-5.70) Hemoglobin 12.0 g/dL (13.0-17.5) Hematocrit 37.0 % (39.0-53.0) Mean Corpuscular Volume 96 fL (79-100) Mean Corpuscular Hemoglobin 31 pg (25-35) Mean Corpuscular Hemoglobin Concent 33 g/dL (31-37) Red Cell Distribution Width 15.5 % (11.5-14.5) Platelet Count 169 x10^3/uL (140-400) Neutrophils (%) (Auto) 49 % (31-73) Lymphocytes (%) (Auto) 32 % (24-48) Monocytes (%) (Auto) 7 % (0-9) Eosinophils (%) (Auto) 11 % (0-3) Basophils (%) (Auto) 1 % (0-3) Neutrophils # (Auto) 1.7 x10^3uL (1.8-7.7) Lymphocytes # (Auto) 1.1 x10^3/uL (1.0-4.8) Monocytes # (Auto) 0.2 x10^3/uL (0.0-1.1) Eosinophils # (Auto) 0.4 x10^3/uL (0.0-0.7) Basophils # (Auto) 0.0 x10^3/uL (0.0-0.2) Prothrombin Time 20.6 SEC (11.7-14.0) Prothromb Time International Ratio 1.8 (0.8-1.1) Sodium Level 144 mmol/L (136-145) Potassium Level 3.8 mmol/L (3.5-5.1) Chloride Level 105 mmol/L (98-107) Carbon Dioxide Level 30 mmol/L (21-32) Anion Gap 9 (6-14) Blood Urea Nitrogen 18 mg/dL (8-26) Creatinine 1.3 mg/dL (0.7-1.3) Estimated GFR (Cockcroft-Gault) 64.3 BUN/Creatinine Ratio 14 (6-20) Glucose Level 100 mg/dL (70-99) Calcium Level 8.5 mg/dL (8.5-10.1) Magnesium Level 1.9 mg/dL (1.8-2.4) Total Bilirubin 0.3 mg/dL (0.2-1.0) Aspartate Amino Transf (AST/SGOT) 9 U/L (15-37) Alanine Aminotransferase (ALT/SGPT) 13 U/L (16-63) Alkaline Phosphatase 61 U/L (46-116) AJ-Xls-Z-Type Natriuretic Peptide 131 pg/mL (0-449) Total Protein 7.2 g/dL (6.4-8.2) Albumin 3.4 g/dL (3.4-5.0) Albumin/Globulin Ratio 0.9 (1.0-1.7) Lipase 94 U/L (73-393) Bedside Troponin I 0.01 ng/ml (<0.08) Laboratory Tests Test 05/30/18 15:42 05/30/18 15:49 White Blood Count 3.5 x10^3/uL (4.0-11.0) Red Blood Count 3.86 x10^6/uL (4.30-5.70) Hemoglobin 12.0 g/dL (13.0-17.5) Hematocrit 37.0 % (39.0-53.0) Mean Corpuscular Volume 96 fL (79-100) Mean Corpuscular Hemoglobin 31 pg (25-35) Mean Corpuscular Hemoglobin Concent 33 g/dL (31-37) Red Cell Distribution Width 15.5 % (11.5-14.5) Platelet Count 169 x10^3/uL (140-400) Neutrophils (%) (Auto) 49 % (31-73) Lymphocytes (%) (Auto) 32 % (24-48) Monocytes (%) (Auto) 7 % (0-9) Eosinophils (%) (Auto) 11 % (0-3) Basophils (%) (Auto) 1 % (0-3) Neutrophils # (Auto) 1.7 x10^3uL (1.8-7.7) Lymphocytes # (Auto) 1.1 x10^3/uL (1.0-4.8) Monocytes # (Auto) 0.2 x10^3/uL (0.0-1.1) Eosinophils # (Auto) 0.4 x10^3/uL (0.0-0.7) Basophils # (Auto) 0.0 x10^3/uL (0.0-0.2) Prothrombin Time 20.6 SEC (11.7-14.0) Prothromb Time International Ratio 1.8 (0.8-1.1) Sodium Level 144 mmol/L (136-145) Potassium Level 3.8 mmol/L (3.5-5.1) Chloride Level 105 mmol/L (98-107) Carbon Dioxide Level 30 mmol/L (21-32) Anion Gap 9 (6-14) Blood Urea Nitrogen 18 mg/dL (8-26) Creatinine 1.3 mg/dL (0.7-1.3) Estimated GFR (Cockcroft-Gault) 64.3 BUN/Creatinine Ratio 14 (6-20) Glucose Level 100 mg/dL (70-99) Calcium Level 8.5 mg/dL (8.5-10.1) Magnesium Level 1.9 mg/dL (1.8-2.4) Total Bilirubin 0.3 mg/dL (0.2-1.0) Aspartate Amino Transf (AST/SGOT) 9 U/L (15-37) Alanine Aminotransferase (ALT/SGPT) 13 U/L (16-63) Alkaline Phosphatase 61 U/L (46-116) LE-Ihy-C-Type Natriuretic Peptide 131 pg/mL (0-449) Total Protein 7.2 g/dL (6.4-8.2) Albumin 3.4 g/dL (3.4-5.0) Albumin/Globulin Ratio 0.9 (1.0-1.7) Lipase 94 U/L (73-393) Bedside Troponin I 0.01 ng/ml (<0.08) VTE Prophylaxis Ordered VTE Prophylaxis Devices: Yes VTE Pharmacological Prophylaxi: Contraindicated Assessment/Plan Assessment/Plan chest pain, angina and some costochondritis, recent colitis obesity, BMI 30 afib, on coumadin weakness and debilty, PT and OT LE edema, chronic diastolic CHF CHELA CROW MD May 30, 2018 20:28
[2018-05-30] MEDS ORDERED: WARFARIN 5 MG TABLET. PO ONE (20:30)
[2018-05-30] MEDS: ATORVASTATIN CALCIUM 40 MG TABLET. PO SCH (20:44)
[2018-05-30] MEDS: SENNOSIDES/DOCUSATE 8.6/50MG TABLET. PO SCH (20:45)
[2018-05-30] MEDS: oxyCODONE/APAP 10/325 1 TAB TABLET PO PRN (20:45)
[2018-05-30] MEDS: CARVEDILOL 12.5 MG TABLET. PO SCH (20:47)
[2018-05-30 23:00] VITALS: BP 141/61
[2018-05-31] MEDS: MORPHINE SULFATE 4 MG/ML VIAL. IV PRN ×6 (03:10→20:48)
[2018-05-31 03:20] VITALS: BP 133/58
[2018-05-31] MEDS: oxyCODONE/APAP 10/325 1 TAB TABLET PO PRN (06:36)
[2018-05-31 07:27] VITALS: BP 138/54
[2018-05-31 07:37] LABS: BASO % 1 % (0-3); EOS # 0.3 x10^3/uL (0.0-0.7); EOS % 11 % (0-3); HEMATOCRIT 35.2 % (39.0-53.0); HEMOGLOBIN 11.6 g/dL (13.0-17.5); LYMPH # 1.1 x10^3/uL (1.0-4.8); LYMPH % 36 % (24-48); MEAN CORPUSCULAR HEMOGLOBIN 32 pg (25-35); MEAN CORPUSCULAR HGB CONC 33 g/dL (31-37); MEAN CORPUSCULAR VOLUME 96 fL (79-100); MONO # 0.2 x10^3/uL (0.0-1.1); MONO % 7 % (0-9); NEUT # 1.4 x10^3uL (1.8-7.7); NEUT % 45 % (31-73); PLATELET COUNT 160 x10^3/uL (140-400); RED BLOOD COUNT 3.66 x10^6/uL (4.30-5.70); RED CELL DISTRIBUTION WIDTH 15.7 % (11.5-14.5); WHITE BLOOD COUNT 3.1 x10^3/uL (4.0-11.0)
[2018-05-31 07:45] LABS: ALBUMIN 3.1 g/dL (3.4-5.0); ALBUMIN/GLOBULIN RATIO 0.9 (1.0-1.7); CALCIUM 8.6 mg/dL (8.5-10.1); CREATININE 1.3 mg/dL (0.7-1.3); GFR 64.3; TOTAL BILIRUBIN 0.4 mg/dL (0.2-1.0); TOTAL PROTEIN 6.6 g/dL (6.4-8.2)
[2018-05-31 07:47] LABS: PROTHROMBIN TIME PATIENT 20.6 SEC (11.7-14.0)
[2018-05-31] MEDS ORDERED: ONDANSETRON ODT 4 MG TAB.RAPDIS. PO PRN (08:30)
[2018-05-31] MEDS ORDERED: ONDANSETRON PF 4 MG/2 ML VIAL. IV PRN (08:30)
[2018-05-31] MEDS ORDERED: ACETAMINOPHEN/CODEINE 300/30MG TABLET. PO PRN (08:30)
[2018-05-31] MEDS ORDERED: ACETAMINOPHEN 500 MG TABLET PO PRN (08:30)
[2018-05-31] MEDS ORDERED: POLYETHYLENE GLYCOL 3350 17 GM PACKET. PO PRN (09:00)
[2018-05-31] MEDS ORDERED: NON FORMULARY ITEM (Warfarin Sodium 4 MG) PO SCH (09:00)
--- NOTE | 2018-05-31 09:06 | PDOC2 ---
ROSS BILL MAINS AND SERVICE SUPERVISOR 05/31/18 0905: CARDIAC CONSULT DATE OF CONSULT Date of Consult DATE: 05/31/18 TIME: 09:03 REASON FOR CONSULT Reason for Consult: angina REFERRING PHYSICIAN Referring Physician: Dr. Ramos SOURCE Source: Chart review, Patient HISTORY OF PRESENT ILLNESS HISTORY OF PRESENT ILLNESS This is n 82 yo male who presented secondary to ongoing right lower quadrant abdominal pain and episodic chest. Patient reports having intermittent abdominal pain for the last couple of months. Was hospital here at [facility] late last month for same pain. Richardson better upon discharge initially. Pain returned a couple of weeks ago. Progressively worsening. Is constant. Is radiating around to his right side. Yesterday, had a couple brief episodes of chest pain, which prompted his to call EMS. Patient reports he was getting up out of the chair and had very brief sharp pain in his central chest. No associated dizziness, palpitations, diaphoresis, SOA, or nausea/vomiting. Had another sharp pain in his chest when getting out of bed in the afternoon. Only lasted a second or two. Had a third episode of sharp pain in his central chest when getting up from the chair at the dining room table. Was also very brief, "like a flash". No further pain since. RLQ pain persists. PAST MEDICAL HISTORY Past Medical History Cardiovascular: AFIB, CHF, HTN, Hyperlipidemia Pulmonary: No pertinent hx CENTRAL NERVOUS SYSTEM: Other (No pertinent history) GI: No pertinent hx Heme/Onc: Anemia, Other (chronic anticoagulation) Hepatobiliary: No pertinent hx Psych: No pertinent hx Musculoskeletal: Osteoarthritis Rheumatologic: Gout Infectious disease: No pertinent hx ENT: No pertinent hx Renal/: Chronic renal insuff Endocrine: No pertinent hx Dermatology: No pertinent hx PAST SURGICAL HISTORY Past Surgical History Pacemaker, left shoulder replacement, left foot surgery) FAMILY HISTORY Family History: Other (noncontributory to CV) SOCIAL HISTORY Social History Smoke: No ALCOHOL: none Drugs: None Lives: with Family CURRENT MEDICATIONS CURRENT MEDICATIONS Current Medications Medications (Trade) Dose Ordered Sig/Tam Route PRN Reason Start Time Stop Time Status Last Admin Dose Admin Fentanyl Citrate (Fentanyl 2ml Vial) 50 mcg 1X ONCE IV 05/30/18 16:30 05/30/18 16:31 DC 05/30/18 17:06 Carvedilol (Coreg) 12.5 mg BIDWMEALS PO 05/30/18 21:00 05/30/18 20:47 Oxycodone/ Acetaminophen (Percocet 10/325) 1 tab PRN Q8HRS PRN PO PAIN 05/30/18 19:15 05/31/18 06:36 Senna/Docusate Sodium (Senna Plus) 1 tab BID PO 05/30/18 21:00 05/30/18 20:45 Atorvastatin Calcium (Lipitor) 80 mg QHS PO 05/30/18 21:00 05/30/18 20:44 Warfarin Sodium (Coumadin Per Pharmacy) 1 each PRN DAILY PRN MC SEE COMMENTS 05/30/18 19:15 05/30/18 19:50 Warfarin Sodium (Coumadin) 5 mg 1X WARF ONCE PO 05/30/18 20:30 05/30/18 20:31 DC 05/30/18 20:45 Morphine Sulfate (Morphine Sulfate) 4 mg PRN Q2HR PRN IV PAIN 05/30/18 20:30 05/31/18 08:34 ALLERGIES ALLERGIES: Coded Allergies: No Known Drug Allergies (Unverified , 10/27/16) ROS Review of System 14 point ROS conducted with pertinent positives noted above in HPI/ PHYSICAL EXAM General: Alert, Oriented X3, Cooperative, No acute distress HEENT: Atraumatic, Mucous membr. moist/pink Lungs: Clear to auscultation, Other (diminished throughout ) Heart: Regular rate, Normal S1, Normal S2 Abdomen: Soft, Other (RLQ tenderness) Extremities: Normal pulses, Other (trace bilateral LE edema ) Skin: No breakdown, No significant lesion Neuro: Normal speech, Sensation intact Psych/Mental Status: Mental status NL, Mood NL MUSCULOSKELETAL: Osteoarthritic changes both hands VITALS VITALS Vital Signs Date Time Temp Pulse Resp B/P (MAP) Pulse Ox O2 Delivery O2 Flow Rate FiO2 05/31/18 08:00 Room Air 05/31/18 07:27 97.5 69 12 138/54 (82) 94 97.5 05/30/18 20:45 2.0 LABS Lab: Laboratory Tests Test 05/30/18 15:42 05/30/18 15:49 05/31/18 06:23 White Blood Count 3.5 x10^3/uL (4.0-11.0) 3.1 x10^3/uL (4.0-11.0) Red Blood Count 3.86 x10^6/uL (4.30-5.70) 3.66 x10^6/uL (4.30-5.70) Hemoglobin 12.0 g/dL (13.0-17.5) 11.6 g/dL (13.0-17.5) Hematocrit 37.0 % (39.0-53.0) 35.2 % (39.0-53.0) Mean Corpuscular Volume 96 fL (79-100) 96 fL (79-100) Mean Corpuscular Hemoglobin 31 pg (25-35) 32 pg (25-35) Mean Corpuscular Hemoglobin Concent 33 g/dL (31-37) 33 g/dL (31-37) Red Cell Distribution Width 15.5 % (11.5-14.5) 15.7 % (11.5-14.5) Platelet Count 169 x10^3/uL (140-400) 160 x10^3/uL (140-400) Neutrophils (%) (Auto) 49 % (31-73) 45 % (31-73) Lymphocytes (%) (Auto) 32 % (24-48) 36 % (24-48) Monocytes (%) (Auto) 7 % (0-9) 7 % (0-9) Eosinophils (%) (Auto) 11 % (0-3) 11 % (0-3) Basophils (%) (Auto) 1 % (0-3) 1 % (0-3) Neutrophils # (Auto) 1.7 x10^3uL (1.8-7.7) 1.4 x10^3uL (1.8-7.7) Lymphocytes # (Auto) 1.1 x10^3/uL (1.0-4.8) 1.1 x10^3/uL (1.0-4.8) Monocytes # (Auto) 0.2 x10^3/uL (0.0-1.1) 0.2 x10^3/uL (0.0-1.1) Eosinophils # (Auto) 0.4 x10^3/uL (0.0-0.7) 0.3 x10^3/uL (0.0-0.7) Basophils # (Auto) 0.0 x10^3/uL (0.0-0.2) 0.0 x10^3/uL (0.0-0.2) Prothrombin Time 20.6 SEC (11.7-14.0) 20.6 SEC (11.7-14.0) Prothromb Time International Ratio 1.8 (0.8-1.1) 1.8 (0.8-1.1) Sodium Level 144 mmol/L (136-145) 142 mmol/L (136-145) Potassium Level 3.8 mmol/L (3.5-5.1) 4.0 mmol/L (3.5-5.1) Chloride Level 105 mmol/L (98-107) 106 mmol/L (98-107) Carbon Dioxide Level 30 mmol/L (21-32) 32 mmol/L (21-32) Anion Gap 9 (6-14) 4 (6-14) Blood Urea Nitrogen 18 mg/dL (8-26) 16 mg/dL (8-26) Creatinine 1.3 mg/dL (0.7-1.3) 1.3 mg/dL (0.7-1.3) Estimated GFR (Cockcroft-Gault) 64.3 64.3 BUN/Creatinine Ratio 14 (6-20) 12 (6-20) Glucose Level 100 mg/dL (70-99) 90 mg/dL (70-99) Calcium Level 8.5 mg/dL (8.5-10.1) 8.6 mg/dL (8.5-10.1) Magnesium Level 1.9 mg/dL (1.8-2.4) Total Bilirubin 0.3 mg/dL (0.2-1.0) 0.4 mg/dL (0.2-1.0) Aspartate Amino Transf (AST/SGOT) 9 U/L (15-37) 12 U/L (15-37) Alanine Aminotransferase (ALT/SGPT) 13 U/L (16-63) 11 U/L (16-63) Alkaline Phosphatase 61 U/L (46-116) 53 U/L (46-116) EA-Kry-M-Type Natriuretic Peptide 131 pg/mL (0-449) Total Protein 7.2 g/dL (6.4-8.2) 6.6 g/dL (6.4-8.2) Albumin 3.4 g/dL (3.4-5.0) 3.1 g/dL (3.4-5.0) Albumin/Globulin Ratio 0.9 (1.0-1.7) 0.9 (1.0-1.7) Lipase 94 U/L (73-393) Bedside Troponin I 0.01 ng/ml (<0.08) ECHOCARDIOGRAM ECHOCARDIOGRAM <Conclusion> The left ventricular systolic function is normal. The Ejection Fraction is 60-65%. There is normal LV segmental wall motion. A pacemaker is seen in the right atrium consistent with history. Trace to mild aortic regurgitation. Trace mitral regurgitation. Mild tricuspid regurgitation. The PA pressure was estimated at 45 mmHg. There is no evidence of significant pericardial effusion. DATE: 10/12/16 1452 STRESS TEST STRESS TEST Conclusion 1. No evidence of stress induced EKG changes. 2. Large fixed severe in intensity inferior wall defect suggestive of diaphragmatic attenuation/motion artifact. 3. Based on lack of q waves, normal wall motion in the inferior wall and preserved EF, suspect that the perfusion abnormality is an artifact. 4. Cannot rule out prior infarct without active ischemia. 5. Low risk study. DATE: 10/12/16 1448 ASSESSMENT/PLAN ASSESSMENT/PLAN 1. Chest pain, atypical. Initial troponin negative. Echo 2017 with preserved LV systolic function and MPI 2017 without reversible ischemia 2. Abdominal pain, recurrent 3. Chronic diastolic CHF; appears compensated. NT Pro BNP WNL and CXR without vascular congestion 4. PAFIB: maintaining SR. Chronic anticoagulation with warfarin for stroke prophylaxis. 5. SSS s/p PPM ([employer]). Device interrogation with normal function. No significant arrhythmias noted 6. CKD; Cr stable 7. HTN: controlled overall 8. HLP; statin Recommendations Trend troponin, check lipid panel Echo to assess LV systolic function Supportive care Further workup/treatment of abdominal pain as per PCP Further recommendations pending above Consider outpatient ischemic eval unless echo with significant changes KATY MENDEZ MD 05/31/182120: CARDIAC CONSULT ASSESSMENT/PLAN ASSESSMENT/PLAN Patient seen and examined. Agree with SURGICAL INSTRUMENTS INSPECTOR's assessment and plan. CP with atypical features MO ruled out 2D echo showed normal LVF without any wall motion abnormalities Plan ischemic evaluation as outpatient PAF maintaining sinus rhythm - continue warfarin Chr diastolic HF compensated Thank you for your consultation ROSS BILL APRN May 31, 2018 09:05 KATY MENDEZ MD May 31, 2018 21:21
[2018-05-31 09:08] LABS: CHOLESTEROL/HDL RATIO 6.4
[2018-05-31] MEDS: FLUTICASONE 50MCG/NASAL SPRAY 16GM BOTTLE. NS SCH (10:22)
[2018-05-31] MEDS: buPROPion XL 150 MG TAB.ER.24H. PO SCH (10:22)
[2018-05-31] MEDS: SENNOSIDES/DOCUSATE 8.6/50MG TABLET. PO SCH ×2 (10:22→20:46)
[2018-05-31] MEDS: LOSARTAN POTASSIUM 50 MG TABLET. PO SCH (10:25)
[2018-05-31] MEDS: TAMSULOSIN 0.4 MG CAP.ER.24H. PO SCH (10:25)
[2018-05-31] MEDS: CARVEDILOL 12.5 MG TABLET. PO SCH ×2 (10:26→17:17)
[2018-05-31] MEDS: ALLOPURINOL 100 MG TABLET. PO SCH (10:26)
[2018-05-31 10:53] VITALS: BP 131/73
--- NOTE | 2018-05-31 12:01 | PDOC ---
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 Endplate fracture T12 new since 2011, thickening on the rectal indistinct sigmoid colon PLAN: Add GI consult Cards has ordered an echo He said he finished a course of Cipro Flagyl for the recent colitis Might involved physiatry could not help but wonder if this T12 endplate fracture could be related to the back pain he is mentioning - although he points m ore to the RT abd area radiating to back Vitals Vitals Vital Signs Date Time Temp Pulse Resp B/P (MAP) Pulse Ox O2 Delivery O2 Flow Rate FiO2 05/31/18 10:53 97.8 71 14 131/73 (92) 94 Room Air 97.8 05/30/18 20:45 2.0 Physical Exam General: Alert, Oriented X3, Cooperative, No acute distress Heart: Regular rate, Normal S1, Normal S2 Abdomen: Soft, Other (RLQ tenderness) Extremities: Normal pulses, Other (trace bilateral LE edema ) Skin: No breakdown, No significant lesion Labs LABS Laboratory Tests Test 05/30/18 15:42 05/30/18 15:49 05/31/18 06:23 White Blood Count 3.5 x10^3/uL (4.0-11.0) 3.1 x10^3/uL (4.0-11.0) Red Blood Count 3.86 x10^6/uL (4.30-5.70) 3.66 x10^6/uL (4.30-5.70) Hemoglobin 12.0 g/dL (13.0-17.5) 11.6 g/dL (13.0-17.5) Hematocrit 37.0 % (39.0-53.0) 35.2 % (39.0-53.0) Mean Corpuscular Volume 96 fL (79-100) 96 fL (79-100) Mean Corpuscular Hemoglobin 31 pg (25-35) 32 pg (25-35) Mean Corpuscular Hemoglobin Concent 33 g/dL (31-37) 33 g/dL (31-37) Red Cell Distribution Width 15.5 % (11.5-14.5) 15.7 % (11.5-14.5) Platelet Count 169 x10^3/uL (140-400) 160 x10^3/uL (140-400) Neutrophils (%) (Auto) 49 % (31-73) 45 % (31-73) Lymphocytes (%) (Auto) 32 % (24-48) 36 % (24-48) Monocytes (%) (Auto) 7 % (0-9) 7 % (0-9) Eosinophils (%) (Auto) 11 % (0-3) 11 % (0-3) Basophils (%) (Auto) 1 % (0-3) 1 % (0-3) Neutrophils # (Auto) 1.7 x10^3uL (1.8-7.7) 1.4 x10^3uL (1.8-7.7) Lymphocytes # (Auto) 1.1 x10^3/uL (1.0-4.8) 1.1 x10^3/uL (1.0-4.8) Monocytes # (Auto) 0.2 x10^3/uL (0.0-1.1) 0.2 x10^3/uL (0.0-1.1) Eosinophils # (Auto) 0.4 x10^3/uL (0.0-0.7) 0.3 x10^3/uL (0.0-0.7) Basophils # (Auto) 0.0 x10^3/uL (0.0-0.2) 0.0 x10^3/uL (0.0-0.2) Prothrombin Time 20.6 SEC (11.7-14.0) 20.6 SEC (11.7-14.0) Prothromb Time International Ratio 1.8 (0.8-1.1) 1.8 (0.8-1.1) Sodium Level 144 mmol/L (136-145) 142 mmol/L (136-145) Potassium Level 3.8 mmol/L (3.5-5.1) 4.0 mmol/L (3.5-5.1) Chloride Level 105 mmol/L (98-107) 106 mmol/L (98-107) Carbon Dioxide Level 30 mmol/L (21-32) 32 mmol/L (21-32) Anion Gap 9 (6-14) 4 (6-14) Blood Urea Nitrogen 18 mg/dL (8-26) 16 mg/dL (8-26) Creatinine 1.3 mg/dL (0.7-1.3) 1.3 mg/dL (0.7-1.3) Estimated GFR (Cockcroft-Gault) 64.3 64.3 BUN/Creatinine Ratio 14 (6-20) 12 (6-20) Glucose Level 100 mg/dL (70-99) 90 mg/dL (70-99) Calcium Level 8.5 mg/dL (8.5-10.1) 8.6 mg/dL (8.5-10.1) Magnesium Level 1.9 mg/dL (1.8-2.4) Total Bilirubin 0.3 mg/dL (0.2-1.0) 0.4 mg/dL (0.2-1.0) Aspartate Amino Transf (AST/SGOT) 9 U/L (15-37) 12 U/L (15-37) Alanine Aminotransferase (ALT/SGPT) 13 U/L (16-63) 11 U/L (16-63) Alkaline Phosphatase 61 U/L (46-116) 53 U/L (46-116) BS-Mzi-C-Type Natriuretic Peptide 131 pg/mL (0-449) Total Protein 7.2 g/dL (6.4-8.2) 6.6 g/dL (6.4-8.2) Albumin 3.4 g/dL (3.4-5.0) 3.1 g/dL (3.4-5.0) Albumin/Globulin Ratio 0.9 (1.0-1.7) 0.9 (1.0-1.7) Lipase 94 U/L (73-393) Bedside Troponin I 0.01 ng/ml (<0.08) Troponin I Quantitative < 0.017 ng/mL (0.000-0.055) Triglycerides Level 120 mg/dL (0-150) Cholesterol Level 204 mg/dL (0-200) LDL Cholesterol, Calculated 148 mg/dL (0-100) VLDL Cholesterol, Calculated 24 mg/dL (0-40) Non-HDL Cholesterol Calculated 172 mg/dL (0-129) HDL Cholesterol 32 mg/dL (40-60) Cholesterol/HDL Ratio 6.4 Review of Systems Review of Systems Abd pain radiating to the right flank, otherwise rest of ROS 14 point negative Assessment and Plan Assessmemt and Plan Problems Medical Problems: (1) Chest pain Status: Acute Comment Review of Relevant I have reviewed the following items joanne (where applicable) has been applied. Labs Laboratory Tests Test 05/30/18 15:42 05/30/18 15:49 05/31/18 06:23 White Blood Count 3.5 x10^3/uL (4.0-11.0) 3.1 x10^3/uL (4.0-11.0) Red Blood Count 3.86 x10^6/uL (4.30-5.70) 3.66 x10^6/uL (4.30-5.70) Hemoglobin 12.0 g/dL (13.0-17.5) 11.6 g/dL (13.0-17.5) Hematocrit 37.0 % (39.0-53.0) 35.2 % (39.0-53.0) Mean Corpuscular Volume 96 fL (79-100) 96 fL (79-100) Mean Corpuscular Hemoglobin 31 pg (25-35) 32 pg (25-35) Mean Corpuscular Hemoglobin Concent 33 g/dL (31-37) 33 g/dL (31-37) Red Cell Distribution Width 15.5 % (11.5-14.5) 15.7 % (11.5-14.5) Platelet Count 169 x10^3/uL (140-400) 160 x10^3/uL (140-400) Neutrophils (%) (Auto) 49 % (31-73) 45 % (31-73) Lymphocytes (%) (Auto) 32 % (24-48) 36 % (24-48) Monocytes (%) (Auto) 7 % (0-9) 7 % (0-9) Eosinophils (%) (Auto) 11 % (0-3) 11 % (0-3) Basophils (%) (Auto) 1 % (0-3) 1 % (0-3) Neutrophils # (Auto) 1.7 x10^3uL (1.8-7.7) 1.4 x10^3uL (1.8-7.7) Lymphocytes # (Auto) 1.1 x10^3/uL (1.0-4.8) 1.1 x10^3/uL (1.0-4.8) Monocytes # (Auto) 0.2 x10^3/uL (0.0-1.1) 0.2 x10^3/uL (0.0-1.1) Eosinophils # (Auto) 0.4 x10^3/uL (0.0-0.7) 0.3 x10^3/uL (0.0-0.7) Basophils # (Auto) 0.0 x10^3/uL (0.0-0.2) 0.0 x10^3/uL (0.0-0.2) Prothrombin Time 20.6 SEC (11.7-14.0) 20.6 SEC (11.7-14.0) Prothromb Time International Ratio 1.8 (0.8-1.1) 1.8 (0.8-1.1) Sodium Level 144 mmol/L (136-145) 142 mmol/L (136-145) Potassium Level 3.8 mmol/L (3.5-5.1) 4.0 mmol/L (3.5-5.1) Chloride Level 105 mmol/L (98-107) 106 mmol/L (98-107) Carbon Dioxide Level 30 mmol/L (21-32) 32 mmol/L (21-32) Anion Gap 9 (6-14) 4 (6-14) Blood Urea Nitrogen 18 mg/dL (8-26) 16 mg/dL (8-26) Creatinine 1.3 mg/dL (0.7-1.3) 1.3 mg/dL (0.7-1.3) Estimated GFR (Cockcroft-Gault) 64.3 64.3 BUN/Creatinine Ratio 14 (6-20) 12 (6-20) Glucose Level 100 mg/dL (70-99) 90 mg/dL (70-99) Calcium Level 8.5 mg/dL (8.5-10.1) 8.6 mg/dL (8.5-10.1) Magnesium Level 1.9 mg/dL (1.8-2.4) Total Bilirubin 0.3 mg/dL (0.2-1.0) 0.4 mg/dL (0.2-1.0) Aspartate Amino Transf (AST/SGOT) 9 U/L (15-37) 12 U/L (15-37) Alanine Aminotransferase (ALT/SGPT) 13 U/L (16-63) 11 U/L (16-63) Alkaline Phosphatase 61 U/L (46-116) 53 U/L (46-116) AS-Fyr-F-Type Natriuretic Peptide 131 pg/mL (0-449) Total Protein 7.2 g/dL (6.4-8.2) 6.6 g/dL (6.4-8.2) Albumin 3.4 g/dL (3.4-5.0) 3.1 g/dL (3.4-5.0) Albumin/Globulin Ratio 0.9 (1.0-1.7) 0.9 (1.0-1.7) Lipase 94 U/L (73-393) Bedside Troponin I 0.01 ng/ml (<0.08) Troponin I Quantitative < 0.017 ng/mL (0.000-0.055) Triglycerides Level 120 mg/dL (0-150) Cholesterol Level 204 mg/dL (0-200) LDL Cholesterol, Calculated 148 mg/dL (0-100) VLDL Cholesterol, Calculated 24 mg/dL (0-40) Non-HDL Cholesterol Calculated 172 mg/dL (0-129) HDL Cholesterol 32 mg/dL (40-60) Cholesterol/HDL Ratio 6.4 Laboratory Tests Test 05/30/18 15:42 05/30/18 15:49 05/31/18 06:23 White Blood Count 3.5 x10^3/uL (4.0-11.0) 3.1 x10^3/uL (4.0-11.0) Red Blood Count 3.86 x10^6/uL (4.30-5.70) 3.66 x10^6/uL (4.30-5.70) Hemoglobin 12.0 g/dL (13.0-17.5) 11.6 g/dL (13.0-17.5) Hematocrit 37.0 % (39.0-53.0) 35.2 % (39.0-53.0) Mean Corpuscular Volume 96 fL (79-100) 96 fL (79-100) Mean Corpuscular Hemoglobin 31 pg (25-35) 32 pg (25-35) Mean Corpuscular Hemoglobin Concent 33 g/dL (31-37) 33 g/dL (31-37) Red Cell Distribution Width 15.5 % (11.5-14.5) 15.7 % (11.5-14.5) Platelet Count 169 x10^3/uL (140-400) 160 x10^3/uL (140-400) Neutrophils (%) (Auto) 49 % (31-73) 45 % (31-73) Lymphocytes (%) (Auto) 32 % (24-48) 36 % (24-48) Monocytes (%) (Auto) 7 % (0-9) 7 % (0-9) Eosinophils (%) (Auto) 11 % (0-3) 11 % (0-3) Basophils (%) (Auto) 1 % (0-3) 1 % (0-3) Neutrophils # (Auto) 1.7 x10^3uL (1.8-7.7) 1.4 x10^3uL (1.8-7.7) Lymphocytes # (Auto) 1.1 x10^3/uL (1.0-4.8) 1.1 x10^3/uL (1.0-4.8) Monocytes # (Auto) 0.2 x10^3/uL (0.0-1.1) 0.2 x10^3/uL (0.0-1.1) Eosinophils # (Auto) 0.4 x10^3/uL (0.0-0.7) 0.3 x10^3/uL (0.0-0.7) Basophils # (Auto) 0.0 x10^3/uL (0.0-0.2) 0.0 x10^3/uL (0.0-0.2) Prothrombin Time 20.6 SEC (11.7-14.0) 20.6 SEC (11.7-14.0) Prothromb Time International Ratio 1.8 (0.8-1.1) 1.8 (0.8-1.1) Sodium Level 144 mmol/L (136-145) 142 mmol/L (136-145) Potassium Level 3.8 mmol/L (3.5-5.1) 4.0 mmol/L (3.5-5.1) Chloride Level 105 mmol/L (98-107) 106 mmol/L (98-107) Carbon Dioxide Level 30 mmol/L (21-32) 32 mmol/L (21-32) Anion Gap 9 (6-14) 4 (6-14) Blood Urea Nitrogen 18 mg/dL (8-26) 16 mg/dL (8-26) Creatinine 1.3 mg/dL (0.7-1.3) 1.3 mg/dL (0.7-1.3) Estimated GFR (Cockcroft-Gault) 64.3 64.3 BUN/Creatinine Ratio 14 (6-20) 12 (6-20) Glucose Level 100 mg/dL (70-99) 90 mg/dL (70-99) Calcium Level 8.5 mg/dL (8.5-10.1) 8.6 mg/dL (8.5-10.1) Magnesium Level 1.9 mg/dL (1.8-2.4) Total Bilirubin 0.3 mg/dL (0.2-1.0) 0.4 mg/dL (0.2-1.0) Aspartate Amino Transf (AST/SGOT) 9 U/L (15-37) 12 U/L (15-37) Alanine Aminotransferase (ALT/SGPT) 13 U/L (16-63) 11 U/L (16-63) Alkaline Phosphatase 61 U/L (46-116) 53 U/L (46-116) SJ-Mcw-Z-Type Natriuretic Peptide 131 pg/mL (0-449) Total Protein 7.2 g/dL (6.4-8.2) 6.6 g/dL (6.4-8.2) Albumin 3.4 g/dL (3.4-5.0) 3.1 g/dL (3.4-5.0) Albumin/Globulin Ratio 0.9 (1.0-1.7) 0.9 (1.0-1.7) Lipase 94 U/L (73-393) Bedside Troponin I 0.01 ng/ml (<0.08) Troponin I Quantitative < 0.017 ng/mL (0.000-0.055) Triglycerides Level 120 mg/dL (0-150) Cholesterol Level 204 mg/dL (0-200) LDL Cholesterol, Calculated 148 mg/dL (0-100) VLDL Cholesterol, Calculated 24 mg/dL (0-40) Non-HDL Cholesterol Calculated 172 mg/dL (0-129) HDL Cholesterol 32 mg/dL (40-60) Cholesterol/HDL Ratio 6.4 Medications Current Medications Fentanyl Citrate (Fentanyl 2ml Vial) 50 mcg 1X ONCE IV Last administered on 05/30/18 17:06; Start 05/30/18 at 16:30; Stop 05/30/18 at 16:31; Status DC Albuterol Sulfate (Ventolin Neb Soln) 2.5 mg PRN Q6HRS PRN INH SHORTNESS OF BREATH; Start 05/30/18 at 19:15 Allopurinol (Zyloprim) 100 mg DAILY PO Last administered on 05/31/18 10:26; Start 05/31/18 at 09:00 Bupropion HCl (Wellbutrin Xl) 150 mg DAILY PO Last administered on 05/31/18 10:22; Start 05/31/18 at 09:00 Carvedilol (Coreg) 12.5 mg BIDWMEALS PO Last administered on 05/31/18at 10:26; Start 05/30/18 at 21:00 Docusate Sodium (Colace) 100 mg PRN DAILY PRN PO CONSTIPATION; Start 05/30/18 at 19:15 Fluticasone Propionate (Flonase) 2 spray DAILY NS Last administered on 05/31/18 10:22; Start 05/31/18 at 09:00 Oxycodone/ Acetaminophen (Percocet 10/325) 1 tab PRN Q8HRS PRN PO PAIN Last administered on 05/31/18at 06:36; Start 05/30/18 at 19:15 Senna/Docusate Sodium (Senna Plus) 1 tab BID PO Last administered on 05/31/18at 10:22; Start 05/30/18 at 21:00 Tamsulosin HCl (Flomax) 0.8 mg DAILY PO Last administered on 05/31/18 10:25; Start 05/31/18 at 09:00 Atorvastatin Calcium (Lipitor) 80 mg QHS PO Last administered on 05/30/18 20:44; Start 05/30/18 at 21:00 Losartan Potassium (Cozaar) 100 mg DAILY PO Last administered on 05/31/18 10:25; Start 05/31/18 at 09:00 Polyethylene Glycol (miraLAX PACKET) 17 gm PRN DAILY PRN PO CONSTIPATION; Start 05/31/18 at 09:00 Non-Formulary Medication (Warfarin Sodium ) 4 mg DAILY PO ; Start 05/31/18 at 0 9:00; Status UNV Warfarin Sodium (Coumadin Per Pharmacy) 1 each PRN DAILY PRN MC SEE COMMENTS Last administered on 05/30/18 19:50; Start 05/30/18 at 19:15 Warfarin Sodium (Coumadin) 5 mg 1X WARF ONCE PO Last administered on 05/30/18 20:45; Start 05/30/18 at 20:30; Stop 05/30/18 at 20:31; Status DC Morphine Sulfate (Morphine Sulfate) 4 mg PRN Q2HR PRN IV PAIN Last administered on 05/31/18 10:45; Start 05/30/18 at 20:30 Ondansetron HCl (Zofran) 4 mg PRN Q6HRS PRN IV NAUSEA/VOMITING; Start 05/31/18 at 08:30 Ondansetron HCl (Zofran Odt) 4 mg PRN Q6HRS PRN PO NAUSEA/VOMITING; Start 05/31/18 at 08:30 Acetaminophen (Tylenol) 500 mg PRN Q6HRS PRN PO MILD PAIN / TEMP; Start 05/31/18 at 08:30 Acetaminophen/ Codeine Phosphate (Tylenol #3) 1 tab PRN Q6HRS PRN PO MODERATE PAIN; Start 05/31/18 at 08:30 Active Scripts Active Allopurinol 100 Mg Tablet 100 Mg PO DAILY 30 Days Reported Warfarin Sodium 4 Mg Tablet 4 Mg PO DAILY Demadex (Torsemide) 20 Mg Tablet 100 Mg PO DAILY Senokot-S Tablet (Sennosides/Docusate Sodium) 1 Each Tablet 1 Tab PO BID Miralax (Polyethylene Glycol 3350) 119 Gm Powder 17 Gm PO PRN DAILY PRN Metronidazole 500 Mg Tablet 1 Tab PO BID Fluticasone Propionate Nasal [place] (Fluticasone Propionate) 16 Gm [place].susp 2 [place] NS DAILY Docusate Sodium 100 Mg Capsule 1 Cap PO PRN DAILY PRN Cefpodoxime Proxetil 200 Mg Tablet 1 Tab PO BID Bupropion Xl (Bupropion Hcl) 150 Mg Tab.er.24h 1 Tab PO DAILY Atorvastatin Calcium 80 Mg Tablet 1 Tab PO DAILY Proair Hfa Inhaler (Albuterol Sulfate) 8.5 Gm Hfa.aer.ad 2 Puff INH PRN Q6HRS PRN Losartan Potassium 100 Mg Tablet 100 Mg PO DAILY Carvedilol (Carvedilol) 12.5 Mg Tablet 12.5 Mg PO BIDWMEALS Percocet 10-325 Mg Tablet (Oxycodone/Acetaminophen) 1 Each Tablet 1 Tab PO PRN Q8HRS PRN Flomax (Tamsulosin Hcl) 0.4 Mg Cap.er.24h 0.8 Mg PO DAILY Vitals/I & O Vital Sign - Last 24 Hours 05/30/18 05/30/18 05/30/18 05/30/18 15:06 15:43 16:13 16:59 Temp 98.3 98.3 Pulse 70 64 62 60 Resp 20 20 18 20 B/P (MAP) 152/77 (102) 133/69 (90) 147/69 (95) 153/67 (95) Pulse Ox 97 96 96 95 O2 Delivery Room Air Room Air 05/30/18 05/30/18 05/30/18 05/30/18 17:06 17:13 17:36 17:43 Pulse 60 64 Resp 18 18 18 20 B/P (MAP) 149/70 (96) 154/69 (97) Pulse Ox 97 98 97 96 O2 Delivery Room Air Room Air Room Air 05/30/18 05/30/18 05/30/18 05/30/18 18:13 18:47 19:05 20:00 Temp 97.8 97.8 Pulse 62 61 67 Resp 20 20 22 B/P (MAP) 162/71 (101) 140/67 (91) 155/77 (103) Pulse Ox 98 97 97 O2 Delivery Room Air Room Air Room Air 05/30/18 05/30/18 05/30/18 05/30/18 20:45 20:47 21:45 23:00 Temp 98.3 98.3 Pulse 67 70 Resp 18 18 20 B/P (MAP) 155/77 141/61 (87) Pulse Ox 97 97 97 O2 Delivery Room Air Room Air Room Air O2 Flow Rate 2.0 05/31/18 05/31/18 05/31/18 05/31/18 03:10 03:20 03:40 06:36 Temp 97.7 97.7 Pulse 64 Resp 20 18 18 B/P (MAP) 133/58 (83) Pulse Ox 97 94 94 94 O2 Delivery Room Air Room Air Room Air Room Air 05/31/18 05/31/18 05/31/18 05/31/18 07:27 08:00 09:38 10:25 Temp 97.5 97.5 Pulse 69 64 Resp 12 B/P (MAP) 138/54 (82) 131/73 Pulse Ox 94 97 O2 Delivery Room Air Room Air Room Air 05/31/18 05/31/18 10:26 10:53 Temp 97.8 97.8 Pulse 64 71 Resp 14 B/P (MAP) 131/73 131/73 (92) Pulse Ox 94 O2 Delivery Room Air Intake and Output 05/30/18 05/30/18 05/31/18 15:00 23:00 07:00 Intake Total 120 ml 200 ml Output Total 600 ml 400 ml Balance -480 ml -200 ml ELISSA BOB MD May 31, 2018 12:01
--- NOTE | 2018-05-31 13:56 | NUR ---
SS following for discharge planning. SS reviewed pt chart. Pt is from home with spouse and is currently on room air. OT recommended home with outpatient. SS spoke with PT, Maisha, who recommended the same. SS will continue to follow for discharge planning.
--- NOTE | 2018-05-31 14:12 | NUR ---
Pharmacy Warfarin Dosing Note S: Pharmacy consulted to assist with anticoagulation therapy O: REBA KENT is a 82 year old M with Atrial Fibrillation LABS: Last INR: 1.8 Last HGB: 11.6 Last HCT: 35.2 Last PLT: 160 Last dose: 5 mg given on 05/30/18 at 2045 Home dose: 4 mg daily Vitamin K given: N A:INR of 1.8 is below desired range. Target range for this patient is: 2 - 3 P: Warfarin dose: 5 mg Today at 1600 Bridge Therapy: None Next INR due Pharmacy anticoagulation service will continue to follow. [facility], 05/31/18 [id number]
[2018-05-31 14:40] LABS: BILIRUBIN,URINE NEGATIVE (NEG); CLARITY,URINE CLEAR; COLOR,URINE YELLOW; NITRITE,URINE NEGATIVE (NEG); PH,URINE 7.5; PROTEIN,URINE NEGATIVE (NEG-TRACE)
--- NOTE | 2018-05-31 14:40 | CARD ---
MR#: [id number] Date of Study: 05/31/2018 Ordering Physician: ROSS BILL, Referring Physician: CHELA CROW Tech: Quynh Almanzar RDCS APPROVED REPORT EXAM: Two-dimensional and M-mode echocardiogram with Doppler and color Doppler. Other Information Quality : Good INDICATION Chest Pain Congestive Heart Failure Surgery/Intervention Pacemaker: Date: 2016 2D DIMENSIONS RVDd3.0 (2.9-3.5cm)Left Atrium(2D)2.9 (1.6-4.0cm) IVSd0.9 (0.7-1.1cm)Aortic Root(2D)3.4 (2.0-3.7cm) LVDd4.5 (3.9-5.9cm)LVOT Diameter2.1 (1.8-2.4cm) PWd1.0 (0.7-1.1cm)LVDs1.9 (2.5-4.0cm) FS (%) 30.0 %SV80.3 ml LVEF(%)60.0 (>50%) Aortic Valve AoV Peak James.246.3cm/sAoV VTI46.9cm AO Peak GR.24.3mmHgLVOT Peak James.125.4cm/s AO Mean GR.15mmHgAVA (VMAX)1.70cm2 LUCERO (VTI)1.80cm2 Mitral Valve MV E Bmizadei57.5cm/sMV DECEL PSZA466yt MV A Lbgvsttx587.9cm/sE/A Ratio0.5 Tricuspid Valve TR P. Yfiwidux195zw/sRAP [id number] TR Peak Gr.[id number] LEFT VENTRICLE The left ventricle is normal size. There is normal left ventricular wall thickness. The left ventricu lar systolic function is normal. The Ejection Fraction is 60-65%. Apical motion consistent with pacem александр activation. Transmitral Doppler flow pattern is Grade I-abnormal relaxation pattern. RIGHT VENTRICLE The right ventricle is normal size. The right ventricular systolic function is normal. There is a pac emaker lead in the right ventricle. ATRIA The left atrium size is normal. The right atrium is mildly dilated. A pacemaker is seen in the right atrium consistent with history. The interatrial septum is intact with no evidence for an atrial septa l defect or patent foramen ovale as noted on 2-D or Doppler imaging. AORTIC VALVE The aortic valve is calcified and displays decreased opening. Doppler and Color Flow revealed no sign ificant aortic regurgitation. Calculated aortic valve area is 1.8 cm2 with maximum pressure gradient of 24 mmHg and mean pressure gradient of 15 mmHg. Doppler and color-flow analysis revealed mild aorti c stenosis. MITRAL VALVE The mitral valve is calcified but opens well. Mitral annular calcification is mild. There is no evide nce of mitral valve prolapse. There is no mitral valve stenosis. Doppler and Color-flow revealed trac e mitral regurgitation. TRICUSPID VALVE The tricuspid valve is normal in structure and function. Doppler and Color Flow revealed mild tricusp id regurgitation. There is moderate pulmonary hypertension. The PA pressure was estimated at 57 mmHg. There is no tricuspid valve stenosis. PULMONIC VALVE The pulmonic valve is not well visualized. Doppler and Color Flow revealed no pulmonic valvular regur gitation. There is no pulmonic valvular stenosis. GREAT VESSELS The aortic root is normal in size. The ascending aorta is mildly dilated at 3.5 cm. The IVC was not v isualized. PERICARDIAL EFFUSION There is no evidence of significant pericardial effusion. Critical Notification Critical Value: No <Conclusion> The left ventricular systolic function is normal. The Ejection Fraction is 60-65%. Transmitral Doppler flow pattern is Grade I-abnormal relaxation pattern. There is a pacemaker lead in the right ventricle. Mild aortic stenosis. Trace mitral regurgitation. Mild tricuspid regurgitation. The PA pressure was estimated at 57 mmHg. There is no evidence of significant pericardial effusion. Signed by : Yasmani Herrera, Electronically Approved : 05/31/2018 14:40:19
[2018-05-31 14:42] VITALS: BP 104/59
[2018-05-31 14:51] LABS: BACTERIA,URINE 0 /HPF (0-FEW); RBC,URINE OCC /HPF (0-2); WBC,URINE OCC /HPF (0-4)
[2018-05-31 14:52] LABS: HYALINE CASTS, URINE OCCASIONAL /HPF; SQUAMOUS EPITHELIAL CELL,UR FEW /LPF
--- NOTE | 2018-05-31 15:27 | PDOC2 ---
GI CONSULT Reason For Consult: Abn CT 1 mo ago, continued abd pain HPI: HPI: 82 y/o male who we saw last month. At that time, he was concerned w/ establishing care w/ a new PCP in order to continue getting prescriptions for Percocet which he has taken TID x 10 years for chronic back pain. He previously reported he has an appointment on June 07 - this has apparently been "pushed back a little" to later in June. He actually has two appointments w/ new doctors - one on [facility] and one at (?in July); he wants to see who he likes better. Last time, he also reported chronic right-sided abd pain previously treated @ w/ antibiotics "when they did the test with the dye and found it in my colon." Imaging last admission noted stable splenic lesions, stable pancreatic tail lesions, stable nodule/cyst medial to left iliac vessels, mild urinary bladder wall thickening, age-indeterminate T12 fracture, stable right adrenal nodule, GB wall thickening, and mild wall thickening of rectum and distal sigmoid colon. He had no LLQ pain, diarrhea, or bleeding. Was started on Cipro and Flagyl in the ER which were eventually stopped. He was sent home w/ steroids for gout and given a 10 day supply of Percocet. He reported having a recent colonoscopy at - no records of this per other consultants. Remote h/o EGDs and colonoscopy here w/ hiatal hernia, GERD, and polyps (unknown kind). Recommendations for outpt colonoscopy re: h/o polyps. Back again and admitted to cardiac floor for chest pain which he denies to me. Tells me 1.5-2 weeks ago was sitting on his bed and dropped something, so he bent over to the right to pick it up - that's when RLQ "steady, tight" pain began. Radiates to right lower back/hip and is worse when stepping in the shower and when leaning back. It is not affected by eating or stooling. He denies n/v, dysphagia, diarrhea, constipation, weight loss, hematochezia, and melena (though last admission he reported a "black stool" once - he has been checking since then, no recurrence). Per RN, he has been repeatedly asking when the GI doctor is coming to see him and has been asking for antibiotics. He spends a great deal of time telling me how the most important thing is for him to be discharged with enough Percocet to get him through to his appointments. H/o A Fib on Warfarin. No NSAIDs. No liver, GB, pancreas, or PUD history. PMH: PMH: A Fib, CHF, HTN, HLD, anemia, OA, gout, CKD, chronic pain, GERD, hiatal hernia, colon polyps pacemaker, left shoulder replacement, left foot surgery FH: Family History: No pertinent hx Social History: Smoke: No ALCOHOL: none Drugs: None ROS: GEN: Denies fevers, chills, sweats HEENT: Denies blurred vision, sore throat CV: Denies chest pain RESP: Denies shortness of air, cough GI: Per HPI : Denies hematuria, dysuria ENDO: Denies weight changes NEURO: Denies confusion, dizziness MSK: Denies weakness, joint pain/swelling SKIN: Denies jaundice, pruritus Vitals: Vitals: Vital Signs Date Time Temp Pulse Resp B/P (MAP) Pulse Ox O2 Delivery O2 Flow Rate FiO2 05/31/18 14:42 97.4 68 18 104/59 (74) 97 97.4 05/31/18 10:53 94 05/30/18 20:45 2.0 Labs: Labs: Laboratory Tests Test 05/30/18 15:42 05/30/18 15:49 05/31/18 06:23 05/31/18 14:00 White Blood Count 3.5 x10^3/uL (4.0-11.0) 3.1 x10^3/uL (4.0-11.0) Red Blood Count 3.86 x10^6/uL (4.30-5.70) 3.66 x10^6/uL (4.30-5.70) Hemoglobin 12.0 g/dL (13.0-17.5) 11.6 g/dL (13.0-17.5) Hematocrit 37.0 % (39.0-53.0) 35.2 % (39.0-53.0) Mean Corpuscular Volume 96 fL (79-100) 96 fL (79-100) Mean Corpuscular Hemoglobin 31 pg (25-35) 32 pg (25-35) Mean Corpuscular Hemoglobin Concent 33 g/dL (31-37) 33 g/dL (31-37) Red Cell Distribution Width 15.5 % (11.5-14.5) 15.7 % (11.5-14.5) Platelet Count 169 x10^3/uL (140-400) 160 x10^3/uL (140-400) Neutrophils (%) (Auto) 49 % (31-73) 45 % (31-73) Lymphocytes (%) (Auto) 32 % (24-48) 36 % (24-48) Monocytes (%) (Auto) 7 % (0-9) 7 % (0-9) Eosinophils (%) (Auto) 11 % (0-3) 11 % (0-3) Basophils (%) (Auto) 1 % (0-3) 1 % (0-3) Neutrophils # (Auto) 1.7 x10^3uL (1.8-7.7) 1.4 x10^3uL (1.8-7.7) Lymphocytes # (Auto) 1.1 x10^3/uL (1.0-4.8) 1.1 x10^3/uL (1.0-4.8) Monocytes # (Auto) 0.2 x10^3/uL (0.0-1.1) 0.2 x10^3/uL (0.0-1.1) Eosinophils # (Auto) 0.4 x10^3/uL (0.0-0.7) 0.3 x10^3/uL (0.0-0.7) Basophils # (Auto) 0.0 x10^3/uL (0.0-0.2) 0.0 x10^3/uL (0.0-0.2) Prothrombin Time 20.6 SEC (11.7-14.0) 20.6 SEC (11.7-14.0) Prothromb Time International Ratio 1.8 (0.8-1.1) 1.8 (0.8-1.1) Sodium Level 144 mmol/L (136-145) 142 mmol/L (136-145) Potassium Level 3.8 mmol/L (3.5-5.1) 4.0 mmol/L (3.5-5.1) Chloride Level 105 mmol/L (98-107) 106 mmol/L (98-107) Carbon Dioxide Level 30 mmol/L (21-32) 32 mmol/L (21-32) Anion Gap 9 (6-14) 4 (6-14) Blood Urea Nitrogen 18 mg/dL (8-26) 16 mg/dL (8-26) Creatinine 1.3 mg/dL (0.7-1.3) 1.3 mg/dL (0.7-1.3) Estimated GFR (Cockcroft-Gault) 64.3 64.3 BUN/Creatinine Ratio 14 (6-20) 12 (6-20) Glucose Level 100 mg/dL (70-99) 90 mg/dL (70-99) Calcium Level 8.5 mg/dL (8.5-10.1) 8.6 mg/dL (8.5-10.1) Magnesium Level 1.9 mg/dL (1.8-2.4) Total Bilirubin 0.3 mg/dL (0.2-1.0) 0.4 mg/dL (0.2-1.0) Aspartate Amino Transf (AST/SGOT) 9 U/L (15-37) 12 U/L (15-37) Alanine Aminotransferase (ALT/SGPT) 13 U/L (16-63) 11 U/L (16-63) Alkaline Phosphatase 61 U/L (46-116) 53 U/L (46-116) KE-Mhp-K-Type Natriuretic Peptide 131 pg/mL (0-449) Total Protein 7.2 g/dL (6.4-8.2) 6.6 g/dL (6.4-8.2) Albumin 3.4 g/dL (3.4-5.0) 3.1 g/dL (3.4-5.0) Albumin/Globulin Ratio 0.9 (1.0-1.7) 0.9 (1.0-1.7) Lipase 94 U/L (73-393) Bedside Troponin I 0.01 ng/ml (<0.08) Troponin I Quantitative < 0.017 ng/mL (0.000-0.055) Triglycerides Level 120 mg/dL (0-150) Cholesterol Level 204 mg/dL (0-200) LDL Cholesterol, Calculated 148 mg/dL (0-100) VLDL Cholesterol, Calculated 24 mg/dL (0-40) Non-HDL Cholesterol Calculated 172 mg/dL (0-129) HDL Cholesterol 32 mg/dL (40-60) Cholesterol/HDL Ratio 6.4 Urine Collection Type Unknown Urine Color Yellow Urine Clarity Clear Urine pH 7.5 Urine Specific [place] 1.020 Urine Protein Negative mg/dL (NEG-TRACE) Urine Glucose (UA) Negative mg/dL (NEG) Urine Ketones (Stick) Negative mg/dL (NEG) Urine Blood Negative (NEG) Urine Nitrite Negative (NEG) Urine Bilirubin Negative (NEG) Urine Urobilinogen Dipstick 1.0 mg/dL (0.2 mg/dL) Urine Leukocyte Esterase Negative (NEG) Urine RBC Occ /HPF (0-2) Urine WBC Occ /HPF (0-4) Urine Squamous Epithelial Cells Few /LPF Urine Bacteria 0 /HPF (0-FEW) Urine Hyaline Casts Occasional /HPF Urine Mucus Slight /LPF Allergies: Coded Allergies: No Known Drug Allergies (Unverified , 10/27/16) Medications: Current Medications Medications (Trade) Dose Ordered Sig/Tam Route PRN Reason Start Time Stop Time Status Last Admin Dose Admin Fentanyl Citrate (Fentanyl 2ml Vial) 50 mcg 1X ONCE IV 05/30/18 16:30 05/30/18 16:31 DC 05/30/18 17:06 Allopurinol (Zyloprim) 100 mg DAILY PO 05/31/18 09:00 05/31/18 10:26 Bupropion HCl (Wellbutrin Xl) 150 mg DAILY PO 05/31/18 09:00 05/31/18 10:22 Carvedilol (Coreg) 12.5 mg BIDWMEALS PO 05/30/18 21:00 05/31/18 10:26 Fluticasone Propionate (Flonase) 2 spray DAILY NS 05/31/18 09:00 05/31/18 10:22 Oxycodone/ Acetaminophen (Percocet 10/325) 1 tab PRN Q8HRS PRN PO SEVERE PAIN 05/30/18 19:15 05/31/18 06:36 Senna/Docusate Sodium (Senna Plus) 1 tab BID PO 05/30/18 21:00 05/31/18 10:22 Tamsulosin HCl (Flomax) 0.8 mg DAILY PO 05/31/18 09:00 05/31/18 10:25 Atorvastatin Calcium (Lipitor) 80 mg QHS PO 05/30/18 21:00 05/30/18 20:44 Losartan Potassium (Cozaar) 100 mg DAILY PO 05/31/18 09:00 05/31/18 10:25 Warfarin Sodium (Coumadin Per Pharmacy) 1 each PRN DAILY PRN MC SEE COMMENTS 05/30/18 19:15 05/31/18 14:11 Warfarin Sodium (Coumadin) 5 mg 1X WARF ONCE PO 05/30/18 20:30 05/30/18 20:31 DC 05/30/18 20:45 Morphine Sulfate (Morphine Sulfate) 4 mg PRN Q2HR PRN IV PAIN 05/30/18 20:30 05/31/18 10:45 Imaging: Imaging: CXR IMPRESSION: Similar appearance, no evidence of consolidating infiltrate. Echocardiogram <Conclusion> The left ventricular systolic function is normal. The Ejection Fraction is 60-65%. Transmitral Doppler flow pattern is Grade I-abnormal relaxation pattern. There is a pacemaker lead in the right ventricle. Mild aortic stenosis. Trace mitral regurgitation. Mild tricuspid regurgitation. The PA pressure was estimated at 57 mmHg. There is no evidence of significant pericardial effusion. PE: GEN: NAD HEENT: Atraumatic LUNGS: CTAB HEART: RRR ABD: NABS, S/ND - has pain in RLQ while leaning back in bed but no pain that is reproducible w/ palpation, right lateral abdomen with some fullness EXTREMITY: No edema SKIN: No rashes, no jaundice NEURO/PSYCH: A & O 3 A/P: A/P: ?chest pain RLQ pain Chronic back pain - between PCPs, out of Percocet Mild leukopenia, chronic anemia, h/o CKD and A Fib on Warfarin GERD, hiatal hernia CRC screen, h/o polyps -- Significant time spent w/ pt - discussed likely no "infection" and no need for antibiotics. Like last time, seems MSK-type pain (?hernia), not clearly related to a GI issue or findings on previous CT. Defer his questions re: extended Percocet Rx to primary. Will review w/ Dr. Wan, but don't suspect need for repeated imaging. Will start Protonix like last time. Can follow-up for outpt screening colon oscopy as previously recommended. TERRELL ELMORE May 31, 2018 15:27
[2018-05-31] MEDS ORDERED: WARFARIN 5 MG TABLET. PO ONE (16:00)
[2018-05-31] MEDS: PANTOPRAZOLE 40 MG TABLET.DR. PO SCH (17:17)
[2018-05-31 19:00] VITALS: BP 115/49
[2018-05-31] MEDS: ATORVASTATIN CALCIUM 40 MG TABLET. PO SCH (20:46)
[2018-05-31 23:00] VITALS: BP 135/88
[2018-06-01 03:00] VITALS: BP 136/69
[2018-06-01] MEDS: MORPHINE SULFATE 4 MG/ML VIAL. IV PRN (03:54)
[2018-06-01 04:48] LABS: PROTHROMBIN TIME PATIENT 23.3 SEC (11.7-14.0)
[2018-06-01 07:00] VITALS: BP 161/73
[2018-06-01] MEDS: oxyCODONE/APAP 10/325 1 TAB TABLET PO PRN (07:41)
[2018-06-01] MEDS: PANTOPRAZOLE 40 MG TABLET.DR. PO SCH (07:42)
[2018-06-01] MEDS ORDERED: POLYETHYLENE GLYCOL 3350 17 GM PACKET. PO SCH (09:00)
[2018-06-01] MEDS: TAMSULOSIN 0.4 MG CAP.ER.24H. PO SCH (09:08)
[2018-06-01] MEDS: buPROPion XL 150 MG TAB.ER.24H. PO SCH (09:08)
[2018-06-01] MEDS: LOSARTAN POTASSIUM 50 MG TABLET. PO SCH (09:08)
[2018-06-01] MEDS: SENNOSIDES/DOCUSATE 8.6/50MG TABLET. PO SCH (09:08)
[2018-06-01] MEDS: FLUTICASONE 50MCG/NASAL SPRAY 16GM BOTTLE. NS SCH (09:08)
[2018-06-01] MEDS: CARVEDILOL 12.5 MG TABLET. PO SCH (09:09)
[2018-06-01] MEDS: ALLOPURINOL 100 MG TABLET. PO SCH (09:09)
--- NOTE | 2018-06-01 09:40 | PDOC ---
Subjective: Subjective: Tolerating PO, denies n/v and diarrhea/constipation. "Nobody ever gave me any medicine for this pain so I guess it's just gonna be there." Asks if he's going home today. Objective: Objective: D/w RN - still requesting pain meds. Vital Signs: Vital Signs Date Time Temp Pulse Resp B/P (MAP) Pulse Ox O2 Delivery O2 Flow Rate FiO2 06/01/18 09:09 63 161/73 06/01/18 07:00 97.3 16 93 Room Air 97.3 Labs: Laboratory Tests Test 05/31/18 14:00 06/01/18 03:45 Urine Collection Type Unknown Urine Color Yellow Urine Clarity Clear Urine pH 7.5 Urine Specific [place] 1.020 Urine Protein Negative mg/dL Urine Glucose (UA) Negative mg/dL Urine Ketones (Stick) Negative mg/dL Urine Blood Negative Urine Nitrite Negative Urine Bilirubin Negative Urine Urobilinogen Dipstick 1.0 mg/dL Urine Leukocyte Esterase Negative Urine RBC Occ /HPF Urine WBC Occ /HPF Urine Squamous Epithelial Cells Few /LPF Urine Bacteria 0 /HPF Urine Hyaline Casts Occasional /HPF Urine Mucus Slight /LPF Prothrombin Time 23.3 SEC Prothromb Time International Ratio 2.1 PE: GEN: NAD, eating breakfast and drinking coffee, sitting on edge of bed LUNGS: room air HEART: RRR ABD: right lateral discomfort - vague NEURO/PSYCH: A & O 3 A/P: RLQ pain - seems musculoskeletal Chronic pain back - out of Percocet, in-between PCPs, same issue as last admission -- DC and pain management per primary - he wants a Percocet script for 90 pills. Would continue PPI w/ GERD history and previous chest pain complaints. Follow-up for outpt colonoscopy as previously discussed. TERRELL ELMORE Jun 01, 2018 09:40
--- NOTE | 2018-06-01 10:18 | NUR ---
Pharmacy Warfarin Dosing Note S: Pharmacy consulted to assist with anticoagulation therapy O: REBA KENT is a 82 year old M with Atrial Fibrillation LABS: Last INR: 2.1 Last HGB: 11.6 Last HCT: 35.2 Last PLT: 160 Last dose of 5 mg given on 05/31/18 at 1718 Vitamin K given: N A:INR of 2.1 is within desired range. Target range for this patient is: 2 -3 P: Warfarin dose: 5 mg Today at 1600 Bridge Therapy: None Next INR due tomorrow Pharmacy anticoagulation service will continue to follow. Mel Madison Mignon, 06/01/18 [id number]
[2018-06-01] MEDS ORDERED: OXYC1TAB22 PO (10:25)
--- NOTE | 2018-06-01 10:29 | PDOC3 ---
Discharge Summary Visit Information Date of Admission: May 30, 2018 Date of Discharge: Jun 01, 2018 Admitting Diagnosis Comment: chest pain, angina and some costochondritis, recent colitis obesity, BMI 30 afib, on coumadin weakness and debilty, PT and OT LE edema, chronic diastolic CHF Multiple splenic lesions CAT scan 04/26/[address] 04/2018 Final Diagnosis Problems Medical Problems: (1) Chest pain Status: Acute Brief Hospital Course Allergies Allergies Coded Allergies Type Severity Reaction Last Updated Verified No Known Drug Allergies 10/27/16 No Vital Signs Vital Signs Date Time Temp Pulse Resp B/P (MAP) Pulse Ox O2 Delivery O2 Flow Rate FiO2 06/01/18 09:09 63 161/73 06/01/18 08:00 Room Air 06/01/18 07:00 97.3 16 93 97.3 Lab Results Laboratory Tests Test 05/30/18 15:42 05/30/18 15:49 05/31/18 06:23 05/31/18 14:00 White Blood Count 3.5 x10^3/uL (4.0-11.0) 3.1 x10^3/uL (4.0-11.0) Red Blood Count 3.86 x10^6/uL (4.30-5.70) 3.66 x10^6/uL (4.30-5.70) Hemoglobin 12.0 g/dL (13.0-17.5) 11.6 g/dL (13.0-17.5) Hematocrit 37.0 % (39.0-53.0) 35.2 % (39.0-53.0) Mean Corpuscular Volume 96 fL (79-100) 96 fL (79-100) Mean Corpuscular Hemoglobin 31 pg (25-35) 32 pg (25-35) Mean Corpuscular Hemoglobin Concent 33 g/dL (31-37) 33 g/dL (31-37) Red Cell Distribution Width 15.5 % (11.5-14.5) 15.7 % (11.5-14.5) Platelet Count 169 x10^3/uL (140-400) 160 x10^3/uL (140-400) Neutrophils (%) (Auto) 49 % (31-73) 45 % (31-73) Lymphocytes (%) (Auto) 32 % (24-48) 36 % (24-48) Monocytes (%) (Auto) 7 % (0-9) 7 % (0-9) Eosinophils (%) (Auto) 11 % (0-3) 11 % (0-3) Basophils (%) (Auto) 1 % (0-3) 1 % (0-3) Neutrophils # (Auto) 1.7 x10^3uL (1.8-7.7) 1.4 x10^3uL (1.8-7.7) Lymphocytes # (Auto) 1.1 x10^3/uL (1.0-4.8) 1.1 x10^3/uL (1.0-4.8) Monocytes # (Auto) 0.2 x10^3/uL (0.0-1.1) 0.2 x10^3/uL (0.0-1.1) Eosinophils # (Auto) 0.4 x10^3/uL (0.0-0.7) 0.3 x10^3/uL (0.0-0.7) Basophils # (Auto) 0.0 x10^3/uL (0.0-0.2) 0.0 x10^3/uL (0.0-0.2) Prothrombin Time 20.6 SEC (11.7-14.0) 20.6 SEC (11.7-14.0) Prothromb Time International Ratio 1.8 (0.8-1.1) 1.8 (0.8-1.1) Sodium Level 144 mmol/L (136-145) 142 mmol/L (136-145) Potassium Level 3.8 mmol/L (3.5-5.1) 4.0 mmol/L (3.5-5.1) Chloride Level 105 mmol/L (98-107) 106 mmol/L (98-107) Carbon Dioxide Level 30 mmol/L (21-32) 32 mmol/L (21-32) Anion Gap 9 (6-14) 4 (6-14) Blood Urea Nitrogen 18 mg/dL (8-26) 16 mg/dL (8-26) Creatinine 1.3 mg/dL (0.7-1.3) 1.3 mg/dL (0.7-1.3) Estimated GFR (Cockcroft-Gault) 64.3 64.3 BUN/Creatinine Ratio 14 (6-20) 12 (6-20) Glucose Level 100 mg/dL (70-99) 90 mg/dL (70-99) Calcium Level 8.5 mg/dL (8.5-10.1) 8.6 mg/dL (8.5-10.1) Magnesium Level 1.9 mg/dL (1.8-2.4) Total Bilirubin 0.3 mg/dL (0.2-1.0) 0.4 mg/dL (0.2-1.0) Aspartate Amino Transf (AST/SGOT) 9 U/L (15-37) 12 U/L (15-37) Alanine Aminotransferase (ALT/SGPT) 13 U/L (16-63) 11 U/L (16-63) Alkaline Phosphatase 61 U/L (46-116) 53 U/L (46-116) ZX-Jsg-E-Type Natriuretic Peptide 131 pg/mL (0-449) Total Protein 7.2 g/dL (6.4-8.2) 6.6 g/dL (6.4-8.2) Albumin 3.4 g/dL (3.4-5.0) 3.1 g/dL (3.4-5.0) Albumin/Globulin Ratio 0.9 (1.0-1.7) 0.9 (1.0-1.7) Lipase 94 U/L (73-393) Bedside Troponin I 0.01 ng/ml (<0.08) Troponin I Quantitative < 0.017 ng/mL (0.000-0.055) Triglycerides Level 120 mg/dL (0-150) Cholesterol Level 204 mg/dL (0-200) LDL Cholesterol, Calculated 148 mg/dL (0-100) VLDL Cholesterol, Calculated 24 mg/dL (0-40) Non-HDL Cholesterol Calculated 172 mg/dL (0-129) HDL Cholesterol 32 mg/dL (40-60) Cholesterol/HDL Ratio 6.4 Urine Collection Type Unknown Urine Color Yellow Urine Clarity Clear Urine pH 7.5 Urine Specific [place] 1.020 Urine Protein Negative mg/dL (NEG-TRACE) Urine Glucose (UA) Negative mg/dL (NEG) Urine Ketones (Stick) Negative mg/dL (NEG) Urine Blood Negative (NEG) Urine Nitrite Negative (NEG) Urine Bilirubin Negative (NEG) Urine Urobilinogen Dipstick 1.0 mg/dL (0.2 mg/dL) Urine Leukocyte Esterase Negative (NEG) Urine RBC Occ /HPF (0-2) Urine WBC Occ /HPF (0-4) Urine Squamous Epithelial Cells Few /LPF Urine Bacteria 0 /HPF (0-FEW) Urine Hyaline Casts Occasional /HPF Urine Mucus Slight /LPF Test 06/01/18 03:45 Prothrombin Time 23.3 SEC (11.7-14.0) Prothromb Time International Ratio 2.1 (0.8-1.1) Laboratory Tests Test 05/31/18 14:00 06/01/18 03:45 Urine Collection Type Unknown Urine Color Yellow Urine Clarity Clear Urine pH 7.5 Urine Specific [place] 1.020 Urine Protein Negative mg/dL (NEG-TRACE) Urine Glucose (UA) Negative mg/dL (NEG) Urine Ketones (Stick) Negative mg/dL (NEG) Urine Blood Negative (NEG) Urine Nitrite Negative (NEG) Urine Bilirubin Negative (NEG) Urine Urobilinogen Dipstick 1.0 mg/dL (0.2 mg/dL) Urine Leukocyte Esterase Negative (NEG) Urine RBC Occ /HPF (0-2) Urine WBC Occ /HPF (0-4) Urine Squamous Epithelial Cells Few /LPF Urine Bacteria 0 /HPF (0-FEW) Urine Hyaline Casts Occasional /HPF Urine Mucus Slight /LPF Prothrombin Time 23.3 SEC (11.7-14.0) Prothromb Time International Ratio 2.1 (0.8-1.1) Brief Hospital Course Mr. Montilla is a 82 old male who was admitted on May 30 because of chest pain rule out angina. Some element of costochondritis. Cardiac workup negative. But course remarkable for right-sided abdominal pain radiating to the flank. She was just here 1 month ago for colitis with abnormal CAT scan: IMPRESSION: 1. 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 One appears slightly smaller, these are otherwise stable. 2. Small mass within or adjacent to the tail the pancreas, is unchanged since 2012. 3. Small fluid signal nodule or cyst medial to the left iliac vessels is unchanged. 4. Mild urinary bladder wall thickening, greater than what was seen previously. Could represent cystitis or bladder outlet obstruction. 5. Mild inferior endplate fracture of T12, age-indeterminate but not seen in 2012. 6. Minimal density along the posterior gallbladder may represent several tiny gallstones. Ultrasound could further evaluate as indicated. 7. Stable small nodule in the right adrenal gland. 8. Mild wall thickening of the rectum and distal sigmoid colon, possible mild colitis and proctitis. CO Managed that time with diaz murray and recommended outpatient PET scan which he did not do Also GI was on board that time GI again consulted about these abnormal CT. Not convinced it was colitis-he finished a course of 2 antibiotics He will see a PCP and he's choosing between two PCPs. He will follow-up with [facility] as there are differing opinions on his CAT scan results He did request 1 month supply of Percocet for me, I told him I could only describe 30 or 40 pills. He claims 30 pills with only lasting 2 weeks Discharge disposition home with Consults performed cardiology/GI Procedures performed echo-good EF 60-65% with mild PA pressures 57 dc 35 minutes Rx on chart Discharge Information Condition at Discharge: Improved, Stable Follow Up: Weeks (ff up with diaz onc Dr. Mehran Kinsey with pet scan results) Disposition/Orders: D/C to Home Scheduled Allopurinol (Allopurinol) 100 Mg Tablet, 100 MG PO DAILY for 30 Days, #30 Prescribed by: DUONG ATKINSON on 10/15/16 1022 Last Action: Continued on 05/30/181912 by CHELA CROW Atorvastatin Calcium (Atorvastatin Calcium) 80 Mg Tablet, 1 TAB PO DAILY for cholesterol, #30 Ref 5 (Reported) Entered as Reported by: JUSTINA GOMEZ on 05/01/182150 Last Action: Converted on 05/30/181912 by CHELA CROW Bupropion Hcl (Bupropion Xl) 150 Mg Tab.er.24h, 1 TAB PO DAILY for mood, #30 (Reported) Entered as Reported by: JUSTINA GOMEZ on 05/01/182150 Last Action: Continued on 05/30/181912 by CHELA CROW Carvedilol (Carvedilol ) 12.5 Mg Tablet, 12.5 MG PO BIDWMEALS, (Reported) Entered as Reported by: CISCO GRADY on 10/12/16 0106 Last Action: Continued on 05/30/181912 by CHELA CROW Cefpodoxime Proxetil (Cefpodoxime Proxetil) 200 Mg Tablet, 1 TAB PO BID for an tibiotic, #14 (Reported) Entered as Reported by: JUSTINA GOMEZ on 05/01/182150 Last Action: HELD on 05/30/181912 by CHELA CROW Fluticasone Propionate (Fluticasone Propionate Nasal [place]) 16 Gm [place].susp, 2 SPRAY NS DAILY for congestion, #1 Ref 11 (Reported) Entered as Reported by: JUSTINA GOMEZ on 05/01/182150 Last Action: Continued on 05/30/181912 by CHELA CROW Losartan Potassium (Losartan Potassium) 100 Mg Tablet, 100 MG PO DAILY, (Reported) Entered as Reported by: CISCO GRADY on 10/12/16 0106 Last Action: Converted on 05/30/181912 by CHELA CROW Metronidazole (Metronidazole) 500 Mg Tablet, 1 TAB PO BID for antibiotic, #14 (Reported) Entered as Reported by: JUSTINA GOMEZ on 05/01/182150 Last Action: HELD on 05/30/181912 by CHELA CROW Sennosides/Docusate Sodium (Senokot-S Tablet) 1 Each Tablet, 1 TAB PO BID for constipation, #30 (Reported) Entered as Reported by: JUSTINA GOMEZ on 05/01/182150 Last Action: Continued on 05/30/181912 by CHELA CROW Tamsulosin Hcl (Flomax) 0.4 Mg Cap.er.24h, 0.8 MG PO DAILY for urine, (Reported) Entered as Reported by: YUE NUNEZ on 07/19/13 1002 Last Action: Continued on 05/30/181912 by CHELA CROW Torsemide (Demadex) 20 Mg Tablet, 100 MG PO DAILY for water pill, (Reported) Entered as Reported by: JUSTINA GOMEZ on 05/01/182150 Last Action: HELD on 05/30/181912 by CHELA CROW Warfarin Sodium (Warfarin Sodium) 4 Mg Tablet, 4 MG PO DAILY for blood thinner, #30 (Reported) Entered as Reported by: JUSTINA GOMEZ on 05/01/182150 Last Action: Converted on 05/30/181912 by CHELA CROW Scheduled PRN Albuterol Sulfate (Proair Hfa Inhaler) 8.5 Gm Hfa.aer.ad, 2 PUFF INH PRN Q6HRS PRN for SHORTNESS OF BREATH, Ref 0 (Reported) Entered as Reported by: JUSTINA GOMEZ on 05/01/182150 Last Action: Continued on 05/30/181912 by CHELA CROW Docusate Sodium (Docusate Sodium) 100 Mg Capsule, 1 CAP PO PRN DAILY PRN for CONSTIPATION, #30 (Reported) Entered as Reported by: JUSTINA GOMEZ on 05/01/182150 Last Action: Continued on 05/30/181912 by CHELA CROW Oxycodone/Apap 10-325 (Percocet 10-325 Mg Tablet ) 1 Each Tablet, 1 TAB PO PRN Q8HRS PRN for PAIN MDD 1, #40 Prescribed by: ELISSA BOB on 06/01/18 1025 Polyethylene Glycol 3350 (Miralax) 119 Gm Powder, 17 GM PO PRN DAILY PRN for CONSTIPATION, #527 (Reported) Entered as Reported by: JUSTINA GOMEZ on 05/01/182150 Last Action: Converted on 05/30/181912 by ELISSA GREENE MD Jun 01, 2018 10:29
[2018-06-01 10:44] VITALS: BP 111/63
--- NOTE | 2018-06-01 12:15 | NUR ---
Discharge Note: SAIDA KENT CULLODEN Discharge instructions and discharge home medications reviewed with Patient and a copy given. All questions have been answered and understanding verbalized. Prescriptions and follow up appointment information given to patient. All patient belongings returned to patient. The following instructions and handouts were given: PET scan Discontinued lines and drains: Peripheral IV intact. Patient discharged to Home or Self Care with Self via Wheelchair
[2018-06-01] MEDS ORDERED: WARFARIN 5 MG TABLET. PO ONE (16:00)
== END 2018-06-01 12:15 | disposition home or self-care (01) ==
LOC: ER 14:55 → 2 NORTH 17:12
PROVIDERS: ADMIT Internal Medicine; ATTEND Internal Medicine
DX: I20.9 Angina pectoris, unspecified (principal); R42 Dizziness and giddiness; E78.00 Pure hypercholesterolemia, unspecified; G89.29 Other chronic pain; E78.5 Hyperlipidemia, unspecified; I48.91 Unspecified atrial fibrillation; M19.90 Unspecified osteoarthritis, unspecified site; M10.9 Gout, unspecified; E66.9 Obesity, unspecified; Z68.30 Body mass index [BMI] 30.0-30.9, adult; I13.0 Hypertensive heart and chronic kidney disease with heart failure and stage 1 through stage 4 chronic kidney disease, or unspecified chronic kidney disease; N18.9 Chronic kidney disease, unspecified; I50.32 Chronic diastolic (congestive) heart failure; R53.1 Weakness; K52.9 Noninfective gastroenteritis and colitis, unspecified; Z96.659 Presence of unspecified artificial knee joint; Z96.612 Presence of left artificial shoulder joint; Z79.01 Long term (current) use of anticoagulants; Z95.0 Presence of cardiac pacemaker; Z82.49 Family history of ischemic heart disease and other diseases of the circulatory system
CPT/HCPCS: 36415; 71045; 80053; 80061; 81001; 83690; 83735; 83880; 84484; 85025; 85610; 93005; 93306; 94760; 96374; 96375; 96376; 97162; 97166; 99284; G0378; J2270; J3010; G0379

== ENCOUNTER 2020-07-17 12:07 | Emergency (ER) | payer OTHER, MEDICARE ==
[~2020-07-17] VITALS: Ht 195.6 cm; Wt 102.0 kg
[~2020-07-17 12:07] MED LIST changes: +AMLO-186 PO; -AMLO5TAB10 PO; +BUPR150T21 PO; -BUPR150T6 PO; -MAGN400T3 PO; +MAGN400T5 PO; +MECL-75 PO; -MECL25TA3 PO; -NITR0.4T SL; +NITR0.4T24 SL; +POTA20TA4 PO; -POTA20TA82 PO; -WARF-78 PO; +WARF2.5T2 PO; -WARF2.5T83 PO; +WARF5TAB2 PO
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
[2020-07-17] MEDS ORDERED: NAPR-514 PO (13:47)
[2020-07-17] MEDS ORDERED: HYDR-2761 PO (14:09)
[2020-07-17] MEDS ORDERED: HYDROcodone/APAP 5/325MG 1 TAB TABLET PO ONE (14:15)
[2020-07-17 14:24] VITALS: BP 156/74
== END 2020-07-17 14:33 | disposition home or self-care (01) ==
LOC: ER 12:07
DX: M54.2 Cervicalgia (principal); M79.621 Pain in right upper arm; E78.00 Pure hypercholesterolemia, unspecified; I13.0 Hypertensive heart and chronic kidney disease with heart failure and stage 1 through stage 4 chronic kidney disease, or unspecified chronic kidney disease; N18.9 Chronic kidney disease, unspecified; I50.9 Heart failure, unspecified; G89.29 Other chronic pain; Z95.0 Presence of cardiac pacemaker; V98.8XXA Other specified transport accidents, initial encounter; Y93.89 Activity, other specified; Y92.89 Other specified places as the place of occurrence of the external cause; Y99.8 Other external cause status
CPT/HCPCS: 70450; 72125; 73060; 99285-25

== ENCOUNTER 2021-03-26 10:58 | Inpatient (IN) | payer MEDICARE, OTHER ==
[~2021-03-26] VITALS: Ht 195.6 cm; Wt 94.5 kg
[~2021-03-26 10:58] MED LIST changes: +HYDR-2761 PO; +MAGN400T48 PO; -MAGN400T5 PO; +NAPR-514 PO
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
[2021-03-26] MEDS ORDERED: ACETAMINOPHEN 500 MG TABLET PO ONE (11:15)
[2021-03-26] MEDS ORDERED: IV NORMAL SALINE 500ML BAG 500 ML IV ONE (11:15)
[2021-03-26] MEDS ORDERED: ASPIRIN CHEWABLE 81 MG TABLET. PO ONE (11:30)
[2021-03-26] MEDS ORDERED: NITROGLYCERIN SUBLINGUAL 0.4 MG BOTTLE OF 25. SL PRN (11:30)
--- NOTE | 2021-03-26 11:50 | RAD ---
Single AP view of the chest. Comparison: 05/29/2018. Indication: Chest pain and dyspnea and fever Findings: Left humeral arthroplasty changes are identified. Stable severe degenerative change of the right shou lder. Left subclavian pacemaker is unchanged. The heart is enlarged but stable. There is no pneumoth orax or effusion. Mixed bilateral airspace and interstitial disease particularly in the right lung. Impression: 1. Findings suggest atypical pneumonia. Electronically signed by: Chuck Rasheed MD (03/26/2021 11:48 AM) [id number]
[2021-03-26 11:52] LABS: CALCIUM 7.8 mg/dL (8.5-10.1); CREATININE 1.5 mg/dL (0.7-1.3); GFR 54.1; POTASSIUM 3.4 mmol/L (3.5-5.1)
[2021-03-26 11:59] LABS: ALBUMIN 3.4 g/dL (3.4-5.0); ALBUMIN/GLOBULIN RATIO 0.9 (1.0-1.7); MAGNESIUM 1.3 mg/dL (1.8-2.4); PHOSPHORUS 2.6 mg/dL (2.6-4.7); TOTAL BILIRUBIN 1.1 mg/dL (0.2-1.0); TOTAL PROTEIN 7.4 g/dL (6.4-8.2)
[2021-03-26 12:07] LABS: BASO % 0 % (0-3); EOS % 0 % (0-3); HEMATOCRIT 39.5 % (39.0-53.0); HEMOGLOBIN 13.1 g/dL (13.0-17.5); LYMPH # 0.2 x10^3/uL (1.0-4.8); LYMPH % 4 % (24-48); MEAN CORPUSCULAR HEMOGLOBIN 32 pg (25-35); MEAN CORPUSCULAR HGB CONC 33 g/dL (31-37); MEAN CORPUSCULAR VOLUME 96 fL (79-100); MONO % 0 % (0-9); NEUT # 4.5 x10^3/uL (1.8-7.7); NEUT % 96 % (31-73); PLATELET COUNT 127 x10^3/uL (140-400); RED BLOOD COUNT 4.14 x10^6/uL (4.30-5.70); RED CELL DISTRIBUTION WIDTH 14.4 % (11.5-14.5); WHITE BLOOD COUNT 4.7 x10^3/uL (4.0-11.0)
[2021-03-26] MEDS ORDERED: IV NORMAL SALINE 1000ML BAG 1,000 ML IV ONE (12:15)
[2021-03-26 12:28] LABS: INFLUENZA A PATIENT NEGATIVE (NEGATIVE); INFLUENZA B PATIENT NEGATIVE (NEGATIVE)
--- NOTE | 2021-03-26 12:30 | EKG ---
[facility] [address] [place] [address] Test Date: 2021-03-26 Test Time: 11:09:15 Pat Name: REBA KENT Department: Room: Gender: M [employer] Operator: : 1935 Requested By: ANTHONY BORJAS Order Number: [id number] Reading MD: Yasmani Herrera Measurements Intervals [place] Rate: 109 P: OR: QRS: -78 QRSD: 116 T: 55 QT: 350 QTc: 473 Interpretive Statements ATRIAL FIBRILLATION ABNORMAL LEFT AXIS DEVIATION LEFT ANTERIOR FASCICULAR BLOCK RIGHT BUNDLE BRANCH BLOCK ABNORMAL ECG Electronically Signed On 03-29-2021 14:09:00 ANESTHESIOLOGIST/PHYSICIAN by Yasmani Herrera
--- NOTE | 2021-03-26 12:31 | EKG ---
[facility] [address] [place] [address] Test Date: 2021-03-26 Test Time: 12:21:58 Pat Name: REBA KENT Department: Room: Gender: M White Washer: : 1935 Requested By: ANTHONY BORJAS Order Number: [id number] Reading MD: Yasmani Herrera Measurements Intervals [place] Rate: 105 P: SC: QRS: -76 QRSD: 144 T: 66 QT: 352 QTc: 469 Interpretive Statements ATRIAL FIBRILLATION LEFT ANTERIOR FASCICULAR BLOCK RIGHT BUNDLE BRANCH BLOCK ABNORMAL ECG Electronically Signed On 03-29-2021 14:07:06 TOTER by Yasmani Herrera
[2021-03-26 12:48] LABS: % BANDS 8 % (0-9); % LYMPHS 4 % (24-48); % SEGS 88 % (35-66); PLT ESTIMATE ADEQUATE (ADEQUATE)
[2021-03-26] MEDS ORDERED: fentaNYL PF VIAL 100 MCG/2 ML VIAL IVP ONE (13:00)
[2021-03-26] MEDS ORDERED: DOXYCYCLINE HYCLATE 100 MG in IV DEXTROSE 5% 100ML 100 ML IV ONE (13:00)
--- NOTE | 2021-03-26 13:39 | PDOC1 ---
History and Physical Date of Admission Date of Admission DATE: 03/26/21 TIME: 13:36 Identification/Chief Complaint Chief Complaint Chest pain, shortness of breath Source Source: Patient History of Present Illness History of Present Illness Mr Montilla is an 85 year old male w/ PMHx BPH, chronic diastolic CHF, paroxysmal afib, SSS s/p ppm, CKD, GERD, COPD, HTN, HLD, OA with chronic pain, and recent diagnosis of pancreatic insufficiency who was brought in to ED via EMS, from home, with report of chest pain and shortness of breath symptoms, which began at 0500 today which woke him from sleep. He has associated mildly productive cough which worsens his chest pain with malaise and chills as well as generalized weakness for the past few days. No QUISPE or sore throat, no rhinorrhea. He does have chronic abdominal pain and diarrhea and was recently started on Creon for this and feels like treating his pancreatic insufficiency has helped significantly. EMS gave 1 sublingual nitroglycerin, which improved his chest pain, but caused hypotensive requiring 2L NSS IV fluid resuscitation. No recent hospitalization or travel history. He does recall sick contact, has been taking care of his 3-year-old grandchild who slept in the bed with him overnight and did have a fever and a little bit of a cough. Fully vaccinated against COVID-19. Febrile 100.8 F on arrival WBC 4.7, Hb 13.1, platelets 127, NA 145, K3.4, BUN 19, CR 1.5, glucose 99, lactic acid 3.2, calcium 7.8, phosphorus 2.6, magnesium 1.3, bilirubin 1.1, AST 12, ALT 12, alkaline phosphatase 84, CK 102, high-sensitivity troponin is 17, NT proBNP 1327, albumin 3.4, lipase 41, rapid influenza negative, rapid COVID-19 negative. EKG looks like atrial fibrillation rate approximately 105 bpm left axis deviation S1-S2-S3 pattern left anterior fascicular block, meets RVH criteria. No ST segment elevations. QTc 469 Chest radiograph with left-sided pacemaker and bilateral airspace disease worse on the right like interstitial pneumonia. Admitted for further care. Past Medical History Cardiovascular: AFIB, CHF, HTN, Hyperlipidemia Pulmonary: No pertinent hx CENTRAL NERVOUS SYSTEM: Other GI: No pertinent hx Heme/Onc: Other Hepatobiliary: No pertinent hx Psych: No pertinent hx Musculoskeletal: Osteoarthritis Rheumatologic: Gout Infectious disease: No pertinent hx Renal/: Chronic renal insuff Endocrine: No pertinent hx Past Surgical History Past Surgical History Left shoulder replacement. left knee ACL ; Pacemaker 2015 Past Surgical History: Pacemaker, Other Family History Family History: Hypertension, Other Social History Smoke: No ALCOHOL: none Drugs: None Current Medications Current Medications Current Medications Sodium Chloride 500 ml @ 500 mls/hr 1X ONCE IV Last administered on 03/26/21at 11:43; Start 03/26/21 at 11:15; Stop 03/26/21 at 12:14; Status DC Acetaminophen (Tylenol) 1,000 mg 1X ONCE PO Last administered on 03/26/21at 11:43; Start 03/26/21 at 11:15; Stop 03/26/21 at 11:25; Status DC Aspirin (Aspirin Chewable) 324 mg 1X ONCE PO Last administered on 03/26/21at 11:43; Start 03/26/21 at 11:30; Stop 03/26/21 at 11:31; Status DC Nitroglycerin (Nitrostat) 0.4 mg PRN Q5MIN PRN SL CHEST PAIN Last administered on 03/26/21at 12:12; Start 03/26/21 at 11:30 Sodium Chloride 1,000 ml @ 1,000 mls/hr 1X ONCE IV Last administered on 03/26/21at 12:16; Start 03/26/21 at 12:15; Stop 03/26/21 at 13:14; Status DC Fentanyl Citrate (Fentanyl 2ml Vial) 50 mcg 1X ONCE IVP Last administered on 03/26/21at 13:14; Start 03/26/21 at 13:00; Stop 03/26/21 at 13:01; Status DC Doxycycline Hyclate 100 mg/ Dextrose 100 ml @ 50 mls/hr 1X ONCE IV Last administered on 03/26/21at 13:14; Start 03/26/21 at 13:00; Stop 03/26/21 at 14:59 Active Scripts Active Hydrocodone-Apap 5-325 (Hydrocodone Bit/Acetaminophen) 1 Tab Tablet 1 Tab PO PRN Q6HRS PRN Naproxen 500 Mg Tablet 1 Tab PO BID 4 Days Percocet 10-325 Mg Tablet (Oxycodone/Acetaminophen) 1 Each Tablet 1 Tab PO PRN Q8HRS PRN MDD 1 Allopurinol 100 Mg Tablet 100 Mg PO DAILY 30 Days Reported Warfarin Sodium 4 Mg Tablet 4 Mg PO DAILY Demadex (Torsemide) 20 Mg Tablet 100 Mg PO DAILY Senokot-S Tablet (Sennosides/Docusate Sodium) 1 Each Tablet 1 Tab PO BID Miralax (Polyethylene Glycol 3350) 119 Gm Powder 17 Gm PO PRN DAILY PRN Metronidazole 500 Mg Tablet 1 Tab PO BID Fluticasone Propionate Nasal [place] (Fluticasone Propionate) 16 Gm [place].susp 2 [place] NS DAILY Docusate Sodium 100 Mg Capsule 1 Cap PO PRN DAILY PRN Cefpodoxime Proxetil 200 Mg Tablet 1 Tab PO BID Bupropion Xl (Bupropion Hcl) 150 Mg Tab.er.24h 1 Tab PO DAILY Atorvastatin Calcium 80 Mg Tablet 1 Tab PO DAILY Proair Hfa Inhaler (Albuterol Sulfate) 8.5 Gm Hfa.aer.ad 2 Puff INH PRN Q6HRS PRN Losartan Potassium 100 Mg Tablet 100 Mg PO DAILY Carvedilol (Carvedilol) 12.5 Mg Tablet 12.5 Mg PO BIDWMEALS Flomax (Tamsulosin Hcl) 0.4 Mg Cap.er.24h 0.8 Mg PO DAILY Allergies Allergies: Coded Allergies: No Known Drug Allergies (Unverified , 10/27/16) ROS General: YES: Fatigue, Malaise; No: Chills, Night Sweats, Appetite, Other PSYCHOLOGICAL ROS: No: Anxiety, Behavioral Disorder, Concentration difficultie, Decreased libido, Depression, Disorientation, Hallucinations, Hostility, Irritablity, Memory difficulties, Mood Swings, Obsessive thoughts, Physical abuse, Sexual abuse, Sleep disturbances, Suicidal ideation, Other Eyes: No Blurry vision, No Decreased vision, No Double vision, No Dry eyes, No Excessive tearing, No Eye Pain, No Itchy Eyes, No Loss of vision, No Photophobia, No Scotomata, No Uses contacts, No Uses glasses, No Other HEENT: No: Heacaches, Visual Changes, Hearing change, Nasal congestion, Nasal discharge, Oral lesions, Sinus pain, Sore Throat, Epistaxis, Sneezing, Snoring, Tinnitus, Vertigo, Vocal changes, Other ALLERGY AND IMMUNOLOGY: No: Hives, Insect Bite Sensitivity, Itchy/Watery Eyes, Nasal Congestion, Post Nasal Drip, Seasonal Allergies, Other Hematological and Lymphatic: No: Bleeding Problems, Blood Clots, Blood Transfusions, Brusing, Night Sweats, Pallor, Swollen Lymph Nodes, Other ENDOCRINE: No: Breast Changes, Galactorrhea, Hair Pattern Changes, Hot Flashes, Malaise/lethargy, Mood Swings, Palpitations, Polydipsia/polyuria, Skin Changes, Temperature Intolerance, Unexpected Weight Changes, Other Breast: No New/Changing Breast Lumps, No Nipple changes, No Nipple discharge, No Other Respiratory: YES: Cough, Pleuritic Pain, Shortness of breath, SOB with excertion; No: Hemoptysis, Orthopnea, Sputum Changes, Stridor, Tachypnea, Wheezing, Other Cardiovascular: yes Chest Pain; No Palpitations, No Orthopnea, No Paroxysmal Noc. Dyspnea, No Edema, No Lt Headedness, No Other Gastrointestinal: No Nausea, No Vomiting, No Abdominal Pain, No Diarrhea, No Constipation, No Melena, No Hematochezia, No Other Genitourinary: No Dysuria, No Frequency, No Incontinence, No Hematuria, No Retention, No Discharge, No Urgency, No Pain, No Flank Pain, No Other, No , No , No , No , No , No , No Musculoskeletal: No Gait Disturbance, No Joint Pain, No Joint Stiffness, No Joint Swelling, No Muscle Pain, No Muscular Weakness, No Pain In:, No Swelling In:, No Other Neurological: No Behavorial Changes, No Bowel/Bladder ControlChng, No Confusion, No Dizziness, No Gait Disturbance, No Headaches, No Impaired Coord/balance, No Memory Loss, No Numbness/Tingling, No Seizures, No Speech Problems, No Tremors, No Visual Changes, No Weakness, No Other Skin: Yes Dry Skin, Yes Nail Changes; No Eczema, No Hair Changes, No Lumps, No Mole Changes, No Mottling, No Pruritus, No Rash, No Skin Lesion Changes, No Other, No Acne Physical Exam General: Alert, Oriented X3, Cooperative, mild distress HEENT: Atraumatic, PERRLA, EOMI, Mucous membr. moist/pink Lungs: Other (right basilar crackles and rhonchi) Heart: irregularly irregular Abdomen: Normal bowel sounds, Soft, No tenderness, No hepatosplenomegaly, No masses Rectal Exam: not examined Extremities: No clubbing, No cyanosis, No edema, Normal pulses, No tenderness/swelling Skin: Other (Bilateral xerosis of lower extremities with long onychomycotic toenails) Neuro: Normal gait, Normal speech, Strength at 5/5 X4 ext, Normal tone, Sensation intact, Cranial nerves 3-12 NL, Reflexes 2+ Psych/Mental Status: Mental status NL, Mood NL Vitals Vitals Vital Signs Date Time Temp Pulse Resp B/P (MAP) Pulse Ox O2 Delivery O2 Flow Rate FiO2 03/26/21 13:14 20 94 Room Air 03/26/21 12:40 104 103/52 (69) 03/26/21 10:58 100.8 100.8 Labs Labs Laboratory Tests Test 03/26/21 11:30 03/26/21 11:51 White Blood Count 4.7 x10^3/uL (4.0-11.0) Red Blood Count 4.14 x10^6/uL (4.30-5.70) Hemoglobin 13.1 g/dL (13.0-17.5) Hematocrit 39.5 % (39.0-53.0) Mean Corpuscular Volume 96 fL (79-100) Mean Corpuscular Hemoglobin 32 pg (25-35) Mean Corpuscular Hemoglobin Concent 33 g/dL (31-37) Red Cell Distribution Width 14.4 % (11.5-14.5) Platelet Count 127 x10^3/uL (140-400) Neutrophils (%) (Auto) 96 % (31-73) Lymphocytes (%) (Auto) 4 % (24-48) Monocytes (%) (Auto) 0 % (0-9) Eosinophils (%) (Auto) 0 % (0-3) Basophils (%) (Auto) 0 % (0-3) Neutrophils # (Auto) 4.5 x10^3/uL (1.8-7.7) Lymphocytes # (Auto) 0.2 x10^3/uL (1.0-4.8) Monocytes # (Auto) 0.0 x10^3/uL (0.0-1.1) Eosinophils # (Auto) 0.0 x10^3/uL (0.0-0.7) Basophils # (Auto) 0.0 x10^3/uL (0.0-0.2) Segmented Neutrophils % 88 % (35-66) Band Neutrophils % 8 % (0-9) Lymphocytes % 4 % (24-48) Platelet Estimate Adequate (ADEQUATE) Sodium Level 145 mmol/L (136-145) Potassium Level 3.4 mmol/L (3.5-5.1) Chloride Level 105 mmol/L (98-107) Carbon Dioxide Level 28 mmol/L (21-32) Anion Gap 12 (6-14) Blood Urea Nitrogen 19 mg/dL (8-26) Creatinine 1.5 mg/dL (0.7-1.3) Estimated GFR (Cockcroft-Gault) 54.1 BUN/Creatinine Ratio 13 (6-20) Glucose Level 99 mg/dL (70-99) Lactic Acid Level 3.2 mmol/L (0.4-2.0) Calcium Level 7.8 mg/dL (8.5-10.1) Phosphorus Level 2.6 mg/dL (2.6-4.7) Magnesium Level 1.3 mg/dL (1.8-2.4) Total Bilirubin 1.1 mg/dL (0.2-1.0) Aspartate Amino Transf (AST/SGOT) 12 U/L (15-37) Alanine Aminotransferase (ALT/SGPT) 12 U/L (16-63) Alkaline Phosphatase 84 U/L (46-116) Creatine Kinase 102 U/L (39-308) Troponin I High Sensitivity 17 ng/L (4-75) SP-Skv-Y-Type Natriuretic Peptide 1327 pg/mL (0-449) Total Protein 7.4 g/dL (6.4-8.2) Albumin 3.4 g/dL (3.4-5.0) Albumin/Globulin Ratio 0.9 (1.0-1.7) Lipase 41 U/L (73-393) Influenza Type A Antigen Negative (NEGATIVE) Influenza Type B Antigen Negative (NEGATIVE) SARS-CoV-2 Antigen (Rapid) Negative (NEGATIVE) Laboratory Tests Test 03/26/21 11:30 03/26/21 11:51 White Blood Count 4.7 x10^3/uL (4.0-11.0) Red Blood Count 4.14 x10^6/uL (4.30-5.70) Hemoglobin 13.1 g/dL (13.0-17.5) Hematocrit 39.5 % (39.0-53.0) Mean Corpuscular Volume 96 fL (79-100) Mean Corpuscular Hemoglobin 32 pg (25-35) Mean Corpuscular Hemoglobin Concent 33 g/dL (31-37) Red Cell Distribution Width 14.4 % (11.5-14.5) Platelet Count 127 x10^3/uL (140-400) Neutrophils (%) (Auto) 96 % (31-73) Lymphocytes (%) (Auto) 4 % (24-48) Monocytes (%) (Auto) 0 % (0-9) Eosinophils (%) (Auto) 0 % (0-3) Basophils (%) (Auto) 0 % (0-3) Neutrophils # (Auto) 4.5 x10^3/uL (1.8-7.7) Lymphocytes # (Auto) 0.2 x10^3/uL (1.0-4.8) Monocytes # (Auto) 0.0 x10^3/uL (0.0-1.1) Eosinophils # (Auto) 0.0 x10^3/uL (0.0-0.7) Basophils # (Auto) 0.0 x10^3/uL (0.0-0.2) Segmented Neutrophils % 88 % (35-66) Band Neutrophils % 8 % (0-9) Lymphocytes % 4 % (24-48) Platelet Estimate Adequate (ADEQUATE) Sodium Level 145 mmol/L (136-145) Potassium Level 3.4 mmol/L (3.5-5.1) Chloride Level 105 mmol/L (98-107) Carbon Dioxide Level 28 mmol/L (21-32) Anion Gap 12 (6-14) Blood Urea Nitrogen 19 mg/dL (8-26) Creatinine 1.5 mg/dL (0.7-1.3) Estimated GFR (Cockcroft-Gault) 54.1 BUN/Creatinine Ratio 13 (6-20) Glucose Level 99 mg/dL (70-99) Lactic Acid Level 3.2 mmol/L (0.4-2.0) Calcium Level 7.8 mg/dL (8.5-10.1) Phosphorus Level 2.6 mg/dL (2.6-4.7) Magnesium Level 1.3 mg/dL (1.8-2.4) Total Bilirubin 1.1 mg/dL (0.2-1.0) Aspartate Amino Transf (AST/SGOT) 12 U/L (15-37) Alanine Aminotransferase (ALT/SGPT) 12 U/L (16-63) Alkaline Phosphatase 84 U/L (46-116) Creatine Kinase 102 U/L (39-308) Troponin I High Sensitivity 17 ng/L (4-75) FF-Xqa-G-Type Natriuretic Peptide 1327 pg/mL (0-449) Total Protein 7.4 g/dL (6.4-8.2) Albumin 3.4 g/dL (3.4-5.0) Albumin/Globulin Ratio 0.9 (1.0-1.7) Lipase 41 U/L (73-393) Influenza Type A Antigen Negative (NEGATIVE) Influenza Type B Antigen Negative (NEGATIVE) SARS-CoV-2 Antigen (Rapid) Negative (NEGATIVE) Images Images Chest radiograph: Left humeral arthroplasty changes are identified. Stable severe degenerative change of the right shoulder. Left subclavian pacemaker is unchanged. The heart is enlarged but stable. There is no pneumothorax or effusion. Mixed bilateral airspace and interstitial disease particularly in the right lung. Impression: 1. Findings suggest atypical pneumonia. VTE Prophylaxis Ordered VTE Prophylaxis Devices: Yes VTE Pharmacological Prophylaxi: Yes Assessment/Plan Assessment/Plan Chest pain - atypical, seems pleuritic. High risk for NSAIDs given his eliquis therapy. Will give tylenol, supportive care, guaifenesin. Given his cardiac history we will consult cardiology maintain telemetry. Trend troponin Shortness of breath - Likely from pneumonia, gram negative. Will test for RSV given child exposure. Will f/u COVID19 RT PCR Abnormal CXR - right lobar and atypical pneumonia, possibly viral but likely gram negative, will cover with rocephin and doxy, f/u COVID 19 results and RSV Anemia -chronic due to renal insufficiency. Will monitor Splenic cysts dating back to 2012 Chronic diastolic CHF - seems stable, will stop IVF Chronic abdominal pain - seems to be pancreatic insufficiency, will cont creon Chronic kidney disease - stable from prior labs Osteoarthritis - diclofenac topical Paroxysmal A. fib - on coreg and eliquis. Cardiology to see PPM in situ - will have device interrogation. in place since 2014 COPD - on home albuterol, will order LABA/ICS and albuterol inhaler prn GERD - PPI Hypomagnesemia - will replace Gout - cont renally dosed allopurinol History of GI bleed - avoid NSAIDs Hypertension - cont home meds Hyperlipidemia - statin BPH - flomax FEN - Cardiac diet PPX - eliquis FULL CODE Dispo - inpatient Justifications for Admission Other Justification OLIVER FRANCO MD Mar 26, 2021 13:39
[2021-03-26 14:10] VITALS: BP 102/59
[2021-03-26] MEDS ORDERED: fentaNYL PF VIAL 100 MCG/2 ML VIAL IVP PRN (14:15)
[2021-03-26] MEDS ORDERED: ACETAMINOPHEN 325 MG TABLET. PO PRN (14:15)
[2021-03-26] MEDS ORDERED: IV NORMAL SALINE 1000ML BAG 1,000 ML IV SCH (14:15)
[2021-03-26] MEDS ORDERED: ONDANSETRON PF 4 MG/2 ML VIAL. IVP PRN (14:15)
[2021-03-26 15:03] VITALS: BP 102/59
[2021-03-26] MEDS: ALBUTEROL SULFATE 8GM INHALER. INH PRN (15:45)
[2021-03-26] MEDS: LIPASE/PROTEAS/AMYLAS 10/32/42 CAPSULE.DR. PO SCH (15:46)
[2021-03-26] MEDS: cefTRIAXone IV Push 1 GM VIAL. IVP SCH (15:47)
[2021-03-26] MEDS: FLUTICASONE/VILANTEROL 200/25 INHALER. INH SCH (15:47)
[2021-03-26] MEDS ORDERED: guaiFENesin DM 200MG/20MG 10 ML SYRUP PO PRN (16:00)
[2021-03-26] MEDS: DICLOFENAC SODIUM 1% TOPICAL GEL 100GM TUBE. TP SCH ×2 (16:00→20:46)
[2021-03-26 16:17] LABS: RSV PATIENT NEGATIVE (NEGATIVE)
[2021-03-26] MEDS: CARVEDILOL 6.25 MG TABLET. PO SCH (16:45)
[2021-03-26] MEDS ORDERED: MAGNESIUM SULFATE 2GM 50 ML IV ONE (17:00)
[2021-03-26 19:18] VITALS: BP 117/70
[2021-03-26] MEDS: DOXYCYCLINE HYCLATE 100 MG TABLET PO SCH (20:45)
[2021-03-26] MEDS: APIXABAN 5 MG TABLET. PO SCH (20:45)
[2021-03-26 22:25] VITALS: BP 140/70
[2021-03-26] MEDS: ONDANSETRON PF 4 MG/2 ML VIAL. IVP PRN (22:35)
[2021-03-27 02:27] VITALS: BP 132/66
[2021-03-27 04:54] LABS: CALCIUM 7.4 mg/dL (8.5-10.1)
[2021-03-27 04:55] LABS: CREATININE 1.5 mg/dL (0.7-1.3); GFR 54.1; POTASSIUM 3.4 mmol/L (3.5-5.1)
[2021-03-27 07:00] VITALS: BP 157/103
[2021-03-27] MEDS: buPROPion XL 150 MG TAB.ER.24H. PO SCH (09:13)
[2021-03-27] MEDS: CARVEDILOL 6.25 MG TABLET. PO SCH ×2 (09:14→16:32)
[2021-03-27] MEDS: LIPASE/PROTEAS/AMYLAS 10/32/42 CAPSULE.DR. PO SCH ×3 (09:14→16:32)
[2021-03-27] MEDS: ALLOPURINOL 100 MG TABLET. PO SCH (09:14)
[2021-03-27] MEDS: TAMSULOSIN 0.4 MG CAP.ER.24H. PO SCH (09:14)
[2021-03-27] MEDS: DOXYCYCLINE HYCLATE 100 MG TABLET PO SCH ×2 (09:14→21:09)
[2021-03-27] MEDS: APIXABAN 5 MG TABLET. PO SCH ×2 (09:14→21:09)
[2021-03-27] MEDS: FLUTICASONE/VILANTEROL 200/25 INHALER. INH SCH (09:14)
[2021-03-27] MEDS ORDERED: POTASSIUM CHLORIDE 20 MEQ TABLET.ER. PO ONE (09:15)
[2021-03-27] MEDS: DICLOFENAC SODIUM 1% TOPICAL GEL 100GM TUBE. TP SCH ×2 (09:15→21:09)
[2021-03-27] MEDS: LACTOBACILLUS RHAMNOSUS GG 1 CAPSULE. PO SCH ×2 (09:16→21:08)
[2021-03-27] MEDS: IV 1/2 NORMAL SALINE 1,000 ML IV SCH (10:00)
[2021-03-27 10:15] VITALS: BP_SYST 105; BP_SYST 149; BP_DIAS 55; BP_DIAS 81
[2021-03-27] MEDS ORDERED: IV 1/2 NORMAL SALINE 1,000 ML IV SCH (10:15)
[2021-03-27] MEDS ORDERED: oxyCODONE/APAP 5/325 1 TAB TABLET PO PRN (10:15)
[2021-03-27] MEDS: oxyCODONE/APAP 5/325 1 TAB TABLET PO PRN ×3 (10:15→22:00)
--- NOTE | 2021-03-27 10:43 | PDOC2 ---
RAHEEL RICE GLASS DRILLER 03/27/21 1043: CARDIAC CONSULT DATE OF CONSULT Date of Consult DATE: 03/27/21 TIME: 10:17 REASON FOR CONSULT Reason for Consult: chest pain, CHF, AF REFERRING PHYSICIAN Referring Physician: Dana SOURCE Source: Chart review, Patient HISTORY OF PRESENT ILLNESS HISTORY OF PRESENT ILLNESS This is a pleasant 85 yo male admitted for multiple complains. Reports that he has some cough but not much and having sharp pain particularly with cough and deep breathing.Vomited the other day. His appetite has been off in the last 2 days and has not been feeling well with body aches and chills. Had some SOA but currently none and on RA. No diarrhea. No dizziness, passing out and denies palpitations. PAST MEDICAL HISTORY Past Medical History Cardiovascular: AFIB, CHF, HTN, Hyperlipidemia Pulmonary: No pertinent hx CENTRAL NERVOUS SYSTEM: Other (No pertinent history) GI: No pertinent hx Heme/Onc: Anemia, Other (chronic anticoagulation) Hepatobiliary: No pertinent hx Psych: No pertinent hx Musculoskeletal: Osteoarthritis Rheumatologic: Gout Infectious disease: No pertinent hx ENT: No pertinent hx Renal/: Chronic renal insuff Endocrine: No pertinent hx Dermatology: No pertinent hx PAST SURGICAL HISTORY Past Surgical History Pacemaker, left shoulder replacement, left foot surgery) FAMILY HISTORY Family History Noncontributory to CV SOCIAL HISTORY Smoke: No ALCOHOL: none Drugs: None Lives: with Family CURRENT MEDICATIONS CURRENT MEDICATIONS Current Medications Medications (Trade) Dose Ordered Sig/Tam Route PRN Reason Start Time Stop Time Status Last Admin Dose Admin Sodium Chloride 500 ml @ 500 mls/hr 1X ONCE IV 03/26/21 11:15 03/26/21 12:14 DC 03/26/21 11:43 Acetaminophen (Tylenol) 1,000 mg 1X ONCE PO 03/26/21 11:15 03/26/21 11:25 DC 03/26/21 11:43 Aspirin (Aspirin Chewable) 324 mg 1X ONCE PO 03/26/21 11:30 03/26/21 11:31 DC 03/26/21 11:43 Nitroglycerin (Nitrostat) 0.4 mg PRN Q5MIN PRN SL CHEST PAIN 03/26/21 11:30 03/26/21 12:12 Sodium Chloride 1,000 ml @ 1,000 mls/hr 1X ONCE IV 03/26/21 12:15 03/26/21 13:14 DC 03/26/21 12:16 Fentanyl Citrate (Fentanyl 2ml Vial) 50 mcg 1X ONCE IVP 03/26/21 13:00 03/26/21 13:01 DC 03/26/21 13:14 Doxycycline Hyclate 100 mg/ Dextrose 100 ml @ 50 mls/hr 1X ONCE IV 03/26/21 13:00 03/26/21 14:59 DC 03/26/21 13:14 Fentanyl Citrate (Fentanyl 2ml Vial) 50 mcg PRN Q2HRS PRN IVP chest pain 03/26/21 14:15 03/26/21 20:57 Sodium Chloride 1,000 ml @ 75 mls/hr [id number] IV 03/26/21 14:15 03/26/21 15:20 DC 03/26/21 14:15 Albuterol Sulfate (Ventolin Hfa) 2 puff PRN Q4HRS PRN INH SHORTNESS OF BREATH 03/26/21 15:30 03/26/21 15:45 Amylase/Lipase/ Protease (Zenpep 10,000) 2 cap TIDWMEALS PO 03/26/21 16:00 03/27/21 09:14 Allopurinol (Zyloprim) 100 mg DAILY PO 03/27/21 09:00 03/27/21 09:14 Bupropion HCl (Wellbutrin Xl) 150 mg DAILY PO 03/27/21 09:00 03/27/21 09:13 Tamsulosin HCl (Flomax) 0.8 mg DAILY PO 03/27/21 09:00 03/27/21 09:14 Fluticasone/ Vilanterol (Breo Ellipta 200-25 Mcg) 1 puff DAILY INH 03/26/21 16:00 03/27/21 09:14 Ondansetron HCl (Zofran) 4 mg PRN Q4HRS PRN IVP NAUSEA/VOMITING 03/26/21 15:30 03/26/21 22:35 Apixaban (Eliquis) 5 mg BID PO 03/26/21 21:00 03/27/21 09:14 Carvedilol (Coreg) 6.25 mg BIDWMEALS PO 03/26/21 17:00 03/27/21 09:14 Ceftriaxone Sodium (Rocephin) 1 gm Q24H IVP 03/26/21 16:00 03/26/21 15:47 Doxycycline Hyclate (Vibra-Tab) 100 mg BID PO 03/26/21 21:00 03/27/21 09:14 Diclofenac Sodium (Voltaren) 1 jack BID TP 03/26/21 16:00 03/27/21 09:15 Magnesium Sulfate 50 ml @ 25 mls/hr 1X ONCE IV 03/26/21 17:00 03/26/21 18:59 DC 03/26/21 16:45 Lactobacillus Rhamnosus (Culturelle) 1 cap BID PO 03/27/21 09:00 03/27/21 09:16 Potassium Chloride (Klor-Con) 40 meq 1X ONCE PO 03/27/21 09:15 03/27/21 09:16 DC 03/27/21 09:16 Sodium Chloride 1,000 ml @ 50 mls/hr Q20H IV 03/27/21 10:00 03/27/21 10:00 ALLERGIES ALLERGIES: Coded Allergies: No Known Drug Allergies (Unverified , 10/27/16) ROS Review of System 14 point ROS evlauated with pertinent positives noted per HPI PHYSICAL EXAM General: Alert, Oriented X3, Cooperative, No acute distress HEENT: Atraumatic, Mucous membr. moist/pink Lungs: Clear to auscultation, Normal air movement, Other Heart: Other (AFIB; 2/6 systolic murmur to LLS border) Abdomen: Soft, No tenderness Extremities: No cyanosis, Other (1+ bilateral LE pitting edema) Skin: No breakdown, No significant lesion Neuro: Normal speech, Sensation intact Psych/Mental Status: Mental status NL, Mood NL MUSCULOSKELETAL: Osteoarthritic changes both hands VITALS/I&O VITALS/I&O: Vital Signs Date Time Temp Pulse Resp B/P (MAP) Pulse Ox O2 Delivery O2 Flow Rate FiO2 03/27/21 09:14 72 103/57 03/27/21 07:00 98.1 18 98 Room Air 98.1 I & O 03/26/21 03/26/21 03/27/21 15:00 23:00 07:00 Intake Total 1500 ml 100 ml 1000 ml Output Total 100 ml Balance 1500 ml 100 ml 900 ml LABS Lab: Laboratory Tests Test 03/26/21 11:30 03/26/21 11:51 03/26/21 14:30 03/26/21 15:27 White Blood Count 4.7 x10^3/uL (4.0-11.0) Red Blood Count 4.14 x10^6/uL (4.30-5.70) L Hemoglobin 13.1 g/dL (13.0-17.5) Hematocrit 39.5 % (39.0-53.0) Mean Corpuscular Volume 96 fL (79-100) Mean Corpuscular Hemoglobin 32 pg (25-35) Mean Corpuscular Hemoglobin Concent 33 g/dL (31-37) Red Cell Distribution Width 14.4 % (11.5-14.5) Platelet Count 127 x10^3/uL (140-400) L Neutrophils (%) (Auto) 96 % (31-73) H Lymphocytes (%) (Auto) 4 % (24-48) L Monocytes (%) (Auto) 0 % (0-9) Eosinophils (%) (Auto) 0 % (0-3) Basophils (%) (Auto) 0 % (0-3) Neutrophils # (Auto) 4.5 x10^3/uL (1.8-7.7) Lymphocytes # (Auto) 0.2 x10^3/uL (1.0-4.8) L Monocytes # (Auto) 0.0 x10^3/uL (0.0-1.1) Eosinophils # (Auto) 0.0 x10^3/uL (0.0-0.7) Basophils # (Auto) 0.0 x10^3/uL (0.0-0.2) Segmented Neutrophils % 88 % (35-66) H Band Neutrophils % 8 % (0-9) Lymphocytes % 4 % (24-48) L Platelet Estimate Adequate (ADEQUATE) Sodium Level 145 mmol/L (136-145) Potassium Level 3.4 mmol/L (3.5-5.1) L Chloride Level 105 mmol/L (98-107) Carbon Dioxide Level 28 mmol/L (21-32) Anion Gap 12 (6-14) Blood Urea Nitrogen 19 mg/dL (8-26) Creatinine 1.5 mg/dL (0.7-1.3) H Estimated GFR (Cockcroft-Gault) 54.1 BUN/Creatinine Ratio 13 (6-20) Glucose Level 99 mg/dL (70-99) Lactic Acid Level 3.2 mmol/L (0.4-2.0) H 2.3 mmol/L (0.4-2.0) H Calcium Level 7.8 mg/dL (8.5-10.1) L Phosphorus Level 2.6 mg/dL (2.6-4.7) Magnesium Level 1.3 mg/dL (1.8-2.4) L Total Bilirubin 1.1 mg/dL (0.2-1.0) H Aspartate Amino Transferase (AST) 12 U/L (15-37) L Alanine Aminotransferase (ALT) 12 U/L (16-63) L Alkaline Phosphatase 84 U/L (46-116) Creatine Kinase 102 U/L (39-308) Troponin I High Sensitivity 17 ng/L (4-75) 40 ng/L (4-75) PX-Der-K-Type Natriuretic Peptide 1327 pg/mL (0-449) H Total Protein 7.4 g/dL (6.4-8.2) Albumin 3.4 g/dL (3.4-5.0) Albumin/Globulin Ratio 0.9 (1.0-1.7) L Lipase 41 U/L (73-393) L SARS-CoV-2 (PCR) Not detected (NOT DETECTD) Influenza Type A Antigen Negative (NEGATIVE) Influenza Type B Antigen Negative (NEGATIVE) SARS-CoV-2 Antigen (Rapid) Negative (NEGATIVE) POC RSV Rapid Screen Negative (NEGATIVE) Test 03/27/21 04:00 Sodium Level 147 mmol/L (136-145) H Potassium Level 3.4 mmol/L (3.5-5.1) L Chloride Level 108 mmol/L (98-107) H Carbon Dioxide Level 27 mmol/L (21-32) Anion Gap 12 (6-14) Blood Urea Nitrogen 24 mg/dL (8-26) Creatinine 1.5 mg/dL (0.7-1.3) H Estimated GFR (Cockcroft-Gault) 54.1 Glucose Level 94 mg/dL (70-99) Calcium Level 7.4 mg/dL (8.5-10.1) L Magnesium Level 1.9 mg/dL (1.8-2.4) Troponin I High Sensitivity 34 ng/L (4-75) Laboratory Tests 03/26/21 11:30 Laboratory Tests 03/26/21 11:30 03/27/21 04:00 ECHOCARDIOGRAM ECHOCARDIOGRAM <Conclusion> The left ventricular systolic function is normal. The Ejection Fraction is 60-65%. Transmitral Doppler flow pattern is Grade I-abnormal relaxation pattern. There is a pacemaker lead in the right ventricle. Mild aortic stenosis. Trace mitral regurgitation. Mild tricuspid regurgitation. The PA pressure was estimated at 57 mmHg. There is no evidence of significant pericardial effusion. DATE: 05/31/18 1440 ASSESSMENT/PLAN ASSESSMENT/PLAN 1. Atypical chest pain: possible pleurisy 2. Pneumonia: Covid-19 neg, vaccinated 3. Chronic diastolic CHF; compensated 4. AFIB: intermittent RVR episodes possibly chronic. Rate controlled with chronic RBBB 5. SSS s/p PPM ([employer]) 6. CKD3; Cr stable 7. HTN: controlled overall 8. HLP; statin 9. Hypokalemia: replaced 10. Sepsis with bacteremia: G- rods 2/3 bottles Recommendations Antibiotics per PCP Secondary prevention measures Continue eliquis for stroke prevention. coreg for rate control Currently dehydrated, hold lasix for now. Follow up with cardiology KATY MENDEZ MD 03/27/21 1435: CARDIAC CONSULT ASSESSMENT/PLAN ASSESSMENT/PLAN Patient seen and examined. Agree with TOLL RELIEF OPERATOR's assessment and plan. Chest pain with atypical features. Myocardial infarction has been ruled out. Permanent atrial fibrillation, rate relatively well controlled with few RVR Continue Eliquis for stroke prophylaxis Chronic diastolic heart failure clinically well compensated SSS s/p PPM, clinically stable Thank you for your consultation RAHEEL RICE APRN Mar 27, 2021 10:43 KATY MENDEZ MD Mar 27, 2021 14:35
[2021-03-27 11:44] LABS: PROTHROMBIN TIME PATIENT 17.5 SEC (11.7-14.0)
--- NOTE | 2021-03-27 13:17 | NUR ---
SS following for discharge planning. SS reviewed pt chart and discussed with pt RN. Pt is from home and is currently on room air. Cardiology consulted. Pt on IV Rocephin. COVID19 negative. SS will continue to follow for discharge planning.
--- NOTE | 2021-03-27 14:27 | PDOC ---
[facility] PROGRESS NOTE Date of Service DOS: DATE: 03/27/21 TIME: 14:16 Chief Complaint Chief Complaint Assessment/Plan Gram-negative abdoul bacteremiarepeat blood cultures and continue the IV ceftriaxone Chest pain - atypical, seems pleuritic. High risk for NSAIDs given his eliquis therapy. Will give tylenol, supportive care, guaifenesin. Given his cardiac history we will consult cardiology maintain telemetry. Trend troponin Shortness of breath - Likely from pneumonia, gram negative. Will test for RSV given child exposure. Will f/u COVID19 RT PCR Abnormal CXR - right lobar and atypical pneumonia, possibly viral but likely gram negative, will cover with rocephin and doxy, f/u COVID 19 results and RSV Anemia -chronic due to renal insufficiency. Will monitor Splenic cysts dating back to 2012 Chronic diastolic CHF - seems stable, will stop IVF Chronic abdominal pain - seems to be pancreatic insufficiency, will cont creon Chronic kidney disease - stable from prior labs Osteoarthritis - diclofenac topical Paroxysmal A. fib - on coreg and eliquis. Cardiology to see PPM in situ - will have device interrogation. in place since 2014 COPD - on home albuterol, will order LABA/ICS and albuterol inhaler prn GERD - PPI Hypomagnesemia - will replace Gout - cont renally dosed allopurinol History of GI bleed - avoid NSAIDs Hypertension - cont home meds Hyperlipidemia - statin BPH - flomax FEN - Cardiac diet PPX - eliquis FULL CODE Dispo - inpatient History of Present Illness History of Present Illness 85 year old male w/ PMHx BPH, chronic diastolic CHF, paroxysmal afib, SSS s/p ppm, CKD, GERD, COPD, HTN, HLD, OA with chronic pain, and recent diagnosis of pancreatic insufficiency who was brought in to ED via EMS, from home, with report of chest pain and shortness of breath symptoms, which began at 0500 today which woke him from sleep. He has associated mildly productive cough which worsens his chest pain with malaise and chills as well as generalized weakness for the past few days. No QUISPE or sore throat, no rhinorrhea. He does have chronic abdominal pain and diarrhea and was recently started on Creon for this and feels like treating his pancreatic insufficiency has helped significantly. EMS gave 1 sublingual nitroglycerin, which improved his chest pain, but caused hypotensive requiring 2L NSS IV fluid resuscitation. No recent hospitalization or travel history. He does recall sick contact, has been taking care of his 3 -year-old grandchild who slept in the bed with him overnight and did have a fever and a little bit of a cough. Fully vaccinated against COVID-19. Febrile 100.8 F on arrival WBC 4.7, Hb 13.1, platelets 127, NA 145, K3.4, BUN 19, CR 1.5, glucose 99, lactic acid 3.2, calcium 7.8, phosphorus 2.6, magnesium 1.3, bilirubin 1.1, AST 12, ALT 12, alkaline phosphatase 84, CK 102, high-sensitivity troponin is 17, NT proBNP 1327, albumin 3.4, lipase 41, rapid influenza negative, rapid COVID-19 negative. EKG looks like atrial fibrillation rate approximately 105 bpm left axis deviation S1-S2-S3 pattern left anterior fascicular block, meets RVH criteria. No ST segment elevations. QTc 469 Chest radiograph with left-sided pacemaker and bilateral airspace disease worse on the right like interstitial pneumonia. Admitted for further care. 03/27/2021 No acute events overnight. Patient seen examined bedside. Patient is currently chest pain-free at this time. Blood cultures grew out gram-negative rods 2 out of 3 bottles. We will repeat blood cultures and continue IV antibiotics. Patient's chart, labs, images were reviewed and discussed with RN Vitals/I&O Vitals/I&O: Vital Signs Date Time Temp Pulse Resp B/P (MAP) Pulse Ox O2 Delivery O2 Flow Rate FiO2 03/27/21 10:15 99.2 85 18 105/55 (72) 97 Room Air 99.2 I & O 03/26/21 03/26/21 03/27/21 15:00 23:00 07:00 Intake Total 1500 ml 100 ml 1000 ml Output Total 100 ml Balance 1500 ml 100 ml 900 ml Physical Exam General: Alert, Oriented X3, Cooperative, No acute distress Heart: Other (AFIB; 2/6 systolic murmur to LLS border) Abdomen: Soft, No tenderness Extremities: No cyanosis, Other (1+ bilateral LE pitting edema) Skin: No breakdown, No significant lesion Labs Labs: Laboratory Tests Test 03/26/21 14:30 03/26/21 15:27 03/27/21 04:00 03/27/21 10:55 Lactic Acid Level 2.3 mmol/L (0.4-2.0) Troponin I High Sensitivity 40 ng/L (4-75) 34 ng/L (4-75) POC RSV Rapid Screen Negative (NEGATIVE) Sodium Level 147 mmol/L (136-145) Potassium Level 3.4 mmol/L (3.5-5.1) Chloride Level 108 mmol/L (98-107) Carbon Dioxide Level 27 mmol/L (21-32) Anion Gap 12 (6-14) Blood Urea Nitrogen 24 mg/dL (8-26) Creatinine 1.5 mg/dL (0.7-1.3) Estimated GFR (Cockcroft-Gault) 54.1 Glucose Level 94 mg/dL (70-99) Calcium Level 7.4 mg/dL (8.5-10.1) Magnesium Level 1.9 mg/dL (1.8-2.4) Prothrombin Time 17.5 SEC (11.7-14.0) Prothromb Time International Ratio 1.5 (0.8-1.1) Assessment and Plan Assessmemt and Plan Problems Medical Problems: (1) Atypical pneumonia Status: Acute (2) Chest pain Status: Acute (3) Chronic atrial fibrillation Status: Acute (4) Congestive heart failure Status: Acute (5) Dyspnea Status: Acute Comment Review of Relevant I have reviewed the following items joanne (where applicable) has been applied. Medications: Current Medications Medications (Trade) Dose Ordered Sig/Tam Route PRN Reason Start Time Stop Time Status Last Admin Dose Admin Albuterol Sulfate (Ventolin Hfa) 2 puff PRN Q4HRS PRN INH SHORTNESS OF BREATH 03/26/21 15:30 03/26/21 15:45 Amylase/Lipase/ Protease (Zenpep 10,000) 2 cap TIDWMEALS PO 03/26/21 16:00 03/27/21 11:31 Allopurinol (Zyloprim) 100 mg DAILY PO 03/27/21 09:00 03/27/21 09:14 Bupropion HCl (Wellbutrin Xl) 150 mg DAILY PO 03/27/21 09:00 03/27/21 09:13 Tamsulosin HCl (Flomax) 0.8 mg DAILY PO 03/27/21 09:00 03/27/21 09:14 Fluticasone/ Vilanterol (Breo Ellipta 200-25 Mcg) 1 puff DAILY INH 03/26/21 16:00 03/27/21 09:14 Ondansetron HCl (Zofran) 4 mg PRN Q4HRS PRN IVP NAUSEA/VOMITING 03/26/21 15:30 03/26/21 22:35 Apixaban (Eliquis) 5 mg BID PO 03/26/21 21:00 03/27/21 09:14 Carvedilol (Coreg) 6.25 mg BIDWMEALS PO 03/26/21 17:00 03/27/21 09:14 Ceftriaxone Sodium (Rocephin) 1 gm Q24H IVP 03/26/21 16:00 03/26/21 15:47 Doxycycline Hyclate (Vibra-Tab) 100 mg BID PO 03/26/21 21:00 03/27/21 09:14 Diclofenac Sodium (Voltaren) 1 jack BID TP 03/26/21 16:00 03/27/21 09:15 Magnesium Sulfate 50 ml @ 25 mls/hr 1X ONCE IV 03/26/21 17:00 03/26/21 18:59 DC 03/26/21 16:45 Lactobacillus Rhamnosus (Culturelle) 1 cap BID PO 03/27/21 09:00 03/27/21 09:16 Potassium Chloride (Klor-Con) 40 meq 1X ONCE PO 03/27/21 09:15 03/27/21 09:16 DC 03/27/21 09:16 Sodium Chloride 1,000 ml @ 50 mls/hr Q20H IV 03/27/21 10:00 03/27/21 10:00 Sodium Chloride 1,000 ml @ 50 mls/hr Q20H IV 03/27/21 10:15 03/27/21 10:15 Oxycodone/ Acetaminophen (Percocet 5/325) 1 tab PRN Q6HRS PRN PO MODERATE TO SEVERE PAIN 03/27/21 10:15 03/27/21 10:15 Justifications for Admission Other Justification DUNG FLOREZ MD Mar 27, 2021 14:27
[2021-03-27 15:00] VITALS: BP 104/65
[2021-03-27] MEDS: cefTRIAXone IV Push 1 GM VIAL. IVP SCH (15:39)
[2021-03-27 19:00] VITALS: BP 101/59
[2021-03-27 22:52] VITALS: BP 105/64
[2021-03-28 02:52] VITALS: BP 121/62
[2021-03-28 05:28] LABS: CALCIUM 7.9 mg/dL (8.5-10.1); CREATININE 1.4 mg/dL (0.7-1.3); GFR 58.6; POTASSIUM 3.6 mmol/L (3.5-5.1)
[2021-03-28] MEDS: IV 1/2 NORMAL SALINE 1,000 ML IV SCH (05:33)
[2021-03-28 07:00] VITALS: BP 148/74
[2021-03-28] MEDS: LIPASE/PROTEAS/AMYLAS 10/32/42 CAPSULE.DR. PO SCH ×3 (08:00→16:25)
[2021-03-28] MEDS: FLUTICASONE/VILANTEROL 200/25 INHALER. INH SCH (09:00)
[2021-03-28] MEDS: buPROPion XL 150 MG TAB.ER.24H. PO SCH (09:00)
[2021-03-28] MEDS: DICLOFENAC SODIUM 1% TOPICAL GEL 100GM TUBE. TP SCH ×2 (09:00→21:12)
[2021-03-28] MEDS: APIXABAN 5 MG TABLET. PO SCH ×2 (09:00→21:11)
[2021-03-28] MEDS: LACTOBACILLUS RHAMNOSUS GG 1 CAPSULE. PO SCH ×2 (09:00→21:11)
[2021-03-28] MEDS: CARVEDILOL 6.25 MG TABLET. PO SCH ×2 (09:00→16:26)
[2021-03-28] MEDS: DOXYCYCLINE HYCLATE 100 MG TABLET PO SCH ×2 (09:00→21:11)
[2021-03-28] MEDS: ALLOPURINOL 100 MG TABLET. PO SCH (09:00)
[2021-03-28] MEDS: TAMSULOSIN 0.4 MG CAP.ER.24H. PO SCH (09:00)
[2021-03-28] MEDS: oxyCODONE/APAP 5/325 1 TAB TABLET PO PRN ×2 (09:10→19:32)
[2021-03-28 10:44] VITALS: BP 124/61
[2021-03-28] MEDS: ONDANSETRON PF 4 MG/2 ML VIAL. IVP PRN (11:16)
--- NOTE | 2021-03-28 13:40 | PDOC ---
[facility] PROGRESS NOTE Date of Service DOS: DATE: 03/28/21 TIME: 13:39 Chief Complaint Chief Complaint Assessment/Plan Gram-negative abdoul bacteremiarepeat blood cultures and continue the IV ceftriaxone Chest pain - atypical, seems pleuritic. High risk for NSAIDs given his eliquis therapy. Will give tylenol, supportive care, guaifenesin. Given his cardiac history we will consult cardiology maintain telemetry. Trend troponin Shortness of breath - Likely from pneumonia, gram negative. Will test for RSV given child exposure. Will f/u COVID19 RT PCR Abnormal CXR - right lobar and atypical pneumonia, possibly viral but likely gram negative, will cover with rocephin and doxy, f/u COVID 19 results and RSV Anemia -chronic due to renal insufficiency. Will monitor Splenic cysts dating back to 2012 Chronic diastolic CHF - seems stable, will stop IVF Chronic abdominal pain - seems to be pancreatic insufficiency, will cont creon Chronic kidney disease - stable from prior labs Osteoarthritis - diclofenac topical Paroxysmal A. fib - on coreg and eliquis. Cardiology to see PPM in situ - will have device interrogation. in place since 2014 COPD - on home albuterol, will order LABA/ICS and albuterol inhaler prn GERD - PPI Hypomagnesemia - will replace Gout - cont renally dosed allopurinol History of GI bleed - avoid NSAIDs Hypertension - cont home meds Hyperlipidemia - statin BPH - flomax FEN - Cardiac diet PPX - eliquis FULL CODE Dispo - inpatient History of Present Illness History of Present Illness 85 year old male w/ PMHx BPH, chronic diastolic CHF, paroxysmal afib, SSS s/p ppm, CKD, GERD, COPD, HTN, HLD, OA with chronic pain, and recent diagnosis of pancreatic insufficiency who was brought in to ED via EMS, from home, with report of chest pain and shortness of breath symptoms, which began at 0500 today which woke him from sleep. He has associated mildly productive cough which worsens his chest pain with malaise and chills as well as generalized weakness for the past few days. No QUISPE or sore throat, no rhinorrhea. He does have chronic abdominal pain and diarrhea and was recently started on Creon for this and feels like treating his pancreatic insufficiency has helped significantly. EMS gave 1 sublingual nitroglycerin, which improved his chest pain, but caused hypotensive requiring 2L NSS IV fluid resuscitation. No recent hospitalization or travel history. He does recall sick contact, has been taking care of his 3 -year-old grandchild who slept in the bed with him overnight and did have a fever and a little bit of a cough. Fully vaccinated against COVID-19. Febrile 100.8 F on arrival WBC 4.7, Hb 13.1, platelets 127, NA 145, K3.4, BUN 19, CR 1.5, glucose 99, lactic acid 3.2, calcium 7.8, phosphorus 2.6, magnesium 1.3, bilirubin 1.1, AST 12, ALT 12, alkaline phosphatase 84, CK 102, high-sensitivity troponin is 17, NT proBNP 1327, albumin 3.4, lipase 41, rapid influenza negative, rapid COVID-19 negative. EKG looks like atrial fibrillation rate approximately 105 bpm left axis deviation S1-S2-S3 pattern left anterior fascicular block, meets RVH criteria. No ST segment elevations. QTc 469 Chest radiograph with left-sided pacemaker and bilateral airspace disease worse on the right like interstitial pneumonia. Admitted for further care. 03/27/2021 No acute events overnight. Patient seen examined bedside. Patient is currently chest pain-free at this time. Blood cultures grew out gram-negative rods 2 out of 3 bottles. We will repeat blood cultures and continue IV antibiotics. Patient's chart, labs, images were reviewed and discussed with RN 03/28/2021 No acute events overnight. Patient seen examined bedside. Patient resting comfortably in bed. Blood cultures grew out Proteus mirabilis and E. coli. Continue with IV ceftriaxone. Fever of 100.3 last night. Vital signs stable. Repeat blood culture sent. Patient's chart, labs, images were reviewed and discussed with RN Vitals/I&O Vitals/I&O: Vital Signs Date Time Temp Pulse Resp B/P (MAP) Pulse Ox O2 Delivery O2 Flow Rate FiO2 03/28/21 10:44 98.4 86 19 124/61 (82) 97 Room Air 98.4 I & O 03/27/21 03/27/21 03/28/21 15:00 23:00 07:00 Intake Total 800 ml 100 ml 600 ml Output Total 300 ml Balance 800 ml 100 ml 300 ml Physical Exam General: Alert, Oriented X3, Cooperative, No acute distress Heart: Other (AFIB; 2/6 systolic murmur to LLS border) Abdomen: Soft, No tenderness Extremities: No cyanosis, Other (1+ bilateral LE pitting edema) Skin: No breakdown, No significant lesion Labs Labs: Laboratory Tests Test 03/28/21 04:20 Sodium Level 143 mmol/L (136-145) Potassium Level 3.6 mmol/L (3.5-5.1) Chloride Level 106 mmol/L (98-107) Carbon Dioxide Level 27 mmol/L (21-32) Anion Gap 10 (6-14) Blood Urea Nitrogen 23 mg/dL (8-26) Creatinine 1.4 mg/dL (0.7-1.3) Estimated GFR (Cockcroft-Gault) 58.6 Glucose Level 93 mg/dL (70-99) Calcium Level 7.9 mg/dL (8.5-10.1) Assessment and Plan Assessmemt and Plan Problems Medical Problems: (1) Atypical pneumonia Status: Acute (2) Chest pain Status: Acute (3) Chronic atrial fibrillation Status: Acute (4) Congestive heart failure Status: Acute (5) Dyspnea Status: Acute Comment Review of Relevant I have reviewed the following items joanne (where applicable) has been applied. Justifications for Admission Other Justification DUNG FLOREZ MD Mar 28, 2021 13:40
[2021-03-28 14:22] VITALS: BP 147/73
--- NOTE | 2021-03-28 14:36 | PDOC ---
PROGRESS NOTES Date of Service: DATE: 03/28/21 TIME: 14:35 Subjective Subjective Chest pain improved. No new complaints. Objective Objective Vital Signs Date Time Temp Pulse Resp B/P (MAP) Pulse Ox O2 Delivery O2 Flow Rate FiO2 03/28/21 14:22 97.0 78 18 147/73 (97) 97 Room Air 97.0 Intake and Output 03/28/21 07:00 Intake Total 1500 ml Output Total 300 ml Balance 1200 ml Intake Oral 900 ml IV Total 600 ml Output Urine Total 300 ml Physical Exam Abdomen: Soft, No tenderness Heart: Other (AFIB; 2/6 systolic murmur to LLS border) Extremities: No cyanosis, Other (1+ bilateral LE pitting edema) General: Alert, Oriented X3, Cooperative, No acute distress HEENT: Atraumatic, Mucous membr. moist/pink Lungs: Clear to auscultation, Normal air movement, Other Neuro: Normal speech, Sensation intact Psych/Mental Status: Mental status NL, Mood NL Skin: No breakdown, No significant lesion Assessment Assessment 1. Atypical chest pain: possible pleurisy 2. Pneumonia: Covid-19 neg, vaccinated 3. Chronic diastolic CHF; compensated 4. AFIB: intermittent RVR episodes possibly chronic. Rate controlled with chronic RBBB 5. SSS s/p PPM (Medtronic) 6. CKD3; Cr stable 7. HTN: controlled overall 8. HLP; statin 9. Hypokalemia: replaced 10. Sepsis with bacteremia: G- rods 2/3 bottles Recommendations Antibiotics per PCP Secondary prevention measures Continue eliquis for stroke prevention. coreg for rate control Plan Plan of Care Problems Medical Problems: (1) Atypical pneumonia Status: Acute (2) Chest pain Status: Acute (3) Chronic atrial fibrillation Status: Acute (4) Congestive heart failure Status: Acute (5) Dyspnea Status: Acute Comment Review of Relevant I have reviewed the following items joanne (where applicable) has been applied. Labs Laboratory Tests Test 03/28/21 04:20 Sodium Level 143 mmol/L (136-145) Potassium Level 3.6 mmol/L (3.5-5.1) Chloride Level 106 mmol/L (98-107) Carbon Dioxide Level 27 mmol/L (21-32) Anion Gap 10 (6-14) Blood Urea Nitrogen 23 mg/dL (8-26) Creatinine 1.4 mg/dL (0.7-1.3) Estimated GFR (Cockcroft-Gault) 58.6 Glucose Level 93 mg/dL (70-99) Calcium Level 7.9 mg/dL (8.5-10.1) Microbiology 03/26/21 Blood Culture - Preliminary, Resulted Escherichia Coli Proteus Mirabilis Vitals/I & O Vital Sign - Last 24 Hours 03/27/21 03/27/21 03/27/21 03/27/21 15:00 16:32 19:00 20:00 Temp 97.4 98.5 97.4 98.5 Pulse 80 83 84 Resp 18 18 B/P (MAP) 104/65 (78) 121/62 101/59 (73) Pulse Ox 100 98 O2 Delivery Room Air Room Air Room Air 03/27/21 03/27/21 03/27/21 03/28/21 22:00 22:31 22:52 02:52 Temp 98.5 98.0 98.5 98.0 Pulse 73 82 Resp 18 20 B/P (MAP) 105/64 (78) 121/62 (81) Pulse Ox 99 98 O2 Delivery Room Air Room Air Room Air Room Air 03/28/21 03/28/21 03/28/21 03/28/21 07:00 08:00 09:00 10:44 Temp 100.9 98.4 100.9 98.4 Pulse 95 95 86 Resp 18 19 B/P (MAP) 148/74 (98) 148/74 124/61 (82) Pulse Ox 93 97 O2 Delivery Room Air Room Air Room Air 03/28/21 14:22 Temp 97.0 97.0 Pulse 78 Resp 18 B/P (MAP) 147/73 (97) Pulse Ox 97 O2 Delivery Room Air Intake and Output 03/27/21 03/27/21 03/28/21 15:00 23:00 07:00 Intake Total 800 ml 100 ml 600 ml Output Total 300 ml Balance 800 ml 100 ml 300 ml KATY MENDEZ MD Mar 28, 2021 14:36
[2021-03-28] MEDS: cefTRIAXone IV Push 1 GM VIAL. IVP SCH (14:52)
[2021-03-28 19:15] VITALS: BP 110/68
[2021-03-28 22:25] VITALS: BP 129/70
[2021-03-29] MEDS: IV 1/2 NORMAL SALINE 1,000 ML IV SCH ×2 (01:49→22:00)
[2021-03-29 02:26] VITALS: BP 129/60
[2021-03-29 04:36] LABS: HEMATOCRIT 32.4 % (39.0-53.0); HEMOGLOBIN 10.6 g/dL (13.0-17.5); RED BLOOD COUNT 3.38 x10^6/uL (4.30-5.70); RED CELL DISTRIBUTION WIDTH 14.3 % (11.5-14.5); WHITE BLOOD COUNT 4.5 x10^3/uL (4.0-11.0)
[2021-03-29] MEDS: oxyCODONE/APAP 5/325 1 TAB TABLET PO PRN ×3 (05:19→16:58)
[2021-03-29 07:00] VITALS: BP 110/72
[2021-03-29] MEDS: LACTOBACILLUS RHAMNOSUS GG 1 CAPSULE. PO SCH ×2 (08:52→21:19)
[2021-03-29] MEDS: LIPASE/PROTEAS/AMYLAS 10/32/42 CAPSULE.DR. PO SCH ×3 (08:52→16:29)
[2021-03-29] MEDS: TAMSULOSIN 0.4 MG CAP.ER.24H. PO SCH (08:52)
[2021-03-29] MEDS: APIXABAN 5 MG TABLET. PO SCH ×2 (08:52→21:18)
[2021-03-29] MEDS: DOXYCYCLINE HYCLATE 100 MG TABLET PO SCH ×2 (08:52→21:19)
[2021-03-29] MEDS: buPROPion XL 150 MG TAB.ER.24H. PO SCH (08:52)
[2021-03-29] MEDS: ALLOPURINOL 100 MG TABLET. PO SCH (08:53)
[2021-03-29] MEDS: DICLOFENAC SODIUM 1% TOPICAL GEL 100GM TUBE. TP SCH ×2 (08:53→21:19)
[2021-03-29] MEDS: CARVEDILOL 6.25 MG TABLET. PO SCH ×2 (08:53→16:29)
[2021-03-29] MEDS: FLUTICASONE/VILANTEROL 200/25 INHALER. INH SCH (08:53)
[2021-03-29 11:00] VITALS: BP 130/73
--- NOTE | 2021-03-29 12:56 | PDOC ---
PROGRESS NOTES Date of Service: DATE: 03/29/21 TIME: 12:55 Subjective Subjective Denied any further chest pain Objective Objective Vital Signs Date Time Temp Pulse Resp B/P (MAP) Pulse Ox O2 Delivery O2 Flow Rate FiO2 03/29/21 11:00 97.0 78 20 130/73 (92) 98 Room Air 97.0 Intake and Output 03/29/21 07:00 Intake Total 1000 ml Output Total 600 ml Balance 400 ml Intake Oral 400 ml IV Total 600 ml Output Urine Total 600 ml Physical Exam Abdomen: Soft, No tenderness Heart: Other (AFIB; 2/6 systolic murmur to LLS border) Extremities: No cyanosis, Other (1+ bilateral LE pitting edema) General: Alert, Oriented X3, Cooperative, No acute distress HEENT: Atraumatic, Mucous membr. moist/pink Lungs: Clear to auscultation, Normal air movement, Other Neuro: Normal speech, Sensation intact Psych/Mental Status: Mental status NL, Mood NL Skin: No breakdown, No significant lesion Assessment Assessment 1. Atypical chest pain: possible pleurisy, improved 2. Pneumonia: Covid-19 neg, vaccinated 3. Chronic diastolic CHF; compensated 4. AFIB: intermittent RVR episodes possibly chronic. Rate controlled with ch ronic RBBB 5. SSS s/p PPM (Medtronic) 6. CKD3; Cr stable 7. HTN: controlled overall 8. HLP; statin 9. Hypokalemia: replaced 10. Sepsis with bacteremia: G- rods 2/3 bottles Recommendations Antibiotics per primary service Secondary prevention measures Continue eliquis for stroke prevention. coreg for rate control Plan Plan of Care Problems Medical Problems: (1) Atypical pneumonia Status: Acute (2) Chest pain Status: Acute (3) Chronic atrial fibrillation Status: Acute (4) Congestive heart failure Status: Acute (5) Dyspnea Status: Acute Comment Review of Relevant I have reviewed the following items joanne (where applicable) has been applied. Labs Laboratory Tests Test 03/29/21 04:00 White Blood Count 4.5 x10^3/uL (4.0-11.0) Red Blood Count 3.38 x10^6/uL (4.30-5.70) Hemoglobin 10.6 g/dL (13.0-17.5) Hematocrit 32.4 % (39.0-53.0) Mean Corpuscular Volume 96 fL (79-100) Mean Corpuscular Hemoglobin 31 pg (25-35) Mean Corpuscular Hemoglobin Concent 33 g/dL (31-37) Red Cell Distribution Width 14.3 % (11.5-14.5) Platelet Count 88 x10^3/uL (140-400) Microbiology 03/27/21 Blood Culture - Preliminary, Resulted NO GROWTH AFTER 1 DAY Vitals/I & O Vital Sign - Last 24 Hours 03/28/21 03/28/21 03/28/21 03/28/21 14:22 16:26 19:15 19:32 Temp 97.0 97.3 97.0 97.3 Pulse 78 78 91 Resp 18 18 B/P (MAP) 147/73 (97) 147/73 110/68 (82) Pulse Ox 97 98 O2 Delivery Room Air Room Air Room Air 03/28/21 03/28/21 03/28/21 03/29/21 19:57 20:02 22:25 02:26 Temp 97.5 97.7 97.5 97.7 Pulse 83 88 Resp 18 18 B/P (MAP) 129/70 (89) 129/60 (83) Pulse Ox 96 98 O2 Delivery Room Air Room Air Room Air Room Air 03/29/21 03/29/21 03/29/21 03/29/21 05:49 07:00 08:00 08:53 Temp 98.6 98.6 Pulse 87 87 Resp 20 B/P (MAP) 110/72 (85) 110/72 Pulse Ox 99 O2 Delivery Room Air Room Air Room Air 03/29/21 11:00 Temp 97.0 97.0 Pulse 78 Resp 20 B/P (MAP) 130/73 (92) Pulse Ox 98 O2 Delivery Room Air Intake and Output 03/28/21 03/28/21 03/29/21 15:00 23:00 07:00 Intake Total 100 ml 0 ml 900 ml Output Total 300 ml 300 ml Balance -200 ml 0 ml 600 ml KATY MENDEZ MD Mar 29, 2021 12:56
--- NOTE | 2021-03-29 13:01 | PDOC ---
[facility] PROGRESS NOTE Date of Service DOS: DATE: 03/29/21 TIME: 12:59 Chief Complaint Chief Complaint Assessment/Plan Gram-negative abdoul bacteremiarepeat blood cultures and continue the IV ceftriaxone Chest pain - atypical, seems pleuritic. High risk for NSAIDs given his eliquis therapy. Will give tylenol, supportive care, guaifenesin. Given his cardiac history we will consult cardiology maintain telemetry. Trend troponin Shortness of breath - Likely from pneumonia, gram negative. Will test for RSV given child exposure. Will f/u COVID19 RT PCR Abnormal CXR - right lobar and atypical pneumonia, possibly viral but likely gram negative, will cover with rocephin and doxy, f/u COVID 19 results and RSV Anemia -chronic due to renal insufficiency. Will monitor Splenic cysts dating back to 2012 Chronic diastolic CHF - seems stable, will stop IVF Chronic abdominal pain - seems to be pancreatic insufficiency, will cont creon Chronic kidney disease - stable from prior labs Osteoarthritis - diclofenac topical Paroxysmal A. fib - on coreg and eliquis. Cardiology to see PPM in situ - will have device interrogation. in place since 2014 COPD - on home albuterol, will order LABA/ICS and albuterol inhaler prn GERD - PPI Hypomagnesemia - will replace Gout - cont renally dosed allopurinol History of GI bleed - avoid NSAIDs Hypertension - cont home meds Hyperlipidemia - statin BPH - flomax FEN - Cardiac diet PPX - eliquis FULL CODE Dispo - inpatient History of Present Illness History of Present Illness 85 year old male w/ PMHx BPH, chronic diastolic CHF, paroxysmal afib, SSS s/p ppm, CKD, GERD, COPD, HTN, HLD, OA with chronic pain, and recent diagnosis of pancreatic insufficiency who was brought in to ED via EMS, from home, with report of chest pain and shortness of breath symptoms, which began at 0500 today which woke him from sleep. He has associated mildly productive cough which worsens his chest pain with malaise and chills as well as generalized weakness for the past few days. No QUISPE or sore throat, no rhinorrhea. He does have chronic abdominal pain and diarrhea and was recently started on Creon for this and feels like treating his pancreatic insufficiency has helped significantly. EMS gave 1 sublingual nitroglycerin, which improved his chest pain, but caused hypotensive requiring 2L NSS IV fluid resuscitation. No recent hospitalization or travel history. He does recall sick contact, has been taking care of his 3 -year-old grandchild who slept in the bed with him overnight and did have a fever and a little bit of a cough. Fully vaccinated against COVID-19. Febrile 100.8 F on arrival WBC 4.7, Hb 13.1, platelets 127, NA 145, K3.4, BUN 19, CR 1.5, glucose 99, lactic acid 3.2, calcium 7.8, phosphorus 2.6, magnesium 1.3, bilirubin 1.1, AST 12, ALT 12, alkaline phosphatase 84, CK 102, high-sensitivity troponin is 17, NT proBNP 1327, albumin 3.4, lipase 41, rapid influenza negative, rapid COVID-19 negative. EKG looks like atrial fibrillation rate approximately 105 bpm left axis deviation S1-S2-S3 pattern left anterior fascicular block, meets RVH criteria. No ST segment elevations. QTc 469 Chest radiograph with left-sided pacemaker and bilateral airspace disease worse on the right like interstitial pneumonia. Admitted for further care. 03/27/2021 No acute events overnight. Patient seen examined bedside. Patient is currently chest pain-free at this time. Blood cultures grew out gram-negative rods 2 out of 3 bottles. We will repeat blood cultures and continue IV antibiotics. Patient's chart, labs, images were reviewed and discussed with RN 03/28/2021 No acute events overnight. Patient seen examined bedside. Patient resting comfortably in bed. Blood cultures grew out Proteus mirabilis and E. coli. Continue with IV ceftriaxone. Fever of 100.3 last night. Vital signs stable. Repeat blood culture sent. Patient's chart, labs, images were reviewed and discussed with RN 03/29/2021 No acute events overnight. Patient seen examined bedside. Continue with IV antibiotics. Patient resting comfortably in bed. AF and VSS. Blood cultures negative to date. Anticipate discharge tomorrow. Patient's chart, labs, images were reviewed and discussed with RN Vitals/I&O Vitals/I&O: Vital Signs Date Time Temp Pulse Resp B/P (MAP) Pulse Ox O2 Delivery O2 Flow Rate FiO2 03/29/21 11:00 97.0 78 20 130/73 (92) 98 Room Air 97.0 I & O 03/28/21 03/28/21 03/29/21 15:00 23:00 07:00 Intake Total 100 ml 0 ml 900 ml Output Total 300 ml 300 ml Balance -200 ml 0 ml 600 ml Physical Exam General: Alert, Oriented X3, Cooperative, No acute distress Heart: Other (AFIB; 2/6 systolic murmur to LLS border) Abdomen: Soft, No tenderness Extremities: No cyanosis, Other (1+ bilateral LE pitting edema) Skin: No breakdown, No significant lesion Labs Labs: Laboratory Tests Test 03/29/21 04:00 White Blood Count 4.5 x10^3/uL (4.0-11.0) Red Blood Count 3.38 x10^6/uL (4.30-5.70) Hemoglobin 10.6 g/dL (13.0-17.5) Hematocrit 32.4 % (39.0-53.0) Mean Corpuscular Volume 96 fL (79-100) Mean Corpuscular Hemoglobin 31 pg (25-35) Mean Corpuscular Hemoglobin Concent 33 g/dL (31-37) Red Cell Distribution Width 14.3 % (11.5-14.5) Platelet Count 88 x10^3/uL (140-400) Assessment and Plan Assessmemt and Plan Problems Medical Problems: (1) Atypical pneumonia Status: Acute (2) Chest pain Status: Acute (3) Chronic atrial fibrillation Status: Acute (4) Congestive heart failure Status: Acute (5) Dyspnea Status: Acute Comment Review of Relevant I have reviewed the following items joanne (where applicable) has been applied. Justifications for Admission Other Justification DUNG FLOERZ MD Mar 29, 2021 13:01
[2021-03-29 15:00] VITALS: BP 119/65
[2021-03-29] MEDS: cefTRIAXone IV Push 1 GM VIAL. IVP SCH (15:27)
[2021-03-29 18:53] VITALS: BP 114/63
[2021-03-29 22:06] VITALS: BP 140/69
[2021-03-30] MEDS: oxyCODONE/APAP 5/325 1 TAB TABLET PO PRN ×3 (00:18→13:40)
[2021-03-30 02:16] VITALS: BP 105/56
[2021-03-30 07:00] VITALS: BP 140/68
[2021-03-30] MEDS: LIPASE/PROTEAS/AMYLAS 10/32/42 CAPSULE.DR. PO SCH ×2 (08:00→11:36)
[2021-03-30] MEDS: DOXYCYCLINE HYCLATE 100 MG TABLET PO SCH (08:09)
[2021-03-30] MEDS: APIXABAN 5 MG TABLET. PO SCH (08:09)
[2021-03-30] MEDS: TAMSULOSIN 0.4 MG CAP.ER.24H. PO SCH (08:09)
[2021-03-30] MEDS: LACTOBACILLUS RHAMNOSUS GG 1 CAPSULE. PO SCH (08:09)
[2021-03-30] MEDS: ALLOPURINOL 100 MG TABLET. PO SCH (08:09)
[2021-03-30] MEDS: buPROPion XL 150 MG TAB.ER.24H. PO SCH (08:09)
[2021-03-30] MEDS: CARVEDILOL 6.25 MG TABLET. PO SCH (08:10)
[2021-03-30] MEDS: DICLOFENAC SODIUM 1% TOPICAL GEL 100GM TUBE. TP SCH (08:14)
[2021-03-30] MEDS: ALBUTEROL SULFATE 8GM INHALER. INH PRN (08:14)
[2021-03-30] MEDS: FLUTICASONE/VILANTEROL 200/25 INHALER. INH SCH (08:14)
[2021-03-30 10:49] VITALS: BP 119/71
--- NOTE | 2021-03-30 11:20 | PDOC ---
LANDY,ROSS GENEVIEVE 03/30/21 1120: CARDIO Progress Notes Date and Time Date of Service 03/30/21 Time of Evaluation 1120 Subjective Subjective: No Chest Pain, No Palpitations, No Dizziness Vitals Vitals Vital Signs Date Time Temp Pulse Resp B/P (MAP) Pulse Ox O2 Delivery O2 Flow Rate FiO2 03/30/21 10:49 98.3 79 18 119/71 (87) 100 Room Air 98.3 Weight Weight [ ] Input and Output Intake and Output Intake and Output 03/30/21 07:00 Intake Total 2120 ml Output Total 810 ml Balance 1310 ml Intake Oral 1120 ml IV Total 1000 ml Output Urine Total 810 ml # Voids 1 Microbiology Micro Microbiology 03/27/21 Blood Culture - Preliminary, Resulted NO GROWTH AFTER 2 DAYS Physical Exam HEENT: Neck Supple W Full Motion Chest: Symmetric LUNGS: Other (expiratory wheezes, upper rhonchi) Heart: irregularly irregular (AFIB, rate controlled ) Abdomen: Soft N/T Extremities: Other (1+ bilateral LE edema ) Neurology: alert, oriented, follow commands Assessment Assessment 1. Atypical chest pain: possible pleurisy. AMI ruled out 2. Pneumonia: Covid-19 neg, vaccinated 3. Acute on chronic diastolic CHF 4. AFIB: Rate controlled with chronic RBBB 5. SSS s/p PPM (Medtronic) 6. CKD3; Cr stable 7. HTN: controlled overall 8. HLP; statin 9. Hypokalemia: replaced 10. Sepsis with bacteremia: G- rods 2/3 bottles Recommendations Antibiotics per IM Secondary prevention measures Continue Eliquis for stroke prevention. BB for rate control Justicifation of Admission Dx: Justifications for Admission: Justification of Admission Dx: Yes Comments: Acute respiratory failure PNA KATY MENDEZ MD 03/31/21 0647: CARDIO Progress Notes Assessment Assessment Patient seen and examined 03/30/2021. Agree with CASING COOKER's assessment and plan. Chest pain with atypical features and most probably pleuritic Acute on chronic diastolic heart failure better compensated Atrial fibrillation rate controlled Continue Eliquis for stroke prophylaxis ROSS BILL APRN Mar 30, 2021 11:20 KATY MENDEZ MD Mar 31, 2021 06:47
--- NOTE | 2021-03-30 13:38 | NUR ---
SS following up with discharge planning. SS reviewed pt chart and discussed with pt RN. Pt is currently on room air. COVID19 negative. Pt on IV Rocephin. Cardiology following. Discharge plan is currently to home with home healthcare. SS met with pt and discussed discharge planning and home healthcare. Pt reported having no preference of company. Referral phoned and faxed to [facility], ; fax [phone]. SS will continue to follow for discharge planning. Addendum: 03/30/21 at 1344 by BOBY MURRAY [facility] not in network with pt's insurance. Referral phoned and faxed to [facility], ; fax [phone]. Addendum: 03/30/21 at 1402 by BOBY MURRAY Discharge orders received and phoned and faxed to [facility].
[2021-03-30] MEDS ORDERED: CARV6.2511 PO (13:53)
[2021-03-30] MEDS ORDERED: CEFD300C PO (13:53)
[2021-03-30] MEDS ORDERED: APIX5TAB PO (13:53)
--- NOTE | 2021-03-30 13:57 | SNU/HH DC ---
DISCHARGE WITH HOME HEALTH DISCHARGE INFORMATION: Discharge Date: Mar 30, 2021 Final Diagnosis: Problems Medical Problems: (1) Atypical pneumonia Status: Acute (2) Chest pain Status: Acute (3) Chronic atrial fibrillation Status: Acute (4) Congestive heart failure Status: Acute (5) Dyspnea Status: Acute Condition on Discharge: Stable CODE STATUS: Code Status: Full HOME HEALTH: Face to Face: I certify this patient is under my care and that I, or a nurse practitioner or physician's foundation assistant working with me, had a face to face encounter that meets the physician face to face encounter requirements with this patient on []. RN For Eval/Treatment: Yes Physical Therapy For: Evalulation/Treatment Occupational Therapy For: Evaluation/Treatment WHEEL FILLER For: Community Resources Pt Meets Homebound Status: Extreme weakness w/ amb., Fatigue w/ amb., Frequent falls w/ injury, Limited distance walking, Unable to negotiate home POST DISCHARGE ORDERS: Activity Instructions for Disc: No restrictions, Activity as tolerated Weight Bearing Status after Di: No restrictions, As tolerated DIET AFTER DISCHARGE: Cardiac CHECKS AFTER DISCHARGE: Checks after discharge: Check blood press - daily FOLLOW-UP: Follow up with: PCP within 2 weeks of discharge Follow Up With: cardiology as needed DC TO SNF LABS: CBC, CMP CERTIFICATION STATEMENT: Certification Statement: Certification Statement: Based on the above finding, I certify that this patient is confined to the home and needs intermittent intermediate care, physical therapy and/or speech therapy, or continues to need occupational therapy.~ This patient is under my care, and I have initiated the establishment of the plan of care.~ This patient will be followed by myself or a community physician who will periodically review the plan of care. Home Meds Active Scripts Cefdinir (CEFDINIR) 300 Mg Capsule, 1 CAP PO BID for bacteremia for 7 Days, #14 CAP Prov:DUNG FLOREZ MD 03/30/21 Carvedilol (CARVEDILOL ) 6.25 Mg Tablet, 6.25 MG PO BIDWMEALS for heart failure for 30 Days, #60 TAB 3 Refills Prov:DUNG FLOREZ MD 03/30/21 Apixaban (ELIQUIS) 5 Mg Tablet, 5 MG PO BID for afib for 30 Days, #60 TAB 2 Refills Prov:DUNG FLOREZ MD 03/30/21 Hydrocodone Bit/Acetaminophen (HYDROCODONE-APAP 5-325 ) 1 Tab Tablet, 1 TAB PO PRN Q6HRS PRN for PAIN, #5 TAB 0 Refills Prov:DONOVAN WILD BURN NURSE 07/17/20 Naproxen (NAPROXEN) 500 Mg Tablet, 1 TAB PO BID for pain for 4 Days, #8 TAB 0 Refills Prov:DONOVAN WILD BURN NURSE 07/17/20 Oxycodone/Apap 10-325 (PERCOCET 10-325 MG TABLET ) 1 Each Tablet, 1 TAB PO PRN Q8HRS PRN for PAIN MDD 1, #40 TAB Prov:ELISSA BOB MD 06/01/18 Allopurinol (ALLOPURINOL) 100 Mg Tablet, 100 MG PO DAILY for 30 Days, #30 TAB Prov:DUONG ATKINSON MD 10/15/16 Reported Medications Sennosides/Docusate Sodium (SENOKOT-S TABLET) 1 Each Tablet, 1 TAB PO BID for constipation, #30 TAB 05/01/18 Polyethylene Glycol 3350 (MIRALAX) 119 Gm Powder, 17 GM PO PRN DAILY PRN for CONSTIPATION, #527 GM 05/01/18 Fluticasone Propionate (FLUTICASONE PROPIONATE NASAL SPRAY) 16 Gm [place].susp, 2 SPRAY NS DAILY for congestion, #1 INHALER 11 Refills 05/01/18 Docusate Sodium (DOCUSATE SODIUM) 100 Mg Capsule, 1 CAP PO PRN DAILY PRN for CONSTIPATION, #30 CAP 05/01/18 Bupropion Hcl (BUPROPION XL) 150 Mg Tab.er.24h, 1 TAB PO DAILY for mood, #30 TAB 05/01/18 Atorvastatin Calcium (ATORVASTATIN CALCIUM) 80 Mg Tablet, 1 TAB PO DAILY for cholesterol, #30 TAB 5 Refills 05/01/18 Albuterol Sulfate (PROAIR HFA INHALER) 8.5 Gm Hfa.aer.ad, 2 PUFF INH PRN Q6HRS PRN for SHORTNESS OF BREATH, INHALER 0 Refills 05/01/18 Tamsulosin Hcl (FLOMAX) 0.4 Mg Cap.er.24h, 0.8 MG PO DAILY for urine, TAB 07/19/13 Discontinued Reported Medications Warfarin Sodium (WARFARIN SODIUM) 4 Mg Tablet, 4 MG PO DAILY for blood thinner, #30 TAB 05/01/18 Torsemide (DEMADEX) 20 Mg Tablet, 100 MG PO DAILY for water pill, TAB 05/01/18 Metronidazole (METRONIDAZOLE) 500 Mg Tablet, 1 TAB PO BID for antibiotic, #14 TAB 05/01/18 Cefpodoxime Proxetil (CEFPODOXIME PROXETIL) 200 Mg Tablet, 1 TAB PO BID for antibiotic, #14 TAB 05/01/18 Losartan Potassium (LOSARTAN POTASSIUM) 100 Mg Tablet, 100 MG PO DAILY, TAB 10/12/16 Carvedilol (CARVEDILOL ) 12.5 Mg Tablet, 12.5 MG PO BIDWMEALS, TAB 10/12/16 DUNG FLOREZ MD Mar 30, 2021 13:57
[2021-03-30] MEDS ORDERED: POTASSIUM CHLORIDE 20 MEQ TABLET.ER. PO ONE (15:30)
[2021-03-30] MEDS ORDERED: FUROSEMIDE 40 MG/4 ML VIAL. IVP ONE (15:30)
== END 2021-03-30 14:45 | disposition home health service (06) | DRG 871 ==
LOC: ER 10:58 → 6 SOUTH 13:00 → OBSVTOIN 13:22 → 6 SOUTH 14:00
PROVIDERS: ADMIT Internal Medicine; ATTEND Internal Medicine
DX: A41.9 Sepsis, unspecified organism (principal); I50.33 Acute on chronic diastolic (congestive) heart failure; J15.6 Pneumonia due to other Gram-negative bacteria; J96.00 Acute respiratory failure, unspecified whether with hypoxia or hypercapnia; I13.0 Hypertensive heart and chronic kidney disease with heart failure and stage 1 through stage 4 chronic kidney disease, or unspecified chronic kidney disease; I45.2 Bifascicular block; I48.20 Chronic atrial fibrillation, unspecified; J44.0 Chronic obstructive pulmonary disease with (acute) lower respiratory infection; I48.21 Permanent atrial fibrillation; D73.4 Cyst of spleen; E78.00 Pure hypercholesterolemia, unspecified; E78.5 Hyperlipidemia, unspecified; E83.42 Hypomagnesemia; E87.6 Hypokalemia; G89.29 Other chronic pain; I48.0 Paroxysmal atrial fibrillation; K21.9 Gastro-esophageal reflux disease without esophagitis; K86.89 Other specified diseases of pancreas; M10.9 Gout, unspecified; M19.90 Unspecified osteoarthritis, unspecified site; N18.30 Chronic kidney disease, stage 3 unspecified; N40.0 Benign prostatic hyperplasia without lower urinary tract symptoms; Z20.822 Contact with and (suspected) exposure to COVID-19; Z79.01 Long term (current) use of anticoagulants; Z82.49 Family history of ischemic heart disease and other diseases of the circulatory system; Z95.0 Presence of cardiac pacemaker; Z96.612 Presence of left artificial shoulder joint; Z96.659 Presence of unspecified artificial knee joint; K59.00 Constipation, unspecified; D64.9 Anemia, unspecified
CPT/HCPCS: 36415; 71045; 80048; 80053; 82550; 83605; 83690; 83735; 83880; 84100; 84484; 85007; 85025; 85027; 85610; 87015; 87040; 87077; 87186; 87420; 87428; 93005; 96361; 96365; 96375; G0379; J0696; J2405; J3010; J3475; J3490; J7030; J7040; J7060; U0003; 99285-25; G0378